=== PATIENT | female | born 1975 | race Caucasian/White ===

== ENCOUNTER 2022-05-09 09:32 | Emergency (ER) | payer BC ==
--- OUTSIDE RECORDS SUMMARY | 2022-05-09 09:38 | XMS REPORT | Continuity of Care Document ---
:1975 Author Organization [facility] t Address [address] [facility] [facility] [place] [address] Care Team Providers Name Role Phone Pcp, Patient Does Not Have A Primary Care Physician +[id number] Doctor Unassigned, Sarepta Attending Clinician Unavailable ROC LOUIS Attending Clinician Unavailable Roc Louis MD Attending Clinician DIOR MALONE Attending Clinician Unavailable Dior Goode Attending Clinician Meli Esparza PA-C Attending Clinician LUCIANO FERNANDEZ Attending Clinician Unavailable Luciano Fernandez DO Attending Clinician Nurse, [facility] Attending Clinician Unavailable BRAYDEN DAO Attending Clinician Unavailable Brayden Dao MD Attending Clinician JENAE MEDINA Attending Clinician Unavailable [facility] Attending Clinician Unavailable Jenae Castellanos Attending Clinician LUCIANO FERNANDEZ Admitting Clinician Unavailable BRAYDEN DAO Admitting Clinician Unavailable Payers Payer Name Policy Type Policy Number Effective Date Expiration Date S ource Problems Condition Condition Condition Status Onset Resolution Last Treating Co mments Source Name Details Category Date Date Treatment Clinician Date No known No known Disease Unive rs active active ity of problems problems [facility] Allergies, Adverse Reactions, Alerts Allergy Allergy Status Severity Reaction(s) Onset Inactive Treating Comm ents Source Name Type Date Date Clinician Diazepam Propensi Active Other - See 2020-03 Patient Univers ty to comments 2-13 stated ity of adverse 00:00: that [place] reaction 00 "valium Medical s knocks me Branch out for 2-3 days" DIAZEPAM DRUG Active Other-Cmnt 2020-03 Univ ers INGREDI 2-13 ity of 00:00: [place] 00 Medical Branch Penicill Propensi Active Anaphylaxis 2020-0 U nivers ins ty to 09-02 ity of adverse 00:00: [place] reaction 00 Medical s Branch Penicill Propensi Active Anaphylaxis 2020-0 U nivers ins ty to 09-02 ity of adverse 00:00: [place] reaction 00 Medical s Branch Cephalex Propensi Active Anaphylaxis 2020-0 U nivers in ty to 09-02 ity of adverse 00:00: [place] reaction 00 Medical s Branch Penicill Propensi Active Anaphylaxis 2020-0 U nivers ins ty to 09-02 ity of adverse 00:00: [place] reaction 00 Medical s Branch CEPHALEX DRUG Active Anaphylaxis Uni vers IN INGREDI 09-02 ity of 00:00: [place] [facility] PENICILL Drug Active Anaphylaxis 2020-0 Uni vers INS Class 09-02 ity of 00:00: [place] 00 Medical Branch NO KNOWN Drug Active Univers ALLERGIE Class ity of S [facility] Social History Social Habit Start Date Stop Date Quantity Comments Source History of Smokes tobacco [place] of tobacco use daily [facility] Exposure to 2021-11-15 2021-11-25 Not sure [facility] SARS-CoV-2 00:00:00 20:45:00 [facility] (event) [place] Tobacco use and 2021-11-01 2021-11-01 Smokeless tobacco Un iversity of exposure 00:00:00 00:00:00 non-user [facility] Sex Ass[birth year] At [birth year] Universit y of 00:00:00 00:00:00 [facility] Smoking Status Start Date Stop Date Source [facility] Smokes tobacco daily 2021-11-01 00:00:00 Univers ity [facility] Former smoker 2020-09-02 00:00:00 2020-09-02 00:00:00 Universi ty [facility] Medications Ordered Filled Start Stop Current Ordering Indication Dosage Frequency Signature Comments Components Source Medication Medication Date Date Medication? Clinician (SIG) Name Name diclofenac Yes [id number] 75mg Take 1 Univers 75 mg EC 9-26 [id number] tablet by ity of tablet 00:00: mouth in [address] and 1 tablet in the evening. Take with meals. diclofenac 2-0 Yes [id number] 75mg Take 1 Univers 75 mg EC 9-26 [id number] tablet by ity of tablet 00:00: mouth in [place] [address] the [facility] and 1 tablet in the evening. Take with meals. diclofenac 2-0 Yes [id number] 75mg Take 1 Univers 75 mg EC 9-26 [id number] tablet by ity of tablet 00:00: mouth in [address] and 1 tablet in the evening. Take with meals. diclofenac 2021-0 Yes [id number] 75mg Take 1 Univers 75 mg EC 9-26 [id number] tablet by ity of tablet 00:00: mouth in [address] and 1 tablet in the evening. Take with meals. diclofenac 2021-0 Yes [id number] 75mg Take 1 Univers 75 mg EC 9-26 [id number] tablet by ity of tablet 00:00: mouth in [address] and 1 tablet in the evening. Take with meals. ketorolac 2021-0 2021- No [id number] 30mg Uni vers (TORADOL) 11-01 ity of injection 23:15: 22:13 [place] 30 mg 00 :00 [facility] ketorolac 2021-0 2021- No [id number] 30mg 30 mg, U nivers (TORADOL) 11-01 Intramuscu ity of injection 23:15: 22:13 [place], ONCE, [place] 30 mg 00 :00 1 dose, On Medical [facility] 11/01/21 Branch at 1815, Routine cyclobenzap 2021-0 Yes [id number] 10mg Take 1 Univers rine 10 mg 9-01 tablet by ity of tablet 00:00: mouth 3 [place] [address] (three) Medical times [place] daily as needed for Muscle Spasms. cyclobenzap 2021-0 Yes [id number] 10mg Take 1 Univers rine 10 mg 9-01 tablet by ity of tablet 00:00: mouth 3 [place] 00 (three) [facility] times [place] daily as needed for Muscle Spasms. cyclobenzap 202-0 Yes [id number] 10mg Take 1 Univers rine 10 mg 9-01 tablet by ity of tablet 00:00: mouth 3 [place] (three) Medical times Branch daily as needed for Muscle Spasms. cyclobenzap 2022-0 Yes [id number] 10mg Take 1 Univers rine 10 mg 9-01 tablet by ity of tablet 00:00: mouth 3 (three) Medical times Branch daily as needed for Muscle Spasms. cyclobenzap 2022-0 Yes [id number] 10mg Take 1 Univers rine 10 mg 9-01 tablet by ity of tablet 00:00: mouth 3 [place] (three) Medical times Branch daily as needed for Muscle Spasms. cyclobenzap 2022-0 Yes [id number] 10mg Take 1 Univers rine 10 mg 9-01 tablet by ity of tablet 00:00: mouth 3 [place] (three) Medical times Branch daily as needed for Muscle Spasms. cyclobenzap 2022-0 Yes [id number] 10mg Take 1 Univers rine 10 mg 9-01 tablet by ity of tablet 00:00: mouth 3 [place] (three) Medical times Branch daily as needed for Muscle Spasms. cyclobenzap 2022-0 Yes [id number] 10mg Take 1 Univers rine 10 mg 9-01 tablet by ity of tablet 00:00: mouth 3 [place] (three) Medical times Branch daily as needed for Muscle Spasms. cyclobenzap 2022-0 Yes [id number] 10mg Take 1 Univers rine 10 mg 9-01 tablet by ity of tablet 00:00: mouth 3 [place] (three) Medical times Branch daily as needed for Muscle Spasms. cyclobenzap 2-0 Yes [id number] 10mg Take 1 Univers rine 10 mg 9-01 tablet by ity of tablet 00:00: mouth 3 [place] (three) Medical times Branch daily as needed for Muscle Spasms. methylpredn 2021-0 Yes 125mg 125 mg, Un divya isolone sod 06-26 Intravenou it y of succ 23:00: s, Q6H, [place] (SOLU-MEDRO 00 First dose Me dical L) on Fri Branch injection 06/26/21 at 125 mg 1800, Until Discontinu ed, Routine ipratropium 2-0 2022- No 3mL 3 mL, Univ ers -albuteroL 06-26 04- Inhalation it y of (DUONEB) 18:15: 17:55 , ONCE, 1 [place] as 0.5 mg-3 00 :00 dose, On Medical mg(2.5 mg Tue Branch base)/3 mL 06/26/21 at nebulizer 1315, solution 3 Routine mL ipratropium 2022-0 Yes 3mL 3 mL, Unive rs -albuteroL 06-26 Inhalation ity of (DUONEB) 17:00: , QID, [place] 0.5 mg-3 00 First dose Medic al mg(2.5 mg on Tue Branch base)/3 mL 06/26/21 at nebulizer 1200, solution 3 Until mL Discontinu ed, Routine methylPREDN 2022-0 Yes [id number] Take by Univers ISolone -26 mouth ity of (MEDROL, 00:00: SEE-INSTRU Krish[place] as BELÉN,) 4 mg 00 CTIONS. Medica l tablets follow Branch package directions methylPREDN 2022-0 Yes [id number] Take by Univers ISolone - mouth ity of (MEDROL, 00:00: SEE-INSTRU [place] BELÉN,) 4 mg 00 CTIONS. Medica l tablets follow Branch package directions methylPREDN 2022-0 Yes [id number] Take by Univers ISolone - mouth ity of (MEDROL, 00:00: SEE-INSTRU [place] BELÉN,) 4 mg 00 CTIONS. Medica l tablets follow Branch package directions methylPREDN 2022-0 Yes [id number] Take by Univers ISolone -26 mouth ity of (MEDROL, 00:00: SEE-INSTRU [place] BELÉN,) 4 mg 00 CTIONS. Medica l tablets follow Branch package directions methylPREDN 2022-0 Yes [id number] Take by Univers ISolone -26 mouth ity of (MEDROL, 00:00: SEE-INSTRU [place] BEL[place],) 4 mg 00 CTIONS. Medica l tablets follow Branch package directions methylPREDN 2022-0 Yes [id number] Take by Univers ISolone 4-26 mouth ity of (MEDROL, 00:00: SEE-INSTRU [place],) 4 mg 00 CTIONS. Medica l tablets follow Branch package directions methylPREDN 2022-0 Yes [id number] Take by Univers ISolone 4-26 mouth ity of (MEDROL, 00:00: SEE-INSTRU [place],) 4 mg 00 CTIONS. Medica l tablets follow Branch package directions methylPREDN 2021-0 Yes [id number] Take by [facility] ISolone - mouth ity of (MEDROL, 00:00: SEE-INSTRU [place],) 4 mg 00 CTIONS. Medica l tablets follow Branch package directions methylPREDN 2021-0 Yes [id number] Take by [facility] ISolone - mouth ity of (MEDROL, 00:00: SEE-INSTRU [place] BELÉ[place],) 4 mg 00 CTIONS. Medica l tablets follow Branch package directions methylPREDN 2021-0 Yes [id number] Take by [facility] ISolone 4-26 mouth ity of (MEDROL, 00:00: SEE-INSTRU [place] BELÉN,) 4 mg 00 CTIONS. Medica l tablets follow Branch package directions methylPREDN 2021-0 Yes [id number] Take by [facility] ISolone -26 mouth ity of (MEDROL, 00:00: SEE-INSTRU [place] BELÉN,) 4 mg 00 CTIONS. Medica l tablets follow Branch package directions albuterol 2021- No [id number] 2.5mg Inhale 3 Univers 2.5 mg /3 06-26 05-11 mL every 4 ity of mL (0.083 00:00: 04:59 (four) [place] %) 00 :00 hours for Medical nebulizer 14 days. Branch solution May also nebulize one extra every 6 hours. LISINOPRIL 2020-03 Yes Take by [facility] ers ORAL 1-05 mouth. ity of 11:27: [address] sertraline 2020-03 Yes Take by Uni vers HCl (ZOLOFT 1-05 mouth. ity of ORAL) 11:27: [address] quetiapine 2020-03 Yes Take by [facility] ers fumarate 1-05 mouth. ity of (SEROQUEL 11:27: [address] MAGNESIUM 2020-03 Yes Take [facility] ORAL 1-05 mouth. ity of 11:27: [address] atorvastati 2020-03 Yes Take by Uni vers n calcium 1-05 mouth. ity of (ATORVASTAT 11:27: [place] IN ORAL) [address] [place] [address] LISINOPRIL 2020-03 Yes Take by [facility] ers ORAL 1-05 mouth. ity of 11:27: [address] sertraline 2020-03 Yes Take by Univ ers HCl (ZOLOFT 1-05 mouth. ity of ORAL) 11:27: [address] quetiapine 2020-03 Yes Take by Univ ers fumarate 1-05 mouth. ity of (SEROQUEL 11:27: [place] ORAL) [address] [place] [address] MAGNESIUM 2020-03 Yes Take by Unive rs ORAL 1-05 mouth. ity of 11:27: [address] atorvastati 2020-03 Yes Take by Uni vers n calcium 1-05 mouth. ity of (ATORVASTAT 11:27: [place] IN ORAL) [address] [place] [address] LISINOPRIL 2020-03 Yes Take by Univ ers ORAL 1-05 mouth. ity of 11:27: [address] sertraline 2020-03 Yes Take by Univ ers HCl (ZOLOFT 1-05 mouth. ity of ORAL) 11:27: [address] quetiapine 2020-03 Yes Take by Univ ers fumarate 1-05 mouth. ity of (SEROQUEL 11:27: [place] ORAL) [address] [place] [address] MAGNESIUM 2020-03 Yes Take by Unive rs ORAL 1-05 mouth. ity of 11:27: [address] atorvastati 2020-03 Yes Take by Uni vers n calcium 1-05 mouth. ity of (ATORVASTAT 11:27: [place] IN ORAL) [address] [place] [address] LISINOPRIL 2020-03 Yes Take by Univ ers ORAL 1-05 mouth. ity of 11:27: [address] sertraline 2020-03 Yes Take by Univ ers HCl (ZOLOFT 1-05 mouth. ity of ORAL) 11:27: [address] quetiapine 2020-03 Yes Take by Univ ers fumarate 1-05 mouth. ity of (SEROQUEL 11:27: [place] ORAL) [address] [place] [address] MAGNESIUM 2020-03 Yes Take by Unive rs ORAL 1-05 mouth. ity of 11:27: [address] atorvastati 2020-03 Yes Take by Uni vers n calcium 1-05 mouth. ity of (ATORVASTAT 11:27: [place] IN ORAL) [address] [place] [address] LISINOPRIL 2020-03 Yes Take by Univ ers ORAL 1-05 mouth. ity of 11:27: [address] sertraline 2020-03 Yes Take by Univ ers HCl (ZOLOFT 1-05 mouth. ity of ORAL) 11:27: [address] quetiapine 2020-03 Yes Take by Univ ers fumarate 1-05 mouth. ity of (SEROQUEL 11:27: [place] ORAL) [address] [place] [address] MAGNESIUM 2020-03 Yes Take by Unive rs ORAL 1-05 mouth. ity of 11:27: [address] atorvastati 2020-03 Yes Take by Uni vers n calcium 1-05 mouth. ity of (ATORVASTAT 11:27: [place] IN ORAL) [address] [place] [address] LISINOPRIL 2020-03 Yes Take by Univ ers ORAL 1-05 mouth. ity of 11:27: [address] sertraline 2020-03 Yes Take by Univ ers HCl (ZOLOFT 1-05 mouth. ity of ORAL) 11:27: [address] quetiapine 2020-03 Yes Take by Univ ers fumarate 1-05 mouth. ity of (SEROQUEL 11:27: [place] ORAL) [address] [place] [address] MAGNESIUM 2020-03 Yes Take by Unive rs ORAL 1-05 mouth. ity of 11:27: [address] atorvastati 2020-03 Yes Take by Uni vers n calcium 1-05 mouth. ity of (ATORVASTAT 11:27: [place] IN ORAL) [address] [place] [address] LISINOPRIL 2020-03 Yes Take by Univ ers ORAL 1-05 mouth. ity of 11:27: [address] sertraline 2020-03 Yes Take by Univ ers HCl (ZOLOFT 1-05 mouth. ity of ORAL) 11:27: [address] quetiapine 2020-03 Yes Take by Univ ers fumarate 1-05 mouth. ity of (SEROQUEL 11:27: [place] ORAL) [address] [place] [address] MAGNESIUM 2020-03 Yes Take by Unive rs ORAL 1-05 mouth. ity of 11:27: [address] atorvastati 2020-03 Yes Take by Uni vers n calcium 1-05 mouth. ity of (ATORVASTAT 11:27: [place] IN ORAL) [address] [place] [address] LISINOPRIL 2020-03 Yes Take by Univ ers ORAL 1-05 mouth. ity of 11:27: [address] sertraline 2020-03 Yes Take by Univ ers HCl (ZOLOFT 1-05 mouth. ity of ORAL) 11:27: [address] quetiapine 2020-03 Yes Take by Univ ers fumarate 1-05 mouth. ity of (SEROQUEL 11:27: [place] ORAL) [address] [place] [address] MAGNESIUM 2020-03 Yes Take by Unive rs ORAL 1-05 mouth. ity of 11:27: [address] atorvastati 2020-03 Yes Take by Uni vers n calcium 1-05 mouth. ity of (ATORVASTAT 11:27: [place] IN ORAL) [address] [place] [address] LISINOPRIL 2020-03 Yes Take by Univ ers ORAL 1-05 mouth. ity of 11:27: [address] sertraline 2020-03 Yes Take by Univ ers HCl (ZOLOFT 1-05 mouth. ity of ORAL) 11:27: [address] quetiapine 2020-03 Yes Take by Univ ers fumarate 1-05 mouth. ity of (SEROQUEL 11:27: [place] ORAL) [address] [place] [address] MAGNESIUM 2020-03 Yes Take by Unive rs ORAL 1-05 mouth. ity of 11:27: [address] atorvastati 2020-03 Yes Take by Uni vers n calcium 1-05 mouth. ity of (ATORVASTAT 11:27: [place] IN ORAL) [address] [place] [address] LISINOPRIL 2020-03 Yes Take by Univ ers ORAL 1-05 mouth. ity of 11:27: [address] sertraline 2020-03 Yes Take by Univ ers HCl (ZOLOFT 1-05 mouth. ity of ORAL) 11:27: [address] quetiapine 2020-03 Yes Take by Univ ers fumarate 1-05 mouth. ity of (SEROQUEL 11:27: [place] ORAL) [address] [place] [address] MAGNESIUM 2020-03 Yes Take by Unive rs ORAL 1-05 mouth. ity of 11:27: [address] atorvastati 2020-03 Yes Take by Uni vers n calcium 1-05 mouth. ity of (ATORVASTAT 11:27: [place] IN ORAL) [address] [place] [address] LISINOPRIL 2020-03 Yes Take by Univ ers ORAL 1-05 mouth. ity of 11:27: [address] sertraline 2020-03 Yes Take by Univ ers HCl (ZOLOFT 1-05 mouth. ity of ORAL) 11:27: [address] quetiapine 2020-03 Yes Take by Univ ers fumarate 1-05 mouth. ity of (SEROQUEL 11:27: [place] ORAL) [address] [place] [address] MAGNESIUM 2020-03 Yes Take by Unive rs ORAL 1-05 mouth. ity of 11:27: [address] atorvastati 2020-03 Yes Take by Uni vers n calcium 1-05 mouth. ity of (ATORVASTAT 11:27: [place] IN ORAL) [address] [place] [address] LISINOPRIL 2020-03 Yes Take by Univ ers ORAL 1-05 mouth. ity of 11:27: [address] sertraline 2020-03 Yes Take by Univ ers HCl (ZOLOFT 1-05 mouth. ity of ORAL) 11:27: [address] quetiapine 2020-03 Yes Take by Univ ers fumarate 1-05 mouth. ity of (SEROQUEL 11:27: [place] ORAL) [address] [place] [address] MAGNESIUM 2020-03 Yes Take by Unive rs ORAL 1-05 mouth. ity of 11:27: [address] atorvastati 2020-03 Yes Take by Uni vers n calcium 1-05 mouth. ity of (ATORVASTAT 11:27: [place] IN ORAL) [address] [place] [address] LISINOPRIL 2020-03 Yes Take by Univ ers ORAL 1-05 mouth. ity of 11:27: [address] sertraline 2020-03 Yes Take by Univ ers HCl (ZOLOFT 1-05 mouth. ity of ORAL) 11:27: [address] quetiapine 2020-03 Yes Take by Univ ers fumarate 1-05 mouth. ity of (SEROQUEL 11:27: [place] ORAL) [address] [place] [address] MAGNESIUM 2020-03 Yes Take by Unive rs ORAL 1-05 mouth. ity of 11:27: [address] atorvastati 2020-03 Yes Take by Uni vers n calcium 1-05 mouth. ity of (ATORVASTAT 11:27: [place] IN ORAL) [address] [place] [address] LISINOPRIL 2020-03 Yes Take by Univ ers ORAL 1-05 mouth. ity of 11:27: [address] sertraline 2020-03 Yes Take by Univ ers HCl (ZOLOFT 1-05 mouth. ity of ORAL) 11:27: [address] quetiapine 2020-03 Yes Take by Univ ers fumarate 1-05 mouth. ity of (SEROQUEL 11:27: [place] ORAL) [address] [place] [address] MAGNESIUM 2020-03 Yes Take by Unive rs ORAL 1-05 mouth. ity of 11:27: [address] atorvastati 2020-03 Yes Take by Uni vers n calcium 1-05 mouth. ity of (ATORVASTAT 11:27: [place] IN ORAL) [address] [place] [address] LISINOPRIL 2020-03 Yes Take by Univ ers ORAL 1-05 mouth. ity of 11:27: [address] sertraline 2020-03 Yes Take by Univ ers HCl (ZOLOFT 1-05 mouth. ity of ORAL) 11:27: [address] quetiapine 2020-03 Yes Take by Univ ers fumarate 1-05 mouth. ity of (SEROQUEL 11:27: [place] ORAL) [address] [place] [address] MAGNESIUM 2020-03 Yes Take by Unive rs ORAL 1-05 mouth. ity of 11:27: [address] atorvastati 2020-03 Yes Take by Uni vers n calcium 1-05 mouth. ity of (ATORVASTAT 11:27: [place] IN ORAL) [address] [place] [address] LISINOPRIL 2020-03 Yes Take by Univ ers ORAL 1-05 mouth. ity of 11:27: [address] sertraline 2020-03 Yes Take by Univ ers HCl (ZOLOFT 1-05 mouth. ity of ORAL) 11:27: [address] quetiapine 2020-03 Yes Take by Univ ers fumarate 1-05 mouth. ity of (SEROQUEL 11:27: [place] ORAL) [address] [place] [address] MAGNESIUM 2020-03 Yes Take by Unive rs ORAL 1-05 mouth. ity of 11:27: [address] atorvastati 2020-03 Yes Take by Uni vers n calcium 1-05 mouth. ity of (ATORVASTAT 11:27: [place] IN ORAL) [address] [place] [address] LISINOPRIL Yes Take by Univ ers ORAL 7-03 mouth. ity of 19:24: [place] 49 Medical Branch sertraline Yes Take by Univ ers HCl (ZOLOFT 7-03 mouth. ity of ORAL) 19:24: [place] 49 Medical Branch quetiapine Yes Take by Univ ers fumarate 7-03 mouth. ity of (SEROQUEL 19:24: [place] ORAL) 49 Medical Branch MAGNESIUM Yes Take by Unive rs ORAL 7-03 mouth. ity of 19:24: [place] 49 Medical Branch atorvastati Yes Take by Uni vers n calcium 7-03 mouth. ity of (ATORVASTAT 19:24: [place] IN ORAL) 49 Medical Branch traMADoL 50 Yes [id number] 50mg Take 1 Univ ers mg tablet 7-03 tablet by ity o f 00:00: mouth [place] 00 every 4 Medical (four) Branch hours as needed (pain requiring narcotic). Indication s: acute pain traMADoL 50 0 Yes [id number] 50mg Take 1 Univ ers mg tablet 7-03 tablet by ity o f 00:00: mouth [place] 00 every 4 Medical (four) Branch hours as needed (pain requiring narcotic). Indication s: acute pain traMADoL 50 0 Yes [id number] 50mg Take 1 Univ ers mg tablet 7-03 tablet by ity o f 00:00: mouth [place] 00 every 4 Medical (four) Branch hours as needed (pain requiring narcotic). Indication s: acute pain traMADoL 50 0 Yes [id number] 50mg Take 1 Univ ers mg tablet 7-03 tablet by ity o f 00:00: mouth [place] 00 every 4 Medical (four) Branch hours as needed (pain requiring narcotic). Indication s: acute pain traMADoL 50 0 Yes [id number] 50mg Take 1 Univ ers mg tablet 7-03 tablet by ity o f 00:00: mouth [place] 00 every 4 Medical (four) Branch hours as needed (pain requiring narcotic). Indication s: acute pain traMADoL 50 0 Yes [id number] 50mg Take 1 Univ ers mg tablet 7-03 tablet by ity o f 00:00: mouth [place] 00 every 4 Medical (four) Branch hours as needed (pain requiring narcotic). Indication s: acute pain traMADoL 50 2020-0 Yes [id number] 50mg Take 1 Univ ers mg tablet 7-03 tablet by ity o f 00:00: mouth [place] 00 every 4 Medical (four) Branch hours as needed (pain requiring narcotic). Indication s: acute pain traMADoL 50 2020-0 Yes [id number] 50mg Take 1 Univ ers mg tablet 7-03 tablet by ity o f 00:00: mouth [place] 00 every 4 Medical (four) Branch hours as needed (pain requiring narcotic). Indication s: acute pain traMADoL 50 2020-0 Yes [id number] 50mg Take 1 Univ ers mg tablet 7-03 tablet by ity o f 00:00: mouth [place] 00 every 4 Medical (four) Branch hours as needed (pain requiring narcotic). Indication s: acute pain traMADoL 50 2020-0 Yes [id number] 50mg Take 1 Univ ers mg tablet 7-03 tablet by ity o f 00:00: mouth [place] 00 every 4 Medical (four) Branch hours as needed (pain requiring narcotic). Indication s: acute pain traMADoL 50 2020-0 Yes [id number] 50mg Take 1 Univ ers mg tablet 7-03 tablet by ity o f 00:00: mouth [place] 00 every 4 Medical (four) Branch hours as needed (pain requiring narcotic). Indication s: acute pain traMADoL 50 2020-0 Yes [id number] 50mg Take 1 Univ ers mg tablet 7-03 tablet by ity o f 00:00: mouth [place] 00 every 4 Medical (four) Branch hours as needed (pain requiring narcotic). Indication s: acute pain traMADoL 50 2020-0 Yes [id number] 50mg Take 1 Univ ers mg tablet 7-03 tablet by ity o f 00:00: mouth [place] 00 every 4 Medical (four) Branch hours as needed (pain requiring narcotic). Indication s: acute pain traMADoL 50 2020-0 Yes [id number] 50mg Take 1 Univ ers mg tablet 7-03 tablet by ity o f 00:00: mouth [place] 00 every 4 Medical (four) Branch hours as needed (pain requiring narcotic). Indication s: acute pain traMADoL 50 2020-0 Yes [id number] 50mg Take 1 Univ ers mg tablet 7-03 tablet by ity o f 00:00: mouth [place] 00 every 4 Medical (four) Branch hours as needed (pain requiring narcotic). Indication s: acute pain traMADoL 50 2020-0 Yes [id number] 50mg Take 1 Univ ers mg tablet 7-03 tablet by ity o f 00:00: mouth [place] 00 every 4 Medical (four) Branch hours as needed (pain requiring narcotic). Indication s: acute pain traMADoL 50 2020-0 Yes [id number] 50mg Take 1 Univ ers mg tablet 7-03 tablet by ity o f 00:00: mouth [place] 00 every 4 Medical (four) Branch hours as needed (pain requiring narcotic). Indication s: acute pain Vital Signs Vital Name Observation Time Observation Value Comments Source Systolic blood 2021-11-26 19:12:00 150 mm[Hg] [facility] Diastolic blood 2021-11-26 19:12:00 90 mm[facility]Hg] [facility] Heart rate 2021-11-26 19:12:00 92 /min [facility] Body height 2021-11-26 19:12:[facility] 2021-11-26 19:12:00 100.699 kg Universi [facility] BMI 2021-11-26 19:12:00 43.36 kg/m2 Universi [facility] Systolic blood 2021-11-01 21:38:00 116 mm[Hg] [facility] Diastolic blood 2021-11-01 21:38:00 72 mm[Hg] [facility] Heart rate 2021-11-01 21:38:00 100 /[facility] temperature 2021-11-01 21:38:00 36.56 [facility] 2021-11-01 21:38:00 18 /min [facility] Body height 2021-11-01 21:38:00 152.4 cm [facility] Body weight 2021-11-01 21:38:00 100.699 kg [facility] [facility] BMI 2021-11-01 21:38:00 43.36 kg/m2 [facility] in 2021-11-01 21:38:00 95 /min [facility] of Arterial blood by [facility] Pulse oximetry Branch Respiratory rate 2021-06-26 18:06:00 18 /min [facility] [place] [facility] Oxygen saturation in 2021-06-26 18:06:00 100 /min [facility] Arterial blood by [facility] Pulse oximetry Branch Systolic blood 2021-06-26 18:00:00 149 mm[Hg] Univer [facility] [place] [facility] Diastolic blood 2021-06-26 18:00:00 81 mm[Hg] Unive [facility] [place] [facility] Heart rate 2021-06-26 18:00:00 80 /min [facility] [place] [facility] Body temperature 2021-06-26 16:10:00 36.67 Fatou [facility] [place] [facility] Body weight 2021-06-26 16:10:00 91.173 kg [facility] [place] [facility] BMI 2021-06-26 16:10:00 39.26 kg/m2 [facility] [place] [facility] Systolic blood 2021-06-26 15:17:00 166 mm[Hg] [facility] [place] [facility] Diastolic blood 2021-06-26 15:17:00 97 mm[Hg] [facility] [place] [facility] Heart rate 2021-06-26 15:17:00 87 /min [facility] [place] [facility] Body temperature 2021-06-26 15:17:00 36.56 Fatou [facility] [place] [facility] Respiratory rate 2021-06-26 15:17:00 28 /min [facility] [place] [facility] Oxygen saturation in 2021-06-26 15:17:00 99 /min [facility] Arterial blood by [facility] Pulse oximetry Branch Body height 2021-03-07 19:06:00 152.4 cm [facility] [place] [facility] Body weight 2021-03-07 19:06:00 91.173 kg [facility] [place] [facility] BMI 2021-03-07 19:06:00 39.26 kg/m2 [facility] [place] [facility] Systolic blood 2021-03-07 19:06:00 119 mm[Hg] [facility] [place] [facility] Diastolic blood 2021-03-07 19:06:00 76 mm[Hg] [facility] [place] [facility] Heart rate 2021-03-07 19:06:00 84 /min [facility] [place] [facility] Systolic blood 2021-02-12 20:52:00 120 mm[Hg] [facility] [place] [facility] Diastolic blood 2021-02-12 20:52:00 75 mm[Hg] [facility] [place] [facility] Heart rate 2021-02-12 20:52:00 70 /min [facility] [place] [facility] Body height 2021-02-12 20:52:00 152.4 cm [facility] [place] [facility] Body weight 2021-02-12 20:52:00 91.173 kg [facility] [place] [facility] BMI 2021-02-12 20:52:00 39.26 kg/m2 [facility] [place] [facility] Oxygen saturation in 2021-02-12 20:52:00 97 /min [facility] by [place] [facility] Pulse oximetry Branch Systolic blood 2020-09-02 19:21:00 115 mm[Hg] [facility] [place] [facility] Diastolic blood 2020-09-02 19:21:00 69 mm[Hg] [facility] [place] [facility] Heart rate 2020-09-02 19:21:00 95 /min [facility] [place] [facility] Body temperature 2020-09-02 19:21:00 36.72 Fatou [facility] [place] [facility] Respiratory rate 2020-09-02 19:21:00 18 /min [facility] [place] [facility] Body height 2020-09-02 19:21:00 152.4 cm [facility] [place] [facility] Body weight 2020-09-02 19:21:00 153.316 kg [facility] [place] [facility] BMI 2020-09-02 19:21:00 66.01 kg/m2 [facility] [place] [facility] Oxygen saturation in 2020-09-02 19:21:00 97 /min [facility] blood by [place] [facility] Pulse oximetry Branch Procedures Procedure Date / Time Performing Clinician Source Performed EXTERNAL PROVIDER 2022-04-16 06:01:00 Doctor Unassigned, No [facility] [place] RECORDS Name Medical Branch EXTERNAL PROVIDER 2021-12-18 05:01:00 Doctor Unassigned, No [facility] [place] RECORDS Name Medical Branch CONSENT/REFUSAL FOR 2021-11-26 18:55:25 Doctor Unassigned, No [facility] [place] DIAGNOSIS AND TREATMENT Name Medical Branch AUTHORIZATION FOR 2021-11-16 05:01:00 Doctor Unassigned, No [facility] Name Medical Branch XR CHEST 1 VW 2021-06-26 17:15:00 Singer Luciano [facility] RAPID INFLUENZA A/B 2021-06-26 16:59:00 Luciano [facility] Medical Branch COVID-19 (ID NOW RAPID 2021-06-26 16:59:00 Luciano Fernandez [facility] TESTING) Medical Branch LIPASE 2021-06-26 16:29:00 Singer [facility] TROPONIN I 2021-06-26 16:29:00 Singer [facility] COMP. METABOLIC PANEL 2021-06-26 16:29:00 Luciano Fernandez [facility] ([id number]) Medical Branch CBC WITH DIFF 2021-06-26 16:29:00 Singer [facility] PROTHROMBIN TIME / INR 2021-06-26 16:29:00 Luciano Fernandez [facility] ACTIVATED PARTIAL 2021-06-26 16:29:00 Singer Luciano [facility] THRMPLAS AMRIT Medical Branch CONSENT/REFUSAL FOR 2021-06-26 16:02:56 Doctor Unassigned, No [facility] [place] [facility]REAT[facility] Name Medical Branch NOTICE OF PRIVACY 2021-06-26 16:01:28 Doctor Unassigned, No [facility] PRACTICES Name Medical Branch TRANSTHORACIC ECHO (TTE) 2021-03-07 19:33:58 Brayden Dao [facility] COMPLETE Medical Branch CONSENT/REFUSAL FOR 2020-09-02 19:14:51 Doctor Unassigned, No [facility] [place] DIAGNOSIS AND TREATMENT Name Medical Branch Encounters Start End Encounter Admission Attending Care Care Encounter Source Date/Time Date/Time Type Type Clinicians Facility Department ID 2022-04-16 2022-04-16 Orders Doctor GARRISON 1.2.840.114 [id number] Univers 00:00:00 00:00:00 Only UnassRITA reed [id number] ity of [facility] 4.2.7.2.686 Krishna as [phone] [address] 2021-12-18 2021-12-18 Orders Doctor MELI 1.2.840.114 [id number] Univers 00:00:00 00:00:00 Only Unassigned, RITA [id number] ity of [facility] 4.2.7.2.686 Krishna as [phone] [address] 2021-11-26 2021-11-26 Outpatient [facility] [id number] [facility] 14:15:00 14:57:11 ROC ity of [facility] 2021-11-26 2021-11-26 Office [facility] [id number] Univers 14:15:00 14:57:11 Visit Roc [employer] [id number] it y of [place] 4.2.7.2.686 Krishna as FRANCHESKA?BLEA [phone] [facility] [address] MEDICAL OFFICE [facility] 2021-11-26 2021-11-26 Telephone [facility] 1.2.840.114 [id number] Univers 00:00:00 00:00:00 Roc Fermin [employer] [id number] it y of [place] [id number] Krishna as FRANCHESKA?BLEA [phone] [address] OFFICE [facility] 2021-11-26 2021-11-26 Orders Doctor MELI 1.2.840.114 [id number] Univers 00:00:00 00:00:00 Only Unassigned, RITA [id number] ity of [facility] 4.2.7.2.686 Krishna as [phone] [address] 2021-11-26 2021-11-26 Letter [facility] [id number] Univers 00:00:00 00:00:00 (Out) Roc Fermin [employer] [id number] it y of [place] 4.2.7.2.686 Krishna as FRANCHESKA?BLEA [phone] [address] MEDICAL OFFICE [facility] 2021-11-23 2021-11-23 Telephone [facility] 1.2.840.114 [id number] Univers 00:00:00 00:00:00 Roc Fermin [facility] [id number] it y of [facility] 4.2.7.2.686 Krishna as FRANCHESKA?BLEA [phone] De nathaniel [place] [address] MEDICAL OFFICE BUILDING 2021-11-16 2021-11-16 Orders Doctor MELI 1.2.840.114 [id number] Univers 00:00:00 00:00:00 Only Unassigned, RITA 350.1.13.10 ity of [place] [facility] 4.2.7.2.686 Krishna as [phone] [facility] [address] 2021-11-01 2021-11-01 Outpatient R KIRA [facility] [id number] Univers 16:20:00 17:15:15 DIOR [facility] 2021-11-01 2021-11-01 Urgent Kira [facility] 1.2.840.114 [id number] Univers 16:20:00 17:15:15 Care Isaias Meli [facility] 350.1.13.10 ity of [place] 4.2.7.2.686 Krishna as FRANCHESKA?BLEA [phone] De nathaniel [place] [address] [facility] OFFICE [facility] 2021-06-26 2021-06-26 Emergency X [facility] ERT [id number] Univers 11:11:00 13:46:00 LUCIANO marielnorris [facility] 2021-06-26 2021-06-26 Emergency [facility] [id number] Univers 11:11:00 13:46:00 Luciano ESCOBAR 350.1.13.10 i ty of [place] [phone] [facility] [address] 2021-06-26 2021-06-26 Nurse Nurse, Adrian Pat[facility] 1.2.840.114 [id number] Univers 10:50:00 11:10:00 Visit Kira [facility] [id number] ity of [facility] 4.2.7.2.686 Krishna as FRANCHESKA?BLEA [phone] De dical KNEY [address] MEDICAL OFFICE BUILDING 2021-06-26 2021-06-26 Outpatient R GREEN, [facility] [id number] Univers 10:50:00 10:50:00 DIOR ity of [facility] 2021-06-26 2021-06-26 Orders Doctor MELI 1.2.840.114 [id number] Univers 00:00:00 00:00:00 Only Unassigned, RITA 350.1.13.10 [facility] 4.2.7.2.686 Krishna as [phone] [address] 2021-06-25 2021-06-25 Outpatient R [facility] [id number] Univers 19:20:00 19:20:00 ity of [facility] 2021-03-07 2021-03-07 Outpatient R [facility] [id number] Univers 12:56:41 23:59:00 QIAMUJUN ity o f [facility] 2021-03-07 2021-03-07 [facility] 1.2.840.114 [id number] Univers 12:56:41 23:59:00 Encounter Brayden ESCOBAR 350.1.13.10 ity [facility] [place] [phone] De dical NAL 843 [facility] 2021-02-27 2021-02-27 Outpatient R [facility] [id number] Univers 15:00:00 15:00:00 QIANGJUN ity o f [facility] 2021-02-27 2021-02-27 Outpatient R [facility] [id number] Univers 15:00:00 15:00:00 QIANGJUN ity o f [facility] 2021-02-19 2021-02-19 Telephone [facility] [id number] Univers 00:00:00 00:00:00 Brayden ESCOBAR 350.1.13.10 ity of [place] [phone] De dical NAL 059 [facility] 2021-02-12 2021-02-12 Office [facility] 1.2.840.114 [id number] Univers 14:42:56 15:15:38 Visit Brayden LUZ 350.1.13.10 ity [facility] 4[place] [phone] [facility] 0[facility] 2021-02-12 2021-02-12 Outpatient R [facility] [id number] Univers 14:40:00 15:15:38 BRAYDEN ity o f [facility] 2021-02-12 2021-02-12 Letter [facility] 1.2.840.114 [id number] Univers 00:00:00 00:00:00 (Out) Brayden LUZ 350.1.13.10 ity [facility] 4[place]2.7.2.[place] [phone] [address] 2021-02-12 2021-02-12 Orders Doctor MELI 1.2.840.114 [id number] Univers 00:00:00 00:00:00 Only Unassigned, RITA 350.1.13.10 ity of [facility] 4.2.7.2.686 Krishna as [phone] [facility] [address] 2020-09-02 2020-09-02 Outpatient [facility] [id number] Univers 14:40:00 14:40:00 [facility] ity [facility] 2020-09-02 2020-09-02 Urgent Provider, [facility] 1.2.840.114 [id number] Univers 14:15:28 14:35:28 Care [facility] 350.1.13.10 ity of [place] 4.2.7.2.686 Krishna as Professio [phone] [facility] [address] 2020-09-02 2020-09-02 Orders Doctor MELI 1.2.840.114 [id number] Univers 00:00:00 00:00:00 Only Unassigned, RITA 350.1.13.10 ity of [facility] 4.2.7.2.686 Krishna as [phone] [place] [address] Branch Results Test Description Test Time Test Comments Results Result Comments Source CBC WITH DIFF 2021-06-26 17:25:10 Test Item Value Reference Range Interpretation Comme nts WBC (test code = 6690-2) See_Comment H [A utomated message] The system which ge nerated this result transmit bob reference range: 4.30 - 1 1.10 10*3/?L. The reference r lisa was not used to interpr et this result as normal/abnor mal. RBC (test code = 789-8) See_Comment [Au tomated message] The system which ge nerated this result transmit bob reference range: 3.93 - 5 .25 10*6/?L. The reference r lisa was not used to interpr et this result as normal/abnor mal. HGB (test code = 718-7) 13.9 g/dL 11.6-15.0 HCT (test code = 4544-3) 42.0 % 35.7-45.2 MCV (test code = 787-2) 87.3 fL 80.6-95.5 MCH (test code = 785-6) 28.9 pg 25.9-32.8 MCHC (test code = 786-4) 33.1 g/dL 31.6-35.1 RDW-SD (test code = 33161-3) 44.8 fL 39.0-49.9 RDW-CV (test code = 788-0) 13.8 % 12.0-15.5 PLT (test code = 777-3) See_Comment [Au tomated message] The system which ge nerated this result transmit bob reference range: 166 - 35 8 10*3/?L. The reference range was not used to interpret th is result as normal/abnormal . MPV (test code = 90313-5) 9.2 fL 9.5-12.9 L NRBC/100 WBC (test code = See_Comment [ Automated message] The [id number]) system which ge nerated this result transmit bob reference range: 0.0 - 10 .0 /100 WBCs. The reference r lisa was not used to interpr et this result as normal/abnor mal. NRBC x10^3 (test code = <0.01 See_Comment [Au tomated message] The 2116496853) system which ge nerated this result transmit bob reference range: 10*3/?L. The reference range was not u sed to interpret this result as normal/abnormal . GRAN MAT (NEUT) % (test code 83.8 % = 770-8) IMM GRAN % (test code = 3.10 % 6772576641) LYMPH % (test code = 736-9) 8.7 % MONO % (test code = 5905-5) 4.3 % EOS % (test code = 713-8) 0.0 % BASO % (test code = 706-2) 0.1 % GRAN MAT x10^3(ANC) (test 11.27 10*3/uL 1.88-7.09 H code = 3044221053) IMM GRAN x10^3 (test code = 0.42 10*3/uL 0.00-0.06 H 7532552524) LYMPH x10^3 (test code = 1.17 10*3/uL 1.32-3.29 L 731-0) MONO x10^3 (test code = 0.58 10*3/uL 0.33-0.92 742-7) EOS x10^3 (test code = <0.03 0.03-0.39 L 711-2) BASO x10^3 (test code = <0.03 0.01-0.07 704-7) Lab Interpretation (test Abnormal code = 03079-8) [facility] [id number] 17:15:24 Test Item Value Reference Interpretation Comments Range TROPONIN I (test 0.002 ng/mL See_Comment [Automated code = 9643369223) message] The system which generated this result transmitted reference range : <=0.034. The reference range was not used to interpret this result as normal/abnormal . ABRAHAM (test code = Reference (Normal) ABRAHAM) Range (defined by the 99th percentile reference limit): <= 0.034 ng/mL Note: Cardiac troponin begins to rise 3-4 hours after the onset of ischemia. Repeat in 4-6 hours if the sample was drawn within 3-4 hours of the onset of the symptom and found normal. Diagnosis of myocardial injury is made with acute changes in cTn concentrations with at least one serial sample above the 99th percentile upper reference limit (URL), taken together with the patient's clinical presentation. Biotin has been reported to cause a negative bias, interpret results relative to patient's use of biotin. Lab Interpretation Normal (test code = 91393-5) [facility]. METABOLIC PANEL (05128)2021-06-26 17:12:03 Test Item Value Reference Range Interpretation Comments NA (test code = 134 mmol/L 135-145 L 9141971840) K (test code = 4.1 mmol/L 3.5-5.0 8975025291) CL (test code = 103 mmol/L 98-108 2612891958) CO2 TOTAL (test code = 20 mmol/L 23-31 L 3991953029) AGAP (test code = 2-16 5242674888) BUN (test code = 14 mg/dL 7-23 0317690638) GLUCOSE (test code = 151 mg/dL 70-110 H 0280987198) CREATININE (test code = 0.65 mg/dL 0.50-1.04 5051636315) TOTAL BILI (test code = 0.4 mg/dL 0.1-1.3 9592778761) CALCIUM (test code = 8.7 mg/dL 8.6-10.6 9575868176) T PROTEIN (test code = 6.4 g/dL 6.3-8.2 5168966713) ALBUMIN (test code = 3.9 g/dL 3.5-5.0 8398979119) ALK PHOS (test code = 82 U/L 34-122 6072880802) ALTv (test code = 24 U/L 5-35 1742-6) AST(SGOT) (test code = 17 U/L 13-40 3875858716) eGFR (test code = mL/min/1.73m2 7708405758) ABRAHAM (test code = ABRAHAM) Association of Glomerular Filtration Rate (GFR) and Staging of Kidney Disease* + --+ --+ ------+| GFR (mL/min/1.73 m2) ?| With Kidney Damage ?| ?Without Kidney Damage+ --------+ --------+ +| ?>90 ?| ?Stage one ?| ? Normal ?+ ---+ ---+ -------+| ?60-89 ?| ?Stage two ?| ? Decreased GFR ? + --+ --+ ------+| ?30-59 ?| ?Stage three ?| ? Stage three ? + --+ --+ ------+| ?15-29 ?| ?Stage four ? | ? Stage four ?+ ---+ ---+ -------+| ?<15 (or dialysis) ? ?| ?Stage five ? | ? Stage five ?+ ---+ ---+ -------+ *Each stage assumes the associated GFR level has been in effect for at least three months. ?Stages 1 to 5, with or without kidney disease, indicate chronic kidney disease. Notes: Determination of stages one and two (with eGFR >59mL/min/1.73 m2) requires estimation of kidney damage for at least three months as defined by structural or functional abnormalities of the kidney, manifested by either:Pathological abnormalities or Markers of kidney damage (including abnormalities in the composition of the blood or urine or abnormalities in imaging tests). Lab Interpretation Abnormal (test code = 73237-7) [facility] System[facility], [id number] 17:05:20 Test Item Value Reference Range Interpretation Comments LIPASE (test code = 6998007351) 75 U/L 0-220 Lab Interpretation (test code = Normal 71567-0) [facility] SystemaPTT2022-04-26 17:00:21 Test Item Value Reference Range Interpretation Comments APTT Patient (test See_Comment [Automat ed code = 3173-2) message] The system which generated this result transmitted reference range : 23 - 38 Seconds . The reference range was not used to interpr et this result as normal/abnormal . ABRAHAM (test code = ABRAHAM) The [facility] patient population mean normal value for aPTT is 30 seconds. Lab Interpretation Normal (test code = 11053-5) [facility] SystemPROTHROMBIN TIME / [id number] 16:58:23 Test Item Value Reference Range Interpretation Comments PROTIME PATIENT (test See_Comment [Auto mated message] code = 5964-2) The system wh ich generated this result transmitted ref erence range: 12.0 - 1 4.7 Seconds. The re ference range was not u sed to interpret this result as normal/abnor mal. INR (test code = 6301-6) Nor mal INR <1.1; Warfarin Therap eutic range 2.0 to 3. 0 or 2.5 to 3.5, dep ending upon the indica tions. Lab Interpretation (test Normal code = 67897-2) [facility]
--- NOTE | 2022-05-09 10:29 | RAD REPORT ---
EXAM DESCRIPTION[facility]05/09/2022 10:16 am CLINICAL HISTORY: Cough;Fever COMPARISON: No comparisons TECHNIQUE: PA and lateral views of the chest. FINDINGS: The lungs are clear. No pneumothorax or effusion. The cardiomediastinal contours are unrem arkable. IMPRESSION: No acute cardiopulmonary process.
[2022-05-09] MEDS ORDERED: dexAMETHasone 10 MG/ML VIAL ONE (10:56)
[2022-05-09] MEDS ORDERED: HYDROCODONE/CHLORPHEN 5 ML/OSYR ONE (10:56)
[2022-05-09] MEDS ORDERED: ALBUTEROL 2.5 MG/3 ML NEB SOL ONE (10:57)
[2022-05-09 11:33] LABS: SARS-COV-2 RT PCR POSITIVE (NEGATIVE)
[2022-05-09 12:50] VITALS: BP 127/74; TEMP 97.9; O2SAT 100
--- NOTE | 2022-05-24 15:07 | EDPHYS ---
Physician Documentation [facility] Name: Airam Glasgow Age: 46 yrs Sex: Female : 1975 Arrival Date: 05/09/2022 Time: 09:35 Bed 12 Private MD: ED Physician Karthik Puga HPI: 05/09 09:56 This 46 yrs old Female presents to ER via Ambulatory with complaints of Ear Pain, Sore pm1 Throat, bodyaches. 09:56 The patient or guardian reports cough, with productive sputum. Onset: The pm1 symptoms/episode began/occurred yesterday. Severity of symptoms: in the emergency department the symptoms are actually worse. Modifying factors: The symptoms are alleviated by Tylenol. Associated signs and symptoms: Pertinent positives: fever, chills. The patient has experienced a previous episode, covid last year. The patient has not recently seen a physician. 46-year-old female presents to the ER with complaints of left ear pain, sore throat, body aches, fever and chills. Patient was working yesterday and started having body aches and chills. Patient had a fever and took Tylenol. Patient reports feeling better with the Tylenol. Patient is a smoker, and takes breathing treatments. Patient reports productive cough. Historical: - Allergies: 09:46 Keflex; hb 09:46 Valium; hb 09:46 Penicillins; hb - Immunization history:: Adult Immunizations up to date. - Social history:: Smoking status: Patient reports the use of cigarette tobacco products, smokes one-half pack cigarettes per day. ROS: 09:56 Cardiovascular: Negative for chest pain, palpitations, and edema. pm1 09:56 Abdomen/GI: Negative for abdominal pain, nausea, vomiting, diarrhea, and constipation, Back: Negative for injury and pain, MS/Extremity: Negative for injury and deformity, Skin: Negative for injury, rash, and discoloration, Neuro: Negative for headache, weakness, numbness, tingling, and seizure. 09:56 Constitutional: Positive for body aches, chills, fever. 09:56 ENT: Positive for sore throat, Left ear pain. 09:56 Respiratory: Positive for cough, Negative for shortness of breath. 09:56 All other systems are negative. Exam: 09:56 Constitutional: This is a well developed, well nourished patient who is awake, alert, pm1 and in no acute distress. Head/Face: Normocephalic, atraumatic. 09:56 Back: No spinal tenderness. No costovertebral tenderness. Full range of motion. Skin: Warm, dry with normal turgor. Normal color with no rashes, no lesions, and no evidence of cellulitis. MS/ Extremity: Pulses equal, no cyanosis. Neurovascular intact. Full, normal range of motion. 09:56 ENT: Posterior pharynx: Airway: normal, Tonsils: are normal in appearance, erythema, that is mild, peritonsillar mass, is not appreciated, pooling of secretions, is not appreciated. 09:56 Cardiovascular: Exam negative for acute changes, Rate: normal, Rhythm: regular, Pulses: no pulse deficits are appreciated. 09:56 Respiratory: the patient does not display signs of respiratory distress, Breath sounds: wheezing: expiratory that is mild, is heard in the left posterior upper lobe and right posterior upper lobe. 09:56 Neuro: Exam negative for acute changes, Orientation: is normal, Mentation: is normal, Motor: is normal, moves all fours, Sensation: is normal, no obvious gross deficits. Vital Signs: 09:45 BP 127 / 74; Pulse 98; Resp 20; Temp 97.9; Pulse Ox 100% on R/A; Weight 107.5 kg; hb Height 5 ft. 1 in. ; Pain 3/10; 09:45 Body Mass Index 44.78 (107.50 kg, 154.94 cm) hb 09:45 Pain Scale: Adult hb MDM: 09:49 Patient medically screened. pm1 12:11 Data reviewed: vital signs. pm1 12:11 Counseling: I had a detailed discussion with the patient and/or guardian regarding: the pm1 historical points, exam findings, and any diagnostic results supporting the discharge/admit diagnosis, lab results, radiology results, the need for outpatient follow up, to return to the emergency department if symptoms worsen or persist or if there are any questions or concerns that arise at home. 03 09:56 Order name: Strep; Complete Time: 10:44 pm1 05/09 09:56 Order name: COVID-19/FLU A+B; Complete Time: 11:44 pm1 05/09 10:26 Order name: Throat Culture EDNY 05/09 09:56 Order name: Chest Pa And Lat (2 Views) XRAY; Complete Time: 10:44 pm1 Administered Medications: 10:56 Drug: Tussionex Pennkinetic ER PO Suspension 5 ml Route: PO; ss 10:57 Drug: Albuterol Inhalation 2.5 mg Route: Inhalation; ss 10:57 Drug: Dexamethasone IM 10 mg Route: IM; Site: right deltoid; ss Disposition: 15:22 Co-signature as Attending Physician, Karthik Puga MD I reviewed the patient's care rn provided by the Advanced Practice Provider and agree with the diagnosis and treatment plan. Disposition Summary: 05/09/22 12:12 Discharge Ordered Location: Home pm1 Problem: new pm1 Symptoms: have improved pm1 Condition: Stable pm1 Diagnosis - Coronavirus infection, unspecified pm1 Followup: pm1 - With: Emergency Department - When: As needed - Reason: Worsening of condition Followup: pm1 - With: Private Physician - When: 2 - 3 days - Reason: Recheck today's complaints, Continuance of care, Re-evaluation by your physician Discharge Instructions: - Discharge Summary Sheet pm1 - COVID-19 pm1 - 10 Things You Can Do to Manage Your COVID-19 Symptoms at Home - [facility] (09/15/2020) pm1 - COVID-19: Quarantine and Isolation - [facility] (05/30/2021) pm1 Forms: - Work release form pm1 - Medication Reconciliation Form pm1 - Thank You Letter pm1 - Antibiotic Education pm1 - Prescription Opioid Use pm1 Signatures: Dispatcher [employer] [facility] Karthik Puga MD MD rn Smirch, Shelby, RN RN Enrique Ricks, ANGEL COMPUTER ARTIST pm1 Betty Thompson, RN RN Dieudonne Willingham RN RN [id number]
--- NOTE | 2022-05-24 15:07 | ER ---
Nurse's Notes [facility] Name: Airam Glasgow Age: 46 yrs Sex: Female : 1975 Arrival Date: 05/09/2022 Time: 09:35 Bed 12 Private MD: Diagnosis: Coronavirus infection, unspecified Presentation: 05/09 09:45 Chief complaint: Subjective fever last night, sore throat, body aches, and nausea hb today. Coronavirus screen: Client presents with at least one sign or symptom that may indicate coronavirus-19. Standard/surgical mask placed on the client. Provider contacted for isolation considerations. Ebola Screen: No symptoms or risks identified at this time. Initial Sepsis Screen: Does the patient meet any 2 criteria? No. Patient's initial sepsis screen is negative. Does the patient have a suspected source of infection? No. Patient's initial sepsis screen is negative. Risk Assessment: Do you want to hurt yourself or someone else? Patient reports no desire to harm self or others. Onset of symptoms was May 08, 2022. 09:45 Method Of Arrival: Ambulatory hb 09:45 Acuity: ADALGISA 4 hb Historical: - Allergies: 09:46 Keflex; hb 09:46 Valium; hb 09:46 Penicillins; hb - Immunization history:: Adult Immunizations up to date. - Social history:: Smoking status: Patient reports the use of cigarette tobacco products, smokes one-half pack cigarettes per day. Screenin:24 [facility] ED Fall Risk Assessment (Adult) History of falling in the last 3 months, ss including since admission No falls in past 3 months (0 pts). Abuse screen: Denies threats or abuse. Denies injuries from another. Nutritional screening: No deficits noted. Tuberculosis screening: Never had TB. Assessment: 11:24 General: Appears in no apparent distress. comfortable, Behavior is calm, cooperative. ss Pain: Pain currently is 3 out of 10 on a pain scale. Neuro: Level of Consciousness is awake, alert, obeys commands, Oriented to person, place, time, situation. Cardiovascular: Capillary refill < 3 seconds is brisk in bilateral fingers Patient's skin is warm and dry. Respiratory: Airway is patent Respiratory effort is even, unlabored, Respiratory pattern is regular, symmetrical. EENT: Nares are clear. Derm: Skin is intact, is healthy with good turgor, Skin is dry, Skin is pink, warm \T\ dry. normal. Musculoskeletal: Circulation, motion, and sensation intact. Range of motion: intact in all extremities, Swelling absent. Vital Signs: 09:45 BP 127 / 74; Pulse 98; Resp 20; Temp 97.9; Pulse Ox 100% on R/A; Weight 107.5 kg; hb Height 5 ft. 1 in. ; Pain 3/10; 09:45 Body Mass Index 44.78 (107.50 kg, 154.94 cm) hb 09:45 Pain Scale: Adult hb ED Course: 09:35 Patient arrived in ED. am2 09:36 Enrique Ricks NP is PHCP. pm1 09:36 Karthik Puga MD is Attending Physician. pm1 09:46 Triage completed. hb 09:46 Arm band placed on. hb 10:02 COVID-19/FLU A+B Sent. hb 10:02 Strep Sent. hb 10:18 Chest Pa And Lat (2 Views) XRAY In Process Unspecified. EDMS 10:56 Colette Deshpande RN is Primary Nurse. ss 11:24 Patient has correct armband on for positive identification. Bed in low position. Call ss light in reach. 12:26 No provider procedures requiring assistance completed. Patient did not have IV access ss during this emergency room visit. Administered Medications: 10:56 Drug: Tussionex Pennkinetic ER PO Suspension 5 ml Route: PO; ss 10:57 Drug: Albuterol Inhalation 2.5 mg Route: Inhalation; ss 10:57 Drug: Dexamethasone IM 10 mg Route: IM; Site: right deltoid; Medication: 11:24 VIS not applicable for this client. ss Outcome: 12:12 Discharge ordered by . pm1 12:26 Discharged to home ambulatory. ss 12:26 Condition: good 12:26 Discharge instructions given to patient, family, Instructed on discharge instructions, follow up and referral plans. Demonstrated understanding of instructions, follow-up care, medications, Prescriptions given X 12:26 Patient left the ED. ss Signatures: Dispatcher [employer] EDMS Colette Deshpande RN RN Enrique Ricks NP MANAGER PROFESSIONAL DEVELOPMENT pm1 Betty Thompson RN RN Kristen Monet am2
== END 2022-05-09 12:26 | disposition home or self-care (01) ==
LOC: SUPCPDRO 09:32 → ER 09:32
DX: U07.1 COVID-19 (principal); F17.210 Nicotine dependence, cigarettes, uncomplicated; Z88.0 Allergy status to penicillin; Z88.5 Allergy status to narcotic agent
CPT/HCPCS: 87070; 87081; 0240U; 71046; 96372; 99284; J7613; J1100

== ENCOUNTER 2022-06-28 12:50 | Emergency (ER) | payer BC ==
--- OUTSIDE RECORDS SUMMARY | 2022-06-28 12:55 | XMS REPORT | Continuity of Care Document ---
:1975 Author Organization [facility] t Address [address] [facility] [place] [address] Care Team Providers Name Role Phone Pcp, Patient Does Not Have A Primary Care Physician [id number] Doctor Unassigned, [place] Attending Clinician Unavailable [facility] Attending Clinician [...] rs active active ity of problems problems [facility] Allergies, Adverse Reactions, Alerts Allergy Allergy Status [...] Active Univers ALLERGIE Class ity of S [facility] Social History Social Habit Start Date Stop Date Quantity Comments Source History of Smokes tobacco [place] of tobacco use daily [facility] Exposure to 2021-11-15 2021-11-25 Not sure [facility] SARS-CoV-2 00:00:00 20:45:00 [facility] (event) [place] Tobacco use and 2021-11-01 2021-11-01 Smokeless tobacco Un iversity of exposure 00:00:00 00:00:00 non-user [facility] Sex Assigned At [birth year] Universit y of 00:00:00 00:00:00 [facility] Smoking Status Start Date Stop Date Source Unknown [facility] Smokes tobacco daily 2021-11-01 00:00:00 Univers ity [facility] Former smoker 2020-09-02 00:00:00 2020-09-02 00:00:00 Universi ty [facility] Medications Ordered Filled Start Stop Current Ordering Indication Dosage Frequency Signature Comments Components Source Medication Medication Date Date Medication? Clinician (SIG) Name Name diclofenac Yes [id number] 75mg Take 1 Univers 75 mg EC 9-26 9108 tablet by ity of tablet 00:00: mouth in [address] and 1 tablet in the evening. Take with meals. diclofenac 2-0 Yes [id number] 75mg Take 1 Univers 75 mg EC 9-26 [id number] tablet by ity of tablet 00:00: mouth in [place] [address] the [facility] and 1 tablet in the evening. Take with meals. diclofenac 2-0 Yes [id number] 75mg Take 1 Univers 75 mg EC 9-26 [id number] tablet by ity of tablet 00:00: mouth in [address] and 1 tablet in the evening. Take with meals. diclofenac 2021-0 Yes [id number] 75mg Take 1 Univers 75 mg EC 9-26 [id number] tablet by ity of tablet 00:00: mouth in [address] and 1 tablet in the evening. Take with meals. diclofenac 2021-0 Yes [id number] 75mg Take 1 Univers 75 mg EC 9-26 [id number] tablet by ity of tablet 00:00: mouth in [address] and 1 tablet in the evening. Take with meals. ketorolac 2021-0 2021- No [id number] 30mg Uni vers (TORADOL) 11-01 ity of injection 23:15: 22:13 [place] 30 mg 00 :00 [facility] ketorolac 2021-0 2021- No [id number] 30mg 30 mg, U nivers (TORADOL) 11-01 Intramuscu ity of injection 23:15: 22:13 lar, ONCE, [place] 30 mg 00 :00 1 dose, On Medical [facility] 11/01/21 Branch at 1815, Routine cyclobenzap 2021-0 Yes [id number] 10mg Take 1 Univers rine 10 mg 9-01 tablet by ity of tablet 00:00: mouth 3 [place] [address] (three) Medical times [place] daily as needed for Muscle Spasms. cyclobenzap 2021-0 Yes [id number] 10mg Take 1 Univers rine 10 mg 9-01 tablet by ity of tablet 00:00: mouth 3 [place] 00 (three) [facility] times [place] daily as needed for Muscle Spasms. cyclobenzap 202-0 Yes [id number] 10mg Take 1 Univers rine 10 mg 9-01 tablet by ity of tablet 00:00: mouth 3 [place] (three) Medical times Branch daily as needed for Muscle Spasms. cyclobenzap 2022-0 Yes [id number] 10mg Take 1 Univers rine 10 mg 9-01 tablet by ity of tablet 00:00: mouth 3 (three) Medical times Branch daily as needed for Muscle Spasms. cyclobenzap 2022-0 Yes [id number] 10mg Take 1 Univers rine 10 mg 9-01 tablet by ity of tablet 00:00: mouth 3 [place] (three) Medical times Branch daily as needed for Muscle Spasms. cyclobenzap 2022-0 Yes [id number] 10mg Take 1 Univers rine 10 mg 9-01 tablet by ity of tablet 00:00: mouth 3 [place] (three) Medical times Branch daily as needed for Muscle Spasms. cyclobenzap 2022-0 Yes [id number] 10mg Take 1 Univers rine 10 mg 9-01 tablet by ity of tablet 00:00: mouth 3 [place] (three) Medical times Branch daily as needed for Muscle Spasms. cyclobenzap 2022-0 Yes [id number] 10mg Take 1 Univers rine 10 mg 9-01 tablet by ity of tablet 00:00: mouth 3 [place] (three) Medical times Branch daily as needed for Muscle Spasms. cyclobenzap 2022-0 Yes [id number] 10mg Take 1 Univers rine 10 mg 9-01 tablet by ity of tablet 00:00: mouth 3 [place] (three) Medical times Branch daily as needed for Muscle Spasms. cyclobenzap 2-0 Yes [id number] 10mg Take 1 Univers rine 10 mg 9-01 tablet by ity of tablet 00:00: mouth 3 [place] (three) Medical times Branch daily as needed for Muscle Spasms. methylpredn 2021-0 Yes 125mg 125 mg, Un divya isolone sod 06-26 Intravenou it y of succ 23:00: s, Q6H, [place] (SOLU-MEDRO 00 First dose Me dical L) on Fri Branch injection 06/26/21 at 125 mg 1800, Until Discontinu ed, Routine ipratropium 2-0 2022- No 3mL 3 mL, Univ ers -albuteroL 06-26 04- Inhalation it y of (DUONEB) 18:15: 17:55 , ONCE, 1 [place] as 0.5 mg-3 00 :00 dose, On [...] mL Discontinu ed, Routine methylPREDN 2022-0 Yes [id number] Take by Univers ISolone -26 mouth ity of (MEDROL, 00:00: SEE-INSTRU Krishna as BELÉN,) 4 mg 00 CTIONS. Medica l tablets follow Branch package directions methylPREDN 2022-0 Yes [id number] Take by Univers ISolone - mouth ity of (MEDROL, 00:00: SEE-INSTRU Krishna as BELÉN,) 4 mg 00 CTIONS. Medica l tablets follow Branch package directions methylPREDN 2022-0 Yes [id number] Take by Univers ISolone - mouth ity of (MEDROL, 00:00: SEE-INSTRU Krishna as BELÉN,) 4 mg 00 CTIONS. Medica l tablets follow Branch package directions methylPREDN 2022-0 Yes [id number] Take by Univers ISolone -26 mouth ity of (MEDROL, 00:00: SEE-INSTRU Krishna as BELÉN,) 4 mg 00 CTIONS. Medica l tablets follow Branch package directions methylPREDN 2022-0 Yes [id number] Take by Univers ISolone -26 mouth ity of (MEDROL, 00:00: SEE-INSTRU Krishna as BELÉN,) 4 mg 00 CTIONS. Medica l tablets follow Branch package directions methylPREDN 2022-0 Yes [id number] Take by Univers ISolone 4-26 mouth ity of (MEDROL, 00:00: SEE-INSTRU Krishna as BELÉN,) 4 mg 00 CTIONS. Medica l tablets follow Branch package directions methylPREDN 2022-0 Yes [id number] Take by Univers ISolone 4-26 mouth ity of (MEDROL, 00:00: SEE-INSTRU Krishna as BELÉN,) 4 mg 00 CTIONS. Medica l tablets follow Branch package directions methylPREDN 2021-0 Yes [id number] Take by [facility] ISolone - mouth ity of (MEDROL, 00:00: SEE-INSTRU Krishna as BELÉN,) 4 mg 00 CTIONS. Medica l tablets follow Branch package directions methylPREDN 2021-0 Yes [id number] Take by [facility] ISolone - mouth ity of (MEDROL, 00:00: SEE-INSTRU Krishna as BELÉN,) 4 mg 00 CTIONS. Medica l tablets follow Branch package directions methylPREDN 2021-0 Yes [id number] Take by [facility] ISolone 4-26 mouth ity of (MEDROL, 00:00: SEE-INSTRU Krishna as BELÉN,) 4 mg 00 CTIONS. Medica l tablets follow Branch package directions methylPREDN 2021-0 Yes [id number] Take by [facility] ISolone -26 mouth ity of (MEDROL, 00:00: SEE-INSTRU Krishna as BELÉN,) 4 mg 00 CTIONS. Medica l tablets follow Branch package directions albuterol 2021- No [id number] 2.5mg Inhale 3 Univers 2.5 mg /3 06-26 05-11 mL every 4 ity of mL (0.083 00:00: 04:59 (four) [place] %) 00 :00 hours for Medical nebulizer 14 days. Branch solution May also nebulize one extra every 6 hours. LISINOPRIL 2020-03 Yes Take by [facility] ers ORAL 1-05 mouth. ity of 11:27: [address] sertraline 2020-03 Yes Take by Uni vers HCl (ZOLOFT 1-05 mouth. ity of ORAL) 11:27: [address] quetiapine 2020-03 Yes Take by [facility] ers fumarate 1-05 mouth. ity of (SEROQUEL 11:27: [address] MAGNESIUM 2020-03 Yes [facility] ORAL 1-05 mouth. ity of 11:27: [address] atorvastati 2020-03 Yes Take by Uni vers n calcium 1-05 mouth. ity of (ATORVASTAT 11:27: [place] IN ORAL) [address] [place] [address] LISINOPRIL 2020-03 Yes Take by [facility] ers ORAL 1-05 mouth. ity of 11:27: [address] sertraline 2020-03 Yes Take by Univ ers HCl (ZOLOFT 1-05 mouth. ity of ORAL) 11:27: [address] quetiapine 2020-03 Yes Take by Univ ers fumarate 1-05 mouth. ity of (SEROQUEL 11:27: [place] ORAL) [address] [place] [address] MAGNESIUM 2020-03 Yes Take by Unive rs ORAL 1-05 mouth. ity of 11:27: [address] atorvastati 2020-03 Yes Take by Uni vers n calcium 1-05 mouth. ity of (ATORVASTAT 11:27: [place] IN ORAL) [address] [place] [address] LISINOPRIL 2020-03 Yes Take by Univ ers ORAL 1-05 mouth. ity of 11:27: [address] sertraline 2020-03 Yes Take by Univ ers HCl (ZOLOFT 1-05 mouth. ity of ORAL) 11:27: [address] quetiapine 2020-03 Yes Take by Univ ers fumarate 1-05 mouth. ity of (SEROQUEL 11:27: [place] ORAL) [address] [place] [address] MAGNESIUM 2020-03 Yes Take by Unive rs ORAL 1-05 mouth. ity of 11:27: [address] atorvastati 2020-03 Yes Take by Uni vers n calcium 1-05 mouth. ity of (ATORVASTAT 11:27: [place] IN ORAL) [address] [place] [address] LISINOPRIL 2020-03 Yes Take by Univ ers ORAL 1-05 mouth. ity of 11:27: [address] sertraline 2020-03 Yes Take by Univ ers HCl (ZOLOFT 1-05 mouth. ity of ORAL) 11:27: [address] quetiapine 2020-03 Yes Take by Univ ers fumarate 1-05 mouth. ity of (SEROQUEL 11:27: [place] ORAL) [address] [place] [address] MAGNESIUM 2020-03 Yes Take by Unive rs ORAL 1-05 mouth. ity of 11:27: [address] atorvastati 2020-03 Yes Take by Uni vers n calcium 1-05 mouth. ity of (ATORVASTAT 11:27: [place] IN ORAL) [address] [place] [address] LISINOPRIL 2020-03 Yes Take by Univ ers ORAL 1-05 mouth. ity of 11:27: [address] sertraline 2020-03 Yes Take by Univ ers HCl (ZOLOFT 1-05 mouth. ity of ORAL) 11:27: [address] quetiapine 2020-03 Yes Take by Univ ers fumarate 1-05 mouth. ity of (SEROQUEL 11:27: [place] ORAL) [address] [place] [address] MAGNESIUM 2020-03 Yes Take by Unive rs ORAL 1-05 mouth. ity of 11:27: [address] atorvastati 2020-03 Yes Take by Uni vers n calcium 1-05 mouth. ity of (ATORVASTAT 11:27: [place] IN ORAL) [address] [place] [address] LISINOPRIL 2020-03 Yes Take by Univ ers ORAL 1-05 mouth. ity of 11:27: [address] sertraline 2020-03 Yes Take by Univ ers HCl (ZOLOFT 1-05 mouth. ity of ORAL) 11:27: [address] quetiapine 2020-03 Yes Take by Univ ers fumarate 1-05 mouth. ity of (SEROQUEL 11:27: [place] ORAL) [address] [place] [address] MAGNESIUM 2020-03 Yes Take by Unive rs ORAL 1-05 mouth. ity of 11:27: [address] atorvastati 2020-03 Yes Take by Uni vers n calcium 1-05 mouth. ity of (ATORVASTAT 11:27: [place] IN ORAL) [address] [place] [address] LISINOPRIL 2020-03 Yes Take by Univ ers ORAL 1-05 mouth. ity of 11:27: [address] sertraline 2020-03 Yes Take by Univ ers HCl (ZOLOFT 1-05 mouth. ity of ORAL) 11:27: [address] quetiapine 2020-03 Yes Take by Univ ers fumarate 1-05 mouth. ity of (SEROQUEL 11:27: [place] ORAL) [address] [place] [address] MAGNESIUM 2020-03 Yes Take by Unive rs ORAL 1-05 mouth. ity of 11:27: [address] atorvastati 2020-03 Yes Take by Uni vers n calcium 1-05 mouth. ity of (ATORVASTAT 11:27: [place] IN ORAL) [address] [place] [address] LISINOPRIL 2020-03 Yes Take by Univ ers ORAL 1-05 mouth. ity of 11:27: [address] sertraline 2020-03 Yes Take by Univ ers HCl (ZOLOFT 1-05 mouth. ity of ORAL) 11:27: [address] quetiapine 2020-03 Yes Take by Univ ers fumarate 1-05 mouth. ity of (SEROQUEL 11:27: [place] ORAL) [address] [place] [address] MAGNESIUM 2020-03 Yes Take by Unive rs ORAL 1-05 mouth. ity of 11:27: [address] atorvastati 2020-03 Yes Take by Uni vers n calcium 1-05 mouth. ity of (ATORVASTAT 11:27: [place] IN ORAL) [address] [place] [address] LISINOPRIL 2020-03 Yes Take by Univ ers ORAL 1-05 mouth. ity of 11:27: [address] sertraline 2020-03 Yes Take by Univ ers HCl (ZOLOFT 1-05 mouth. ity of ORAL) 11:27: [address] quetiapine 2020-03 Yes Take by Univ ers fumarate 1-05 mouth. ity of (SEROQUEL 11:27: [place] ORAL) [address] [place] [address] MAGNESIUM 2020-03 Yes Take by Unive rs ORAL 1-05 mouth. ity of 11:27: [address] atorvastati 2020-03 Yes Take by Uni vers n calcium 1-05 mouth. ity of (ATORVASTAT 11:27: [place] IN ORAL) [address] [place] [address] LISINOPRIL 2020-03 Yes Take by Univ ers ORAL 1-05 mouth. ity of 11:27: [address] sertraline 2020-03 Yes Take by Univ ers HCl (ZOLOFT 1-05 mouth. ity of ORAL) 11:27: [address] quetiapine 2020-03 Yes Take by Univ ers fumarate 1-05 mouth. ity of (SEROQUEL 11:27: [place] ORAL) [address] [place] [address] MAGNESIUM 2020-03 Yes Take by Unive rs ORAL 1-05 mouth. ity of 11:27: [address] atorvastati 2020-03 Yes Take by Uni vers n calcium 1-05 mouth. ity of (ATORVASTAT 11:27: [place] IN ORAL) [address] [place] [address] LISINOPRIL 2020-03 Yes Take by Univ ers ORAL 1-05 mouth. ity of 11:27: [address] sertraline 2020-03 Yes Take by Univ ers HCl (ZOLOFT 1-05 mouth. ity of ORAL) 11:27: [address] quetiapine 2020-03 Yes Take by Univ ers fumarate 1-05 mouth. ity of (SEROQUEL 11:27: [place] ORAL) [address] [place] [address] MAGNESIUM 2020-03 Yes Take by Unive rs ORAL 1-05 mouth. ity of 11:27: [address] atorvastati 2020-03 Yes Take by Uni vers n calcium 1-05 mouth. ity of (ATORVASTAT 11:27: [place] IN ORAL) [address] [place] [address] LISINOPRIL 2020-03 Yes Take by Univ ers ORAL 1-05 mouth. ity of 11:27: [address] sertraline 2020-03 Yes Take by Univ ers HCl (ZOLOFT 1-05 mouth. ity of ORAL) 11:27: [address] quetiapine 2020-03 Yes Take by Univ ers fumarate 1-05 mouth. ity of (SEROQUEL 11:27: [place] ORAL) [address] [place] [address] MAGNESIUM 2020-03 Yes Take by Unive rs ORAL 1-05 mouth. ity of 11:27: [address] atorvastati 2020-03 Yes Take by Uni vers n calcium 1-05 mouth. ity of (ATORVASTAT 11:27: [place] IN ORAL) [address] [place] [address] LISINOPRIL 2020-03 Yes Take by Univ ers ORAL 1-05 mouth. ity of 11:27: [address] sertraline 2020-03 Yes Take by Univ ers HCl (ZOLOFT 1-05 mouth. ity of ORAL) 11:27: [address] quetiapine 2020-03 Yes Take by Univ ers fumarate 1-05 mouth. ity of (SEROQUEL 11:27: [place] ORAL) [address] [place] [address] MAGNESIUM 2020-03 Yes Take by Unive rs ORAL 1-05 mouth. ity of 11:27: [address] atorvastati 2020-03 Yes Take by Uni vers n calcium 1-05 mouth. ity of (ATORVASTAT 11:27: [place] IN ORAL) [address] [place] [address] LISINOPRIL 2020-03 Yes Take by Univ ers ORAL 1-05 mouth. ity of 11:27: [address] sertraline 2020-03 Yes Take by Univ ers HCl (ZOLOFT 1-05 mouth. ity of ORAL) 11:27: [address] quetiapine 2020-03 Yes Take by Univ ers fumarate 1-05 mouth. ity of (SEROQUEL 11:27: [place] ORAL) [address] [place] [address] MAGNESIUM 2020-03 Yes Take by Unive rs ORAL 1-05 mouth. ity of 11:27: [address] atorvastati 2020-03 Yes Take by Uni vers n calcium 1-05 mouth. ity of (ATORVASTAT 11:27: [place] IN ORAL) [address] [place] [address] LISINOPRIL 2020-03 Yes Take by Univ ers ORAL 1-05 mouth. ity of 11:27: [address] sertraline 2020-03 Yes Take by Univ ers HCl (ZOLOFT 1-05 mouth. ity of ORAL) 11:27: [address] quetiapine 2020-03 Yes Take by Univ ers fumarate 1-05 mouth. ity of (SEROQUEL 11:27: [place] ORAL) [address] [place] [address] MAGNESIUM 2020-03 Yes Take by Unive rs ORAL 1-05 mouth. ity of 11:27: [address] atorvastati 2020-03 Yes Take by Uni vers n calcium 1-05 mouth. ity of (ATORVASTAT 11:27: [place] IN ORAL) [address] [place] [address] LISINOPRIL 2020-03 Yes Take by Univ ers ORAL 1-05 mouth. ity of 11:27: [address] sertraline 2020-03 Yes Take by Univ ers HCl (ZOLOFT 1-05 mouth. ity of ORAL) 11:27: [address] quetiapine 2020-03 Yes Take by Univ ers fumarate 1-05 mouth. ity of (SEROQUEL 11:27: [place] ORAL) [address] [place] [address] MAGNESIUM 2020-03 Yes Take by Unive rs ORAL 1-05 mouth. ity of 11:27: [address] atorvastati 2020-03 Yes Take by Uni vers n calcium 1-05 mouth. ity of (ATORVASTAT 11:27: [place] IN ORAL) [address] [place] [address] LISINOPRIL Yes Take by Univ ers ORAL [...] 2021-11-26 19:12:00 150 mm[Hg] Univer sity of [facility] Diastolic blood 2021-11-26 19:12:00 90 mm[Hg] [facility] Heart rate 2021-11-26 19:12:00 92 /min [facility] Body height 2021-11-26 19:12:00 [facility] 2021-11-26 19:12:00 100.699 kg Universi [facility] BMI 2021-11-26 19:12:00 43.36 kg/m2 [facility] Systolic blood 2021-11-01 21:38:00 116 mm[Hg] Univer sity of [facility] Diastolic blood 2021-11-01 21:38:00 72 mm[Hg] [facility] Heart rate 2021-11-01 21:38:00 100 /min [facility] Body temperature 2021-11-01 21:38:00 36.56 Fatou [facility] Res[facility] 2021-11-01 21:38:00 18 /min [facility] Body height 2021-11-01 21:38:00 152.4 cm Universi [facility] Body weight 2021-11-01 21:38:00 100.699 kg [facility]i [facility] BMI 2021-11-01 21:38:00 43.36 kg/m2 [facility] O[facility] saturation in 2021-11-01 21:38:00 95 /min University of Arterial blood by [facility] Pulse oximetry Branch Respiratory rate 2021-06-26 18:06:00 18 /min Univ ersity of [place] [facility] Oxygen saturation in 2021-06-26 18:06:00 100 /min University of Arterial blood by [facility] Pulse oximetry Branch Systolic blood 2021-06-26 18:00:00 149 mm[Hg] Univer sity of pressure [place] [facility] Diastolic blood 2021-06-26 18:00:00 81 mm[Hg] Unive rsity of pressure [place] [facility] Heart rate 2021-06-26 18:00:00 80 /min Universi ty [facility] [place] [facility] Body temperature 2021-06-26 16:10:00 36.67 Fatou Univ ersity [facility] [place] [facility] Body weight 2021-06-26 16:10:00 91.173 kg Universi ty [facility] [place] [facility] BMI 2021-06-26 16:10:00 39.26 kg/m2 [facility] [place] [facility] Systolic blood 2021-06-26 15:17:00 166 mm[Hg] Univer sity of [facility] [place] [facility] Diastolic blood 2021-06-26 15:17:00 97 mm[Hg] Unive rsity of pressure [place] [facility] Heart rate 2021-06-26 15:17:00 87 /min Universi ty [facility] [place] [facility] Body temperature 2021-06-26 15:17:00 36.56 Fatou Univ ersity [facility] [place] [facility] Respiratory rate 2021-06-26 15:17:00 28 /min Univ ers[facility] [place] [facility] Oxygen saturation in 2021-06-26 15:17:00 99 /min University of Arterial blood by [facility] Pulse oximetry Branch Body height 2021-03-07 19:06:00 152.4 cm Universi ty [facility] [place] [facility] Body weight 2021-03-07 19:06:00 91.173 kg Universi ty [facility] [place] [facility] BMI 2021-03-07 19:06:00 39.26 kg/m2 [facility] [place] [facility] Systolic blood 2021-03-07 19:06:00 119 mm[Hg] Univer sity of pressure [place] [facility] Diastolic blood 2021-03-07 19:06:00 76 mm[Hg] Unive rsity of pressure [place] [facility] Heart rate 2021-03-07 19:06:00 84 /min Universi ty [facility] [place] [facility] Systolic blood 2021-02-12 20:52:00 120 mm[Hg] Univer sity of [facility] [place] [facility] Diastolic blood 2021-02-12 20:52:00 75 mm[Hg] Unive rsity of [facility] [place] [facility] Heart rate 2021-02-12 20:52:00 70 /min [facility] [place] [facility] Body height 2021-02-12 20:52:00 152.4 cm [facility] [place] [facility] Body weight 2021-02-12 20:52:00 91.173 kg Universi ty [facility] [place] [facility] BMI 2021-02-12 20:52:00 39.26 kg/m2 [facility] [place] [facility] Oxygen saturation in 2021-02-12 20:52:00 97 /min University of Arterial blood by [place] [employer] [place] Pulse oximetry Branch Systolic blood 2020-09-02 19:21:00 115 mm[Hg] Univer sity of pressure [place] [facility] Diastolic blood 2020-09-02 19:21:00 69 mm[Hg] Unive rsity of pressure [place] [facility] Heart rate 2020-09-02 19:21:00 95 /min [facility]i ty [facility] [place] [facility] Body temperature 2020-09-02 19:21:00 36.72 Fatou Univ ersity of [place] [facility] Respiratory rate 2020-09-02 19:21:00 18 /min Univ ersity [facility] [place] [facility] Body height 2020-09-02 19:21:00 152.4 cm [facility] [place] [facility] Body weight 2020-09-02 19:21:00 153.316 kg [facility]i [facility] [place] [facility] BMI 2020-09-02 19:21:00 66.01 kg/m2 [facility] [place] [facility] Oxygen saturation in 2020-09-02 19:21:00 97 /min University of Arterial blood by [place] [employer] [facility] Pulse oximetry Branch Procedures Procedure Date / Time Performing Clinician Source Performed EXTERNAL PROVIDER 2022-04-16 06:01:00 Doctor Unassigned, No Univ ersity of [place] RECORDS Name Medical Branch EXTERNAL PROVIDER 2021-12-18 05:01:00 Doctor Unassigned, No Univ ers[facility] [place] RECORDS Name Medical Branch CONSENT/REFUSAL FOR 2021-11-26 18:55:25 Doctor Unassigned, No Un [facility] [place] DIAGNOSIS AND TREATMENT Name Medical Branch AUTHORIZATION FOR 2021-11-16 05:01:00 Doctor Unassigned, No [facility] PHI Name Medical Branch XR CHEST 1 VW 2021-06-26 17:15:00 Singer Luciano [facility] RAPID INFLUENZA A/B 2021-06-26 16:59:00 Luciano Fernandez [facility] Medical Branch COVID-19 (ID NOW RAPID 2021-06-26 16:59:00 Luciano Fernandez [facility] TESTING) Medical Branch LIPASE 2021-06-26 16:29:00 Singer [facility] TROPONIN I 2021-06-26 16:29:00 Singer [facility] COMP. METABOLIC PANEL 2021-06-26 16:29:00 Luciano Fernandez [facility] ([id number]) Medical Branch CBC WITH DIFF 2021-06-26 16:29:00 Singer [facility] PROTHROMBIN TIME / INR 2021-06-26 16:29:00 Luciano Fernandez [facility] ACTIVATED PARTIAL 2021-06-26 16:29:00 Singer Luciano [facility] THRMPLAS AMRIT Medical Branch CONSENT/REFUSAL FOR 2021-06-26 16:02:56 Doctor Unassigned, No [facility] [place] DIAGNOSIS AND TREATMENT Name Medical Branch NOTICE OF PRIVACY 2021-06-26 16:01:28 Doctor Unassigned, No [facility] PRACTICES Name Medical Branch TRANSTHORACIC ECHO (TTE) 2021-03-07 19:33:58 Brayden Dao [facility] COMPLETE Medical Branch CONSENT/REFUSAL FOR 2020-09-02 19:14:51 Doctor Unassigned, No [facility] [place] DIAGNOSIS AND TREATMENT Name Medical Branch Encounters Start End Encounter Admission Attending Care Care Encounter Source Date/Time Date/Time Type Type Clinicians Facility Department ID 2022-04-16 2022-04-16 Orders Doctor GARRISON [id number] Univers 00:00:00 00:00:00 Only UnassRITA reed [id number] ity of [facility] [id number] Krishna as [id number] [address] 2021-12-18 2021-12-18 Orders Doctor MELI [id number] Univers 00:00:00 00:00:00 Only Unassigned, RITA [id number] ity of [place] [facility] [id number] Krishna as [id number] [address] 2021-11-26 2021-11-26 Outpatient [facility] [id number] [facility] 14:15:00 14:57:11 ROC ity of [facility] 2021-11-26 2021-11-26 [facility] [id number] Univers 14:15:00 14:57:11 Visit [employer] [id number] it y of [place] [id number] Krishna as FRANCHESKA?BLEA [phone] [facility] [address] MEDICAL OFFICE [facility] 2021-11-26 2021-11-26 Telephone [facility] 1.2.840.114 [id number] Univers 00:00:00 00:00:00 Roc Fermin [employer] 350.1.13.10 it y of [place] 4.2.7.2.686 Krishna as FRANCHESKA?BLEA [phone] [address] OFFICE [facility] 2021-11-26 2021-11-26 Orders Doctor MELI 1.2.840.114 [id number] Univers 00:00:00 00:00:00 Only Unassigned, RITA [id number] ity of [place] [facility] 4.2.7.2.686 Krishna as [phone] [address] 2021-11-26 2021-11-26 Letter [facility] [id number] Univers 00:00:00 00:00:00 (Out) Roc Fermin [employer] 350.1.13.10 it y of [place] 4.2.7.2.686 Krishna as FRANCHESKA?BLEA [phone] [address] MEDICAL OFFICE [facility] 2021-11-23 2021-11-23 Telephone [facility] 1.2.840.114 [id number] Univers 00:00:00 00:00:00 Roc Fermin [facility] [id number] it y [facility] [id number] Krishna as FRANCHESKA?BLEA [phone] Ne nathaniel DEL VALLE [address] [place] MEDICAL OFFICE [facility] 2021-11-16 2021-11-16 Orders Doctor MELI 1.2.840.114 [id number] Univers 00:00:00 00:00:00 Only Unassigned, RITA 350.1.13.10 ity of [place] [facility] 4.2.7.2.686 Krishna as [phone] [facility] [address] [place] 2021-11-01 2021-11-01 Outpatient R KIRA [facility] [id number] Univers 16:20:00 17:15:15 DIOR [facility] 2021-11-01 2021-11-01 Urgent Kira [facility] 1.2.840.114 [id number] Univers 16:20:00 17:15:15 Care Isaias Meli [facility] [id number] ity of [place] 4.2.7.2.686 Krishna as FRANCHESKA?BLEA [phone] Ne nathaniel [place] 370 [facility] OFFICE [facility] 2021-06-26 2021-06-26 Emergency X [facility] ERT [id number] Univers 11:11:00 13:46:00 LUCIANO marielnorris [facility] 2021-06-26 2021-06-26 Emergency [facility] [id number] Univers 11:11:00 13:46:00 Luciano ESCOBAR 350.1.13.10 i ty of [place].2.[place] [phone] [facility] [address] [place] 2021-06-26 2021-06-26 Nurse Nurse, Adrian Patiño [facility] 1.2.840.114 [id number] Univers 10:50:00 11:10:00 Visit Kira [facility] [id number] ity of [facility] 4.2.7.2.686 Krishna as FRANCHESKA?BLEA [phone] Ne dical KNEY [address] [place] MEDICAL OFFICE BUILDING 2021-06-26 2021-06-26 Outpatient R GREEN, [facility] [id number] Univers 10:50:00 10:50:00 DIOR ity of [facility] 2021-06-26 2021-06-26 Orders Doctor MELI 1.2.840.114 [id number] Univers 00:00:00 00:00:00 Only Unassigned, RITA 350.1.13.10 [facility] 4.2.7.2.686 Krishna as [phone] [address] 2021-06-25 2021-06-25 Outpatient R [facility] [id number] Univers 19:20:00 19:20:00 ity of [facility] 2021-03-07 2021-03-07 Outpatient R [facility] [id number] Univers 12:56:41 23:59:00 QIAMUJUN ity o f [facility] 2021-03-07 2021-03-07 [facility] 1.2.840.114 [id number] Univers 12:56:41 23:59:00 Encounter Brayden ESCOBAR 350.1.13.10 ity [facility] [place]2.[place].2.[place] [phone] Ne dical NAL 843 [facility] 2021-02-27 2021-02-27 Outpatient R [facility] [id number] Univers 15:00:00 15:00:00 QIANGJUN ity o f [facility] 2021-02-27 2021-02-27 Outpatient R [facility] [id number] Univers 15:00:00 15:00:00 QIANGJUN ity o f [facility] 2021-02-19 2021-02-19 Telephone [facility] [id number] Univers 00:00:00 00:00:00 Brayden ESCOBAR 350.1.13.10 ity of [place] [phone] Ne dical NAL 059 [facility] 2021-02-12 2021-02-12 Office [facility] 1.2.840.114 [id number] Univers 14:42:56 15:15:38 Visit Brayden LUZ 350.1.13.10 ity of [facility] [place] [phone] [facility] 059 [facility] 2021-02-12 2021-02-12 Outpatient R [facility] [id number] Univers 14:40:00 15:15:38 BRAYDEN ity o f [facility] 2021-02-12 2021-02-12 Letter [facility] 1.2.840.114 [id number] Univers 00:00:00 00:00:00 (Out) Brayden LUZ 350.1.13.10 ity of [facility] [place] [phone] [address] 2021-02-12 2021-02-12 Orders Doctor MELI 1.2.840.114 [id number] Univers 00:00:00 00:00:00 Only Unassigned, RITA 350.1.13.10 ity of [place] [facility] 4.2.7.2.686 Krishna as [phone] [facility] [address] [place] 2020-09-02 2020-09-02 Outpatient R [facility] [id number] Univers 14:40:00 14:40:00 [facility] ity [facility] 2020-09-02 2020-09-02 Urgent Provider, [facility] Care [facility] 1.2.840.114 [id number] Univers 14:15:28 14:35:28 Care [facility] [id number] ity of [place] 4.2.7.2.686 Krishna as Professio [phone] [facility] [address] [place] [address] 2020-09-02 2020-09-02 Orders Doctor MELI 1.2.840.114 [id number] Univers 00:00:00 00:00:00 Only Unassigned, RITA 350.1.13.10 ity of [place] [facility] 4.2.7.2.686 Krishna as [phone] [place] [address] Branch Results Test Description Test Time Test [...] 33.1 g/dL 31.6-35.1 RDW-SD (test code = 18716-5) 44.8 fL 39.0-49.9 RDW-CV (test code = 788-0) 13.8 % 12.0-15.5 PLT (test code = 777-3) See_Comment [Au tomated message] The system which ge nerated this result transmit bob reference range: 166 - 35 8 10*3/?L. The reference range was not used to interpret th is result as normal/abnormal . MPV (test code = 10653-6) 9.2 fL 9.5-12.9 L NRBC/100 WBC (test code = See_Comment [ Automated message] The 6536124763) system which ge nerated this result transmit bob reference range: 0.0 - 10 .0 /100 WBCs. The reference r lisa was not used to interpr et this result as normal/abnor mal. NRBC x10^3 (test code = <0.01 See_Comment [Au tomated message] The 3347812098) system which ge nerated this result transmit bob reference range: 10*3/?L. The reference range was not u sed to interpret this result as normal/abnormal . GRAN MAT (NEUT) % (test code 83.8 % = 770-8) IMM GRAN % (test code = 3.10 % 8938614948) LYMPH % (test code = 736-9) 8.7 % MONO % (test code = 5905-5) 4.3 % EOS % (test code = 713-8) 0.0 % BASO % (test code = 706-2) 0.1 % GRAN MAT x10^3(ANC) (test 11.27 10*3/uL 1.88-7.09 H code = 9975147207) IMM GRAN x10^3 (test code = 0.42 10*3/uL 0.00-0.06 H 6288561839) LYMPH x10^3 (test code = 1.17 10*3/uL 1.32-3.29 L 731-0) MONO x10^3 (test code = 0.58 10*3/uL 0.33-0.92 742-7) EOS x10^3 (test code = <0.03 0.03-0.39 L 711-2) BASO x10^3 (test code = <0.03 0.01-0.07 704-7) Lab Interpretation (test Abnormal code = 12567-0) [facility] [id number] 17:15:24 Test Item Value Reference Interpretation Comments Range TROPONIN I (test 0.002 ng/mL See_Comment [Automated code = 2417092447) message] The system which generated this result [...] biotin. Lab Interpretation Normal (test code = 59865-8) [facility]. METABOLIC PANEL (40600)2021-06-26 17:12:03 Test Item Value Reference Range Interpretation Comments NA (test code = 134 mmol/L 135-145 L 2256656393) K (test code = 4.1 mmol/L 3.5-5.0 4139337679) CL (test code = 103 mmol/L 98-108 1382504476) CO2 TOTAL (test code = 20 mmol/L 23-31 L 2048686823) AGAP (test code = 2-16 4789925620) BUN (test code = 14 mg/dL 7-23 8102344673) GLUCOSE (test code = 151 mg/dL 70-110 H 0458947599) CREATININE (test code = 0.65 mg/dL 0.50-1.04 6730057668) TOTAL BILI (test code = 0.4 mg/dL 0.1-1.5 4349947649) CALCIUM (test code = 8.7 mg/dL 8.6-10.6 0160858502) T PROTEIN (test code = 6.4 g/dL 6.3-8.2 5605630297) ALBUMIN (test code = 3.9 g/dL 3.5-5.0 0663086310) ALK PHOS (test code = 82 U/L 34-122 6999270729) ALTv (test code = 24 U/L 5-35 1742-6) AST(SGOT) (test code = 17 U/L 13-40 0672011332) eGFR (test code = mL/min/1.73m2 7014021407) ABRAHAM (test code = ABRAHAM) Association of [...] tests). Lab Interpretation Abnormal (test code = 64164-8) [id number] 17:05:20 Test Item Value Reference Range Interpretation Comments LIPASE (test code = 5883549275) 75 U/L 0-220 Lab Interpretation (test code = Normal 86253-4) [facility] 17:00:21 Test Item Value Reference Range Interpretation Comments APTT Patient (test See_Comment [Automat ed code = 3173-2) message] The system which generated this result transmitted reference range : 23 - 38 Seconds . The reference range was not used to interpr et this result as normal/abnormal . ABRAHAM (test code = ABRAHAM) The [facility] patient population mean normal value for aPTT is 30 seconds. Lab Interpretation Normal (test code = 55160-7) [facility] / [id number] 16:58:23 Test Item Value Reference Range Interpretation [...] tions. Lab Interpretation (test Normal code = 50046-8) [facility]
[2022-06-28] MEDS ORDERED: predniSONE 20 MG TAB ONE (13:13)
--- NOTE | 2022-06-28 14:12 | RAD REPORT ---
EXAM DESCRIPTION: Jack Morales (2 Views)06/28/2022 1:51 pm CLINICAL HISTORY: Cough;Congestion COMPARISON: 2020 FINDINGS: The lungs appear clear of acute infiltrate. The heart is normal size IMPRESSION: No acute abnormalities displayed
--- NOTE | 2022-06-28 14:19 | ER ---
Nurse's Notes [facility] Name: Airam Glasgow Age: 46 yrs Sex: Female : 1975 Arrival Date: 06/28/2022 Time: 12:50 Bed Treatment Private MD: Diagnosis: Otitis media, unspecified, bilateral;Acute upper respiratory infection, unspecified Presentation: 06/28 12:57 Chief complaint: Patient states: AYDEE ear pain, throat pain, cough, congestion, pain ld1 under left breast while coughing X 2days. Coronavirus screen: At this time, the client does not indicate any symptoms associated with coronavirus-19. Ebola Screen: No symptoms or risks identified at this time. Initial Sepsis Screen: Does the patient meet any 2 criteria? No. Patient's initial sepsis screen is negative. Does the patient have a suspected source of infection? No. Patient's initial sepsis screen is negative. Risk Assessment: Do you want to hurt yourself or someone else? Patient reports no desire to harm self or others. Onset of symptoms was June 28, 2022 at 12:58. 12:57 Method Of Arrival: Ambulatory ld1 12:57 Acuity: ADALGISA 4 ld1 Triage Assessment: 12:54 General: Appears in no apparent distress. comfortable, Behavior is calm, cooperative, ld1 appropriate for age. Pain: Complains of pain in right ear, left ear, uvula, left aspect of posterior pharynx and right aspect of posterior pharynx Pain does not radiate. Pain currently is 8 out of 10 on a pain scale. Quality of pain is described as burning, throbbing. EENT: Reports pain in uvula, left aspect of posterior pharynx and right aspect of posterior pharynx. Neuro: Level of Consciousness is awake, alert, obeys commands, Oriented to person, place, time, situation. Cardiovascular: Capillary refill < 3 seconds Patient's skin is warm and dry. Respiratory: Airway is patent Respiratory effort is even, unlabored. GI: Abdomen is round non-distended. : No signs and/or symptoms were reported regarding the genitourinary system. 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 - Social history:: Smoking status: Patient reports the use of cigarette tobacco products, smokes one-half pack cigarettes per day, Patient/guardian denies using alcohol. Screenin:06 [facility] ED Fall Risk Assessment (Adult) History of falling in the last 3 months, mb9 including since admission No falls in past 3 months (0 pts) Confusion or Disorientation No (0 pts) Intoxicated or Sedated No (0 pts) Impaired Gait No (0 pts) Mobility Assist Device Used No (0 pt) Altered Elimination No (0 pt) Score/Fall Risk Level 0 - 2 = Low Risk Oriented to surroundings, Maintained a safe environment, Educated pt \T\ family on fall prevention, incl call for assistance when getting out of bed. Abuse screen: Denies threats or abuse. Nutritional screening: No deficits noted. Tuberculosis screening: No symptoms or risk factors identified. Assessment: 13:06 Reassessment: see triage assessment. mb9 13:46 Reassessment: pt taken to XRAY via wheelchair. mb9 14:31 Reassessment: No changes from previously documented assessment. Patient and/or family mb9 updated on plan of care and expected duration. Pain level reassessed. Patient is alert, oriented x 3, equal unlabored respirations, skin warm/dry/pink. Vital Signs: 12:57 BP 156 / 85; Pulse 100; Resp 18; Temp 98.1(TE); Pulse Ox 95% on R/A; Weight 112.04 kg; ld1 Height 5 ft. 1 in. ; Pain 2/10; 14:31 BP 132 / 76; Pulse 78; Resp 18; Pulse Ox 100% ; mb9 12:57 Body Mass Index 46.67 (112.04 kg, 154.94 cm) ld1 12:57 Pain Scale: Adult ld1 ED Course: 12:52 Patient arrived in ED. rg4 12:54 Arm band placed on right wrist. EKG completed in triage. Results shown to MD. EKG ld1 completed in triage. Results shown to MD. 12:55 Kori Baker FNP-C is [facility]. kb 12:55 Eddie Hernandez DO is Attending Physician. kb 12:58 Triage completed. ld1 13:06 Johana Bragg, RN is Primary Nurse. mb9 13:06 Placed in gown. Bed in low position. Call light in reach. Side rails up X 1. Client mb9 placed on continuous cardiac and pulse oximetry monitoring. NIBP monitoring applied. 13:06 No provider procedures requiring assistance completed. mb9 13:15 SARS-COV-2 RT PCR Sent. mb9 13:15 Flu Sent. mb9 13:53 Chest Pa And Lat (2 Views) XRAY In Process Unspecified. EDMS 14:31 Patient did not have IV access during this emergency room visit. mb9 Administered Medications: 13:15 Drug: predniSONE PO 40 mg Route: PO; mb9 13:46 Follow up: Response: No adverse reaction mb9 Medication: 13:06 VIS not applicable for this client. mb9 Outcome: 14:19 Discharge ordered by MD. kb 14:31 Discharged to home ambulatory. mb9 14:31 Condition: stable 14:31 Discharge instructions given to patient, Instructed on discharge instructions, follow up and referral plans. Demonstrated understanding of instructions, follow-up care, medications, Prescriptions given X 2. 14:32 Patient left the ED. mb9 Signatures: Dispatcher [employer] EDIA Kori Baker FNP-C FNP-Ckb Garcia, Rubi rg4 Noemí Hernandez RN RN ld1 Johana Bragg, RN RN mb9
--- NOTE | 2022-06-28 14:19 | EDPHYS ---
Physician Documentation [facility] Name: Airam Glasgow Age: 46 yrs Sex: Female : 1975 Arrival Date: 06/28/2022 Time: 12:50 Bed Treatment Private MD: ED Physician Eddie Hernandez HPI: 06/28 14:23 This 46 yrs old Female presents to ER via Ambulatory with complaints of Sore Throat, kb Breathing Difficulty, Ear Pain. 14:23 The patient or guardian reports cough, that is intermittent, described as mild. The kb patient has not experienced similar symptoms in the past. The patient has not recently seen a physician. 14:23 Onset: The symptoms/episode began/occurred 2 day(s) ago. Severity of symptoms: At their kb worst the symptoms were moderate, in the emergency department the symptoms are unchanged. Modifying factors: The symptoms are alleviated by nothing, the symptoms are aggravated by nothing. Associated signs and symptoms: Pertinent positives: earache, rhinorrhea, sore throat. 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 - Social history:: Smoking status: Patient reports the use of cigarette tobacco products, smokes one-half pack cigarettes per day, Patient/guardian denies using alcohol. ROS: 14:22 Constitutional: Negative for fever, chills, and weight loss. kb 14:22 ENT: Positive for ear pain, rhinorrhea, sinus congestion, sore throat. 14:22 Respiratory: Positive for cough. 14:22 All other systems are negative. Exam: 14:22 Constitutional: This is a well developed, well nourished patient who is awake, alert, kb and in no acute distress. Head/Face: Normocephalic, atraumatic. Cardiovascular: Regular rate and rhythm with a normal S1 and S2. No gallops, murmurs, or rubs. No pulse deficits. Respiratory: Respirations even and unlabored. No increased work of breathing. Talking in full sentences Abdomen/GI: Soft, non-tender. No distention Skin: Warm, dry with normal turgor. Normal color. MS/ Extremity: Pulses equal, no cyanosis. Neurovascular intact. Full, normal range of motion. Neuro: Awake and alert, GCS 15, oriented to person, place, time, and situation. Moves all extremities. Normal gait. 14:22 ENT: External ear(s): are unremarkable, Ear canal(s): are normal, TM's: bulging, bilaterally, fluid levels, bilaterally, Nose: is normal, Mouth: is normal, Posterior pharynx: is normal. Vital Signs: 12:57 BP 156 / 85; Pulse 100; Resp 18; Temp 98.1(TE); Pulse Ox 95% on R/A; Weight 112.04 kg; ld1 Height 5 ft. 1 in. ; Pain 2/10; 14:31 BP 132 / 76; Pulse 78; Resp 18; Pulse Ox 100% ; mb9 12:57 Body Mass Index 46.67 (112.04 kg, 154.94 cm) ld1 12:57 Pain Scale: Adult ld1 MDM: 12:55 Patient medically screened. kb 14:21 Differential diagnosis: URI, otitis media, flu, covid, pneumonia. Data reviewed: vital kb signs, nurses notes. Historians other than the Patient: Spouse/Significant Other: . Counseling: I had a detailed discussion with the patient and/or guardian regarding: the historical points, exam findings, and any diagnostic results supporting the discharge/admit diagnosis, lab results, radiology results, the need for outpatient follow up, a family practitioner, to return to the emergency department if symptoms worsen or persist or if there are any questions or concerns that arise at home. 06/28 13:01 Order name: Flu; Complete Time: 13:42 kb 06/28 13:01 Order name: SARS-COV-2 RT PCR; Complete Time: 13:57 kb 06/28 13:01 Order name: Chest Pa And Lat (2 Views) XRAY; Complete Time: 14:18 kb Administered Medications: 13:15 Drug: predniSONE PO 40 mg Route: PO; mb9 13:46 Follow up: Response: No adverse reaction mb9 Disposition: 19:33 Co-signature as Attending Physician, Eddie Hernandez DO I was immediately available on-site ms3 in the Emergency Department for consultation in the care of the patient. Disposition Summary: 06/28/22 14:19 Discharge Ordered Location: Home kb Condition: Stable kb Diagnosis - Otitis media, unspecified, bilateral kb - Acute upper respiratory infection, unspecified kb Followup: kb - With: Emergency Department - When: As needed - Reason: Worsening of condition Followup: kb - With: Private Physician - When: 2 - 3 days - Reason: Recheck today's complaints, Continuance of care, Re-evaluation by your physician Discharge Instructions: - Discharge Summary Sheet kb - Otitis Media, Adult, Bbyk-gc-[id number] kb - Upper Respiratory Infection, Adult, Xeyg-wp-Owml kb - Viral Respiratory Infection, Lwgr-Oe-Grkj kb Forms: - Medication Reconciliation Form kb - Thank You Letter kb - Antibiotic Education kb - Prescription Opioid Use kb - Work release form eb Prescriptions: - Prednisone 20 mg Oral Tablet - take 1 tablet by ORAL route once daily for 5 days; 5 tablet; Refills: 0, kb Product Selection Permitted - Zithromax 500 mg Oral Tablet - take 1 tablet by ORAL route once daily for 5 days; 5 tablet; Refills: 0, kb Product Selection Permitted Signatures: Dispatcher [employer] Kori Barber, [employer] FURNITURE DELIVERY DRIVER-Eddie Mendosa DO DO ms3 Noemí Hernandez RN RN ld1 Johana Bragg RN RN mb9
[2022-06-28 14:40] VITALS: TEMP 98.1
[2022-06-28 14:42] VITALS: BP 132/76; O2SAT 100
== END 2022-06-28 14:32 | disposition home or self-care (01) ==
LOC: ER 12:50
DX: H66.93 Otitis media, unspecified, bilateral (principal); J06.9 Acute upper respiratory infection, unspecified; Z20.822 Contact with and (suspected) exposure to COVID-19; I10 Essential (primary) hypertension; Z88.0 Allergy status to penicillin; Z88.1 Allergy status to other antibiotic agents; Z88.5 Allergy status to narcotic agent
CPT/HCPCS: 87804 ×2; 71046; U0003; J7512; 99284

== ENCOUNTER 2022-07-17 14:23 | Emergency (ER) | payer BC ==
--- OUTSIDE RECORDS SUMMARY | 2022-07-17 14:42 | XMS REPORT | Continuity of Care Document ---
:1975 Author Organization [facility] t Address [address] [place] [address] [place] [id number] Care Team Providers Name Role Phone Pcp, Patient Does Not Have A Primary Care Physician [id number] Doctor Unassigned, [place] Attending Clinician Unavailable ROC LOUIS Attending Clinician Unavailable Roc Louis MD Attending Clinician DIOR MALONE Attending Clinician Unavailable Dior Goode Attending Clinician Meli Esparza PA-C Attending Clinician LUCIANO FERNANDEZ Attending Clinician Unavailable Luciano Fernandez DO Attending Clinician [facility] Attending Clinician Unavailable BRAYDEN DAO [...] rs active active ity of problems problems [facility] Allergies, Adverse Reactions, Alerts Allergy Allergy Status Severity Reaction(s) Onset Inactive Treating Comm ents Source Name Type Date Date Clinician Diazepam Propensi Active Other - See 2021-1 Patient Univers ty to comments 2-13 stated [...] Medical s Branch CEPHALEX DRUG Active Anaphylaxis 2020- Uni vers IN INGREDI 09-02 ity of 00:00: [place] [facility] PENICILL Drug Active Anaphylaxis 2020-0 Uni vers INS Class 09-02 ity of 00:00: [place] 00 Medical Branch NO KNOWN Drug Active Univers ALLERGIE Class ity of S [facility] Social History Social Habit Start Date Stop Date Quantity Comments Source History of Smokes tobacco University of tobacco use daily [facility] Exposure to 2021-11-15 2021-11-25 Not sure [facility] SARS-CoV-2 00:00:00 20:45:00 [facility] (event) [place] Tobacco use and 2021-11-01 2021-11-01 Smokeless tobacco Un iversity of exposure 00:00:00 00:00:00 non-user [facility] Sex Assigned At [birth year] Universit y of 00:00:00 00:00:00 [facility] Smoking Status Start Date Stop Date Source Unknown if ever smoked [facility] y [facility] Smokes tobacco daily 2021-11-01 00:00:00 [facility] ity [facility] Former smoker 2020-09-02 00:00:00 2020-09-02 00:00:00 Universi ty [facility] Medications Ordered Filled Start Stop Current Ordering Indication Dosage Frequency Signature Comments Components Source Medication Medication Date Date Medication? Clinician (SIG) Name Name diclofenac Yes [id number] 75mg Take 1 Univers 75 mg EC 9-26 9108 tablet by ity of tablet 00:00: mouth in [place] [address] the [facility] and 1 tablet in the evening. Take with meals. diclofenac 2021-0 Yes [id number] 75mg Take 1 Univers 75 mg EC 9-26 [id number] tablet by ity of tablet 00:00: mouth in [address] and 1 tablet in the evening. Take with meals. diclofenac 2021-0 Yes [id number] 75mg Take 1 Univers 75 mg EC 9-26 [id number] tablet by ity of tablet 00:00: mouth in [place] [address] the [facility] and 1 tablet in the evening. Take with meals. diclofenac 2021-0 Yes [id number] 75mg Take 1 Univers 75 mg EC 9-26 [id number] tablet by ity of tablet 00:00: mouth in [address] and 1 tablet in the evening. Take with meals. diclofenac 2021-0 Yes [id number] 75mg Take 1 Univers 75 mg EC 9-26 [id number] tablet by ity of tablet 00:00: mouth in [address] and 1 tablet in the evening. Take with meals. ketorolac 2021-0 2021- No [id number] 30mg Uni vers (TORADOL) 11-01 ity of injection 23:15: 22:13 [place] 30 mg 00 :[address] [facility] ketorolac 2021-0 2- No [id number] 30mg 30 mg, U nivers (TORADOL) 11-01 Intramuscu ity of injection 23:15: 22:13 [place], ONCE, [place] 30 mg 00 :00 1 dose, On Medical Hiwot 11/01/21 Branch at 1815, Routine cyclobenzap 0 Yes [id number] 10mg Take 1 Univers rine 10 mg 9-01 tablet by ity of tablet 00:00: mouth 3 [place] [address] (three) Medical times [place] daily as needed for Muscle Spasms. cyclobenzap 2021-0 Yes [id number] 10mg Take 1 Univers rine 10 mg 9-01 tablet by ity of tablet 00:00: mouth 3 [place] 00 (three) Medical times [place] daily as needed for Muscle Spasms. cyclobenzap 2021-0 Yes [id number] 10mg Take 1 Univers rine 10 mg 9-01 tablet by ity of tablet 00:00: mouth 3 [place] (three) Medical times Branch daily as needed for Muscle Spasms. cyclobenzap 2022-0 Yes [id number] 10mg Take 1 Univers rine 10 mg 9-01 tablet by ity of tablet 00:00: mouth 3 (three) Medical times Branch daily as needed for Muscle Spasms. cyclobenzap 2022-0 Yes [id number] 10mg Take 1 Univers rine 10 mg 9-01 tablet by ity of tablet 00:00: mouth 3 [place] (three) Medical times Branch daily as needed for Muscle Spasms. cyclobenzap 2022-0 Yes [id number] 10mg Take 1 Univers rine 10 mg 9-01 tablet by ity of tablet 00:00: mouth 3 [place] (three) Medical times Branch daily as needed for Muscle Spasms. cyclobenzap 2022-0 Yes [id number] 10mg Take 1 Univers rine 10 mg 9-01 tablet by ity of tablet 00:00: mouth 3 [place] (three) Medical times Branch daily as needed for Muscle Spasms. cyclobenzap 2022-0 Yes [id number] 10mg Take 1 Univers rine 10 mg 9-01 tablet by ity of tablet 00:00: mouth 3 [place] (three) Medical times Branch daily as needed for Muscle Spasms. cyclobenzap 2-0 Yes [id number] 10mg Take 1 Univers rine 10 mg 9-01 tablet by ity of tablet 00:00: mouth 3 [place] (three) Medical times Branch daily as needed for Muscle Spasms. cyclobenzap 2021-0 Yes [id number] 10mg Take 1 Univers rine 10 mg 9-01 tablet by ity of tablet 00:00: mouth 3 [place] (three) Medical times Branch daily as needed for Muscle Spasms. methylpredn 2021-0 Yes 125mg 125 mg, Un divya isolone sod 06-26 Intravenou it y of succ 23:00: s, Q6H, [place] (SOLU-MEDRO 00 First dose Me dical L) on Fri Branch injection 06/26/21 at 125 mg 1800, Until Discontinu ed, Routine ipratropium 2021-0 2022- No 3mL 3 mL, Univ ers -albuteroL 06-26- Inhalation it y of (DUONEB) 18:15: 17:55 , ONCE, 1 Krishna as 0.5 mg-3 00 :00 dose, On Medical mg(2.5 mg Tue Branch base)/3 mL 06/26/21 at nebulizer 1315, solution 3 Routine mL ipratropium 2-0 Yes 3mL 3 mL, Unive rs -albuteroL 06-26 Inhalation ity of (DUONEB) 17:00: , QID, [place] 0.5 mg-3 00 First dose Medic al mg(2.5 mg on Tue Branch base)/3 mL 06/26/21 at nebulizer 1200, solution 3 Until mL Discontinu ed, Routine methylPREDN 2022-0 Yes [id number] Take by Univers ISolone -26 mouth ity of (MEDROL, 00:00: SEE-INSTRU Krishna as BELÉN,) 4 mg 00 CTIONS. Medica l tablets follow Branch package directions methylPREDN 2022-0 Yes [id number] Take by Univers ISolone - mouth ity of (MEDROL, 00:00: SEE-INSTRU Krishna as BELÉN,) 4 mg 00 CTIONS. Medica l tablets follow Branch package directions methylPREDN 2022-0 Yes [id number] Take by Univers ISolone - mouth ity of (MEDROL, 00:00: SEE-INSTRU Krishna as BELÉN,) 4 mg 00 CTIONS. Medica l tablets follow Branch package directions methylPREDN 2022-0 Yes [id number] Take by Univers ISolone -26 mouth ity of (MEDROL, 00:00: SEE-INSTRU Krishna as BELÉN,) 4 mg 00 CTIONS. Medica l tablets follow Branch package directions methylPREDN 2022-0 Yes [id number] Take by Univers ISolone 4-26 mouth ity of (MEDROL, 00:00: SEE-INSTRU Krishna as BELÉN,) 4 mg 00 CTIONS. Medica l tablets follow Branch package directions methylPREDN 2022-0 Yes [id number] Take by Univers ISolone 4-26 mouth ity of (MEDROL, 00:00: SEE-INSTRU Krishna as BELÉN,) 4 mg 00 CTIONS. Medica l tablets follow Branch package directions methylPREDN 2022-0 Yes [id number] Take by Univers ISolone 4-26 mouth ity of (MEDROL, 00:00: SEE-INSTRU Krishna as BELÉN,) 4 mg 00 CTIONS. Medica l tablets follow Branch package directions methylPREDN 2021-0 Yes [id number] Take by [facility] ISolone 4-26 mouth ity of (MEDROL, 00:00: SEE-INSTRU Krishna as BELÉN,) 4 mg 00 CTIONS. Medica l tablets follow Branch package directions methylPREDN 2021-0 Yes [id number] Take by [facility] ISolone - mouth ity of (MEDROL, 00:00: SEE-INSTRU Krishna as BELÉN,) 4 mg 00 CTIONS. Medica l tablets follow Branch package directions methylPREDN 2021-0 Yes [id number] Take by [facility] ISolone 4-26 mouth ity of (MEDROL, 00:00: SEE-INSTRU Krishna as BELÉN,) 4 mg 00 CTIONS. Medica l tablets follow Branch package directions methylPREDN 2021-0 Yes [id number] Take by [facility] ISolone 4-26 mouth ity of (MEDROL, 00:00: SEE-INSTRU Krishna as BELÉN,) 4 mg 00 CTIONS. Medica l tablets follow Branch package directions albuterol 2021- No [id number] 2.5mg Inhale 3 Univers 2.5 mg /3 06-26 05-11 mL every 4 ity of mL (0.083 00:00: 04:59 (four) [place] %) 00 :00 hours for Medical nebulizer 14 days. Branch solution May also nebulize one extra every 6 hours. LISINOPRIL 2020-03 Yes Take by [facility] ers ORAL 1-05 mouth. ity of 11:27: [address] sertraline 2020-03 Yes Take by [facility] ers HCl (ZOLOFT 1-05 mouth. ity of ORAL) 11:27: [address] quetiapine 2020-03 Yes Take by [facility] ers fumarate 1-05 mouth. ity of (SEROQUEL 11:27: [facility]) [address] [place] [address] MAGNESIUM 2020-03 Yes Take by [facility] rs ORAL 1-05 mouth. ity of 11:27: [address] atorvastati 2020-03 Yes Take by [facility] vers n calcium 1-05 mouth. ity of (ATORVASTAT 11:27: [place] IN ORAL) [address] [place] [address] LISINOPRIL 2020-03 Yes Take by Univ ers ORAL 1-05 mouth. ity of 11:27: [address] sertraline 2020-03 Yes Take by Univ ers HCl (ZOLOFT 1-05 mouth. ity of ORAL) 11:27: [address] quetiapine 2020-03 Yes Take by Univ ers fumarate 1-05 mouth. ity of (SEROQUEL 11:27: [place] ORAL) [address] [place] [address] MAGNESIUM 2020-03 Yes Take by Unive rs ORAL 1-05 mouth. ity of 11:27: [address] atorvastati 2020-03 Yes Take by Uni vers n calcium 1-05 mouth. ity of (ATORVASTAT 11:27: [place] IN ORAL) [address] [place] [address] LISINOPRIL 2020-03 Yes Take by Univ ers ORAL 1-05 mouth. ity of 11:27: [address] sertraline 2020-03 Yes Take by Univ ers HCl (ZOLOFT 1-05 mouth. ity of ORAL) 11:27: [address] quetiapine 2020-03 Yes Take by Univ ers fumarate 1-05 mouth. ity of (SEROQUEL 11:27: [place] ORAL) [address] [place] [address] MAGNESIUM 2020-03 Yes Take by Unive rs ORAL 1-05 mouth. ity of 11:27: [address] atorvastati 2020-03 Yes Take by Uni vers n calcium 1-05 mouth. ity of (ATORVASTAT 11:27: [place] IN ORAL) [address] [place] [address] LISINOPRIL 2020-03 Yes Take by Univ ers ORAL 1-05 mouth. ity of 11:27: [address] sertraline 2020-03 Yes Take by Univ ers HCl (ZOLOFT 1-05 mouth. ity of ORAL) 11:27: [address] quetiapine 2020-03 Yes Take by Univ ers fumarate 1-05 mouth. ity of (SEROQUEL 11:27: [place] ORAL) [address] [place] [address] MAGNESIUM 2020-03 Yes Take by Unive rs ORAL 1-05 mouth. ity of 11:27: [address] atorvastati 2020-03 Yes Take by Uni vers n calcium 1-05 mouth. ity of (ATORVASTAT 11:27: [place] IN ORAL) [address] [place] [address] LISINOPRIL 2020-03 Yes Take by Univ ers ORAL 1-05 mouth. ity of 11:27: [address] sertraline 2020-03 Yes Take by Univ ers HCl (ZOLOFT 1-05 mouth. ity of ORAL) 11:27: [address] quetiapine 2020-03 Yes Take by Univ ers fumarate 1-05 mouth. ity of (SEROQUEL 11:27: [place] ORAL) [address] [place] [address] MAGNESIUM 2020-03 Yes Take by Unive rs ORAL 1-05 mouth. ity of 11:27: [address] atorvastati 2020-03 Yes Take by Uni vers n calcium 1-05 mouth. ity of (ATORVASTAT 11:27: [place] IN ORAL) [address] [place] [address] LISINOPRIL 2020-03 Yes Take by Univ ers ORAL 1-05 mouth. ity of 11:27: [address] sertraline 2020-03 Yes Take by Univ ers HCl (ZOLOFT 1-05 mouth. ity of ORAL) 11:27: [address] quetiapine 2020-03 Yes Take by Univ ers fumarate 1-05 mouth. ity of (SEROQUEL 11:27: [place] ORAL) [address] [place] [address] MAGNESIUM 2020-03 Yes Take by Unive rs ORAL 1-05 mouth. ity of 11:27: [address] atorvastati 2020-03 Yes Take by Uni vers n calcium 1-05 mouth. ity of (ATORVASTAT 11:27: [place] IN ORAL) [address] [place] [address] LISINOPRIL 2020-03 Yes Take by Univ ers ORAL 1-05 mouth. ity of 11:27: [address] sertraline 2020-03 Yes Take by Univ ers HCl (ZOLOFT 1-05 mouth. ity of ORAL) 11:27: [address] quetiapine 2020-03 Yes Take by Univ ers fumarate 1-05 mouth. ity of (SEROQUEL 11:27: [place] ORAL) [address] [place] [address] MAGNESIUM 2020-03 Yes Take by Unive rs ORAL 1-05 mouth. ity of 11:27: [address] atorvastati 2020-03 Yes Take by Uni vers n calcium 1-05 mouth. ity of (ATORVASTAT 11:27: [place] IN ORAL) 32 Medical Branch LISINOPRIL 2020-03 Yes Take by Univ ers ORAL 1-05 mouth. ity of 11:27: [address] sertraline 2020-03 Yes Take by Univ ers HCl (ZOLOFT 1-05 mouth. ity of ORAL) 11:27: [address] quetiapine 2020-03 Yes Take by Univ ers fumarate 1-05 mouth. ity of (SEROQUEL 11:27: [place] ORAL) [address] [place] [address] MAGNESIUM 2020-03 Yes Take by Unive rs ORAL 1-05 mouth. ity of 11:27: [address] atorvastati 2020-03 Yes Take by Uni vers n calcium 1-05 mouth. ity of (ATORVASTAT 11:27: [place] IN ORAL) [address] [place] [address] LISINOPRIL 2020-03 Yes Take by Univ ers ORAL 1-05 mouth. ity of 11:27: [address] sertraline 2020-03 Yes Take by Univ ers HCl (ZOLOFT 1-05 mouth. ity of ORAL) 11:27: [address] quetiapine 2020-03 Yes Take by Univ ers fumarate 1-05 mouth. ity of (SEROQUEL 11:27: [place] ORAL) [address] [place] [address] MAGNESIUM 2020-03 Yes Take by Unive rs ORAL 1-05 mouth. ity of 11:27: [address] atorvastati 2020-03 Yes Take by Uni vers n calcium 1-05 mouth. ity of (ATORVASTAT 11:27: [place] IN ORAL) [address] [place] [address] LISINOPRIL 2020-03 Yes Take by Univ ers ORAL 1-05 mouth. ity of 11:27: [address] sertraline 2020-03 Yes Take by Univ ers HCl (ZOLOFT 1-05 mouth. ity of ORAL) 11:27: [address] quetiapine 2020-03 Yes Take by Univ ers fumarate 1-05 mouth. ity of (SEROQUEL 11:27: [place] ORAL) [address] [place] [address] MAGNESIUM 2020-03 Yes Take by Unive rs ORAL 1-05 mouth. ity of 11:27: [address] atorvastati 2020-03 Yes Take by Uni vers n calcium 1-05 mouth. ity of (ATORVASTAT 11:27: [place] IN ORAL) [address] [place] [address] LISINOPRIL 2020-03 Yes Take by Univ ers ORAL 1-05 mouth. ity of 11:27: [address] sertraline 2020-03 Yes Take by Univ ers HCl (ZOLOFT 1-05 mouth. ity of ORAL) 11:27: [address] quetiapine 2020-03 Yes Take by Univ ers fumarate 1-05 mouth. ity of (SEROQUEL 11:27: [place] ORAL) [address] [place] [address] MAGNESIUM 2020-03 Yes Take by Unive rs ORAL 1-05 mouth. ity of 11:27: [address] atorvastati 2020-03 Yes Take by Uni vers n calcium 1-05 mouth. ity of (ATORVASTAT 11:27: [place] IN ORAL) [address] [place] [address] LISINOPRIL 2020-03 Yes Take by Univ ers ORAL 1-05 mouth. ity of 11:27: [address] sertraline 2020-03 Yes Take by Univ ers HCl (ZOLOFT 1-05 mouth. ity of ORAL) 11:27: [address] quetiapine 2020-03 Yes Take by Univ ers fumarate 1-05 mouth. ity of (SEROQUEL 11:27: [place] ORAL) [address] [place] [address] MAGNESIUM 2020-03 Yes Take by Unive rs ORAL 1-05 mouth. ity of 11:27: [address] atorvastati 2020-03 Yes Take by Uni vers n calcium 1-05 mouth. ity of (ATORVASTAT 11:27: [place] IN ORAL) [address] [place] [address] LISINOPRIL 2020-03 Yes Take by Univ ers ORAL 1-05 mouth. ity of 11:27: [address] sertraline 2020-03 Yes Take by Univ ers HCl (ZOLOFT 1-05 mouth. ity of ORAL) 11:27: [address] quetiapine 2020-03 Yes Take by Univ ers fumarate 1-05 mouth. ity of (SEROQUEL 11:27: [place] ORAL) [address] [place] [address] MAGNESIUM 2020-03 Yes Take by Unive rs ORAL 1-05 mouth. ity of 11:27: [address] atorvastati 2020-03 Yes Take by Uni vers n calcium 1-05 mouth. ity of (ATORVASTAT 11:27: [place] IN ORAL) [address] [place] [address] LISINOPRIL 2020-03 Yes Take by Univ ers ORAL 1-05 mouth. ity of 11:27: [address] sertraline 2020-03 Yes Take by Univ ers HCl (ZOLOFT 1-05 mouth. ity of ORAL) 11:27: [address] quetiapine 2020-03 Yes Take by Univ ers fumarate 1-05 mouth. ity of (SEROQUEL 11:27: [place] ORAL) [address] [place] [address] MAGNESIUM 2020-03 Yes Take by Unive rs ORAL 1-05 mouth. ity of 11:27: [address] atorvastati 2020-03 Yes Take by Uni vers n calcium 1-05 mouth. ity of (ATORVASTAT 11:27: [place] IN ORAL) [address] [place] [address] LISINOPRIL 2020-03 Yes Take by Univ ers ORAL 1-05 mouth. ity of 11:27: [address] sertraline 2020-03 Yes Take by Univ ers HCl (ZOLOFT 1-05 mouth. ity of ORAL) 11:27: [address] quetiapine 2020-03 Yes Take by Univ ers fumarate 1-05 mouth. ity of (SEROQUEL 11:27: [place] ORAL) [address] [place] [address] MAGNESIUM 2020-03 Yes Take by Unive rs ORAL 1-05 mouth. ity of 11:27: [address] atorvastati 2020-03 Yes Take by Uni vers n calcium 1-05 mouth. ity of (ATORVASTAT 11:27: [place] IN ORAL) [address] [place] [address] LISINOPRIL 2020-03 Yes Take by Univ ers ORAL 1-05 mouth. ity of 11:27: [address] sertraline 2020-03 Yes Take by Univ ers HCl (ZOLOFT 1-05 mouth. ity of ORAL) 11:27: [address] quetiapine 2020-03 Yes Take by Univ ers fumarate 1-05 mouth. ity of (SEROQUEL 11:27: [place] ORAL) [address] [place] [address] MAGNESIUM 2020-03 Yes Take by Unive rs ORAL 1-05 mouth. ity of 11:27: [address] atorvastati 2020-03 Yes Take by Uni vers n calcium 1-05 mouth. ity of (ATORVASTAT 11:27: [place] IN ORAL) 32 Medical Branch LISINOPRIL Yes Take by Univ ers ORAL 7-03 mouth. ity of 19:24: [place] 49 Medical Branch sertraline Yes Take by Univ ers HCl (ZOLOFT -03 mouth. ity of ORAL) 19:24: [place] 49 [...] narcotic). Indication s: acute pain traMADoL 50 1-0 Yes [id number] 50mg Take 1 Univ ers [...] narcotic). Indication s: acute pain traMADoL 50 1-0 Yes [id number] 50mg Take 1 Univ ers mg tablet 7-03 tablet by ity o f 00:00: mouth [place] 00 every 4 Medical (four) Branch hours as needed (pain requiring narcotic). Indication s: acute pain traMADoL 50 1-0 Yes [id number] 50mg Take 1 Univ ers [...] 2021-11-26 19:12:00 150 mm[Hg] Univer [facility] Diastolic blood 2021-11-26 19:12:00 90 mm[Hg] [facility] Heart rate 2021-11-26 19:12:00 92 /min [facility] Body height 2021-11-26 19:12:00 152.4 cm [facility] Body weight 2021-11-26 19:12:00 100.699 kg [facility] BMI 2021-11-26 19:12:00 43[facility]36 [facility] 2021-11-01 21:38:00 116 mm[Hg] Univer [facility] Diastolic blood 2021-11-01 21:38:00 72 mm[Hg] Unive rs[facility] Heart rate 2021-11-01 21:38:00 100 /min [facility] Body temperature 2021-11-01 21:38:00 36.56 Fatou [facility] 2021-11-01 21:38:00 18 /min [facility] Body height 2021-11-01 21:38:00 152.4 cm [facility] Body weight 2021-11-01 21:38:00 100.699 kg [facility] BMI 2021-11-01 21:38:00 43.36 kg/m2 [facility] Oxygen saturation in 2021-11-01 21:38:00 95 /min University of Arterial blood by [facility] Pulse oximetry Branch Respiratory rate 2021-06-26 18:06:00 18 /min Univ ers[facility] [place] [facility] Oxygen saturation in 2021-06-26 18:06:00 100 /min University of Arterial blood by [facility] Pulse oximetry Branch Systolic blood 2021-06-26 18:00:00 149 mm[Hg] Univer sity of pressure [place] [facility] Diastolic blood 2021-06-26 18:00:00 81 mm[Hg] Unive rsity of pressure [place] [facility] Heart rate 2021-06-26 18:00:00 80 /min Universi ty [facility] [place] [facility] Body temperature 2021-06-26 16:10:00 36.67 Fatou Univ ers[facility] [place] [facility] Body weight 2021-06-26 16:10:00 91.173 kg Universi ty [facility] [place] [facility] BMI 2021-06-26 16:10:00 39.26 kg/m2 [facility] [place] [facility] Systolic blood 2021-06-26 15:17:00 166 mm[Hg] Univer sity of pressure [place] [facility] Diastolic blood 2021-06-26 15:17:00 97 mm[Hg] Unive rsity of pressure [place] [facility] Heart rate 2021-06-26 15:17:00 87 /min [facility]i ty [facility] [place] [facility] Body temperature 2021-06-26 15:17:00 36.56 Fatou Univ [facility] [place] [facility] Respiratory rate 2021-06-26 15:17:00 28 /min Univ [facility] [place] [facility] Oxygen saturation in 2021-06-26 15:17:00 99 /min University of Arterial blood by [facility] Pulse oximetry Branch Body height 2021-03-07 19:06:00 152.4 cm [facility] [place] [facility] Body weight 2021-03-07 19:06:00 91.173 kg [facility] [place] [facility] BMI 2021-03-07 19:06:00 39.26 kg/m2 [facility] [place] [facility] Systolic blood 2021-03-07 19:06:00 119 mm[Hg] Univer sity of pressure [place] [facility] Diastolic blood 2021-03-07 19:06:00 76 mm[Hg] Unive rsity of pressure [place] [facility] Heart rate 2021-03-07 19:06:00 84 /min [facility] [place] [facility] Systolic blood 2021-02-12 20:52:00 120 mm[Hg] Univer sity of pressure [place] [facility] Diastolic blood 2021-02-12 20:52:00 75 mm[Hg] Unive rsity of pressure [place] [facility] Heart rate 2021-02-12 20:52:00 70 /min [facility] [place] [facility] Body height 2021-02-12 20:52:00 152.4 cm [facility] [place] [facility] Body weight 2021-02-12 20:52:00 91.173 kg [facility] [place] [facility] BMI 2021-02-12 20:52:00 39.26 kg/m2 [facility] [place] [facility] Oxygen saturation in 2021-02-12 20:52:00 97 /min University of Arterial blood by [facility] Pulse oximetry Branch Systolic blood 2020-09-02 19:21:00 115 mm[Hg] Univer sity of pressure [place] [facility] Diastolic blood 2020-09-02 19:21:00 69 mm[Hg] Unive rsity of pressure [place] [facility] Heart rate 2020-09-02 19:21:00 95 /min [facility] [place] [facility] Body temperature 2020-09-02 19:21:00 36.72 Fatou Univ [facility] [place] [facility] Respiratory rate 2020-09-02 19:21:00 18 /min Univ [facility] [place] [facility] Body height 2020-09-02 19:21:00 152.4 cm [facility] [place] [facility] Body weight 2020-09-02 19:21:00 153.316 kg [facility] [place] [facility] BMI 2020-09-02 19:21:00 66.01 kg/m2 [facility] [place] [facility] Oxygen saturation in 2020-09-02 19:21:00 97 /min University of Arterial blood by [place] [employer] [facility] Pulse oximetry Branch Procedures Procedure Date / Time Performing Clinician Source Performed EXTERNAL PROVIDER 2022-04-16 06:01:00 Doctor Unassigned, No [facility] [place] RECORDS Name Medical Branch EXTERNAL PROVIDER 2021-12-18 05:01:00 Doctor Unassigned, No [facility] [place] RECORDS Name Medical Branch CONSENT/REFUSAL FOR 2021-11-26 18:55:25 Doctor Unassigned, No [facility] [place] DIAGNOSIS AND TREATMENT Name Medical Branch AUTHORIZATION FOR 2021-11-16 05:01:00 Doctor Unassigned, No [facility] RELEASE OF PHI Name Medical Branch XR CHEST 1 VW 2021-06-26 17:15:00 Singer [facility] RAPID INFLUENZA A/B 2021-06-26 16:59:00 Luciano Fernandez [facility] COVID-19 (ID NOW RAPID 2021-06-26 16:59:00 Luciano Fernandez [facility] TESTING) Medical Branch LIPASE 2021-06-26 16:29:00 Singer [facility] TROPONIN I 2021-06-26 16:29:00 Singer [facility] COMP. METABOLIC PANEL 2021-06-26 16:29:00 Luciano Fernandez [facility] ([id number]) Medical Branch CBC WITH DIFF 2021-06-26 16:29:00 [facility] PROTHROMBIN TIME / INR 2021-06-26 16:29:00 Singer Luciano [facility] ACTIVATED PARTIAL 2021-06-26 16:29:00 Singer [facility] THRMPLAS AMRIT Medical Branch CONSENT/REFUSAL FOR 2021-06-26 16:02:56 Doctor Un[facility]igned, [facility] Name Medical Branch NOTICE OF PRIVACY 2021-06-26 16:01:28 Doctor Unassigned, No [facility] PRACTICES Name Medical Branch TRANSTHORACIC ECHO (TTE) 2021-03-07 19:33:58 Brayden Dao [facility] COMPLETE Medical Branch CONSENT/REFUSAL FOR 2020-09-02 19:14:51 Doctor Unassigned, No [facility] Name Medical Branch Encounters Start End Encounter Admission Attending Care Care Encounter Source Date/Time Date/Time Type Type Clinicians Facility Department ID 2022-04-16 2022-04-16 Orders Doctor GARRISON 1.2.840.114 [id number] Univers 00:00:00 00:00:00 Only UnassRITA reed [id number] ity of [place] [facility] 4.2.7.2.686 Krishna as [id number] [address] 2021-12-18 2021-12-18 Orders Doctor MELI 1.2.840.114 [id number] Univers 00:00:00 00:00:00 Only Unassigned, RITA [id number] ity of [place] [facility] [id number] Krishna as [phone] [address] 2021-11-26 2021-11-26 [facility] [id number] Univers 14:15:00 14:57:11 ROC ity of [facility] 2021-11-26 2021-11-26 Office [facility] [id number] Univers 14:15:00 14:57:11 Visit Roc Brandark [id number] it y of [place] 4.2.7.2.686 Krishna as FRANCHESKA?BLEA [phone] [address] OFFICE [facility] 2021-11-26 2021-11-26 Telephone [facility] 1.2.840.114 [id number] Univers 00:00:00 00:00:00 Roc Brandark 350.1.13.10 it y of [place] 4.2.7.2.686 Krishna as FRANCHESKA?BLEA [phone] [address] OFFICE [facility] 2021-11-26 2021-11-26 Orders Doctor MELI 1.2.840.114 [id number] Univers 00:00:00 00:00:00 Only Unassigned, RITA [id number] ity of [place] [facility] 4.2.7.2.686 Krishna as [phone] [address] 2021-11-26 2021-11-26 Letter [facility] [id number] Univers 00:00:00 00:00:00 (Out) Roc Fermin HEALTH 350.1.13.10 it y of [place] 4.2.7.2.686 Krishna as FRANCHESKA?BLEA [phone] [address] OFFICE [facility] 2021-11-23 2021-11-23 Telephone Heriberto [facility] 1.2.840.114 [id number] Univers 00:00:00 00:00:00 Roc Fermin HEALTH 350.1.13.10 it y [facility] 4.2.7.2.686 Krishna as FRANCHESKA?BLEA [phone] Ar nathaniel [place] [address] [facility] OFFICE [facility] 2021-11-16 2021-11-16 Orders Doctor MELI 1.2.840.114 [id number] Univers 00:00:00 00:00:00 Only Unassigned, RITA 350.1.13.10 ity of [place] [facility] 4.2.7.2.686 Krishna as [phone] [facility] [address] [place] 2021-11-01 2021-11-01 Outpatient R KIRA [facility] [id number] Univers 16:20:00 17:15:15 DIOR itnorris [facility] 2021-11-01 2021-11-01 Urgent Kira Arnot [facility] 1.2.840.114 [id number] Univers 16:20:00 17:15:15 Care Isaias Meli [facility] 350.1.13.10 ity of [place] 4.2.7.2.686 Krishna as FRANCHESKA?BLEA [phone] Ar nathaniel [place] 370 [facility][note 3] 2021-06-26 2021-06-26 Emergency X SINGER [facility] ERT [id number] Univers 11:11:00 13:46:00 LUCIANO ng [facility] 2021-06-26 2021-06-26 Emergency [facility] [id number] Univers 11:11:00 13:46:00 Luciano BROWNMOHAN 350.1.13.10 i ty of [place] [phone] [facility] [address] [place] 2021-06-26 2021-06-26 Nurse Nurse, Adrian Patiño [facility] 1.2.840.114 [id number] Univers 10:50:00 11:10:00 Visit Kira Dior [facility] [id number] ity of [facility] 4.2.7.2.686 Krishna as FRANCHESKA?BLEA [phone] Ar dical KNEY [address] [place] [facility] 2021-06-26 2021-06-26 Outpatient R KIRA [facility] [id number] Univers 10:50:00 10:50:00 DIOR ity of [facility] 2021-06-26 2021-06-26 Orders Doctor MELI 1.2.840.114 [id number] Univers 00:00:00 00:00:00 Only Unassigned, RITA 350.1.13.10 ity of [facility] 4.2.7.2.686 Krishna as [phone] [address] 2021-06-25 2021-06-25 Outpatient R [facility] [id number] Univers 19:20:00 19:20:00 ity of [facility] 2021-03-07 2021-03-07 Outpatient R [facility] [id number] Univers 12:56:41 23:59:00 BRAYDEN ng o [facility] 2021-03-07 2021-03-07 [facility] 1.2.840.114 [id number] Univers 12:56:41 23:59:00 Encounter Brayden ESCOBAR 350.1.13.10 ity [facility] [place] [phone] Ar dicco NAL [address] [facility] 2021-02-27 2021-02-27 Outpatient R [facility] [id number] Univers 15:00:00 15:00:00 BRAYDEN floydy o [facility] 2021-02-27 2021-02-27 Outpatient R [facility] [id number] Univers 15:00:00 15:00:00 BRAYDEN floydy o [facility] 2021-02-19 2021-02-19 Telephone [facility] [id number] Univers 00:00:00 00:00:00 Brayden ESCOBAR 350.1.13.10 ity of [place] [phone] Ar dical NAL 059 [facility] 2021-02-12 2021-02-12 Office [facility] 1.2.840.114 [id number] Univers 14:42:56 15:15:38 Visit Bhargavchetan ESCOBAR 350.1.13.10 ity of [facility] 4.[place] [phone] [facility] 0[address] [facility] 2021-02-12 2021-02-12 Outpatient R [facility] [id number] Univers 14:40:00 15:15:38 BHARGAVMUJOVITA ity o f [facility] 2021-02-12 2021-02-12 Letter [facility] 1.2.840.114 [id number] Univers 00:00:00 00:00:00 (Out) Bhargavchetan ESCOBAR 350.1.13.10 ity of [facility] [place] [phone] [address] 2021-02-12 2021-02-12 Orders Doctor MELI 1.2.840.114 [id number] Univers 00:00:00 00:00:00 Only Unassigned, RITA 350.1.13.10 ity of [place] [facility] 4.2.7.2.686 Krishna as [phone] [address] 2020-09-02 2020-09-02 Outpatient R CAROL [facility] [id number] Univers 14:40:00 14:40:00 [facility] ity [facility] 2020-09-02 2020-09-02 Urgent Provider, [facility] 1.2.840.114 [id number] Univers 14:15:28 14:35:28 Care [facility] 350.1.13.10 ity of [place] 4.2.7.2.686 Krishna as Professio [phone] [facility] [address] [place] [address] 2020-09-02 2020-09-02 Orders Doctor MELI 1.2.840.114 [id number] Univers 00:00:00 00:00:00 Only Unassigned, RITA 350.1.13.10 ity of [place] [facility] 4.2.7.2.686 Krishna as [phone] [facility] roxana 009 Branch Results Test Description Test Time Test [...] 33.1 g/dL 31.6-35.1 RDW-SD (test code = 68510-4) 44.8 fL 39.0-49.9 RDW-CV (test code = 788-0) 13.8 % 12.0-15.5 PLT (test code = 777-3) See_Comment [Au tomated message] The system which ge nerated this result transmit bob reference range: 166 - 35 8 10*3/?L. The reference range was not used to interpret th is result as normal/abnormal . MPV (test code = 59359-2) 9.2 fL 9.5-12.9 L NRBC/100 WBC (test code = See_Comment [ Automated message] The 1850403736) system which ge nerated this result transmit bob reference range: 0.0 - 10 .0 /100 WBCs. The reference r lisa was not used to interpr et this result as normal/abnor mal. NRBC x10^3 (test code = <0.01 See_Comment [Au tomated message] The 6834807979) system which ge nerated this result transmit bob reference range: 10*3/?L. The reference range was not u sed to interpret this result as normal/abnormal . GRAN MAT (NEUT) % (test code 83.8 % = 770-8) IMM GRAN % (test code = 3.10 % 2814722942) LYMPH % (test code = 736-9) 8.7 % MONO % (test code = 5905-5) 4.3 % EOS % (test code = 713-8) 0.0 % BASO % (test code = 706-2) 0.1 % GRAN MAT x10^3(ANC) (test 11.27 10*3/uL 1.88-7.09 H code = 9325184045) IMM GRAN x10^3 (test code = 0.42 10*3/uL 0.00-0.06 H 8973844930) LYMPH x10^3 (test code = 1.17 10*3/uL 1.32-3.29 L 731-0) MONO x10^3 (test code = 0.58 10*3/uL 0.33-0.92 742-7) EOS x10^3 (test code = <0.03 0.03-0.39 L 711-2) BASO x10^3 (test code = <0.03 0.01-0.07 704-7) Lab Interpretation (test Abnormal code = 28396-9) [facility] [id number] 17:15:24 Test Item Value Reference Interpretation Comments Range TROPONIN I (test 0.002 ng/mL See_Comment [Automated code = 5278518740) message] The system which generated this result [...] biotin. Lab Interpretation Normal (test code = 00552-0) [facility]. METABOLIC PANEL ([id number])2021-06-26 17:12:03 Test Item Value Reference Range Interpretation Comments NA (test code = 134 mmol/L 135-145 L 2209115402) K (test code = 4.1 mmol/L 3.5-5.0 2719178911) CL (test code = 103 mmol/L 98-108 3310586210) CO2 TOTAL (test code = 20 mmol/L 23-31 L 5473002971) AGAP (test code = 2-16 7142489155) BUN (test code = 14 mg/dL 7-23 4615302904) GLUCOSE (test code = 151 mg/dL 70-110 H 1993752276) CREATININE (test code = 0.65 mg/dL 0.50-1.04 5612224971) TOTAL BILI (test code = 0.4 mg/dL 0.1-1.8 9054180964) CALCIUM (test code = 8.7 mg/dL 8.6-10.6 5201710631) T PROTEIN (test code = 6.4 g/dL 6.3-8.2 0537866691) ALBUMIN (test code = 3.9 g/dL 3.5-5.0 4133240352) ALK PHOS (test code = 82 U/L 34-122 8472376264) ALTv (test code = 24 U/L 5-35 1742-6) AST(SGOT) (test code = 17 U/L 13-40 6270852312) eGFR (test code = mL/min/1.73m2 2934781563) ABRAHAM (test code = ABRAHAM) Association of [...] tests). Lab Interpretation Abnormal (test code = 01873-8) [facility] Center[facility], [id number] 17:05:20 Test Item Value Reference Range Interpretation Comments LIPASE (test code = 9586720235) 75 U/L 0-220 Lab Interpretation (test code = Normal 58273-1) [facility] Cent[facility]TT2022-04-26 17:00:21 Test Item Value Reference Range Interpretation Comments APTT Patient (test See_Comment [Automat ed code = 3173-2) message] The system which generated this result transmitted reference range : 23 - 38 Seconds . The reference range was not used to interpr et this result as normal/abnormal . ABRAHAM (test code = ABRAHAM) The [facility] patient population mean normal value for aPTT is 30 seconds. Lab Interpretation Normal (test code = 50705-3) [facility] CenterPROT[facility] / [id number] 16:58:23 Test Item Value Reference Range Interpretation [...] tions. Lab Interpretation (test Normal code = 04555-4) [facility]
[2022-07-17] MEDS ORDERED: dexAMETHasone 10 MG/ML VIAL ONE (16:14)
--- NOTE | 2022-07-17 16:56 | ER ---
[facility] Name: Airam Glasgow Age: 46 yrs Sex: Female : 1975 Arrival Date: 07/17/2022 Time: 14:23 Bed 11 Private MD: Kalpesh Golden E Diagnosis: Acute pharyngitis, unspecified;Acute serous otitis media, bilateral Presentation: 07/17 15:04 Chief complaint: Patient states: Diagnosed with kenia ear infection about a week and a nj1 half today, 4-5 days ago started having sore throat, headaches and cough which have gotten worse. Coronavirus screen: Vaccine status: Patient reports receiving the 2nd dose of the covid vaccine. Ebola Screen: Patient denies travel to an Ebola-affected area in the 21 days before illness onset. Initial Sepsis Screen: Does the patient meet any 2 criteria? HR > 90 bpm. No. Patient's initial sepsis screen is negative. Does the patient have a suspected source of infection? No. Patient's initial sepsis screen is negative. Risk Assessment: Do you want to hurt yourself or someone else? Patient reports no desire to harm self or others. Onset of symptoms was July 12, 2022. 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 - Social history:: Smoking status: Patient reports the use of cigarette tobacco products, smokes one-half pack cigarettes per day. Screenin:15 [facility] ED Fall Risk Assessment (Adult) History of falling in the last 3 months, mb9 including since admission No falls in past 3 months (0 pts) Confusion or Disorientation No (0 pts) Intoxicated or Sedated No (0 pts) Impaired Gait No (0 pts) Mobility Assist Device Used No (0 pt) Altered Elimination No (0 pt) Score/Fall Risk Level 0 - 2 = Low Risk Oriented to surroundings, Maintained a safe environment, Educated pt \T\ family on fall prevention, incl call for assistance when getting out of bed. Abuse screen: Denies threats or abuse. Nutritional screening: No deficits noted. Tuberculosis screening: No symptoms or risk factors identified. Assessment: 15:02 Reassessment: not in lobby. iw 16:15 Reassessment: pt brought back to ER room. mb9 16:16 General: Appears in no apparent distress. Behavior is calm, cooperative, appropriate mb9 for age. Pain: Complains of pain in throat Pain does not radiate. Pain began suddenly. Neuro: Level of Consciousness is awake, alert, obeys commands, Oriented to person, place, time, situation, Appropriate for age. Cardiovascular: Patient's skin is warm and dry. Rhythm is regular. Respiratory: Reports cough that is productive, Airway is patent Respiratory effort is even, unlabored, Respiratory pattern is regular, symmetrical, Breath sounds are clear bilaterally. : No signs and/or symptoms were reported regarding the genitourinary system. EENT: Throat is reddened Reports pain when swallowing. Derm: Skin is pink, warm \T\ dry. Musculoskeletal: Range of motion: intact in all extremities. Vital Signs: 15:04 BP 150 / 90; Pulse 109; Resp 18; Temp 98.6(TE); Pulse Ox 95% ; Weight 111.13 kg; Height nj1 5 ft. 1 in. ; Pain 10/10; 16:16 BP 148 / 76; Pulse 99; Resp 20; Pulse Ox 100% on R/A; mb9 17:28 Pulse 84; Resp 18; Pulse Ox 100% on R/A; mb9 15:04 Body Mass Index 46.29 (111.13 kg, 154.94 cm) nj1 15:04 Pain Scale: Adult [facility] ED Course: 14:26 Patient arrived in ED. mr 14:26 Klapesh Golden MD is Private Physician. mr 14:28 [facility] Calderon [facility] jmm 14:28 Elkin Gudino MD is Attending Physician. [facility] 15:08 Triage completed. nj1 15:11 Arm band placed on right wrist. nj1 16:04 Johana Bragg RN is Primary Nurse. mb9 16:16 Placed in gown. Bed in low position. Call light in reach. Side rails up X 1. Client mb9 placed on continuous cardiac and pulse oximetry monitoring. NIBP monitoring applied. 16:16 No provider procedures requiring assistance completed. mb9 16:18 Strep Sent. mb9 16:18 Influenza Screen (a \T\ B) Sent. mb9 16:18 SARS-COV-2 RT PCR Sent. mb9 16:54 Terri Ortiz MD is Referral Physician. [facility] 16:59 Patient did not have IV access during this emergency room visit. mb9 Administered Medications: 16:10 Drug: Dexamethasone IM 10 mg Route: IM; Site: right gluteus; mb9 16:53 Follow up: Response: No adverse reaction mb9 16:56 Drug: Ibuprofen PO 800 mg Route: PO; mb9 16:59 Follow up: Response: No adverse reaction mb9 Medication: 16:16 VIS not applicable for this client. mb9 Outcome: 16:55 Discharge ordered by MD. [facility] 17:28 Discharged to home ambulatory. mb9 17:28 Condition: stable 17:28 Discharge instructions given to patient, Instructed on discharge instructions, follow up and referral plans. Demonstrated understanding of instructions, follow-up care, medications, Prescriptions given X 3. 17:28 Patient left the ED. mb9 Signatures: Derick Calderon PA PA jmm Rivera, Mary mr Williams, Irene, RN Johana Bowie RN RN mb9 Karina Stoner RN RN nj1
--- NOTE | 2022-07-17 16:56 | EDPHYS ---
Physician Documentation [facility] Name: Airam Glasgow Age: 46 yrs Sex: Female : 1975 Arrival Date: 07/17/2022 Time: 14:23 Bed 11 Private MD: Kalpesh Golden E ED Physician Elkin Gudino HPI: 07/17 15:10 This 46 yrs old Female presents to ER via Ambulatory with complaints of Sore Throat, jmm Cough. 15:10 The patient presents with sore throat. Onset: The symptoms/episode began/occurred jmm gradually. Modifying factors: The symptoms are alleviated by nothing, the symptoms are aggravated by nothing. Associated signs and symptoms: Pertinent positives: cough. 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 - Social history:: Smoking status: Patient reports the use of cigarette tobacco products, smokes one-half pack cigarettes per day. ROS: 15:10 Constitutional: Positive for body aches. jmm 15:10 ENT: Positive for ear pain. 15:10 Respiratory: Positive for cough. 15:10 All other systems are negative. Exam: 15:10 Constitutional: This is a well developed, well nourished patient who is awake, alert, jmm and in no acute distress. Head/Face: atraumatic. Eyes: EOMI, no conjunctival erythema appreciated 15:10 Neck: Trachea midline, Supple Chest/axilla: Normal chest wall appearance and motion. Cardiovascular: Regular rate and rhythm. No edema appreciated Respiratory: Normal respirations, no respiratory distress appreciated Abdomen/GI: Non distended Back: Normal ROM Skin: General appearance color normal 15:10 ENT: TM's: erythema, that is moderate, bilaterally, Posterior pharynx: erythema, that is moderate. 15:10 Musculoskeletal/extremity: ROM: intact in all extremities. 15:10 Skin: Appearance: Color: normal in color. 15:10 Neuro: Orientation: is normal, Mentation: is normal, Memory: is normal. 15:10 Psych: Behavior/mood is pleasant, cooperative. Vital Signs: 15:04 BP 150 / 90; Pulse 109; Resp 18; Temp 98.6(TE); Pulse Ox 95% ; Weight 111.13 kg; Height nj1 5 ft. 1 in. ; Pain 10/10; 16:16 BP 148 / 76; Pulse 99; Resp 20; Pulse Ox 100% on R/A; mb9 17:28 Pulse 84; Resp 18; Pulse Ox 100% on R/A; mb9 15:04 Body Mass Index 46.29 (111.13 kg, 154.94 cm) [facility] 15:04 Pain Scale: Adult nj1 MDM: 15:10 Patient medically screened. [facility] 16:53 Differential diagnosis: influenza, mononucleosis, pharyngitis, upper respiratory jmm infection, viral syndrome. Data reviewed: vital signs, nurses notes, lab test result(s). I considered the following discharge prescriptions or medication management in the emergency department Medications were administered in the Emergency Department. See MAR. Counseling: I had a detailed discussion with the patient and/or guardian regarding: the historical points, exam findings, and any diagnostic results supporting the discharge/admit diagnosis, the need for outpatient follow up, to return to the emergency department if symptoms worsen or persist or if there are any questions or concerns that arise at home. 07/17 15:11 Order name: SARS-COV-2 RT PCR; Complete Time: 17:00 [facility] 07/17 15:11 Order name: Influenza Screen (a \T\ B); Complete Time: 16:49 [facility] 07/17 15:11 Order name: Strep; Complete Time: 16:49 [facility] 07/17 16:38 Order name: Throat Culture EDMS Administered Medications: 16:10 Drug: Dexamethasone IM 10 mg Route: IM; Site: right gluteus; mb9 16:53 Follow up: Response: No adverse reaction mb9 16:56 Drug: Ibuprofen PO 800 mg Route: PO; mb9 16:59 Follow up: Response: No adverse reaction mb9 Disposition Summary: 07/17/22 16:55 Discharge Ordered Location: Home jm Condition: Stable jmm Diagnosis - Acute pharyngitis, unspecified jmm - Acute serous otitis media, bilateral jmm Followup: jmm - With: Terri Ortiz MD - When: 2 - 3 days - Reason: Recheck today's complaints, Continuance of care, Re-evaluation by your physician Discharge Instructions: - Discharge Summary Sheet jmm - Otitis Media, Pediatric jmm - Pharyngitis [facility] Forms: - Medication Reconciliation Form [facility] - Thank You Letter [facility] - Antibiotic Education [facility] - Prescription Opioid Use [facility] Prescriptions: - Bromfed DM 2-30-10 mg/5 mL Oral syrup - administer 10 milliliter by ORAL route every 4 to 6 hours As needed as needed jm for allergy symptoms; 200 milliliter; Refills: 0, Product Selection Permitted - Clindamycin HCl 300 mg Oral Capsule - take 1 capsule by ORAL route every 6 hours for 10 days; 40 capsule; Refills: 0, [facility] Product Selection Permitted - Doxycycline Hyclate 100 mg Oral Tablet - take 1 tablet by ORAL route every 12 hours; 20 tablet; Refills: 0, Product [facility] Selection Permitted Signatures: Dispatcher [employer] EDDerick Juarez PA PA jmm Breneman, Mary Beth, RN RN mb9 Karina Stoner RN RN nj1
[2022-07-17] MEDS ORDERED: IBUPROFEN 400 MG TAB ONE (17:01)
[2022-07-17 17:57] VITALS: TEMP 98.6
[2022-07-17 18:04] VITALS: BP 148/76; O2SAT 100
== END 2022-07-17 17:28 | disposition home or self-care (01) ==
LOC: ER 14:23
DX: J02.9 Acute pharyngitis, unspecified (principal); H65.03 Acute serous otitis media, bilateral; I10 Essential (primary) hypertension; F17.210 Nicotine dependence, cigarettes, uncomplicated; Z20.822 Contact with and (suspected) exposure to COVID-19; Z88.0 Allergy status to penicillin; Z88.1 Allergy status to other antibiotic agents; Z88.5 Allergy status to narcotic agent
CPT/HCPCS: 87070; 87081; 87804 ×2; U0003; J1100

== ENCOUNTER 2022-12-11 14:21 | Emergency (ER) | payer BC ==
--- OUTSIDE RECORDS SUMMARY | 2022-12-11 14:25 | XMS REPORT | Continuity of Care Document ---
:1975 Author Organization [facility] t Address [address] [place] [address] [place] [id number] Care Team Providers Name Role Phone Pcp, Patient Does Not Have A Primary Care Physician +[id number] Doctor Unassigned, [place] Attending Clinician Unavailable ROC LOUIS Attending Clinician Unavailable Roc Louis MD Attending Clinician DIOR MALONE Attending Clinician Unavailable Dior Goode Attending Clinician Meli Esparza PA-C Attending Clinician LUCIANO FERNANDEZ Attending Clinician Unavailable Luciano Fernandez DO Attending Clinician [facility] Attending Clinician Unavailable Brayden Dao MD Attending Clinician BRAYDEN DAO Attending Clinician Unavailable JENAE MEDINA Attending Clinician Unavailable Provider, [facility] Attending Clinician Unavailable Jenae Castellanos [...] rs active active ity of problems problems [facility] Allergies, Adverse Reactions, Alerts Allergy Allergy Status Severity Reaction(s) Onset Inactive Treating Comm ents Source Name Type Date Date Clinician Diazepam Propensi Active Other - See 2021-1 Patient Univers ty to comments 2-13 stated ity of adverse 00:00: that [place] reaction 00 "valium Medical s knocks me Branch out for 2-3 days" DIAZEPAM DRUG Active Other-Cmnt 2020-03 Univ ers INGREDI 2- ity of 00:00: [place] 00 [facility] Branch Penicill Propensi Active Anaphylaxis 1-0 U nivers ins ty to 09-02 ity [...] Medical s Branch CEPHALEX DRUG Active Anaphylaxis 2020-0 Uni vers IN INGREDI 09-02 ity of 00:00: [place] [facility] PENICILL Drug Active Anaphylaxis 2020-0 Uni vers INS Class 09-02 ity of 00:00: [place] 00 [facility] NO KNOWN Drug Active Univers ALLERGIE Class ity of S [facility] Social History Social Habit Start Date Stop Date Quantity Comments Source History of tobacco Smokes tobacco Un iversity of use daily [facility] Sexual orientation Univer sity [facility] Exposure to 2021-11-15 2021-11-25 Not sure University of SARS-CoV-2 (event) 00:00:00 20:45:00 [facility] History of Social 2021-11-01 2021-11-01 Univers ity of function 00:00:00 00:00:00 [facility] Tobacco use and 2021-02-12 2021-02-12 Smokeless Universit y of exposure 00:00:00 00:00:00 [facility] Sex Assigned At [birth year] Universit y of 00:00:00 00:00:00 [facility] Smoking Status Start Date Stop Date Source Unknown if ever smoked Universit y of [facility] Smokes tobacco daily 2021-02-12 00:00:00 [facility] ity [facility] Former smoker 2020-09-02 00:00:00 2020-09-02 [facility] Medications Ordered Filled Start Stop Current Ordering Indication Dosage Frequency Signature Comments Components Source Medication Medication Date Date Medication? Clinician (SIG) Name Name diclofenac Yes [id number] 75mg Take 1 Univers 75 mg EC 9-26 9108 tablet by ity of tablet 00:00: mouth in [address] morning [place] and 1 tablet in the evening. Take with meals. diclofenac Yes [id number] 75mg Take 1 Univers 75 mg EC 9-26 [id number] tablet by ity of tablet 00:00: mouth in [address] morning [place] and 1 tablet in the evening. Take with meals. diclofenac Yes [id number] 75mg Take 1 Univers 75 mg EC 9-26 [id number] tablet by ity of tablet 00:00: mouth in [address] morning Ellery and 1 tablet in the evening. Take with meals. diclofenac Yes [id number] 75mg Take 1 Univers 75 mg EC 9-26 [id number] tablet by ity of tablet 00:00: mouth in [address] morning Ellery and 1 tablet in the evening. Take with meals. diclofenac Yes [id number] 75mg Take 1 Univers 75 mg EC 9-26 [id number] tablet by ity of tablet 00:00: mouth in [address] morning [place]ery and 1 tablet in the evening. Take with meals. ketorolac 2021- No [id number] 30mg Uni vers (TORADOL) 11-01 ity of injection 23:15: 22:13 [place] 30 mg 00 :00 [facility] ketorolac 2021- No [id number] 30mg 30 mg, U nivers (TORADOL) 11-01 Intramuscu ity of injection 23:15: 22:13 [place], ONCE, [place] 30 mg 00 :00 1 dose, On Medical [facility] 11/01/21 Branch at 1815, Routine cyclobenzap Yes [id number] 10mg Take 1 Univers rine 10 mg 9-01 tablet by ity of tablet 00:00: mouth 3 [place] 00 (three) Medical times [place] daily as needed for Muscle Spasms. cyclobenzap Yes [id number] 10mg Take 1 Univers rine 10 mg 9-01 tablet by ity of tablet 00:00: mouth 3 (three) Medical times Branch daily as needed for Muscle Spasms. cyclobenzap 2022-0 Yes [id number] 10mg Take 1 Univers rine 10 mg 9-01 tablet by ity of tablet 00:00: mouth 3 (three) Medical times Branch daily as needed for Muscle Spasms. cyclobenzap 2022-0 Yes [id number] 10mg Take 1 Univers rine 10 mg 9-01 tablet by ity of tablet 00:00: mouth 3 (three) Medical times Branch daily as needed for Muscle Spasms. cyclobenzap 2022-0 Yes [id number] 10mg Take 1 Univers rine 10 mg 9-01 tablet by ity of tablet 00:00: mouth 3 (three) Medical times Branch daily as needed for Muscle Spasms. cyclobenzap 2022-0 Yes [id number] 10mg Take 1 Univers rine 10 mg 9-01 tablet by ity of tablet 00:00: mouth 3 (three) Medical times Branch daily as needed for Muscle Spasms. cyclobenzap 2022-0 Yes [id number] 10mg Take 1 Univers rine 10 mg 9-01 tablet by ity of tablet 00:00: mouth 3 (three) Medical times Branch daily as needed for Muscle Spasms. cyclobenzap 2022-0 Yes [id number] 10mg Take 1 Univers rine 10 mg 9-01 tablet by ity of tablet 00:00: mouth 3 (three) Medical times Branch daily as needed for Muscle Spasms. cyclobenzap 2022-0 Yes [id number] 10mg Take 1 Univers rine 10 mg 9-01 tablet by ity of tablet 00:00: mouth 3 (three) Medical times Branch daily as needed for Muscle Spasms. cyclobenzap 2022-0 Yes [id number] 10mg Take 1 Univers rine 10 mg 9-01 tablet by ity of tablet 00:00: mouth 3 (three) Medical times Branch daily as needed for Muscle Spasms. methylpredn 2-0 Yes 125mg 125 mg, Un divya isolone sod 4-26 Intravenou it y of succ 23:00: s, Q6H, [place] (SOLU-MEDRO 00 First dose Me dical L) on Tue Branch injection 06/26/21 at 125 mg 1800, Until Discontinu ed, Routine ipratropium 2022-0 2022- No 3mL 3 mL, Univ ers -albuteroL 06-26- Inhalation it y of (DUONEB) 18:15: 17:55 , ONCE, 1 Krish[place] as 0.5 mg-3 00 :00 dose, On Medical mg(2.5 mg Tue Branch base)/3 mL 06/26/21 at nebulizer 1315, solution 3 Routine mL ipratropium 2021-0 Yes 3mL 3 mL, Unive rs -albuteroL 06-26 Inhalation ity of (DUONEB) 17:00: , QID, [place] 0.5 mg-3 00 First dose Medic al mg(2.5 mg on Tue Branch base)/3 mL 06/26/21 at nebulizer 1200, solution 3 Until mL Discontinu ed, Routine methylPREDN 2022-0 Yes [id number] Take by Univers ISolone 06-26 mouth ity of (MEDROL, 00:00: SEE-INSTRU [place] as BELÉN,) 4 mg 00 CTIONS. Medica l tablets follow Branch package directions methylPREDN 2022-0 Yes [id number] Take by Univers ISolone 06-26 mouth ity of (MEDROL, 00:00: SEE-INSTRU [place] BELÉN,) 4 mg 00 CTIONS. Medica l tablets follow Branch package directions methylPREDN 2022-0 Yes [id number] Take by Univers ISolone 06-26 mouth ity of (MEDROL, 00:00: SEE-INSTRU [place] as BELÉN,) 4 mg 00 CTIONS. Medica l tablets follow Branch package directions methylPREDN 2022-0 Yes [id number] Take by Univers ISolone -26 mouth ity of (MEDROL, 00:00: SEE-INSTRU [place] BELÉN,) 4 mg 00 CTIONS. Medica l tablets follow Branch package directions methylPREDN 2022-0 Yes [id number] Take by Univers ISolone -26 mouth ity of (MEDROL, 00:00: SEE-INSTRU [place] as BELÉN,) 4 mg 00 CTIONS. Medica l tablets follow Branch package directions methylPREDN 2022-0 Yes [id number] Take by Univers ISolone -26 mouth ity of (MEDROL, 00:00: SEE-INSTRU [place] BELÉN,) 4 mg 00 CTIONS. Medica l tablets follow Branch package directions methylPREDN 2021-0 Yes [id number] Take by [facility] ISolone 06-26 mouth ity of (MEDROL, 00:00: SEE-INSTRU [place] as BELÉN,) 4 mg 00 CTIONS. Medica l tablets follow Branch package directions methylPREDN 2021-0 Yes [id number] Take by [facility] ISolone 06-26 mouth ity of (MEDROL, 00:00: SEE-INSTRU [place] BELÉN,) 4 mg 00 CTIONS. Medica l tablets follow Branch package directions methylPREDN 2021-0 Yes [id number] Take by [facility] ISolone 06-26 mouth ity of (MEDROL, 00:00: SEE-INSTRU [place] BELÉN,) 4 mg 00 CTIONS. Medica l tablets follow Branch package directions methylPREDN 2021-0 Yes [id number] Take by [facility] ISolone 06-26 mouth ity of (MEDROL, 00:00: SEE-INSTRU [place] as BELÉN,) 4 mg 00 CTIONS. Medica l tablets follow Branch package directions methylPREDN 2021-0 Yes [id number] Take by [facility] ISolone 06-26 mouth ity of (MEDROL, 00:00: SEE-INSTRU [place] as BELÉN,) 4 mg 00 CTIONS. Medica l tablets follow Branch package directions albuterol 2021- No [id number] 2.5mg Inhale 3 Univers 2.5 mg /3 06-26 05-11 mL every 4 ity of mL (0.083 00:00: 04:59 (four) [place] %) 00 :00 hours for Medical nebulizer 14 days. Branch solution May also nebulize one extra every 6 hours. LISINOPRIL 2020-03 Yes Take by [facility] ers ORAL 1-05 mouth. ity of 11:27: [address] sertraline 2020-03 Yes Take by [facility] ers HCl (ZOLOFT 1-05 mouth. ity of ORAL) 11:27: [address] quetiapine 2020-03 Yes Take by [facility] ers fumarate 1-05 mouth. ity of (SEROQUEL 11:27: [address] MAGNESIUM 2020-03 Yes Take by [facility] rs ORAL 1-05 mouth. ity of 11:27: [address] atorvastati 2020-03 Yes Take by Uni vers n calcium 1-05 mouth. ity of (ATORVASTAT 11:27: [place] IN ORAL) [address] [place] [address] LISINOPRIL 2020-03 Yes Take by Univ ers ORAL 1-05 mouth. ity of 11:27: [address] sertraline 2020-03 Yes Take by Univ ers HCl (ZOLOFT 1-05 mouth. ity of ORAL) 11:27: [address] quetiapine 2020-03 Yes Take by Univ ers fumarate 1-05 mouth. ity of (SEROQUEL 11:27: [place] ORAL) [address] [place] [address] MAGNESIUM 2020-03 Yes Take by Unive rs ORAL 1-05 mouth. ity of 11:27: [address] atorvastati 2020-03 Yes Take by Uni vers n calcium 1-05 mouth. ity of (ATORVASTAT 11:27: [place] IN ORAL) [address] [place] [address] LISINOPRIL 2020-03 Yes Take by Univ ers ORAL 1-05 mouth. ity of 11:27: [address] sertraline 2020-03 Yes Take by Univ ers HCl (ZOLOFT 1-05 mouth. ity of ORAL) 11:27: [address] quetiapine 2020-03 Yes Take by Univ ers fumarate 1-05 mouth. ity of (SEROQUEL 11:27: [place] ORAL) [address] [place] [address] MAGNESIUM 2020-03 Yes Take by Unive rs ORAL 1-05 mouth. ity of 11:27: [address] atorvastati 2020-03 Yes Take by Uni vers n calcium 1-05 mouth. ity of (ATORVASTAT 11:27: [place] IN ORAL) [address] [place] [address] LISINOPRIL 2020-03 Yes Take by Univ ers ORAL 1-05 mouth. ity of 11:27: [address] sertraline 2020-03 Yes Take by Univ ers HCl (ZOLOFT 1-05 mouth. ity of ORAL) 11:27: [address] quetiapine 2020-03 Yes Take by Univ ers fumarate 1-05 mouth. ity of (SEROQUEL 11:27: [place] ORAL) [address] [place] [address] MAGNESIUM 2020-03 Yes Take by Unive rs ORAL 1-05 mouth. ity of 11:27: [address] atorvastati 2020-03 Yes Take by Uni vers n calcium 1-05 mouth. ity of (ATORVASTAT 11:27: [place] IN ORAL) [address] [place] [address] LISINOPRIL 2020-03 Yes Take by Univ ers ORAL 1-05 mouth. ity of 11:27: [address] sertraline 2020-03 Yes Take by Univ ers HCl (ZOLOFT 1-05 mouth. ity of ORAL) 11:27: [address] quetiapine 2020-03 Yes Take by Univ ers fumarate 1-05 mouth. ity of (SEROQUEL 11:27: [place] ORAL) [address] [place] [address] MAGNESIUM 2020-03 Yes Take by Unive rs ORAL 1-05 mouth. ity of 11:27: [address] atorvastati 2020-03 Yes Take by Uni vers n calcium 1-05 mouth. ity of (ATORVASTAT 11:27: [place] IN ORAL) [address] [place] [address] LISINOPRIL 2020-03 Yes Take by Univ ers ORAL 1-05 mouth. ity of 11:27: [address] sertraline 2020-03 Yes Take by Univ ers HCl (ZOLOFT 1-05 mouth. ity of ORAL) 11:27: [address] quetiapine 2020-03 Yes Take by Univ ers fumarate 1-05 mouth. ity of (SEROQUEL 11:27: [place] ORAL) [address] [place] [address] MAGNESIUM 2020-03 Yes Take by Unive rs ORAL 1-05 mouth. ity of 11:27: [address] atorvastati 2020-03 Yes Take by Uni vers n calcium 1-05 mouth. ity of (ATORVASTAT 11:27: [place] IN ORAL) [address] [place] [address] LISINOPRIL 2020-03 Yes Take by Univ ers ORAL 1-05 mouth. ity of 11:27: [address] sertraline 2020-03 Yes Take by Univ ers HCl (ZOLOFT 1-05 mouth. ity of ORAL) 11:27: [address] quetiapine 2020-03 Yes Take by Univ ers fumarate 1-05 mouth. ity of (SEROQUEL 11:27: [place] ORAL) [address] [place] [address] MAGNESIUM 2020-03 Yes Take by Unive rs ORAL 1-05 mouth. ity of 11:27: [address] atorvastati 2020-03 Yes Take by Uni vers n calcium 1-05 mouth. ity of (ATORVASTAT 11:27: [place] IN ORAL) [address] [place] [address] LISINOPRIL 2020-03 Yes Take by Univ ers ORAL 1-05 mouth. ity of 11:27: [address] sertraline 2020-03 Yes Take by Univ ers HCl (ZOLOFT 1-05 mouth. ity of ORAL) 11:27: [address] quetiapine 2020-03 Yes Take by Univ ers fumarate 1-05 mouth. ity of (SEROQUEL 11:27: [place] ORAL) [address] [place] [address] MAGNESIUM 2020-03 Yes Take by Unive rs ORAL 1-05 mouth. ity of 11:27: [address] atorvastati 2020-03 Yes Take by Uni vers n calcium 1-05 mouth. ity of (ATORVASTAT 11:27: [place] IN ORAL) [address] [place] [address] LISINOPRIL 2020-03 Yes Take by Univ ers ORAL 1-05 mouth. ity of 11:27: [address] sertraline 2020-03 Yes Take by Univ ers HCl (ZOLOFT 1-05 mouth. ity of ORAL) 11:27: [address] quetiapine 2020-03 Yes Take by Univ ers fumarate 1-05 mouth. ity of (SEROQUEL 11:27: [place] ORAL) [address] [place] [address] MAGNESIUM 2020-03 Yes Take by Unive rs ORAL 1-05 mouth. ity of 11:27: [address] atorvastati 2020-03 Yes Take by Uni vers n calcium 1-05 mouth. ity of (ATORVASTAT 11:27: [place] IN ORAL) [address] [place] [address] LISINOPRIL 2020-03 Yes Take by Univ ers ORAL 1-05 mouth. ity of 11:27: [address] sertraline 2020-03 Yes Take by Univ ers HCl (ZOLOFT 1-05 mouth. ity of ORAL) 11:27: [address] quetiapine 2020-03 Yes Take by Univ ers fumarate 1-05 mouth. ity of (SEROQUEL 11:27: [place] ORAL) [address] [place] [address] MAGNESIUM 2020-03 Yes Take by Unive rs ORAL 1-05 mouth. ity of 11:27: [address] atorvastati 2020-03 Yes Take by Uni vers n calcium 1-05 mouth. ity of (ATORVASTAT 11:27: [place] IN ORAL) [address] [place] [address] LISINOPRIL 2020-03 Yes Take by Univ ers ORAL 1-05 mouth. ity of 11:27: [address] sertraline 2020-03 Yes Take by Univ ers HCl (ZOLOFT 1-05 mouth. ity of ORAL) 11:27: [address] quetiapine 2020-03 Yes Take by Univ ers fumarate 1-05 mouth. ity of (SEROQUEL 11:27: [place] ORAL) [address] [place] [address] MAGNESIUM 2020-03 Yes Take by Unive rs ORAL 1-05 mouth. ity of 11:27: [address] atorvastati 2020-03 Yes Take by Uni vers n calcium 1-05 mouth. ity of (ATORVASTAT 11:27: [place] IN ORAL) [address] [place] [address] LISINOPRIL 2020-03 Yes Take by Univ ers ORAL 1-05 mouth. ity of 11:27: [address] sertraline 2020-03 Yes Take by Univ ers HCl (ZOLOFT 1-05 mouth. ity of ORAL) 11:27: [address] quetiapine 2020-03 Yes Take by Univ ers fumarate 1-05 mouth. ity of (SEROQUEL 11:27: [place] ORAL) [address] [place] [address] MAGNESIUM 2020-03 Yes Take by Unive rs ORAL 1-05 mouth. ity of 11:27: [address] atorvastati 2020-03 Yes Take by Uni vers n calcium 1-05 mouth. ity of (ATORVASTAT 11:27: [place] IN ORAL) [address] [place] [address] LISINOPRIL 2020-03 Yes Take by Univ ers ORAL 1-05 mouth. ity of 11:27: [address] sertraline 2020-03 Yes Take by Univ ers HCl (ZOLOFT 1-05 mouth. ity of ORAL) 11:27: [address] quetiapine 2020-03 Yes Take by Univ ers fumarate 1-05 mouth. ity of (SEROQUEL 11:27: [place] ORAL) [address] [place] [address] MAGNESIUM 2020-03 Yes Take by Unive rs ORAL 1-05 mouth. ity of 11:27: [address] atorvastati 2020-03 Yes Take by Uni vers n calcium 1-05 mouth. ity of (ATORVASTAT 11:27: [place] IN ORAL) [address] [place] [address] LISINOPRIL 2020-03 Yes Take by Univ ers ORAL 1-05 mouth. ity of 11:27: [address] sertraline 2020-03 Yes Take by Univ ers HCl (ZOLOFT 1-05 mouth. ity of ORAL) 11:27: [address] quetiapine 2020-03 Yes Take by Univ ers fumarate 1-05 mouth. ity of (SEROQUEL 11:27: [place] ORAL) [address] [place] [address] MAGNESIUM 2020-03 Yes Take by Unive rs ORAL 1-05 mouth. ity of 11:27: [address] atorvastati 2020-03 Yes Take by Uni vers n calcium 1-05 mouth. ity of (ATORVASTAT 11:27: [place] IN ORAL) [address] [place] [address] LISINOPRIL 2020-03 Yes Take by Univ ers ORAL 1-05 mouth. ity of 11:27: [address] sertraline 2020-03 Yes Take by Univ ers HCl (ZOLOFT 1-05 mouth. ity of ORAL) 11:27: [address] quetiapine 2020-03 Yes Take by Univ ers fumarate 1-05 mouth. ity of (SEROQUEL 11:27: [place] ORAL) [address] [place] [address] MAGNESIUM 2020-03 Yes Take by Unive rs ORAL 1-05 mouth. ity of 11:27: [address] atorvastati 2020-03 Yes Take by Uni vers n calcium 1-05 mouth. ity of (ATORVASTAT 11:27: [place] IN ORAL) [address] [place] [address] LISINOPRIL 2020-03 Yes Take by Univ ers ORAL 1-05 mouth. ity of 11:27: [address] sertraline 2020-03 Yes Take by Univ ers HCl (ZOLOFT 1-05 mouth. ity of ORAL) 11:27: [address] quetiapine 2020-03 Yes Take by Univ ers fumarate 1-05 mouth. ity of (SEROQUEL 11:27: [place] ORAL) [address] [place] [address] MAGNESIUM 2020-03 Yes Take by Unive rs ORAL 1-05 mouth. ity of 11:27: [place] [address] Medical Branch atorvastati 2020-03 Yes Take by Uni vers n calcium 1-05 mouth. ity of (ATORVASTAT 11:27: [place] IN ORAL) Medical Branch LISINOPRIL 2020-03 Yes Take by Univ ers ORAL 1-05 mouth. ity of 11:27: [place] [address] Medical Branch sertraline 2020-03 Yes Take by Univ ers HCl (ZOLOFT 1-05 mouth. ity of ORAL) 11:27: [place] [address] Medical Branch quetiapine 2020-03 Yes Take by Univ ers fumarate 1-05 mouth. ity of (SEROQUEL 11:27: [place] ORAL) Medical Branch MAGNESIUM 2020-03 Yes Take by Unive rs ORAL 1-05 mouth. ity of 11:27: [place] [address] Medical Branch atorvastati 2020-03 Yes Take by Uni vers n calcium 1-05 mouth. ity of (ATORVASTAT 11:27: [place] IN ORAL) Medical Branch LISINOPRIL Yes Take by Univ ers ORAL 7-03 mouth. ity of 19:24: [place] [address] Medical Branch sertraline Yes Take by Univ ers HCl (ZOLOFT 7-03 mouth. ity of ORAL) 19:24: [place] [address] Medical Branch quetiapine Yes Take by Univ ers fumarate 7-03 mouth. ity of (SEROQUEL 19:24: [place] ORAL) Medical Branch MAGNESIUM Yes Take by Unive rs ORAL 7-03 mouth. ity of 19:24: [place] [address] Medical Branch atorvastati Yes Take by Uni vers n calcium 7-03 mouth. ity of (ATORVASTAT 19:24: [place] IN ORAL) 49 Medical Branch traMADoL 50 0 Yes [id number] 50mg Take [...] 2021-11-26 19:12:00 150 mm[Hg] Univer sity of [facility] Diastolic blood 2021-11-26 19:12:00 90 mm[Hg] Unive rsity of [facility] Heart rate 2021-11-26 19:12:00 92 /min [facility] Body height 2021-11-26 19:12:00 152.4 cm Universi ty of [place] [facility] Body weight 2021-11-26 19:12:00 100.699 kg Universi ty [facility] [place] [facility] BMI 2021-11-26 19:12:00 43.36 kg/m2 [facility]i ty [facility] [place] [facility] Systolic blood 2021-11-01 21:38:00 116 mm[Hg] Univer sity of [facility] [place] [facility] Diastolic blood 2021-11-01 21:38:00 72 mm[Hg] Unive rsity of [facility] [place] [facility] Heart rate 2021-11-01 21:38:00 100 /min Universi ty [facility] [place] [facility] Body temperature 2021-11-01 21:38:00 36.56 Fatou Univ ersity of [place] [facility] Respiratory rate 2021-11-01 21:38:00 18 /min Univ ersity of [place] [facility] Body height 2021-11-01 21:38:00 152.4 cm Universi ty [facility] [place] [facility] Body weight 2021-11-01 21:38:00 100.699 kg Universi ty [facility] [place] [facility] BMI 2021-11-01 21:38:00 43.36 kg/m2 Universi ty [facility] [place] [facility] Oxygen saturation in 2021-11-01 21:38:00 95 /min University of Arterial blood by [facility] Pulse oximetry Branch Respiratory rate 2021-06-26 18:06:00 18 /min Univ ersity of [place] [facility] Oxygen saturation in 2021-06-26 18:06:00 100 /min University of Arterial blood by [facility] Pulse oximetry Branch Systolic blood 2021-06-26 18:00:00 149 mm[Hg] Univer sity of [facility] [place] [facility] Diastolic blood 2021-06-26 18:00:00 81 mm[Hg] Unive rsity of [facility] [place] [facility] Heart rate 2021-06-26 18:00:00 80 /min Universi ty [facility] [place] [facility] Body temperature 2021-06-26 16:10:00 36.67 Fatou Univ ersity of [place] [facility] Body weight 2021-06-26 16:10:00 91.173 kg Universi ty [facility] [place] [facility] BMI 2021-06-26 16:10:00 39.26 kg/m2 [facility] [place] [facility] Systolic blood 2021-06-26 15:17:00 166 mm[Hg] Univer sity of [facility] [place] [facility] Diastolic blood 2021-06-26 15:17:00 97 mm[Hg] Unive rsity of [facility] [place] [facility] Heart rate 2021-06-26 15:17:00 87 /min Universi ty [facility] [place] [facility] Body temperature 2021-06-26 15:17:00 36.56 Fatou Univ ersity of [place] [facility] Respiratory rate 2021-06-26 15:17:00 28 /min Univ ersity of [place] [facility] Oxygen saturation in 2021-06-26 15:17:00 99 /min University of Arterial blood by [place] [facility] Pulse oximetry Branch Body height 2021-03-07 19:06:00 152.4 cm [facility]i ty [facility] [place] [facility] Body weight 2021-03-07 19:06:00 91.173 kg [facility]i [facility] [place] [facility] BMI 2021-03-07 19:06:00 39.26 kg/m2 [facility] [place] [facility] Systolic blood 2021-03-07 19:06:00 119 mm[Hg] Univer sity of [facility] [place] [facility] Diastolic blood 2021-03-07 19:06:00 76 mm[Hg] Unive rsity of [facility] [place] [facility] Heart rate 2021-03-07 19:06:00 84 /min [facility]i [facility] [place] [facility] Systolic blood 2021-02-12 20:52:00 120 mm[Hg] Univer sity of [facility] [place] [facility] Diastolic blood 2021-02-12 20:52:00 75 mm[Hg] Unive rsity of [facility] [place] [facility] Heart rate 2021-02-12 20:52:00 70 /min [facility]i [facility] [place] [facility] Body height 2021-02-12 20:52:00 152.4 cm [facility] [place] [facility] Body weight 2021-02-12 20:52:00 91.173 kg [facility] [place] [facility] BMI 2021-02-12 20:52:00 39.26 kg/m2 [facility] [place] [facility] Oxygen saturation in 2021-02-12 20:52:00 97 /min University of Arterial blood by [place] [facility] Pulse oximetry Branch Systolic blood 2020-09-02 19:21:00 115 mm[Hg] Univer sity of [facility] [place] [facility] Diastolic blood 2020-09-02 19:21:00 69 mm[Hg] [facility] rsity of pressure [facility] Heart rate 2020-09-02 19:21:00 95 /min [facility] Body temperature 2020-09-02 19:21:00 36.72 Fatou [facility] 2020-09-02 19:21:00 18 /min [facility] Body height 2020-09-02 19:21:00 152.4 cm [facility] Body weight 2020-09-02 19:21:00 153.316 kg [facility] BMI 2020-09-02 19:21:00 66.01 kg/m2 [facility] Oxygen saturation in 2020-09-02 19:21:00 97 /min [facility] Arterial blood by [facility] Pulse oximetry Branch Procedures Procedure Date / Time Performing Clinician Source Performed EXTERNAL PROVIDER 2022-04-16 06:01:00 Doctor Unassigned, No [facility] RECORDS Name [facility] EXTERNAL PROVIDER 2021-12-18 05:01:00 Doctor Unassigned, No [facility] RECORDS Name [facility] CONSENT/REFUSAL FOR 2021-11-26 18:55:25 [facility] AUTHORIZATION FOR 2021-11-16 05:01:00 Doctor Unassigned, No [facility] RELEASE OF PHI Name [facility] XR CHEST 1 VW 2021-06-26 17:15:00 Luciano Fernandez [facility] RAPID INFLUENZA A/B 2021-06-26 16:59:00 Luciano Fernandez [facility] COVID-19 (ID NOW RAPID 2021-06-26 16:59:00 Luciano Fernandez [facility] TESTING) Medical Branch LIPASE 2021-06-26 16:29:00 Luciano Fernandez [facility] TROPONIN I 2021-06-26 16:29:00 Luciano Fernandez [facility] COMP. METABOLIC PANEL 2021-06-26 16:29:00 Luciano Fernandez [facility] ([id number]) [facility] CBC WITH DIFF 2021-06-26 16:29:00 Luciano Fernandez o f [facility] PROTHROMBIN TIME / INR 2021-06-26 16:29:00 Luciano Fernandez rsity of [facility] ACTIVATED PARTIAL 2021-06-26 16:29:00 Luciano Fernandez [facility] THRMPLAS [facility] CONSENT/REFUSAL FOR 2021-06-26 16:02:56 Doctor Unassigned, No [facility] Name [facility] Branch NOTICE OF PRIVACY 2021-06-26 16:01:28 Doctor Unassigned, No Univ ersity [facility] PRACTICES Name [facility] TRANSTHORACIC ECHO (TTE) 2021-03-07 19:33:58 EvinBhargavvick [facility] CONSENT/REFUSAL FOR 2020-09-02 19:14:51 Doctor Unassigned, No [facility] Encounters Start End Encounter Admission Attending Care Care Encounter Source Date/Time Date/Time Type Type Clinicians Facility Department ID 2022-04-16 2022-04-16 Orders Doctor GARRISON 1.2.840.114 [id number] Univers 00:00:00 00:00:00 Only Unassigned, RITA [id number] [facility] [place] [facility] 4.2.7.2.686 Krishna as [phone] [address] 2021-12-18 2021-12-18 Orders Doctor GARRISON 1.2.840.114 [id number] Univers 00:00:00 00:00:00 Only Unassigned, RITA [id number] [place] [facility] 4.2.7.2.686 Krishna as [phone] [address] 2021-11-26 2021-11-26 Outpatient R HERIBERTO [facility] [id number] Univers 14:15:00 14:57:11 ROC ng of [facility] 2021-11-26 2021-11-26 Office Heriberto FLJOAO [id number] [facility] 14:15:00 14:57:11 [facility] [id number] [facility] y of [place] 4.2.7.2.686 Krishna as FRANCHESKA?BLEA [phone] Ga nathaniel [place] [address] MEDICAL OFFICE [facility] 2021-11-26 2021-11-26 Telephone Heriberto [facility] 1.2.840.114 [id number] Univers 00:00:00 00:00:00 Roc Fermin HEALTH 350.1.13.10 it y of [place] 4.2.7.2.686 Krishna as FRANCHESKA?BLEA [phone] Ga nathaniel [place] 198 [facility] OFFICE [facility] 2021-11-26 2021-11-26 Orders Doctor MELI 1.2.840.114 [id number] Univers 00:00:00 00:00:00 Only Unassigned, RITA 350.1.13.10 [facility] [place] [facility] 4.2.7.2.686 Krishna as [phone] [facility] [address] 2021-11-26 2021-11-26 Letter [facility] [id number] Univers 00:00:00 00:00:00 (Out) Roc Fermin HEALTH 350.1.13.10 it y of [place] 4.2.7.2.686 Krishna as FRANCHESKA?BLEA [phone] Ga nathaniel [place] 198 [facility] OFFICE [facility] 2021-11-23 2021-11-23 Telephone Heriberto [facility] 1.2.840.114 [id number] Univers 00:00:00 00:00:00 Roc Fermin HEALTH 350.1.13.10 it y of [place] 4.2.7.2.686 Krishna as FRANCHESKA?BLEA [phone] Ga nathaniel [place] 198 [facility] OFFICE [facility] 2021-11-16 2021-11-16 Orders Doctor MELI 1.2.840.114 [id number] Univers 00:00:00 00:00:00 Only Unassigned, RITA 350.1.13.10 [facility] [place] [facility] 4.2.7.2.686 Krishna as [phone] [facility] [address] 2021-11-01 2021-11-01 Outpatient R KIRA FLJOAO [facility] [id number] Univers 16:20:00 17:15:15 DIOR ity of [facility] 2021-11-01 2021-11-01 Dior Sun [facility] 1.2.840.114 [id number] Univers 16:20:00 17:15:15 Care Esparza, [facility] 350.1.13.10 ity of [place] 4.2.7.2.686 Krishna as FRANCHESKA?BLEA [phone] [address] MEDICAL OFFICE [facility] 2021-06-26 2021-06-26 Emergency X [facility] ERT [id number] Univers 11:11:00 13:46:00 LUCIANO itnorris [facility] 2021-06-26 2021-06-26 Emergency [facility] [id number] Univers 11:11:00 13:46:00 Luciano ESCOBAR 350.1.13.10 i ty of [place] 4.2.7.2.686 [place] [facility] [phone] [facility] [address] 2021-06-26 2021-06-26 Nurse Nurse, Adrian Patiño [facility] 1.2.840.114 [id number] Univers 10:50:00 11:10:00 Visit [facility] 350.1.13.10 ity of [place] 4.2.7.2.686 Krishna as FRANCHESKA?BLEA [phone] [address] OFFICE [facility] 2021-06-26 2021-06-26 [facility] [id number] Univers 10:50:00 10:50:00 [facility] 2021-06-26 2021-06-26 Orders Doctor MELI 1.2.840.114 [id number] Univers 00:00:00 00:00:00 Only Unassigned, RITA 350.1.13.10 [place] [facility] 4.2.7.2.686 Krishna as [phone] [facility] [address] Branch 2021-06-25 2021-06-25 Outpatient R [facility] [id number] Univers 19:20:00 19:20:00 ity [facility] 2021-03-08 2021-03-08 Patient Evin [facility] 1.2.840.114 [id number] Univers 00:00:00 00:00:00 Secure Msg Qiangjun [place] 350.1.13.10 ity of [place] [phone] Ga dical NAL [address] [facility] 2021-03-07 2021-03-07 Outpatient R [facility] [id number] Univers 12:56:41 23:59:00 QIAVICK ity o f [facility] 2021-03-07 2021-03-07 [facility] 1.2.840.114 [id number] Univers 12:56:41 23:59:00 Encounter Brayden BROWNTON 350.1.13.10 ity of [facility] 4.2.7.2.[place] [phone] [facility] 843 [facility] 2021-02-27 2021-02-27 Outpatient R [facility] [id number] Univers 15:00:00 15:00:00 BRAYDEN ity o f [facility] 2021-02-27 2021-02-27 Outpatient R [facility] [id number] Univers 15:00:00 15:00:00 BRAYDEN ity o f [facility] 2021-02-19 2021-02-19 [facility] [id number] Univers 00:00:00 00:00:00 Brayden BROWNTON 350.1.13.10 [place] [phone] Ga dical NAL [address] [place] [address] 2021-02-12 2021-02-12 Office [facility] 1.2.840.114 [id number] Univers 14:42:56 15:15:38 Visit Brayden BROWNTON 350.1.13.10 it[place] of [place].2.[place] [phone] Ga dical NAL [address] [place] [address] 2021-02-12 2021-02-12 Outpatient R [facility] [id number] Univers 14:40:00 15:15:38 BRAYDEN ity o f [facility] 2021-02-12 2021-02-12 [facility] 1.2.840.114 [id number] Univers 00:00:00 00:00:00 (Out) Brayden ESCOBAR 350.1.13.10 ity of [place]2.[place] [phone] Ga dicct NAL [address] BUILDING 2021-02-12 2021-02-12 Orders Doctor MELI 1.2.840.114 [id number] Univers 00:00:00 00:00:00 Only Unassigned, RITA 350.1.13.10 [facility] [place] [facility] 4.2.7.2.686 Krishna as [phone] [address] 2020-09-02 2020-09-02 [facility] [id number] Univers 14:40:00 14:40:00 [facility] 2020-09-02 2020-09-02 Urgent Provider, [facility] 1.2.840.114 [id number] Univers 14:15:28 14:35:28 Care [facility] 350.1.13.10 ity of [place] 4.2.7.2.686 Krishna as Professio [phone] [facility] [address] 2020-09-02 2020-09-02 Orders Doctor MELI 1.2.840.114 [id number] Univers 00:00:00 00:00:00 Only Unassigned, RITA 350.1.13.10 [facility] [place] [facility] 4.2.7.2.686 Krishna as [phone] [address] Results Test Description Test Time Test Comments [...] 33.1 g/dL 31.6-35.1 RDW-SD (test code = 84488-2) 44.8 fL 39.0-49.9 RDW-CV (test code = 788-0) 13.8 % 12.0-15.5 PLT (test code = 777-3) See_Comment [Au tomated message] The system which [email or web address] nerated this result transmit bob reference range: 166 - 35 8 10*3/?L. The reference range was not used to interpret th is result as normal/abnormal . MPV (test code = 27083-9) 9.2 fL 9.5-12.9 L NRBC/100 WBC (test code = See_Comment [ Automated message] The 8464163504) system which [email or web address] nerated this result transmit bob reference range: 0.0 - 10 .0 /100 WBCs. The reference r lisa was not used to interpr et this result as normal/abnor mal. NRBC x10^3 (test code = <0.01 See_Comment [Au tomated message] The 1627276620) system which [email or web address] nerated this result transmit bob reference range: 10*3/?L. The reference range was not u sed to interpret this result as normal/abnormal . GRAN MAT (NEUT) % (test code 83.8 % = 770-8) IMM GRAN % (test code = 3.10 % 3880335183) LYMPH % (test code = 736-9) 8.7 % MONO % (test code = 5905-5) 4.3 % EOS % (test code = 713-8) 0.0 % BASO % (test code = 706-2) 0.1 % GRAN MAT x10^3(ANC) (test 11.27 10*3/uL 1.88-7.09 H code = 6510813324) IMM GRAN x10^3 (test code = 0.42 10*3/uL 0.00-0.06 H 3075242524) LYMPH x10^3 (test code = 1.17 10*3/uL 1.32-3.29 L 731-0) MONO x10^3 (test code = 0.58 10*3/uL 0.33-0.92 742-7) EOS x10^3 (test code = <0.03 0.03-0.39 L 711-2) BASO x10^3 (test code = <0.03 0.01-0.07 704-7) Lab Interpretation (test Abnormal code = 44576-7) [facility] [id number] 17:15:24 Test Item Value Reference Interpretation Comments Range TROPONIN I (test 0.002 ng/mL See_Comment [Automated code = 0482742455) message] The system which generated this result [...] biotin. Lab Interpretation Normal (test code = 64668-3) [facility]. METABOLIC PANEL (25452)2021-06-26 17:12:03 Test Item Value Reference Range Interpretation Comments NA (test code = 134 mmol/L 135-145 L 8989610089) K (test code = 4.1 mmol/L 3.5-5.0 6618270818) CL (test code = 103 mmol/L 98-108 8696969940) CO2 TOTAL (test code = 20 mmol/L 23-31 L 3939377265) AGAP (test code = 2-16 4515224741) BUN (test code = 14 mg/dL 7-23 9351156949) GLUCOSE (test code = 151 mg/dL 70-110 H 6591345773) CREATININE (test code = 0.65 mg/dL 0.50-1.04 5841720327) TOTAL BILI (test code = 0.4 mg/dL 0.1-1.6 9305971646) CALCIUM (test code = 8.7 mg/dL 8.6-10.6 9130817679) T PROTEIN (test code = 6.4 g/dL 6.3-8.2 0286246965) ALBUMIN (test code = 3.9 g/dL 3.5-5.0 7807186091) ALK PHOS (test code = 82 U/L 34-122 4319727345) ALTv (test code = 24 U/L 5-35 1742-6) AST(SGOT) (test code = 17 U/L 13-40 3052003156) eGFR (test code = mL/min/1.73m2 8008564350) ABRAHAM (test code = ABRAHAM) Association of [...] tests). Lab Interpretation Abnormal (test code = 18027-0) [facility], [id number] 17:05:20 Test Item Value Reference Range Interpretation Comments LIPASE (test code = 9244020440) 75 U/L 0-220 Lab Interpretation (test code = Normal 30179-3) [facility] AreaaPTT2022-04-26 17:00:21 Test Item Value Reference Range Interpretation Comments APTT Patient (test See_Comment [Automat ed code = 3173-2) message] The system which generated this result transmitted reference range : 23 - 38 Seconds . The reference range was not used to interpr et this result as normal/abnormal . ABRAHAM (test code = ABRAHAM) The [facility] patient population mean normal value for aPTT is 30 seconds. Lab Interpretation Normal (test code = 39569-0) [facility] Area[facility]HROM[facility] TIME / [id number] 16:58:23 Test Item Value Reference Range Interpretation [...] tions. Lab Interpretation (test Normal code = 38535-9) [facility]
[2022-12-11 15:01] LABS: Absolute Lymphocytes (CBC) 2.8 K/uL (0.7-4.9); Hematocrit 39.8 % (36.0-45.0); Lymphocytes % 20.4 % (15.3-44.8); MCV 85.2 fL (80-100); MPV 7.3 fL (7.6-11.3); Platelets 379 thou/uL (152-406); RBC Red Blood Cell Count 4.67 M/uL (3.86-4.86)
--- NOTE | 2022-12-11 15:04 | RAD REPORT ---
EXAM DESCRIPTION: RAD - Chest Single View - 12/11/2022 2:56 pm CLINICAL HISTORY: CHEST PAIN Chest pain. COMPARISON: <Comparisons> FINDINGS: Portable technique limits examination quality. Mildly prominent interstitial lung markings, somewhat chronic. No focal infiltrate detected. The hear t is normal in size. No displaced fractures. IMPRESSION: No acute intrathoracic process suspected.
[2022-12-11 15:22] LABS: ALT/SGPT 29 U/L (13-56); AST/SGOT 19 U/L (15-37); Albumin 3.7 g/dL (3.4-5.0); Alkaline Phosphatase 96 U/L (45-117); BUN Blood Urea Nitrogen 14 mg/dL (7-18); Bicarbonate 26 mEq/L (21-32); Bilirubin Total 0.4 mg/dL (0.2-1.0); Glomerular Filtration Rate 65 ml/min (=/>90); Glucose Level 147 mg/dL (74-106); Magnesium 1.8 mg/dL (1.6-2.4); NT PRO-BNP 48 pg/mL (<125); Potassium 3.9 mEq/L (3.5-5.1); Protein, Total 7.3 g/dL (6.4-8.2); Sodium Level 138 mEq/L (136-145); Troponin High Sensitivity 18.4 pg/mL (<58.9)
[2022-12-11 15:23] LABS: Bilirubin Direct < 0.1 mg/dL (0-0.2); Bilirubin Indirect, Calculated ND mg/dL (0.2-0.8)
--- NOTE | 2022-12-11 16:54 | ER ---
Nurse's Notes [facility] Name: Airam Glasgow Age: 47 yrs Sex: Female : 1975 Arrival Date: 12/11/2022 Time: 14:21 Bed 3 Private MD: Kalpesh Golden E Diagnosis: Upper abdominal pain, unspecified-Right upper quadrant and epigastric Presentation: 12/11 14:32 Chief complaint: Patient states: Squeezing lower CP that radiated into R chest happened ll1 3 times today. Sweats and severe pain earlier, just tender now. Coronavirus screen: Client denies travel out of the [place] in the last 14 days. At this time, the client does not indicate any symptoms associated with coronavirus-19. Ebola Screen: Patient denies travel to an Ebola-affected area in the 21 days before illness onset. Initial Sepsis Screen: Does the patient meet any 2 criteria? HR > 90 bpm. No. Patient's initial sepsis screen is negative. Does the patient have a suspected source of infection? Yes: Acute abdominal pain. Risk Assessment: Do you want to hurt yourself or someone else? Patient reports no desire to harm self or others. Onset of symptoms was December 11, 2022. 14:32 Method Of Arrival: Ambulatory ll1 14:32 Acuity: ADALGISA 3 ll1 Historical: - Allergies: 14:31 Keflex; ll1 14:31 PENICILLINS; ll1 14:31 Valium; ll1 - PMHx: 14:31 Bipolar disorder; depressive disorder; High Cholesterol; Hypertensive disorder; ll1 - PSHx: 14:31 section; Cholecystectomy; Ligation of fallopian tube; Tonsillectomy; ll1 - Immunization history:: Adult Immunizations up to date. - Social history:: Smoking status: Patient reports the use of cigarette tobacco products, smokes one pack cigarettes per day. Screenin:37 [facility] ED Fall Risk Assessment (Adult) History of falling in the last 3 months, ld1 including since admission No falls in past 3 months (0 pts). Abuse screen: Denies threats or abuse. Denies injuries from another. Nutritional screening: No deficits noted. Tuberculosis screening: No symptoms or risk factors identified. Assessment: 14:37 General: Appears in no apparent distress. comfortable, Behavior is calm, cooperative, ld1 appropriate for age. Pain: Complains of pain in chest Pain radiates to right arm Pain currently is 0 out of 10 on a pain scale. at worst was 8 out of 10 on a pain scale. Quality of pain is described as sharp, shooting, throbbing, Pain began 1 day ago. Is intermittent. Neuro: Level of Consciousness is awake, alert, obeys commands, Oriented to person, place, time, situation. Cardiovascular: Capillary refill < 3 seconds Patient's skin is warm and dry. Rhythm is sinus tachycardia. Respiratory: Airway is patent Respiratory effort is even, unlabored. GI: Abdomen is round non-distended. : No signs and/or symptoms were reported regarding the genitourinary system. EENT: No signs and/or symptoms were reported regarding the EENT system. Derm: No signs and/or symptoms reported regarding the dermatologic system. Musculoskeletal: No signs and/or symptoms reported regarding the musculoskeletal system. Vital Signs: 14:32 BP 159 / 76; Pulse 104; Resp 20; Temp 97.5; Pulse Ox 98% ; Weight 107.5 kg; Height 5 ll1 ft. 0 in. ; Pain 0/10; 14:37 BP 165 / 76; Pulse 105; Resp 18; Pulse Ox 97% on R/A; Pain 0/10; ld1 15:28 BP 154 / 98; Pulse 103; Resp 17; Pulse Ox 93% ; me1 16:30 BP 122 / 74; Pulse 98; Resp 17; Pulse Ox 96% on R/A; Pain 0/10; tm6 14:32 Body Mass Index 46.29 (107.50 kg, 152.4 cm) ll1 14:32 Pain Scale: Adult ll1 14:37 Pain Scale: Adult ld1 16:30 Pain Scale: Adult tm6 ED Course: 14:23 Patient arrived in ED. mr 14:23 Kalpesh Golden MD is Private Physician. mr 14:25 Robles Antonio MD is Attending Physician. kdr 14:26 Noemí Hernandez, [place] is Primary Nurse. ld1 14:31 Arm band placed on Patient placed in an exam room, on a stretcher. ll1 14:34 Triage completed. ll1 14:37 Patient has correct armband on for positive identification. Placed in gown. Bed in low ld1 position. Call light in reach. Side rails up X2. color television console monitor on. Pulse ox on. NIBP on. Door closed. Noise minimized. Warm blanket given. 14:37 No provider procedures requiring assistance completed. Patient maintains SpO2 ld1 saturation greater than 95% on room air. 14:54 Inserted saline lock: 20 gauge in right antecubital area, using aseptic technique. ld1 Blood collected. 14:58 XRAY Chest (1 view) In Process Unspecified. EDMS 16:10 D-Dimer Sent. tm6 16:53 Kalpesh Golden MD is Referral Physician. kdr 17:19 IV discontinued, intact, bleeding controlled, No redness/swelling at site. ld1 Administered Medications: No medications were administered Medication: 17:19 VIS not applicable for this client. ld1 Outcome: 16:54 Discharge ordered by . kdr 17:19 Discharged to home ambulatory, ld1 17:19 Condition: stable 17:19 Discharge instructions given to patient, Instructed on discharge instructions, follow up and referral plans. medication usage, Demonstrated understanding of instructions, follow-up care, medications, Prescriptions given X 3, 17:19 Patient left the ED. ld1 Signatures: Dispatcher [employer] EDMS Robles Antonio MD MD kdr Johana Regan, Reg Reg mr Sharon Ronquillo, RN RN ll1 Noemí Hernandez RN RN ld1 Tamar Guzman, RN RN me1 Evelin Zelaya, [place] RN tm6
--- NOTE | 2022-12-11 16:54 | EDPHYS ---
Physician Documentation [facility] Name: Airam Glasgow Age: 47 yrs Sex: Female : 1975 Arrival Date: 12/11/2022 Time: 14:21 Bed 3 Private MD: Kalpesh Golden E ED Physician Robles Antonio HPI: 12/11 18:01 This 47 yrs old Female presents to ER via Ambulatory with complaints of Epigastric pain.kdr 18:02 Patient presents with cute onset of epigastric pain that radiated to her right upper kdr quadrant. Pain started this morning around 8 or 830. There were 3 episodes of about a half an hour. Patient has not had this before. Patient states that the pain was severe and that she is sweating. She had some nausea but no vomiting. Patient has had a prior cholecystectomy. Patient states she has not had this pain before. Patient is nontoxic-appearing . Onset: The symptoms/episode began/occurred suddenly, this morning. Severity of symptoms: At their worst the symptoms were severe in the emergency department the symptoms have resolved. The patient has not experienced similar symptoms in the past. The patient has not recently seen a physician. Historical: - Allergies: 14:31 Keflex; ll1 14:31 PENICILLINS; ll1 14:31 Valium; ll1 - PMHx: 14:31 Bipolar disorder; depressive disorder; High Cholesterol; Hypertensive disorder; ll1 - PSHx: 14:31 section; Cholecystectomy; Ligation of fallopian tube; Tonsillectomy; ll1 - Immunization history:: Adult Immunizations up to date. - Social history:: Smoking status: Patient reports the use of cigarette tobacco products, smokes one pack cigarettes per day. ROS: 18:02 Constitutional: Negative for fever, chills, and weight loss, Eyes: Negative for injury, kdr pain, redness, and discharge, ENT: Negative for injury, pain, and discharge, Neck: Negative for injury, pain, and swelling, Cardiovascular: Negative for chest pain, palpitations, and edema, Respiratory: Negative for shortness of breath, cough, wheezing, and pleuritic chest pain, Back: Negative for injury and pain, : Negative for injury, bleeding, discharge, and swelling, MS/Extremity: Negative for injury and deformity, Skin: Negative for injury, rash, and discoloration, Neuro: Negative for headache, weakness, numbness, tingling, and seizure activity. Psych: Negative for depression, anxiety, suicide ideation, homicidal ideation, and hallucinations, Allergy/Immunology: Negative for hives, rash, and allergies, Endocrine: Negative for neck swelling, polydipsia, polyuria, polyphagia, and marked weight changes, Hematologic/Lymphatic: Negative for swollen nodes, abnormal bleeding, and unusual bruising, 18:02 Abdomen/GI: Positive for abdominal pain, nausea, Negative for vomiting, diarrhea, constipation, abdominal cramps, abdominal distension, anorexia, dysphagia, hematemesis, black/tarry stool, rectal pain, rectal bleeding, Exam: 18:02 Constitutional: This is a well developed, well nourished patient who is awake, alert, kdr and in no acute distress. Head/Face: Normocephalic, atraumatic. Eyes: Pupils equal round and reactive to light, extra-ocular motions intact. Lids and lashes normal. Conjunctiva and sclera are non-icteric and not injected. Cornea within normal limits. Periorbital areas with no swelling, redness, or edema. Neck: Trachea midline, no thyromegaly or masses palpated, and no cervical lymphadenopathy. Supple, full range of motion without nuchal rigidity, or vertebral point tenderness. No Meningismus. Chest/axilla: Normal chest wall appearance and motion. Nontender with no deformity. No lesions are appreciated. Cardiovascular: Regular rate and rhythm with a normal S1 and S2. No gallops, murmurs, or rubs. Normal PMI, no JVD. No pulse deficits. Respiratory: Lungs have equal breath sounds bilaterally, clear to auscultation and percussion. No rales, rhonchi or wheezes noted. No increased work of breathing, no retractions or nasal flaring. Abdomen/GI: Soft, non-tender, with normal bowel sounds. No distension or tympany. No guarding or rebound. No evidence of tenderness throughout. Back: No spinal tenderness. No costovertebral tenderness. Full range of motion. Skin: Warm, dry with normal turgor. Normal color with no rashes, no lesions, and no evidence of cellulitis. MS/ Extremity: Pulses equal, no cyanosis. Neurovascular intact. Full, normal range of motion. Neuro: Awake and alert, GCS 15, oriented to person, place, time, and situation. Cranial nerves II-XII grossly intact. Motor strength 5/5 in all extremities. Sensory grossly intact. Cerebellar exam normal. Normal gait. Psych: Awake, alert, with orientation to person, place and time. Behavior, mood, and affect are within normal limits. Vital Signs: 14:32 BP 159 / 76; Pulse 104; Resp 20; Temp 97.5; Pulse Ox 98% ; Weight 107.5 kg; Height 5 ll1 ft. 0 in. ; Pain 0/10; 14:37 BP 165 / 76; Pulse 105; Resp 18; Pulse Ox 97% on R/A; Pain 0/10; ld1 15:28 BP 154 / 98; Pulse 103; Resp 17; Pulse Ox 93% ; me1 16:30 BP 122 / 74; Pulse 98; Resp 17; Pulse Ox 96% on R/A; Pain 0/10; tm6 14:32 Body Mass Index 46.29 (107.50 kg, 152.4 cm) ll1 14:32 Pain Scale: Adult ll1 14:37 Pain Scale: Adult ld1 16:30 Pain Scale: Adult tm6 MDM: 16:54 Patient medically screened. kdr 18:02 Data reviewed: vital signs, nurses notes, lab test result(s), radiologic studies. kdr 18:02 ED course: Patient was stable in the ED and had no further pain. EKG was a normal sinus kdr rhythm without suggestion of ischemia or acute IN. Her laboratory values were normal. Patient is otherwise been in good condition and was happy with the care provided the plan for discharge and follow-up. 18:11 ED course: Patient remained stable in the ED. She states that she had the 3 episodes kdr this morning over the course of about a half an hour in rapid succession. Since then they have not recurred. He was initially occurred around 8 AM. Given the onset, a troponin should have shown some abnormality if this were cardiac in nature. Additionally she did not have any shortness of breath diaphoresis or nausea and vomiting. She denies any pain rating to her left chest shoulder or arm. While the patient had a strong family history of cardiac disease, the patient presents with very atypical symptoms and her laboratory and EKG do not support an acute cardiac event in process. 12/11 14:26 Order name: Basic Metabolic Panel; Complete Time: 15:40 kdr 12/11 14:26 Order name: CBC with Diff; Complete Time: 15:40 kdr 12/11 14:26 Order name: LFT's; Complete Time: 15:40 kdr 12/11 14:26 Order name: Magnesium; Complete Time: 15:40 kdr 12/11 14:26 Order name: NT PRO-BNP; Complete Time: 15:40 kdr 12/11 14:26 Order name: Troponin HS; Complete Time: 15:40 [facility] 12/11 15:56 Order name: D-Dimer; Complete Time: 16:30 kdr 12/11 14:26 Order name: XRAY Chest (1 view); Complete Time: 15:40 kdr 12/11 14:26 Order name: EKG; Complete Time: 14:27 kdr 12/11 14:26 Order name: Cardiac monitoring; Complete Time: 14:37 kdr 12/11 14:26 Order name: EKG - Nurse/Tech; Complete Time: 14:37 kdr 12/11 14:26 Order name: IV Saline Lock; Complete Time: 14:54 [facility] 12/11 14:26 Order name: Labs collected and sent; Complete Time: 14:54 [facility] 12/11 14:26 Order name: O2 Per Protocol; Complete Time: 14:27 kdr 12/11 14:26 Order name: O2 Sat Monitoring; Complete Time: 14:27 kdr Administered Medications: No medications were administered Disposition Summary: 12/11/22 16:54 Discharge Ordered Notes: Location: Home kdr Problem: new kdr Symptoms: are resolved kdr Condition: Stable kdr Diagnosis - Upper abdominal pain, unspecified - Right upper quadrant and epigastric kdr Followup: kdr - With: Kalpesh Golden MD - When: 2 - 3 days - Reason: If symptoms return, Further diagnostic work-up, Recheck today's complaints, Continuance of care, Re-evaluation by your physician Discharge Instructions: - Discharge Summary Sheet kdr - Abdominal Pain, Adult, [id number] kdr - Pain Medicine Instructions, [id number] kdr Forms: - Medication Reconciliation Form kdr - Thank You Letter kdr - Prescription Opioid Use kdr - Patient Portal Instructions kdr - Leadership Thank You Letter kdr Prescriptions: - dicyclomine 20 mg Oral tablet - take 1 tablet ORAL route 4 times per day As needed Take as needed for spasm kdr like abdominal pain; 12 tablet; Refills: 0, Product Selection Permitted - Tramadol 50 mg Oral Tablet - take 1 tablet ORAL route every 8 hours as needed; 12 tablet; Refills: 0, kdr Product Selection Permitted - Pepcid 20 mg Oral Tablet - take 1 tablet ORAL route once daily; 20 tablet; Refills: 0, Product Selection kdr Permitted Signatures: DispRobles Gonzalez MD MD kdr Lewis, Lynsay, RN RN ll1
[2022-12-11 17:38] VITALS: TEMP 97.5
[2022-12-11 17:51] VITALS: BP 122/74; O2SAT 96
--- NOTE | 2022-12-12 12:29 | EKG ---
Test Date: 2022-12-11 Test Time: 14:31:05 Senior Controller: JASON MEASUREMENT RESULTS: Intervals: Rate: 108 VT: 166 QRSD: 78 QT: 312 QTc: 418 [place]: P: 71 VT: 166 QRS: 106 T: 20 INTERPRETIVE STATEMENTS: Sinus tachycardia Right atrial enlargement Rightward axis Septal infarct, age undetermined Abnormal ECG No previous ECG available for comparison Electronically Signed On 12-12-22 12:27:53 CDT by Mani Drew
== END 2022-12-11 17:19 | disposition home or self-care (01) ==
LOC: ER 14:21
DX: R10.11 Right upper quadrant pain (principal); R10.13 Epigastric pain; F17.210 Nicotine dependence, cigarettes, uncomplicated; Z88.0 Allergy status to penicillin; Z88.1 Allergy status to other antibiotic agents; Z88.5 Allergy status to narcotic agent
CPT/HCPCS: 36415; 71045; 80048; 80076; 83735; 83880; 84484; 85025; 85379; 93005

== ENCOUNTER 2023-06-03 22:15 | Emergency (ER) | payer BC ==
--- OUTSIDE RECORDS SUMMARY | 2023-06-03 22:18 | XMS REPORT | Continuity of Care Document ---
Author Name Unknown Address [address] [facility] [address] [place] [address] [facility] thconnect Address [address] [facility]. [address] [place] [address] Care Team Providers Care Process Lead Name Role Phone Pcp, Patient Does Not Have A Primary Care Physic jelena Doctor Unassigned, [place] Attending Clinician U ROC Kulkarni Attending Clinician UnavailRoc Chin MD Attending Clinician [phone] DIOR MALONE Attending Clinician Unavailable Dior Goode Attending Clinician [phone] Franklin Esparza PA-C Attending Clinician [phone] LUCIANO FERNANDEZ Attending Clinician Unavailable Luciano Fernandez DO Attending Clinician [phone] Nurse, [facility] Attending Clinician Un available Brayden Dao MD Attending Clinician [phone] BRAYDEN DAO Attending Clinician Unavailable JENAE MEDINA Attending Clinician Unavailhermelinda colon ProviderAdrian [facility] Attending Clinician Un available Jenae Castellanos Attending Clinician [phone] LUCIANO FERNANDEZ Admitting Clinician Unavailable BRAYDEN DAO Admitting Clinician Unavailable Payers Payer Name Policy Type Policy Number Effective Date Expirati on Date Source Problems Condition Name Condition Details Condition Category Status Onset Date Resolution Date Last Treatment Date Treating Clinician Comments Source No known active problems No known active problems Disease General acute hospital Allergies, Adverse Reactions, Alerts Allergy Name Allergy Type Status Severity Reaction(s) Onset Date Inactive Date Treating Clinician Comments Source Diazepam Propensi ty to adverse reaction s Active Other - See comments 2020-03 00:00: 00 Patient stated that "valium knocks me out for 2-3 days" General acute hospital DIAZEPAM DRUG INGREDI Active Other-Cmnt 2020-03 00:00: 00 General acute hospital Penicill ins Propensi ty to adverse reaction s Active Anaphylaxis 7- 00:00: 00 [facility] Penicill ins Propensi ty to adverse reaction s Active Anaphylaxis 7- 00:00: 00 General acute hospital Cephalex in Propensi ty to adverse reaction s Active Anaphylaxis 7- 00:00: 00 General acute hospital Penicill ins Propensi ty to adverse reaction s Active Anaphylaxis 7- 00:00: 00 General acute hospital CEPHALEX IN DRUG INGREDI Active Anaphylaxis 7- 00:00: 00 General acute hospital PENICILL INS Drug Class Active Anaphylaxis 7- 00:00: 00 General acute hospital NO KNOWN ALLERGIE S Drug Class Active [facility] Social History Social Habit Start Date Stop Date Quantity Comments Source History of tobacco use Smokes tobacco daily [facility] Exposure to SARS-CoV-2 (event) 2021-11-15 00:00:00 2021-11-25 20:45:00 Not sure [facility] History of Social function 2021-11-01 00:00:00 2021-11-01 00:00:00 [facility] Tobacco use and exposure 2021-02-12 00:00:00 2021-02-12 00:00:00 Smokeless tobacco non-user [facility] Sex Assigned At 1975 00:00:00 1975 00:00:00 [facility] Smoking Status Start Date Stop Date Source Unknown if ever smoked [facility] Smokes tobacco daily 2021-02-12 00:00:00 [facility] Former smoker 2020-09-02 00:00:00 2020-09-02 00:00:00 [facility] Medications Ordered Medication Name Filled Medication Name Start Date Stop Date Current Medication? Ordering Clinician Indication Dosage Frequency Signature (SIG) Comments Components Source diclofenac 75 mg EC tablet 11-26 00:00: 00 Yes [id number] 75mg Take 1 tablet by mouth in the morning and 1 tablet in the evening. Take with meals. General acute hospital ketorolac (TORADOL) injection 30 mg 11-01 23:15: 00 11-01 22:13 :00 No [id number] 30mg General acute hospital cyclobenzap rine 10 mg tablet 11-01 00:00: 00 Yes [id number] 10mg Take 1 tablet by mouth 3 (three) times daily as needed for Muscle Spasms. General acute hospital methylpredn isolone sod succ (SOLU-MEDRO L) injection 125 mg 06-26 23:00: 00 Yes 125mg 125 mg, Intravenou s, Q6H, First dose on Fri06/26/21 at 1800, Until Discontinu ed, Routine General acute hospital ipratropium -albuteroL (DUONEB) 0.5 mg-3 mg(2.5 mg base)/3 mL nebulizer solution 3 mL 06-26 18:15: 00 06-26 17:55 :00 No 3mL 3 mL, Inhalation , ONCE, 1 dose, On Fri06/26/21 at 1315, Routine General acute hospital ipratropium -albuteroL (DUONEB) 0.5 mg-3 mg(2.5 mg base)/3 mL nebulizer solution 3 mL 06-26 17:00: 00 Yes 3mL 3 mL, Inhalation , QID, First dose on Fri06/26/21 at 1200, Until Discontinu ed, Routine General acute hospital methylPREDN ISolone (MEDROL, BELÉN,) 4 mg tablets 06-26 00:00: 00 Yes [id number] Take by mouth SEE-INSTRU CTIONS. follow package directions General acute hospital albuterol 2.5 mg /3 mL (0.083 %) nebulizer solution 06-26 00:00: 00 07-11 04:59 :00 No [id number] 2.5mg Inhale 3 mL every 4 (four) hours for 14 days. May also nebulize one extra every 6 hours. General acute hospital LISINOPRIL ORAL 2020-03 11:27: 32 Yes Take by mouth. General acute hospital LISINOPRIL ORAL 09-02 19:24: 49 Yes Take by mouth. General acute hospital sertraline HCl (ZOLOFT ORAL) 09-02 19:24: 49 Yes Take by mouth. General acute hospital quetiapine fumarate (SEROQUEL ORAL) 09-02 19:24: 49 Yes Take by mouth. General acute hospital MAGNESIUM ORAL 09-02 19:24: 49 Yes Take by mouth. General acute hospital atorvastati n calcium (ATORVASTAT IN ORAL) 09-02 19:24: 49 Yes Take by mouth. General acute hospital traMADoL 50 mg tablet 09-02 00:00: 00 Yes [id number] 50mg Take 1 tablet by mouth every 4 (four) hours as needed (pain requiring narcotic). Indication s: acute pain General acute hospital Vital Signs Vital Name Observation Time Observation Value Comments S ource Systolic blood pressure 2021-11-26 19:12:00 150 mm[Hg] [facility] Diastolic blood pressure 2021-11-26 19:12:00 90 mm[Hg] [facility] Heart rate 2021-11-26 19:12:00 92 /min [facility] Body height 2021-11-26 19:12:00 152.4 cm [facility] Body weight 2021-11-26 19:12:00 100.699 kg [facility] BMI 2021-11-26 19:12:00 43.36 kg/m2 [facility] Systolic blood pressure 2021-11-01 21:38:00 116 mm[Hg] [facility] Diastolic blood pressure 2021-11-01 21:38:00 72 mm[Hg] [facility] Heart rate 2021-11-01 21:38:00 100 /min [facility] Body temperature 2021-11-01 21:38:00 36.56 Fatou [facility] Respiratory rate 2021-11-01 21:38:00 18 /min [facility] Body height 2021-11-01 21:38:00 152.4 cm [facility] Body weight 2021-11-01 21:38:00 100.699 kg [facility] BMI 2021-11-01 21:38:00 43.36 kg/m2 [facility] Oxygen saturation in Arterial blood by Pulse oximetry 2021-11-01 21:38:00 95 /min [facility] Respiratory rate 2021-06-26 18:06:00 18 /min [facility] Oxygen saturation in Arterial blood by Pulse oximetry 2021-06-26 18:06:00 100 /min [facility] Systolic blood pressure 2021-06-26 18:00:00 149 mm[Hg] [facility] Diastolic blood pressure 2021-06-26 18:00:00 81 mm[Hg] [facility] Heart rate 2021-06-26 18:00:00 80 /min [facility] Body temperature 2021-06-26 16:10:00 36.67 Fatou [facility] Body weight 2021-06-26 16:10:00 91.173 kg [facility] BMI 2021-06-26 16:10:00 39.26 kg/m2 [facility] Systolic blood pressure 2021-06-26 15:17:00 166 mm[Hg] [facility] Diastolic blood pressure 2021-06-26 15:17:00 97 mm[Hg] [facility] Heart rate 2021-06-26 15:17:00 87 /[facility] Body temperature 2021-06-26 15:17:00 36.56 Fatou [facility] Respiratory rate 2021-06-26 15:17:00 28 /min [facility] Oxygen saturation in Arterial blood by Pulse oximetry 2021-06-26 15:17:00 99 /min [facility] Body height 2021-03-07 19:06:00 152.4 cm [facility] Body weight 2021-03-07 19:06:00 91.173 kg [facility] BMI 2021-03-07 19:06:00 39.26 kg/m2 [facility] Systolic blood pressure 2021-03-07 19:06:00 119 mm[Hg] [facility] Diastolic blood pressure 2021-03-07 19:06:00 76 mm[Hg] [facility] Heart rate 2021-03-07 19:06:00 84 /min [facility] Systolic blood pressure 2021-02-12 20:52:00 120 mm[Hg] [facility] Diastolic blood pressure 2021-02-12 20:52:00 75 mm[Hg] [facility] Heart rate 2021-02-12 20:52:00 70 /min [facility] Body height 2021-02-12 20:52:00 152.4 cm [facility] Body weight 2021-02-12 20:52:00 91.173 kg [facility] BMI 2021-02-12 20:52:00 39.26 kg/m2 [facility] Oxygen saturation in Arterial blood by Pulse oximetry 2021-02-12 20:52:00 97 /min [facility] Systolic blood pressure 2020-09-02 19:21:00 115 mm[Hg] [facility] Diastolic blood pressure 2020-09-02 19:21:00 69 mm[Hg] [facility] Heart rate 2020-09-02 19:21:00 95 /min [facility] Body temperature 2020-09-02 19:21:00 36.72 Fatou [facility] Respiratory rate 2020-09-02 19:21:00 18 /min [facility] Body height 2020-09-02 19:21:00 152.4 cm [facility] Body weight 2020-09-02 19:21:00 153.316 kg [facility] BMI 2020-09-02 19:21:00 66.01 kg/m2 [facility] Oxygen saturation in Arterial blood by Pulse oximetry 2020-09-02 19:21:00 97 /min [facility] Procedures Procedure Date / Time Performed Performing Clinician Source EXTERNAL PROVIDER RECORDS 2022-04-16 06:01:00 Doctor Unassigned, [place] [facility] EXTERNAL PROVIDER RECORDS 2021-12-18 05:01:00 Doctor Unassigned, [place] [facility] CONSENT/REFUSAL FOR DIAGNOSIS AND TREATMENT 2021-11-26 18:55:25 Doctor Unassigned, [place] [facility] AUTHORIZATION FOR RELEASE OF PHI 2021-11-16 05:01:00 Doctor Unassigned, [place] [facility] XR CHEST 1 VW 2021-06-26 17:15:00 Luciano Fernandez [facility] RAPID INFLUENZA A/B 2021-06-26 16:59:00 Charlie Fernandez [facility] COVID-19 (ID NOW RAPID TESTING) 2021-06-26 16:59:00 Luciano Fernandez [facility] LIPASE 2021-06-26 16:29:00 [facility] TROPONIN I 2021-06-26 16:29:00 [facility] COMP. METABOLIC PANEL ([id number]) 2021-06-26 16:29:00 Luciano Fernandez [facility] CBC WITH DIFF 2021-06-26 16:29:00 Luciano Fernandez [facility] PROTHROMBIN TIME / INR 2021-06-26 16:29:00 Rigo Fernandez [facility] ACTIVATED PARTIAL THRMPLAS AMRIT 2021-06-26 16:29:00 [facility]US[facility] FOR [facility]AGNOSIS AND TREATMENT 2021-06-26 16:02:56 Doctor Unassigned, [place] [facility] NOTICE OF PRIVACY PRACTICES 2021-06-26 16:01:28 Doctor Unassigned, [place] [facility] TRANSTHORACIC ECHO (TTE) COMPLETE 2021-03-07 19:33:58 Evin Brayden [facility] CONSENT/REFUSAL FOR DIAGNOSIS AND TREATMENT 2020-09-02 19:14:51 Doctor Unassigned, [place] [facility] Encounters Start Date/Time End Date/Time Encounter Type Admission Type Attending [facility] Facility Care Department Encounter ID Source 2022-04-16 00:00:00 2022-04-16 00:00:00 Orders Only Doctor Unassigned, [place] [facility] 1.2840.114 350.1.13.10 4.2.7.2.686 [id number] General acute hospital 2021-12-18 00:00:00 2021-12-18 00:00:00 Orders Only Doctor Unassigned, [place] [facility] 1.2840.114 350.1.13.10 4.2.7.2.686 [id number] General acute hospital 2021-11-26 14:15:00 2021-11-26 14:57:11 Outpatient R [facility] [id number] General acute hospital 2021-11-26 14:15:00 2021-11-26 14:57:11 Office Visit Roc Louis [facility] MED[facility] OFF[facility] BUILD[facility] 1.840.114 350.1.13.10 4.2.7.2.686 [id number] General acute hospital 2021-11-26 00:00:00 2021-11-26 00:00:00 Telephone Roc Louis [facility] MED[facility] OFF[facility] BU[facility]ING 1.840.114 350.1.13.10 4.2.7.2.686 [id number] General acute hospital 2021-11-26 00:00:00 2021-11-26 00:00:00 Orders Only Doctor Unassigned, [place] [facility] 1.2840.114 350.1.13.10 4.2.7.2.686 [id number] General acute hospital 2021-11-26 00:00:00 2021-11-26 00:00:00 Letter (Out) Roc Louis [facility] MEDICAL OFFICE BUILDING 1.84.114 350.1.13.10 4.2.7.2.686 [id number] General acute hospital 2021-11-23 00:00:00 2021-11-23 00:00:00 Telephone Roc Louis [facility] MED[facility] OFFICE BUILD[facility] 1.84.114 350.1.13.10 4.2.7.2.686 [id number] General acute hospital 2021-11-16 00:00:00 2021-11-16 00:00:00 Orders Only Doctor Unassigned, [place] [facility] 1..114 350.1.13.10 4.2.7.2.686 [id number] General acute hospital 2021-11-01 16:20:00 2021-11-01 17:15:15 [address] [facility] [id number] General acute hospital 2021-11-01 16:20:00 2021-11-01 17:15:15 Urgent Care Dior Malone [facility] MEDICAL OFFICE BUILDING 1.84.114 350.1.13.10 4.2.7.2.686 [id number] General acute hospital 2021-06-26 11:11:00 2021-06-26 13:46:00 Emergency X LUCIANO FERNANDEZ [facility] ERT [id number] General acute hospital 2021-06-26 11:11:00 2021-06-26 13:46:00 Emergency Luciano Fernandez [facility] 1..114 350.1.13.10 4.2.7.2.686 [id number] General acute hospital 2021-06-26 10:50:00 2021-06-26 11:10:00 Nurse Visit Nurse, [facility] Dior Malone [facility] [place] [facility] 1.2840.114 350.1.13.10 4.2.7.2.686 [id number] General acute hospital 2021-06-26 10:50:00 2021-06-26 10:50:00 Outpatient R DI[facility] [id number] General acute hospital 2021-06-26 00:00:00 2021-06-26 00:00:00 Orders Only Doctor Unassigned, [place] [facility] 1.84.114 350.1.13.10 4.2.7.2.686 [id number] General acute hospital 2021-06-25 19:20:00 2021-06-25 19:20:[address] [facility] [id number] General acute hospital 2021-03-08 00:00:00 2021-03-08 00:00:00 Patient Secure Msg Evin [facility] BUILDING 1.840.114 350.1.13.10 4.2.7.2.686 [id number] General acute hospital 2021-03-07 12:56:41 2021-03-07 23:59:00 [id number] 2021-03-07 12:56:41 2021-03-07 23:59:00 [facility] 1.284.114 350.1.13.10 4.2.7.2.686 [id number] General acute hospital 2021-02-27 15:00:00 2021-02-27 15:00:00 [facility] [id number] [facility] 2021-02-27 15:00:00 2021-02-27 15:00:00 [facility] [id number] [facility] acute hospital 2021-02-19 00:00:00 2021-02-19 00:00:00 Telephone Evin [facility] BUILDING 1..840.114 350.1.13.10 4.2.7.2.686 [id number] General acute hospital 2021-02-12 14:42:56 2021-02-12 15:15:38 Office Visit Evin [facility] 1..840.114 350.1.13.10 4.2.7.2.686 [id number] General acute hospital 2021-02-12 14:40:00 2021-02-12 15:15:38 [facility] [id number] [facility] acute hospital 2021-02-12 00:00:00 2021-02-12 00:00:00 Letter (Out) Evin [facility] 1..840.114 350.1.13.10 4.2.7.2.686 [id number] General acute hospital 2021-02-12 00:00:00 2021-02-12 00:00:00 Orders Only Doctor Unassigned, [place] [facility] 1.84.114 350.1.13.10 4.2.7.2.686 [id number] General acute hospital 2020-09-02 14:40:00 2020-09-02 14:40:00 Outpatient R JENAE [facility] [id number] General acute hospital 2020-09-02 14:15:28 2020-09-02 14:35:28 Urgent Care Provider, [facility] 1.840.114 350.1.13.10 4.2.7.2.686 [id number] General acute hospital 2020-09-02 00:00:00 2020-09-02 00:00:00 Orders Only Doctor Unassigned, [place] [facility] 1.840.114 350.1.13.10 4.2.7.2.686 [id number] General acute hospital Results Test Description Test Time Test Comments Results Result Co mments Source [facility] [id number] 17:15:24* Test Item Value Reference Range Interpretation Comments TROPONIN I (test code = 1008754704) 0.002 ng/mL See_Comment [Automated message] The system which generated this result transmitted reference range: <=0.034. The reference range was not used to interpret this result as normal/abnormal. ABRAHAM (test code = ABRAHAM) Reference (Normal) Range (defined by the 99th percentile reference [...] to patient's use of biotin. Lab Interpretation (test code = 39034-9) Normal [facility] (07092)2021-06-26 17:12:03* Test Item Value Reference Range Interpretation Comme nts NA (test code = 3061727408) 134 mmol/L 135-145 L K (test code = 4784309159) 4.1 mmol/L 3.5-5.0 CL (test code = 6063179775) 103 mmol/L 98-108 CO2 TOTAL (test code = 9588560254) 20 mmol/L 23-31 L AGAP (test code = 0581316145) 2-16 BUN (test code = 7329203052) 14 mg/dL 7-23 GLUCOSE (test code = 0735326992) 151 mg/dL 70-110 H CREATININE (test code = 4406075296) 0.65 mg/dL 0.50-1.04 TOTAL BILI (test code = 6030236038) 0.4 mg/dL 0.1-1.1 CALCIUM (test code = 4724237235) 8.7 mg/dL 8.6-10.6 T PROTEIN (test code = 6729789049) 6.4 g/dL 6.3-8.2 ALBUMIN (test code = 1845757422) 3.9 g/dL 3.5-5.0 ALK PHOS (test code = 4343330541) 82 U/L 34-122 ALTv (test code = 1742-6) 24 U/L 5-35 AST(SGOT) (test code = 3877009139) 17 U/L 13-40 eGFR (test code = 5984180926) mL/min/1.73m2 ABRAHAM (test code = ABRAHAM) Association of [...] or abnormalities in imaging tests). Lab Interpretation (test code = 10020-5) Abnormal [facility] [id number] 17:05:20* Test Item Value Reference Range Interpretation Comme [facility] LIPASE (test code = 5521081964) 75 U/L 0-220 Lab Interpretation (test cod e = 71649-0) Normal [facility]TT2022-04-26 17:00:21* Test Item Value Reference Range Interpretation Comme [facility] APTT Patient (test code = 3173-2) See_Comment [Automated message] The system which generated this result transmitted reference range: 23 - 38 Seconds. The reference range was not used to interpret this result as normal/abnormal. ABRAHAM (test code = ABRAHAM) The [facility] patient population mean normal value for aPTT is 30 seconds. Lab Interpretation (test code = 87375-8) Normal [facility] / [id number] 16:58:23* Test Item Value Reference Range Interpretation Comme [facility] PROTIME PATIENT (test code = 5964-2) See_Comment [Automated messa ge] The system which generated this result transmitted reference range: 12.0 - 14.7 Seconds. The reference range was not used to interpret this result as normal/abnormal. INR (test code = 6301-6) Normal INR <1.1; Warfarin Therapeutic range 2.0 to 3.0 or 2.5 to 3.5, depending upon the indications. Lab Interpretation (test code = 58734-0) Normal [facility]
--- NOTE | 2023-06-04 00:18 | EDPHYS ---
Physician Documentation [facility] Name: Airam Glasgow Age: 47 yrs Sex: Female : 1975 Arrival Date: 06/03/2023 Time: 22:15 Bed IW2 Private MD: ED Physician Valentino Anderson HPI: 06/02 23:25 This 47 yrs old Female presents to ER via Unassigned with complaints of Ankle Injury. sb4 23:25 The patient presents with an injury, pain, that is acute. The complaints affect the sb4 left ankle. Onset: The symptoms/episode began/occurred just prior to arrival. Context: resulted from the patient tripping, The mechanism of injury is unknown. The patient can partially bear weight on the affected extremity. the patient is able to ambulate. Associated signs and symptoms: Pertinent positives: swelling, Pertinent negatives: calf tenderness, numbness, weakness. The patient has not experienced similar symptoms in the past. The patient has not recently seen a physician. slipped on water tonight and twisted her ankle. doesn't think it's broken but wants xrays to be sure. pain is 3/10. Historical: - Allergies: 23:49 Keflex; pf1 23:49 PENICILLINS; pf1 23:49 Valium; pf1 - PMHx: 23:49 Bipolar disorder; depressive disorder; Hypertensive disorder; High Cholesterol; pf1 - PSHx: 23:49 section; Ligation of fallopian tube; Cholecystectomy; Tonsillectomy; pf1 - Immunization history:: Adult Immunizations up to date, Client reports receiving the 2nd dose of the Covid vaccine, Last tetanus immunization: < 5 years ago Flu vaccine is not up to date. - Infectious Disease History:: Denies. - Social history:: Smoking status: Patient reports the use of cigarette tobacco products, smokes one-half pack cigarettes per day, Patient/guardian denies using alcohol, street drugs. ROS: 23:25 Constitutional: Negative for fever, chills, and weight loss, sb4 23:25 MS/extremity: Positive for injury or acute deformity, pain, swelling, of the left lateral ankle, left Achilles, left medial ankle and anterior aspect of left ankle, 23:25 All other systems are negative, Exam: 23:25 Constitutional: This is a well developed, well nourished patient who is awake, alert, sb4 and in no acute distress. Head/Face: Normocephalic, atraumatic. Eyes: Extra-ocular motions intact. Periorbital areas with no swelling, redness, or edema. ENT: Mucous membranes moist. Skin: Warm, dry with normal turgor. Normal color with no rashes, no lesions, and no evidence of cellulitis. Neuro: Awake and alert, GCS 15, oriented to person, place, time, and situation. Motor strength 5/5 in all extremities. Sensory grossly intact. 23:25 Musculoskeletal/extremity: Joints: the left ankle displays painful range of motion, swelling, tenderness, Vital Signs: 23:45 BP 137 / 80; Pulse 82; Resp 16; Temp 97.2; Pulse Ox 97% on R/A; Weight 120.66 kg; pf1 Height 5 ft. 1 in. ; Pain 4/10; 06/03 00:45 BP 136 / 78; Pulse 80; Resp 16; Temp 97.4; Pulse Ox 98% ; pf1 06/02 23:45 Body Mass Index 50.26 (120.66 kg, 154.94 cm) pf1 06/02 23:45 Pain Scale: Adult pf1 MDM: 06/02 22:39 Patient medically screened. sp4 23:25 Differential diagnosis: fracture, sprain. sb4 06/03 00:16 Data reviewed: vital signs, nurses notes, radiologic studies, I have discussed the sb4 patient's presentation/case with the attending Emergency Department Physician; and as a result, I will discharge patient. Independent interpretation of the following test(s) in the Emergency Department X-Ray: My interpretation is my interpretation of the ankle xray images are no acute fracture or dislocation. Counseling: I had a detailed discussion with the patient and/or guardian regarding the historical points, exam findings, and any diagnostic results supporting the discharge/admit diagnosis, radiology results, to return to the emergency department if symptoms worsen or persist or if there are any questions or concerns that arise at home. 06/02 23:25 Order name: Ankle Left 3 View XRAY sb4 06/03 00:16 Order name: Ankle Splint: Aircast; Complete Time: 00:58 sb4 Administered Medications: No medications were administered Disposition: 07:32 Co-signature as Attending Physician, Valentino Anderson MD I agree with the assessment sp4 and plan of care. I reviewed the patient's care provided by the Advanced Practice Provider and agree with the diagnosis and treatment plan. Disposition Summary: 06/04/23 00:17 Discharge Ordered Notes: Location: Home sb4 Problem: new sb4 Symptoms: are unchanged sb4 Condition: Stable sb4 Diagnosis - Sprain of ankle sb4 Followup: sb4 - With: Meir White MD - When: As needed - Reason: Further diagnostic work-up, Recheck today's complaints, Re-evaluation by your physician Discharge Instructions: - Discharge Summary Sheet sb4 - Ankle Sprain, [id number] sb4 Forms: - Thank You Letter sb4 - Patient Portal Instructions sb4 - Leadership Thank You Letter sb4 - Work release form ty Signatures: Dispatcher [employer] Emma Link PA-C PA-C sb4 Justine Benites, RN RN pf1 Valentino Anderson MD MD sp4
--- NOTE | 2023-06-04 00:18 | ER ---
Nurse's Notes [facility] Name: Airam Glasgow Age: 47 yrs Sex: Female : 1975 Arrival Date: 06/03/2023 Time: 22:15 Bed IW2 Private MD: Diagnosis: Sprain of ankle Presentation: 06/02 23:45 Chief complaint: Patient states: Left ankle pain of 4,onset 2010 tonight when she pf1 slipped on some water and twisted her left ankle. Coronavirus screen: Vaccine status: Patient reports receiving the 2nd dose of the covid vaccine. Client denies travel out of the [place] in the last 14 days. At this time, the client does not indicate any symptoms associated with coronavirus-19. Ebola Screen: Patient negative for fever greater than or equal to 101.5 degrees Fahrenheit, and additional compatible Ebola Virus Disease symptoms. Initial Sepsis Screen: Does the patient meet any 2 criteria? No. Patient's initial sepsis screen is negative. Does the patient have a suspected source of infection? No. Patient's initial sepsis screen is negative. Risk Assessment: Do you want to hurt yourself or someone else? Patient reports no desire to harm self or others. Onset of symptoms was June 03, 2023 at 20:10. 23:45 Method Of Arrival: Wheelchair pf1 23:45 Acuity: ADALGISA 4 pf1 Triage Assessment: 23:54 Musculoskeletal: Reports pain in left ankle. pf1 23:54 General: Appears in no apparent distress. uncomfortable, Behavior is cooperative. Pain: pf1 Complains of pain in left ankle. Historical: - Allergies: 23:49 Keflex; pf1 23:49 PENICILLINS; pf1 23:49 Valium; pf1 - PMHx: 23:49 Bipolar disorder; depressive disorder; Hypertensive disorder; High Cholesterol; pf1 - PSHx: 23:49 section; Ligation of fallopian tube; Cholecystectomy; Tonsillectomy; pf1 - Immunization history:: Adult Immunizations up to date, Client reports receiving the 2nd dose of the Covid vaccine, Last tetanus immunization: < 5 years ago Flu vaccine is not up to date. - Infectious Disease History:: Denies. - Social history:: Smoking status: Patient reports the use of cigarette tobacco products, smokes one-half pack cigarettes per day, Patient/guardian denies using alcohol, street drugs. Screenin:30 [facility] ED Fall Risk Assessment (Adult) History of falling in the last 3 months, pf1 including since admission Yes- single mechanical fall (1 pt) Confusion or Disorientation No (0 pts) Intoxicated or Sedated No (0 pts) Impaired Gait No (0 pts) Mobility Assist Device Used No (0 pt) Altered Elimination No (0 pt) Score/Fall Risk Level 0 - 2 = Low Risk Oriented to surroundings, Maintained a safe environment, Educated pt \T\ family on fall prevention, incl call for assistance when getting out of bed. Abuse screen: Denies threats or abuse. Nutritional screening: No deficits noted. Tuberculosis screening: No symptoms or risk factors identified. Assessment: 23:30 General: Appears in no apparent distress. uncomfortable, Behavior is calm, cooperative, pf1 appropriate for age. Pain: Complains of pain in left ankle Pain does not radiate. Pain currently is 10 out of 10 on a pain scale. Aggravated by increased activity, weight bearing. Neuro: No deficits noted. Cardiovascular: No deficits noted. Respiratory: Airway is patent Respiratory effort is even, unlabored, Respiratory pattern is regular, symmetrical. GI: No deficits noted. No signs and/or symptoms were reported involving the gastrointestinal system. Derm: No deficits noted. No signs and/or symptoms reported regarding the dermatologic system. Skin is intact, is healthy with good turgor. Musculoskeletal: Reports pain in left ankle. 06/03 00:45 Reassessment: Patient and/or family updated on plan of care and expected duration. Pain pf1 level reassessed. Patient is alert, oriented x 3, equal unlabored respirations, skin warm/dry/pink. Patient states symptoms have improved. Vital Signs: 06/02 23:45 BP 137 / 80; Pulse 82; Resp 16; Temp 97.2; Pulse Ox 97% on R/A; Weight 120.66 kg; pf1 Height 5 ft. 1 in. ; Pain 4/10; 06/03 00:45 BP 136 / 78; Pulse 80; Resp 16; Temp 97.4; Pulse Ox 98% ; pf1 06/02 23:45 Body Mass Index 50.26 (120.66 kg, 154.94 cm) pf1 06/02 23:45 Pain Scale: Adult pf1 ED Course: 06/02 22:19 Patient arrived in ED. jj6 22:19 [facility] sb4 22:19 Valentino Anderson MD is Attending Physician. sb4 23:49 Triage completed. pf1 23:54 Arm band placed on right wrist. pf1 04 00:09 Ankle Left 3 View XRAY In Process Unspecified. EDMS 00:17 Meir White MD is Referral Physician. sb4 00:50 seen from [facility]. pf1 00:50 Provided Education on: RICE. pf1 00:50 air stir up. pf1 00:50 No provider procedures requiring assistance completed. Patient did not have IV access pf1 during this emergency room visit. Administered Medications: No medications were administered Medication: 00:50 VIS not applicable for this client. pf1 Outcome: 00:17 Discharge ordered by . sb4 01:00 Discharged to home ambulatory, pf1 01:00 Condition: stable pf1 01:00 Discharge instructions given to patient, Instructed on discharge instructions, follow up and referral plans. Demonstrated understanding of instructions, follow-up care, 01:02 Patient left the ED. pf1 Signatures: Dispatcher [employer] EDNC Tiffanie Bravo jj6 Emma Dumont PA-C PA-C sb4 Justine Benites, RN RN pf1 Corrections: (The following items were deleted from the chart) 06:36 00:45 BP 136 / 78; Pulse 80bpm; Resp 16bpm; Pulse Ox 98%; pf1 pf1
[2023-06-04 01:43] VITALS: BP 137/80; TEMP 97.2; O2SAT 97
--- NOTE | 2023-06-04 13:22 | RAD REPORT ---
EXAM DESCRIPTION: Ankle Left 3 View CLINICAL HISTORY: 39-year-old female with pain. TECHNIQUE: Three views LEFT ankle were obtained in AP, lateral and oblique projections. COMPARISON: None. FINDINGS: There is no fracture or dislocation. The joint spaces are preserved. No soft tissue abnorm alities are seen. Plantar heel spur. Calcaneal enthesophyte IMPRESSION: No acute radiographic abnormality. Electronically signed by: Mary Chery MD 06/04/2023 12:31 AM CDT Due to temporary technical issues with the PACS/Fluency reporting system, reports are being signed by the in house radiologist without review as a courtesy to ensure prompt reporting. The interpreting r adiologist is fully responsible for the content of the report.
== END 2023-06-04 01:02 | disposition home or self-care (01) ==
LOC: ER 22:15
DX: S93.402A Sprain of unspecified ligament of left ankle, initial encounter (principal); F17.210 Nicotine dependence, cigarettes, uncomplicated; Z88.0 Allergy status to penicillin; Z88.1 Allergy status to other antibiotic agents; Z88.5 Allergy status to narcotic agent
CPT/HCPCS: 99283

== ENCOUNTER 2023-07-03 10:53 | Emergency (ER) | payer BC ==
[2023-07-03] MEDS ORDERED: TRAMADOL HCL 50 MG TAB ONE (11:34)
[2023-07-03 11:49] LABS: Urine Bacteria 20-50 /HPF (<20); Urine Bilirubin NEGATIVE (Negative); Urine Blood Negative (Negative); Urine Clarity Extremely Turbid (Clear); Urine Color Light-Yellow (Yellow); Urine Culture Reflex Order REFLEXED; Urine Glucose NEGATIVE (Negative); Urine Ketones NEGATIVE (Negative); Urine Microscopic Reflex YN ORDER UMIC; Urine Nitrite NEGATIVE (Negative); Urine Protein NEGATIVE (Negative); Urine Urobilinogen Normal (Normal); Urine pH 5.5 (5.0-7.0)
[2023-07-03 12:08] LABS: Absolute Basophils 0.1 K/uL (0-0.5); Absolute Eosinophils 0.3 K/uL (0-0.5); Absolute Lymphocytes (CBC) 2.5 K/uL (0.7-4.9); Absolute Monocytes 0.6 K/uL (0.1-1.3); Absolute Neutrophil 7.8 K/uL (1.8-8.0); Basophils % 1.1 % (0-1.3); Eosinophils % 2.9 % (0-4.4); Hematocrit 38.5 % (36.0-45.0); Hemoglobin 12.5 g/dL (12.0-15.0); Lymphocytes % 22.3 % (15.3-44.8); MCH 27.8 pg (27.0-35.0); MCHC 32.4 g/dL (32.0-36.0); MCV 85.6 fL (80-100); MPV 7.6 fL (7.6-11.3); Neutrophils % 68.7 % (41.7-73.7); Platelets 308 thou/uL (152-406); Red Cell Distribution Width 14.2 % (12.1-15.2)
--- NOTE | 2023-07-03 12:28 | RAD REPORT ---
EXAM DESCRIPTION: RAD - Chest Single View - 07/03/2023 12:20 pm CLINICAL HISTORY: pleuritic posterior thoracic pain Chest pain. COMPARISON: Chest Single View dated 12/11/2022; Chest Pa And Lat (2 Views) dated 06/28/2022; Chest Pa And Lat (2 Views) dated 05/09/2022 FINDINGS: Portable technique limits examination quality. The lungs are grossly clear. The heart is normal in size. No displaced fractures. IMPRESSION: No acute intrathoracic process suspected.
[2023-07-03 12:29] LABS: Albumin/Globulin Ratio 0.8 (1.1-1.8); Anion Gap 8.7 mEq/L (5.0-15.0); Bilirubin Total 0.2 mg/dL (0.2-1.0); Globulin 3.6 g/dL (2.3-3.5); Potassium 3.7 mEq/L (3.5-5.1); Protein, Total 6.6 g/dL (6.4-8.2); Troponin High Sensitivity 9.2 pg/mL (<58.9)
--- NOTE | 2023-07-03 13:58 | RAD REPORT ---
EXAM DESCRIPTION: CT - Stone Protocol - 07/03/2023 1:44 pm CLINICAL HISTORY: Flank pain. FLANK PAIN COMPARISON: No comparisons TECHNIQUE: Axial images were obtained without oral or IV contrast. Lack of contrast limits solid org an and vascular assessment. The [id number] spans the entirety of the system partially obscuring uppermost abdomen and lung bases. Coronal reformatted images were obtained and reviewed. All CT scans are performed using dose optimization technique as appropriate and may include automated exposure control or mA/KV adjustment according to patient size. FINDINGS: The lower lung esparza are clear. Liver size is prominent. No biliary dilatation seen. Unremarkable spleen. Cholecystectomy. The pancre as and adrenal glands are normal. No pathologic lymphadenopathy in the abdomen or pelvis. No urinary tract stones or obstructive uropathy. No bowel obstruction, free air, free fluid or abscess. Normal appendix noted.IUD is present in the ut erus. No significant bony abnormality. IMPRESSION: No urinary tract stones or obstructive uropathy. Mild hepatomegaly.
--- NOTE | 2023-07-03 14:17 | EDPHYS ---
Physician Documentation [facility] Name: Airam Glasgow Age: 47 yrs Sex: Female : 1975 Arrival Date: 07/03/2023 Time: 10:53 Bed 5 Private MD: ED Physician Karthik Puga HPI: 07/02 11:34 This 47 yrs old Female presents to ER via Unassigned with complaints of Flank Pain. rn 11:34 The patient complains of pain in the right subscapular area. The pain does not radiate. rn 11:34 Onset: The symptoms/episode began/occurred last night. Modifying factors: The symptoms rn are alleviated by remaining still, the symptoms are aggravated by movement, palpation/percussion. Associated signs and symptoms: Pertinent negatives: diarrhea, dysuria, fever, urinary frequency, headache, hematuria, nausea, pain radiating to the lower extremities, vomiting. Severity of pain: At its worst the pain was moderate in the emergency department the pain has improved. The patient has not experienced similar symptoms in the past. The patient has not recently seen a physician. Patient reports right subscapular back pain, began last night, no injury, no fever or chills. No new cough or hemoptysis. No urinary symptoms. No abdominal pain. Reports pain with movement and palpation as well as with deep breath.. 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 - Infectious Disease History:: Denies. - Family history:: not pertinent. - Social history:: Smoking status: Patient reports the use of cigarette tobacco products, smokes one pack cigarettes per day. - Hospitalizations: : No recent hospitalization is reported. ROS: 11:34 Constitutional: Negative for fever, chills, and weight loss, Neck: Negative for injury, rn pain, and swelling, Cardiovascular: Negative for chest pain, palpitations, and edema, Respiratory: Negative for shortness of breath, cough, wheezing, and pleuritic chest pain, Abdomen/GI: Negative for abdominal pain, nausea, vomiting, diarrhea, and constipation, Back: Positive for right subscapular back pain : Negative for injury, bleeding, discharge, and swelling, MS/Extremity: Negative for injury and deformity, Skin: Negative for injury, rash, and discoloration, Neuro: Negative for headache, weakness, numbness, tingling, and seizure, Exam: 11:34 Constitutional: This is a well developed, well nourished patient who is awake, alert, rn and in no acute distress. Cardiovascular: Regular rate and rhythm. No pulse deficits. Respiratory: No increased work of breathing, no retractions or nasal flaring. Abdomen/GI: Soft, nontender Back: No spinal tenderness. No costovertebral tenderness. Painful range of motion in pain with deep inspiration MS/ Extremity: Pulses equal, no cyanosis. Neuro: Awake and alert, GCS 15 15:47 ECG was reviewed by the Attending Physician. rn Vital Signs: 11:43 BP 154 / 80; Pulse 91; Resp 19 S; Temp 98(O); Pulse Ox 97% on R/A; Weight 122.02 kg kc6 (R); Height 5 ft. 1 in. ; 12:52 BP 138 / 64; Pulse 86; Resp 16 S; Pulse Ox 96% on R/A; kc6 14:10 BP 119 / 57; Pulse 86; Resp 18; Pulse Ox 97% on R/A; mb9 14:20 BP 119 / 57; Pulse 79; Resp 17; Temp 98.1(O); Pulse Ox 98% on R/A; Pain 8/10; tl4 11:43 Body Mass Index 50.83 (122.02 kg, 154.94 cm) kc6 14:20 Pain Scale: Adult tl4 MDM: 10:56 Patient medically screened. rn 13:50 Differential diagnosis: nephrolithiasis, pyelonephritis, UTI, Muscle spasm. Data rn reviewed: vital signs, nurses notes, lab test result(s), radiologic studies. 14:15 Counseling: I had a detailed discussion with the patient and/or guardian regarding the rn historical points, exam findings, and any diagnostic results supporting the discharge/admit diagnosis, lab results, radiology results, the need for outpatient follow up, to return to the emergency department if symptoms worsen or persist or if there are any questions or concerns that arise at home. Response to treatment: the patient's symptoms have mildly improved after treatment, and as a result, I will discharge patient. ED course: Patient without acute finding and imaging today. Urine consistent with urinary tract infection and given right-sided flank pain will discharge home with antibiotics and return precautions. I have personally reviewed all of the results, including but not limited to blood tests and imaging deemed necessary to safely discharge this patient at this time. All results given to and printed out for patient. I personally went over all the results with the patient and answered all questions. Patient will follow-up with PCP and or specialist as discussed. Return precautions given and understood.. 07/02 11:11 Order name: CBC with Diff; Complete Time: 13: 07/02 11:11 Order name: CMP; Complete Time: : 07/02 11:11 Order name: Lipase; Complete Time: : 07/02 11:11 Order name: Troponin High Sensitivity; Complete Time: 13: 07/02 11:11 Order name: D-Dimer; Complete Time: 13: 07/02 11:11 Order name: Urinalysis w/ reflexes; Complete Time: 13: rn 07/02 11:56 Order name: Urine Culture [facility] 07/02 11:11 Order name: XRAY Chest (1 view); Complete Time: 13: 07/02 13:30 Order name: CT Stone Protocol; Complete Time: 14:15 rn 07/02 11:11 Order name: IV Saline Lock; Complete Time: 11: rn 07/02 11:11 Order name: Labs collected and sent; Complete Time: 11: rn 07/02 11:11 Order name: EKG - Nurse/Tech; Complete Time: : 07/02 11:46 Order name: Labs - recollect needed: need to recollect all tubes; Complete Time: 11:56 aa5 EC:47 Rate is 83 beats/min. Rhythm is regular. Right axis deviation noted. QRS is positive in rn lead aVF and negative in lead I. QRS interval is normal. QT interval is normal. No Q waves. T waves are Normal. No ST changes noted. Clinical impression: NSR w/ Non-specific ST/T Changes. Interpreted by me. Reviewed by me. Administered Medications: 11:42 Drug: traMADol PO 50 mg PO once Route: PO; kc6 14:26 Follow up: Response: No adverse reaction; Pain is decreased tl4 Disposition Summary: 07/03/23 14:16 Discharge Ordered Notes: Location: Home rn Problem: new rn Symptoms: have improved rn Condition: Stable rn Diagnosis - UTI/ Urinary tract infection, site not specified rn Followup: rn - With: Private Physician - When: As needed - Reason: Recheck today's complaints, Re-evaluation by your physician Discharge Instructions: - Discharge Summary Sheet rn - Urinary Tract Infection, Adult rn Forms: - Medication Reconciliation Form rn - Antibiotic airborne operations - Prescription Opioid Use rn - Patient Portal Instructions rn - Leadership Thank You Letter rn - Work release form tl4 Prescriptions: - Cipro 500 mg Oral Tablet - take 1 tablet ORAL route every 12 hours for 7 days; 14 tablet; Refills: 0, rn Product Selection Permitted - Tramadol 50 mg Oral Tablet - take 1 tablet ORAL route every 8 hours as needed; 12 tablet; Refills: 0, rn Product Selection Permitted Signatures: Dispatcher [employer] EDMS Karthik Puga MD MD rn Calderon, Audri RN RN aa5 Vanda Brock RN RN kc6 Maldonado Diamond RN RN tl4 Corrections: (The following items were deleted from the chart) 11:12 11:12 CBC+H.LAB.BRZ ordered. EDMS EDMS 11:12 11:12 COMPREHENSIVE METABOLIC PANEL+C.LAB.BRZ ordered. EDMS EDMS 11:12 11:12 LIPASE+C.LAB.BRZ ordered. EDMS EDMS 11:12 11:12 Troponin High Sensitivity+C.LAB.BRZ ordered. EDMS EDMS 11:12 11:12 D-DIMER+COAG.LAB.BRZ ordered. EDMS EDMS 11:12 11:12 Chest Single View+RAD.RAD.BRZ ordered. EDMS EDMS 11:12 11:12 Urinalysis+U.LAB.BRZ ordered. EDMS EDMS
--- NOTE | 2023-07-03 14:17 | ER ---
Nurse's Notes [facility] Name: Airam Glasgow Age: 47 yrs Sex: Female : 1975 Arrival Date: 07/03/2023 Time: 10:53 Bed 5 Private MD: Diagnosis: UTI/ Urinary tract infection, site not specified Presentation: 07/02 11:43 Chief complaint: Patient states: back pain that started last night, hurts to breath or kc6 move to much. Coronavirus screen: At this time, the client does not indicate any symptoms associated with coronavirus-19. Ebola Screen: No symptoms or risks identified at this time. Initial Sepsis Screen: Does the patient meet any 2 criteria? No. Patient's initial sepsis screen is negative. Does the patient have a suspected source of infection? No. Patient's initial sepsis screen is negative. Risk Assessment: Do you want to hurt yourself or someone else? Patient reports no desire to harm self or others. Onset of symptoms was July 03, 2023. 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 - Infectious Disease History:: Denies. - Family history:: not pertinent. - Social history:: Smoking status: Patient reports the use of cigarette tobacco products, smokes one pack cigarettes per day. - Hospitalizations: : No recent hospitalization is reported. Screenin:44 [facility] ED Fall Risk Assessment (Adult) History of falling in the last 3 months, kc6 including since admission No falls in past 3 months (0 pts) Confusion or Disorientation No (0 pts) Intoxicated or Sedated No (0 pts) Impaired Gait No (0 pts) Mobility Assist Device Used No (0 pt) Altered Elimination No (0 pt) Score/Fall Risk Level 0 - 2 = Low Risk. Abuse screen: Denies threats or abuse. Denies injuries from another. Nutritional screening: No deficits noted. Tuberculosis screening: No symptoms or risk factors identified. Assessment: 11:45 General: Appears in no apparent distress. comfortable, well groomed, well developed, kc6 Behavior is calm, cooperative, appropriate for age. Pain: Complains of pain in right subscapular area. Neuro: Level of Consciousness is awake, alert, obeys commands, Oriented to person, place, time, situation, Appropriate for age. Cardiovascular: Capillary refill < 3 seconds. Respiratory: Reports pain with respiration Airway is patent Trachea midline Respiratory effort is even, unlabored, Respiratory pattern is regular, symmetrical. GI: No signs and/or symptoms were reported involving the gastrointestinal system. : No signs and/or symptoms were reported regarding the genitourinary system. EENT: No signs and/or symptoms were reported regarding the EENT system. Derm: No signs and/or symptoms reported regarding the dermatologic system. Skin is intact, is healthy with good turgor, Skin is pink, warm \T\ dry. Musculoskeletal: No signs and/or symptoms reported regarding the musculoskeletal system. Circulation, motion, and sensation intact. Capillary refill < 3 seconds, Range of motion: intact in all extremities. 12:52 Reassessment: Patient appears in no apparent distress at this time. No changes from kc6 previously documented assessment. Patient and/or family updated on plan of care and expected duration. Pain level reassessed. Patient is alert, oriented x 3, equal unlabored respirations, skin warm/dry/pink. Vital Signs: 11:43 BP 154 / 80; Pulse 91; Resp 19 S; Temp 98(O); Pulse Ox 97% on R/A; Weight 122.02 kg kc6 (R); Height 5 ft. 1 in. ; 12:52 BP 138 / 64; Pulse 86; Resp 16 S; Pulse Ox 96% on R/A; kc6 14:10 BP 119 / 57; Pulse 86; Resp 18; Pulse Ox 97% on R/A; mb9 14:20 BP 119 / 57; Pulse 79; Resp 17; Temp 98.1(O); Pulse Ox 98% on R/A; Pain 8/10; tl4 11:43 Body Mass Index 50.83 (122.02 kg, 154.94 cm) kc6 14:20 Pain Scale: Adult tl4 ED Course: 10:55 Patient arrived in ED. im 10:56 Karthik Puga MD is Attending Physician. rn 11:05 Vanda Brock, RN is Primary Nurse. kc6 11:35 Initial lab(s) drawn, by me, sent to lab. Inserted saline lock: 22 gauge in left em1 antecubital area, using aseptic technique. Blood collected. 11:44 Triage completed. kc6 11:44 Arm band placed on. kc6 11:45 Patient has correct armband on for positive identification. Placed in gown. Bed in low kc6 position. Call light in reach. Side rails up X2. Adult w/ patient. Client placed on continuous cardiac and pulse oximetry monitoring. NIBP monitoring applied. Pillow given. 12:21 XRAY Chest (1 view) In Process Unspecified. EDMS 13:30 Report given to VIRGINIA Okeefe. kc6 13:46 CT Stone Protocol In Process Unspecified. EDMS 14:20 No provider procedures requiring assistance completed. IV discontinued, intact, tl4 bleeding controlled, No redness/swelling at site. Pressure dressing applied. 14:27 Provided Education on: ED process. tl4 Administered Medications: 11:42 Drug: traMADol PO 50 mg PO once Route: PO; kc6 14:26 Follow up: Response: No adverse reaction; Pain is decreased tl4 Medication: 14:20 VIS not applicable for this client. tl4 Outcome: 14:16 Discharge ordered by . rn 14:20 Discharged to home ambulatory, with family, tl4 14:20 Condition: stable 14:20 Discharge instructions given to patient, family, Instructed on discharge instructions, follow up and referral plans. medication usage, Demonstrated understanding of instructions, follow-up care, medications, Prescriptions given X 2, 14:28 Patient left the ED. tl4 Signatures: Dispatcher [employer] EDMS Karthik Puga MD MD rn Martinez, Eric em1 Vanda Brock, RN RN kc6 Mahsa, Johana Snyder RN RN mb9 Janine Carvalho Logda, VIRGINIA Okeefe RN tl4 Corrections: (The following items were deleted from the chart) 11:47 11:43 BP 154 / 80; Pulse 91bpm; Resp 19bpm; Spontaneous; Pulse Ox 97% RA; 122.02 kg kc6 Reported; Height 5 ft. 1 in.; BMI: 50.8; kc6
[2023-07-03 14:53] VITALS: BP 119/57; TEMP 98.1; O2SAT 98
--- NOTE | 2023-07-04 14:39 | EKG ---
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
== END 2023-07-03 14:28 | disposition home or self-care (01) ==
LOC: ER 10:53
DX: N39.0 Urinary tract infection, site not specified (principal); F17.210 Nicotine dependence, cigarettes, uncomplicated; I10 Essential (primary) hypertension; Z88.0 Allergy status to penicillin; Z88.1 Allergy status to other antibiotic agents; Z88.5 Allergy status to narcotic agent
CPT/HCPCS: 36415; 71045; 74176; 76377; 80053; 81001; 83690; 84484; 85025; 85379; 87086; 87088; 93005; 99284

== ENCOUNTER 2023-07-15 19:06 | Emergency (ER) | payer BC ==
[2023-07-15 21:01] LABS: Absolute Basophils 0.1 K/uL (0-0.5); Absolute Eosinophils 0.3 K/uL (0-0.5); Absolute Lymphocytes (CBC) 3.1 K/uL (0.7-4.9); Absolute Monocytes 0.9 K/uL (0.1-1.3); Absolute Neutrophil 7.4 K/uL (1.8-8.0); Basophils % 0.6 % (0-1.3); Eosinophils % 2.5 % (0-4.4); Hematocrit 38.2 % (36.0-45.0); Hemoglobin 12.8 g/dL (12.0-15.0); Lymphocytes % 26.1 % (15.3-44.8); MCH 28.5 pg (27.0-35.0); MCHC 33.4 g/dL (32.0-36.0); MCV 85.4 fL (80-100); MPV 7.2 fL (7.6-11.3); Monocytes % 7.3 % (3.3-12.3); Neutrophils % 63.5 % (41.7-73.7); Nucleated Red Blood Cells % 0.2 % (0-0); Platelets 377 thou/uL (152-406); RBC Red Blood Cell Count 4.48 M/uL (3.86-4.86); Red Cell Distribution Width 14.1 % (12.1-15.2)
[2023-07-15] MEDS ORDERED: ONDANSETRON 4 MG/2 ML VIAL ONE (21:12)
[2023-07-15] MEDS ORDERED: KETOROLAC 30 MG/ML INJ ONE (21:12)
[2023-07-15] MEDS ORDERED: NA CHLORIDE 0.9% 1,000 ML ONE (21:12)
[2023-07-15] MEDS ORDERED: FAMOTIDINE 20 MG/2 ML VIAL IV ONE (21:12)
[2023-07-15 21:21] LABS: Albumin 3.2 g/dL (3.4-5.0); Albumin/Globulin Ratio 0.8 (1.1-1.8); Anion Gap 7.9 mEq/L (5.0-15.0); Bilirubin Total 0.2 mg/dL (0.2-1.0); Globulin 3.8 g/dL (2.3-3.5); Potassium 3.9 mEq/L (3.5-5.1)
[2023-07-15 21:26] LABS: Specific Gravity 1.007 (1.005-1.030); Urine Bacteria <20 /HPF (<20); Urine Bilirubin NEGATIVE (Negative); Urine Blood Trace (Negative); Urine Clarity Extremely Turbid (Clear); Urine Color Colorless (Yellow); Urine Culture Reflex Order NOT NEEDED; Urine Glucose NEGATIVE (Negative); Urine Ketones NEGATIVE (Negative); Urine Microscopic Reflex YN ORDER UMIC; Urine Mucus Slight /HPF (None Seen); Urine Nitrite NEGATIVE (Negative); Urine Protein NEGATIVE (Negative); Urine Urobilinogen Normal (Normal); Urine WBC <5 /HPF (<5); Urine pH 5.5 (5.0-7.0)
--- NOTE | 2023-07-15 22:01 | ER ---
Nurse's Notes [facility] Name: Airam Glasgow Age: 47 yrs Sex: Female : 1975 Arrival Date: 07/15/2023 Time: 19:06 Bed 13 Private MD: Diagnosis: Upper abdominal pain, unspecified Presentation: 07/14 19:27 Chief complaint: Patient states: RUQ PAIN STARTED LAST NIGHT. Coronavirus screen: At [facility] this time, the client does not indicate any symptoms associated with coronavirus-19. Ebola Screen: No symptoms or risks identified at this time. Initial Sepsis Screen: Does the patient meet any 2 criteria? No. Patient's initial sepsis screen is negative. Does the patient have a suspected source of infection? No. Patient's initial sepsis screen is negative. Risk Assessment: Do you want to hurt yourself or someone else? Patient reports no desire to harm self or others. Note TRAMADOL 25MG MOTRIN 800MG 2 HRS AGO GABAPENTIN 2P. Onset of symptoms was July 14, 2023. 19:27 Method Of Arrival: Ambulatory [facility] 19:27 Acuity: ADALGISA 3 [facility] Triage Assessment: 19:32 General: Appears in no apparent distress. uncomfortable, Behavior is calm, cooperative, [facility] appropriate for age. Pain: Complains of pain in right upper quadrant. GI: Reports upper abdominal pain, Patient currently denies diarrhea, nausea, vomiting. 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 - Infectious Disease History:: Denies. - Social history:: Smoking status: Patient reports the use of cigarette tobacco products, smokes one pack cigarettes per day. Patient/guardian denies using alcohol, street drugs, IV drugs. Screenin:34 [facility] ED Fall Risk Assessment (Adult) History of falling in the last 3 months, jj7 including since admission No falls in past 3 months (0 pts) Confusion or Disorientation No (0 pts) Intoxicated or Sedated No (0 pts) Impaired Gait No (0 pts) Mobility Assist Device Used No (0 pt) Altered Elimination No (0 pt) Score/Fall Risk Level 0 - 2 = Low Risk Oriented to surroundings, Maintained a safe environment, Educated pt \\T\\ family on fall prevention, incl call for assistance when getting out of bed. Abuse screen: Denies threats or abuse. Nutritional screening: No deficits noted. Tuberculosis screening: No symptoms or risk factors identified. Assessment: 22:00 General: Discharged pending IV fluids infusing. vc1 22:25 General: Appears in no apparent distress. uncomfortable, obese, Behavior is calm, vc1 cooperative, appropriate for age. Pain: Complains of pain in epigastric area Pain does not radiate. Quality of pain is described as sharp, Aggravated by increased activity, repositioning, "movement". Neuro: Level of Consciousness is awake, alert, obeys commands, Oriented to person, place, time, situation, Appropriate for age. Cardiovascular: Heart tones S1 S2 Capillary refill < 3 seconds Patient's skin is warm and dry. Respiratory: Airway is patent Respiratory effort is even, unlabored, Respiratory pattern is regular, agonal. GI: Bowel sounds present X 4 quads. Abd is soft Abdomen is tender to palpation in epigastric area. : No deficits noted. No signs and/or symptoms were reported regarding the genitourinary system. EENT: No deficits noted. No signs and/or symptoms were reported regarding the EENT system. Derm: Skin is intact, is healthy with good turgor, Skin is dry, Skin is pink, warm \\T\\ dry. Skin temperature is warm. Vital Signs: 19:27 BP 145 / 81; Pulse 80; Resp 17; Temp 98.7; Pulse Ox 99% ; Weight 121.11 kg; Height 5 j7 ft. 1 in. ; Pain 3/10; 19:27 Body Mass Index 50.45 (121.11 kg, 154.94 cm) [facility] 19:27 Pain Scale: Adult [facility] ED Course: 19:08 Patient arrived in ED. mg5 19:26 [facility] Baker [facility]C [facility] kb 19:26 Elkin Gudino MD is Attending Physician. kb 19:32 Triage completed. jj7 19:32 Arm band placed on right wrist. jj7 19:54 Deena Meraz is Primary Nurse. cp4 20:50 Inserted saline lock: 20 gauge in right antecubital area, using aseptic technique. oe Blood collected. 20:51 Urinalysis w/ reflexes Sent. oe 20:51 Lipase Sent. oe 20:51 CMP Sent. oe 20:51 CBC with Diff Sent. oe 22:00 Patient has correct armband on for positive identification. Placed in gown. Bed in low vc1 position. Call light in reach. 22:00 Report received from VIRGINIA Shaffer. vc1 22:23 No provider procedures requiring assistance completed. IV discontinued, intact, vc1 bleeding controlled, No redness/swelling at site. Pressure dressing applied. 22:25 Provided Education on: don't take NSAIDs with Diclofenac. vc1 Administered Medications: 21:20 Drug: NS 0.9% IV 1000 ml IV at 1 bolus Per protocol; 1000 mL bolus Route: IV; Rate: 1 cp4 bolus; Site: right antecubital; 22:25 Follow up: IV Status: Completed infusion; IV Intake: 1000ml vc1 21:20 Drug: Famotidine IVP 20 mg IVP once; dilute with 10 mL 0.9% NaCl; give over 2 minutes cp4 Route: IVP; Site: right antecubital; 22:30 Follow up: Response: No adverse reaction; Marked relief of symptoms vc1 21:20 Drug: TORadol - Ketorolac IVP 15 mg IVP once Route: IVP; Site: right antecubital; cp4 22:30 Follow up: Response: No adverse reaction; Marked relief of symptoms vc1 21:20 Drug: Ondansetron IVP 4 mg IVP once; over 2 minutes Route: IVP; Site: right antecubital;cp4 22:30 Follow up: Response: No adverse reaction; Marked relief of symptoms vc1 Medication: 22:27 VIS not applicable for this client. vc1 Intake: 22:25 IV: 1000ml; Total: 1000ml. vc1 Outcome: 22:00 Discharge ordered by . kb 22:26 Discharged to home ambulatory, vc1 22:26 Condition: good 22:26 Discharge instructions given to patient, Instructed on discharge instructions, follow up and referral plans. medication usage, Demonstrated understanding of instructions, follow-up care, medications, Prescriptions given X 2, 22:27 Patient left the ED. vc1 Signatures: Kori Baker, HOUSEHOLD WORKER-C HOUSEHOLD WORKER-Yifan Ascencio Vanessa, RN RN vc1 Darius Estrada RN RN [id number] Yany Moser 5 Deena Meraz cp4
--- NOTE | 2023-07-15 22:01 | EDPHYS ---
Physician Documentation [facility] Name: Airam Glasogw Age: 47 yrs Sex: Female : 1975 Arrival Date: 07/15/2023 Time: 19:06 Bed 13 Private MD: CARSON Physician Elkin Gudino HPI: 07/14 19:28 This 47 yrs old Female presents to ER via Unassigned with complaints of Abdominal Pain kb - upper. 19:28 Pt is a 47 year old female who presents for RUQ pain that is worse with movement. kb Denies n/v/d, fever. . 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 - Infectious Disease History:: Denies. - Social history:: Smoking status: Patient reports the use of cigarette tobacco products, smokes one pack cigarettes per day. Patient/guardian denies using alcohol, street drugs, IV drugs. ROS: 19:30 Constitutional: As per HPI kb Exam: 19:30 Constitutional: This is a well developed, well nourished patient who is awake, alert, kb and in no acute distress. Head/Face: Normocephalic, atraumatic. ENT: Moist Mucous membranes Cardiovascular: Regular rate Respiratory: Respirations even and unlabored. No increased work of breathing. Talking in full sentences Skin: Warm, dry with normal turgor. Normal color. MS/ Extremity: Pulses equal, no cyanosis. Neurovascular intact. Full, normal range of motion. Neuro: Awake and alert, GCS 15, oriented to person, place, time, and situation. Moves all extremities. Normal gait. 19:30 Abdomen/GI: Inspection: obese Bowel sounds: normal, Palpation: soft, in all quadrants, mild abdominal tenderness, in the right upper quadrant, Vital Signs: 19:27 BP 145 / 81; Pulse 80; Resp 17; Temp 98.7; Pulse Ox 99% ; Weight 121.11 kg; Height 5 jj7 ft. 1 in. ; Pain 3/10; 19:27 Body Mass Index 50.45 (121.11 kg, 154.94 cm) [facility] 19:27 Pain Scale: Adult [facility] MDM: 19:26 Patient medically screened. kb 22:07 Differential diagnosis: non-specific abd pain, pancreatitis, urinary tract infection, kb shingles, muscle strain. Data reviewed: vital signs, nurses notes. Counseling: I had a detailed discussion with the patient and/or guardian regarding the historical points, exam findings, and any diagnostic results supporting the discharge/admit diagnosis, lab results, the need for outpatient follow up, a family practitioner, to return to the emergency department if symptoms worsen or persist or if there are any questions or concerns that arise at home. ED course: Pt had shingles in same area as pain 1.5 weeks ago, rash healing well. Pain is worse with movement. Pt has no n/v/d, fever and is nontoxic in appearance. Pt educated on return precautions. . 07/14 20:59 Order name: Comprehensive Metabolic Panel EDDE 07/14 20:59 Order name: Lipase EDDE 07/14 20:59 Order name: CBC with Automated Diff EDDE 07/14 20:59 Order name: Urinalysis w/ reflexes EDDE 07/14 21:03 Order name: CBC with Automated Diff; Complete Time: 21:04 [facility] 07/14 21:21 Order name: Comprehensive Metabolic Panel; Complete Time: 21:27 [facility] 07/14 21:21 Order name: Lipase; Complete Time: 21:27 EDDE 07/14 21:26 Order name: Urinalysis w/ reflexes; Complete Time: 21:27 [facility] 07/14 19:51 Order name: IV Saline Lock; Complete Time: 20:51 kb 07/14 19:51 Order name: Labs collected and sent; Complete Time: 20:51 kb Administered Medications: 21:20 Drug: NS 0.9% IV 1000 ml IV at 1 bolus Per protocol; 1000 mL bolus Route: IV; Rate: 1 cp4 bolus; Site: right antecubital; 22:25 Follow up: IV Status: Completed infusion; IV Intake: 1000ml vc1 21:20 Drug: Famotidine IVP 20 mg IVP once; dilute with 10 mL 0.9% NaCl; give over 2 minutes cp4 Route: IVP; Site: right antecubital; 22:30 Follow up: Response: No adverse reaction; Marked relief of symptoms vc1 21:20 Drug: TORadol - Ketorolac IVP 15 mg IVP once Route: IVP; Site: right antecubital; cp4 22:30 Follow up: Response: No adverse reaction; Marked relief of symptoms vc1 21:20 Drug: Ondansetron IVP 4 mg IVP once; over 2 minutes Route: IVP; Site: right antecubital;cp4 22:30 Follow up: Response: No adverse reaction; Marked relief of symptoms vc1 Disposition Summary: 07/15/23 22:00 Discharge Ordered Notes: Location: Home kb Condition: Stable kb Diagnosis - Upper abdominal pain, unspecified kb Followup: kb - With: Emergency Department - When: As needed - Reason: Worsening of condition Followup: kb - With: Private Physician - When: 2 - 3 days - Reason: Recheck today's complaints, Continuance of care, Re-evaluation by your physician Discharge Instructions: - Discharge Summary Sheet kb - Musculoskeletal Pain kb - Abdominal Pain, Adult, [id number] kb Forms: - Medication Reconciliation Form kb - Antibiotic Education kb - Prescription Opioid Use kb - Patient Portal Instructions kb - Leadership Thank You Letter kb Prescriptions: - Cyclobenzaprine 10 mg Oral tablet - take 1 tablet ORAL route every 8 hours As needed; 21 tablet; Refills: 0, kb Product Selection Permitted - Diclofenac Sodium 75 mg Oral tablet, delayed release (enteric coated) - take 1 tablet ORAL route 2 times per day As needed; 30 tablet; Refills: 0, kb Product Selection Permitted Signatures: Dispatcher [employer] Kori Barber FNP-C FNP-Darius Cano RN RN Deena Patterson cp4 Mattie Marshall RN vc1
[2023-07-15 23:19] VITALS: BP 145/81; TEMP 98.7; O2SAT 99
== END 2023-07-15 22:27 | disposition home or self-care (01) ==
LOC: ER 19:06
DX: R10.11 Right upper quadrant pain (principal); F17.210 Nicotine dependence, cigarettes, uncomplicated; Z88.0 Allergy status to penicillin; Z88.1 Allergy status to other antibiotic agents; Z88.5 Allergy status to narcotic agent
CPT/HCPCS: 96361; 85025; 81001; 36415; 83690; 80053; 96375; 96374; 99284; J2405; J7030

== ENCOUNTER 2023-10-31 15:43 | Emergency (ER) | payer BC ==
[2023-10-31] MEDS ORDERED: IPRATROPIUM BROM 0.5MG/2.5ML ONE ×2 (16:22→16:24)
[2023-10-31] MEDS ORDERED: ALBUTEROL 2.5 MG/3 ML NEB SOL ONE ×2 (16:22→16:23)
[2023-10-31] MEDS ORDERED: predniSONE 20 MG TAB ONE (16:22)
[2023-10-31 17:06] LABS: SARS-CoV-2 Antigen CONTROL BLUE LINE VIS/BG OK; SARS-CoV-2 Antigen Rapid Res Negative (Negative)
--- NOTE | 2023-10-31 17:39 | RAD REPORT ---
EXAM DESCRIPTION: RAD - Chest Pa And Lat (2 Views) - 10/31/2023 4:57 pm CLINICAL HISTORY: Cough;Congestion Chest pain. COMPARISON: <Comparisons> FINDINGS: Reticular markings are mildly prominent with peribronchial cuffing. This most likely repre sents a viral infection or bronchitis. The heart is mildly prominent in size. No displaced fractures. IMPRESSION: Findings suggestive of viral infection or bronchitis.
--- NOTE | 2023-10-31 17:52 | EDPHYS ---
Physician Documentation [facility] Name: Airam Glasgow Age: 47 yrs Sex: Female : 1975 Arrival Date: 10/31/2023 Time: 15:43 Bed 11 Private MD: ED Physician Eddie Hernandez HPI: 10/30 17:53 This 47 yrs old Female presents to ER via Ambulatory with complaints of Flu Symptoms, ms3 Breathing Difficulty. 17:53 47-year-old female with past medical history of bipolar, deaf, depression, ms3 hyperlipidemia, hypertension presents to the emergency department for shortness of breath, cough, sinus issues that began 4 days ago. Patient states she is currently taking Levaquin for urinary tract infection. Patient states her currently is sick as well. Historical: - Allergies: 15:55 Keflex; db 15:55 PENICILLINS; db 15:55 Valium; db - PMHx: 15:55 Bipolar disorder; Deaf (Tonsillectomy); depressive disorder; High Cholesterol; db Hypertensive disorder; 15:56 COPD; db - PSHx: 15:55 Cholecystectomy; section; Ligation of fallopian tube; Tonsillectomy; db - Immunization history:: Adult Immunizations unknown. - Infectious Disease History:: Denies. - Social history:: Smoking status: Patient reports the use of cigarette tobacco products, smokes one-half pack cigarettes per day. ROS: 17:53 Constitutional: Negative for fever, and chills. Cardiovascular: Negative for chest ms3 pain, and palpitations. 17:53 MS/Extremity: Negative for injury and deformity, Skin: Negative for injury, rash, and discoloration, 17:53 Respiratory: Positive for cough, shortness of breath, wheezing, Exam: 17:53 Constitutional: This is a well developed, well nourished patient who is awake, alert, ms3 and in no acute distress. Chest/axilla: Normal chest wall appearance and motion. Nontender with no deformity. Cardiovascular: Regular rate and rhythm with a normal S1 and S2. No gallops, murmurs, or rubs. Normal PMI, no JVD. No pulse deficits. 17:53 Respiratory: the patient does not display signs of respiratory distress, Respirations: normal, Breath sounds: wheezing: expiratory is heard diffusely, Vital Signs: 15:52 BP 143 / 74; Pulse 109; Resp 26; Temp 98.1; Pulse Ox 91% ; db 15:53 BP 143 / 74; Pulse 109; Resp 90; Temp 98.1; Pulse Ox 90% ; Weight 120.66 kg; Height 5 db ft. 1 in. ; 16:16 BP 132 / 97; Pulse 100; Resp 22; Temp 98.1; Pulse Ox 94% on R/A; Weight 120.66 kg; ar6 Height 5 ft. 1 in. ; Pain 0/10; 18:20 BP 142 / 87; Pulse 97; Resp 20; Pulse Ox 94% on R/A; ar6 16:16 Body Mass Index 50.26 (120.66 kg, 154.94 cm) ar6 16:16 Pain Scale: Adult ar6 MDM: 15:58 Patient medically screened. ms3 17:53 Differential diagnosis: Chronic Obstructive Pulmonary Disease Flu versus COVID versus ms3 pneumonia. Data reviewed: vital signs, nurses notes, lab test result(s), radiologic studies, and as a result, I will discharge patient. I considered the following discharge prescriptions or medication management in the emergency department Medications were administered in the Emergency Department. See MAR. Independent interpretation of the following test(s) in the Emergency Department X-Ray: My interpretation is Chest x-ray images reviewed by me do not reveal pneumonia. Counseling: I had a detailed discussion with the patient and/or guardian regarding the historical points, exam findings, and any diagnostic results supporting the discharge/admit diagnosis, lab results, radiology results, the need for outpatient follow up, to return to the emergency department if symptoms worsen or persist or if there are any questions or concerns that arise at home. Special discussion: I discussed with the patient/guardian in detail that at this point there is no indication for admission to the hospital. It is understood, however, that if the symptoms persist or worsen the patient needs to return immediately for re-evaluation. ED course: Patient improved on reevaluation, alert and orient x 4, no apparent distress, nontoxic-appearing, speaking full sentences. Patient to follow-up with primary care physician in 2 to 3 days. Patient or stands agrees with plan. All questions were answered. Return precautions discussed include worsening symptoms, or any other concerns. Patient given prescription for prednisone. 10/30 15:59 Order name: SARS RAPID; Complete Time: 17:19 ms3 10/30 15:59 Order name: Flu; Complete Time: 17:19 ms3 08 15:59 Order name: Chest Pa And Lat (2 Views) XRAY; Complete Time: 17:49 ms3 Administered Medications: 16:20 Drug: DuoNeb Nebulize (2.5 mg - 0.5 mg) 3 ml Nebulizer once Route: Nebulizer; ar6 16:59 Follow up: Response: No adverse reaction ar6 16:20 Drug: Ipratropium Inhalation Aerosol 0.5 mg Inhalation once Route: Inhalation; ar6 16:59 Follow up: Response: No adverse reaction ar6 16:20 Drug: predniSONE PO 60 mg PO once Route: PO; ar6 16:59 Follow up: Response: No adverse reaction ar6 Disposition Summary: 10/31/23 17:52 Discharge Ordered Notes: Location: Home ms3 Condition: Stable ms3 Diagnosis - Cough ms3 - Acute bronchitis, unspecified ms3 - COPD/ Chronic obstructive pulmonary disease with (acute) exacerbation ms3 Followup: ms3 - With: Private Physician - When: 2 - 3 days - Reason: Recheck today's complaints Discharge Instructions: - Discharge Summary Sheet ms3 - Chronic Obstructive Pulmonary Disease ms3 - Acute Bronchitis, Adult, [id number] ms3 Forms: - Medication Reconciliation Form ms3 - Antibiotic Education ms3 - Prescription Opioid Use ms3 - Patient Portal Instructions ms3 - Leadership Thank You Letter ms3 - Work release form kb3 Prescriptions: - Prednisone 20 mg Oral Tablet - take 2 tablets ORAL route once daily for 5 days; 10 tablet; Refills: 0, Product ms3 Selection Permitted Signatures: Dispatcher [employer] Eddie Girard DO DO ms3 Mariam Tobar, RN RN Veronica Melchor RN RN ar6
--- NOTE | 2023-10-31 17:52 | ER ---
Nurse's Notes [facility] Name: Airam Glasgow Age: 47 yrs Sex: Female : 1975 Arrival Date: 10/31/2023 Time: 15:43 Bed 11 Private MD: Diagnosis: Cough;Acute bronchitis, unspecified;COPD/ Chronic obstructive pulmonary disease with (acute) exacerbation Presentation: 10/30 15:52 Chief complaint: Chief complaint: Patient states: COUGH AND CONGESTION WITH DIFFICULTY db BREATHING STARTED ABOUT 3 OR 4 DAYS AGO GETTING WORSE NOW. FEVER AT HOME DID NOT MEASURE TOOK IBUPROFEN FOR FEVER THIS AM 0800. TAKING LEVOFLOXACIN FOR UTI. 15:53 Coronavirus screen: Client denies travel out of the [place] in the last 14 days. At this db time, the client does not indicate any symptoms associated with coronavirus-19. Ebola Screen: Patient negative for fever greater than or equal to 101.5 degrees Fahrenheit, and additional compatible Ebola Virus Disease symptoms Patient denies exposure to infectious person. Patient denies travel to an Ebola-affected area in the 21 days before illness onset. No symptoms or risks identified at this time. Initial Sepsis Screen: Does the patient meet any 2 criteria? No. Patient's initial sepsis screen is negative. Does the patient have a suspected source of infection? No. Patient's initial sepsis screen is negative. Risk Assessment: Do you want to hurt yourself or someone else? Patient reports no desire to harm self or others. Onset of symptoms was October 31, 2023. 15:53 Method Of Arrival: Ambulatory db 15:53 Acuity: ADALGISA 3 db Triage Assessment: 15:56 General: Appears in no apparent distress. uncomfortable, Behavior is calm, cooperative. db Pain: Denies pain. Neuro: Level of Consciousness is awake, alert, obeys commands, Oriented to person, place, time, situation. Respiratory: Reports cough that is productive, Breath sounds are coarse bilaterally. Onset: The symptoms/episode began/occurred gradually, the patient has moderate shortness of breath. Historical: - Allergies: 15:55 Keflex; db 15:55 PENICILLINS; db 15:55 Valium; db - PMHx: 15:55 Bipolar disorder; Deaf (Tonsillectomy); depressive disorder; High Cholesterol; db Hypertensive disorder; 15:56 COPD; db - PSHx: 15:55 Cholecystectomy; section; Ligation of fallopian tube; Tonsillectomy; db - Immunization history:: Adult Immunizations unknown. - Infectious Disease History:: Denies. - Social history:: Smoking status: Patient reports the use of cigarette tobacco products, smokes one-half pack cigarettes per day. Screenin:16 [facility] ED Fall Risk Assessment (Adult) History of falling in the last 3 months, ar6 including since admission No falls in past 3 months (0 pts) Confusion or Disorientation No (0 pts) Intoxicated or Sedated No (0 pts) Impaired Gait No (0 pts) Mobility Assist Device Used No (0 pt) Altered Elimination No (0 pt) Score/Fall Risk Level 0 - 2 = Low Risk Oriented to surroundings, Maintained a safe environment, Educated pt \T\ family on fall prevention, incl call for assistance when getting out of bed, Hourly rounding (assess needs \T\ fall precautionary measures) done. Abuse screen: Denies threats or abuse. Denies injuries from another. Nutritional screening: No deficits noted. Tuberculosis screening: No symptoms or risk factors identified. Assessment: 16:10 General: Appears in no apparent distress. uncomfortable, Behavior is calm, cooperative, ar6 appropriate for age, Smells of tobacco. Pain: Denies pain. Neuro: Level of Consciousness is awake, alert, obeys commands, Oriented to person, place, time, situation. Cardiovascular: Capillary refill < 3 seconds Rhythm is regular. Respiratory: Airway is patent Respiratory effort is even, labored, Respiratory pattern is regular, symmetrical. GI: Abdomen is round non-distended, Abd is soft and non tender X 4 quads. Reports nausea, vomiting, x1 week. : Reports recent UTI x1 week ago. EENT: Oral mucosa is moist. Derm: Skin is intact, is healthy with good turgor, Skin is dry, Skin is pink, warm \T\ dry. Musculoskeletal: No signs and/or symptoms reported regarding the musculoskeletal system. 18:35 Reassessment: Patient appears in no apparent distress at this time. Patient and/or db family updated on plan of care and expected duration. Pain level reassessed. Patient is alert, oriented x 3, equal unlabored respirations, skin warm/dry/pink. Patient states feeling better. Vital Signs: 15:52 BP 143 / 74; Pulse 109; Resp 26; Temp 98.1; Pulse Ox 91% ; db 15:53 BP 143 / 74; Pulse 109; Resp 90; Temp 98.1; Pulse Ox 90% ; Weight 120.66 kg; Height 5 db ft. 1 in. ; 16:16 BP 132 / 97; Pulse 100; Resp 22; Temp 98.1; Pulse Ox 94% on R/A; Weight 120.66 kg; ar6 Height 5 ft. 1 in. ; Pain 0/10; 18:20 BP 142 / 87; Pulse 97; Resp 20; Pulse Ox 94% on R/A; ar6 16:16 Body Mass Index 50.26 (120.66 kg, 154.94 cm) ar6 16:16 Pain Scale: Adult ar6 ED Course: 15:47 Patient arrived in ED. mg5 15:48 Eddie Hernandez DO is Attending Physician. ms3 15:52 Arm band placed on right wrist. db 15:55 Triage completed. db 16:14 Veronica Ohara, RN is Primary Nurse. ar6 16:16 No apparent distress. ar6 16:16 Patient has correct armband on for positive identification. Call light in reach. Side ar6 rails up X2. Provided Education on: fall risk prevention. Client placed on continuous cardiac and pulse oximetry monitoring. NIBP monitoring applied. Door closed. Noise minimized. Lights dimmed. Warm blanket given. Head of bed. 16:16 No provider procedures requiring assistance completed. ar6 16:35 SARS RAPID Sent. ar6 16:35 Flu Sent. ar6 16:59 Chest Pa And Lat (2 Views) XRAY In Process Unspecified. EDMS 18:35 Patient did not have IV access during this emergency room visit. db Administered Medications: 16:20 Drug: DuoNeb Nebulize (2.5 mg - 0.5 mg) 3 ml Nebulizer once Route: Nebulizer; ar6 16:59 Follow up: Response: No adverse reaction ar6 16:20 Drug: Ipratropium Inhalation Aerosol 0.5 mg Inhalation once Route: Inhalation; ar6 16:59 Follow up: Response: No adverse reaction ar6 16:20 Drug: predniSONE PO 60 mg PO once Route: PO; ar6 16:59 Follow up: Response: No adverse reaction ar6 Medication: 16:16 VIS not applicable for this client. ar6 Outcome: 17:52 Discharge ordered by . ms3 18:35 Discharged to home ambulatory, with family, db 18:35 Condition: stable 18:35 Discharge instructions given to patient, Instructed on discharge instructions, follow up and referral plans. Prescriptions given X 1, 18:36 Patient left the ED. db Signatures: Dispatcher [employer] EDMS Eddie Hernandez DO DO ms3 Mariam Tobar, RN RN db Yany Moser 5 Veronica Ohara RN RN ar6 Corrections: (The following items were deleted from the chart) 15:55 15:52 Chief complaint: db db 15:56 15:52 Chief complaint: Patient states: COUGH AND CONGESTION WITH DIFFICULTY BREATHING db STARTED ABOUT 3 OR 4 DAYS AGO GETTING WORSE NOW. FEVER AT HOME DID NOT MEASURE TOOK IBUPROFEN FOR FEVER THIS AM 0800 Chief complaint: Patient states: COUGH AND CONGESTION WITH DIFFICULTY BREATHING STARTED ABOUT 3 OR 4 DAYS AGO GETTING WORSE NOW. FEVER AT HOME DID NOT MEASURE TOOK IBUPROFEN FOR FEVER THIS AM 0800 db
[2023-10-31 18:42] VITALS: TEMP 98.1
[2023-10-31 18:44] VITALS: O2SAT 94
[2023-10-31 18:46] VITALS: BP 142/87
== END 2023-10-31 18:36 | disposition home or self-care (01) ==
LOC: ER 15:43
DX: J44.1 Chronic obstructive pulmonary disease with (acute) exacerbation (principal); J44.0 Chronic obstructive pulmonary disease with (acute) lower respiratory infection; J20.9 Acute bronchitis, unspecified; F17.210 Nicotine dependence, cigarettes, uncomplicated; Z11.52 Encounter for screening for COVID-19
CPT/HCPCS: 36415; 87804 ×2; 71046; 99284; 87811; J7512; J7613 ×2; J7644 ×2

== ENCOUNTER 2024-01-06 19:25 | Emergency (ER) | payer BC ==
[2024-01-06] MEDS ORDERED: ALBUTEROL 2.5 MG/3 ML NEB SOL ONE (20:10)
[2024-01-06] MEDS ORDERED: IPRATROPIUM BROM 0.5MG/2.5ML ONE (20:11)
[2024-01-06 20:34] LABS: Absolute Basophils 0.1 K/uL (0-0.5); Absolute Eosinophils 0.4 K/uL (0-0.5); Absolute Lymphocytes (CBC) 1.6 K/uL (0.7-4.9); Absolute Monocytes 0.7 K/uL (0.1-1.3); Absolute Neutrophil 11.9 K/uL (1.8-8.0); Basophils % 0.4 % (0-1.3); Eosinophils % 2.6 % (0-4.4); Hematocrit 39.5 % (36.0-45.0); Hemoglobin 13.1 g/dL (12.0-15.0); Lymphocytes % 10.9 % (15.3-44.8); MCH 28.4 pg (27.0-35.0); MCHC 33.1 g/dL (32.0-36.0); MCV 85.7 fL (80-100); MPV 7.1 fL (7.6-11.3); Monocytes % 4.8 % (3.3-12.3); Neutrophils % 81.3 % (41.7-73.7); Nucleated Red Blood Cells % 0.1 % (0-0); Platelets 432 thou/uL (152-406); Red Cell Distribution Width 13.8 % (12.1-15.2)
[2024-01-06 20:35] LABS: PT Prothrombin Time 11.5 SECONDS (9.4-12.5); Protime INR 1.03
[2024-01-06 20:55] LABS: ALT/SGPT 36 U/L (13-56); AST/SGOT 33 U/L (15-37); Albumin 3.4 g/dL (3.4-5.0); Albumin/Globulin Ratio 0.8 (1.1-1.8); Alkaline Phosphatase 84 U/L (45-117); Anion Gap 9.2 mEq/L (5.0-15.0); BUN Blood Urea Nitrogen 16 mg/dL (7-18); Bicarbonate 29 mEq/L (21-32); Bilirubin Total 0.2 mg/dL (0.2-1.0); Globulin 4.1 g/dL (2.3-3.5); Glomerular Filtration Rate 53 ml/min (=/>90); Glucose Level 111 mg/dL (74-106); NT PRO-BNP 12 pg/mL (<125); Potassium 3.2 mEq/L (3.5-5.1); Protein, Total 7.5 g/dL (6.4-8.2); Sodium Level 138 mEq/L (136-145)
[2024-01-06 21:01] LABS: Bilirubin Direct < 0.2 mg/dL (0-0.2)
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
[2024-01-07 00:43] VITALS: BP 103/62; TEMP 98.1; O2SAT 97
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
== END 2024-01-07 00:35 | disposition home or self-care (01) ==
LOC: ER 19:25
DX: S29.9XXA Unspecified injury of thorax, initial encounter (principal); V49.50XA Passenger injured in collision with unspecified motor vehicles in traffic accident, initial encounter; I10 Essential (primary) hypertension; J44.9 Chronic obstructive pulmonary disease, unspecified
CPT/HCPCS: 85025; 80048; 36415; 83735; 85610; 80076; 84484; 83880; 71260; 74177; Q9967; J7613; J7644

== ENCOUNTER 2024-03-31 15:41 | Emergency (ER) | payer BC ==
--- OUTSIDE RECORDS SUMMARY | 2024-03-31 15:45 | XMS REPORT | Continuity of Care Document ---
Author Name Unknown Address [address] [place] [address] [facility] thconnect Address 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 Role Phone Pcp, Patient Does Not Have A Primary Care Physic jelena Doctor Unassigned, [place] Attending Clinician U ROC Kulkarni Attending Clinician UnavailRoc Chin MD Attending Clinician [phone] DIOR MALONE Attending Clinician Unavailable Dior Goode Attending Clinician [phone] Franklin Esparza PA-C Attending Clinician [phone] LUCIANO FERNANDEZ Attending Clinician Unavailable Luciano Fernandez DO Attending Clinician [phone] [facility] Attending Clinician Un available Brayden Dao MD Attending Clinician [phone] BRAYDEN DAO Attending Clinician Unavailable JENAE MEDINA Attending Clinician [facility] Attending Clinician Un available Jenae Castellanos Attending Clinician [phone] LUCIANO FERNANDEZ Admitting Clinician Unavailable BRAYDEN DAO Admitting Clinician Unavailable Payers Payer Name Policy Type Policy Number Effective Date Expirati on Date Source Problems Condition Name Condition Details Condition Category Status Onset Date Resolution Date Last Treatment Date Treating Clinician Comments Source Excessive and frequent menstruati on Excessive and Frequent Menstruati on Problem Active 03-22 00:00: 00 [facility] Anxiety Anxiety Problem Active 2023-03 00:00: 00 [facility] Depressive disorder Depressive Disorder Problem Active 2023-03 00:00: 00 [facility] Essential hypertensi on Essential Hypertensi on Problem Active 2023-03 00:00: 00 [facility] Cyst of ovary Cyst of Ovary Problem Active 2023-03 00:00: 00 [facility] Menorrhagi a Menorrhagi a Problem Active 2023-03 00:00: 00 [facility] Pruritus of vulva Pruritus of Vulva Problem Active 2023-03 00:00: 00 [facility] Heartburn Heartburn Problem Active 2023-03 00:00: 00 [facility] Condyloma acuminata of vulva Condyloma Acuminata of Vulva Problem Active 2023-03 00:00: 00 [facility] Trichomona l vaginitis Trichomona l Vaginitis Problem Active 2023-03 00:00: 00 [facility] Diabetes mellitus Diabetes Mellitus Problem Active 2023-03 00:00: 00 [facility] Type 2 diabetes mellitus without complicati on Type 2 Diabetes Mellitus without Complicati on Problem Active 2023-03 00:00: 00 [facility] Hyperlipid emia Hyperlipid emia Problem Active 2023-03 00:00: 00 [facility] No known active problems No known active problems Disease [facility] Allergies, Adverse Reactions, Alerts Allergy Name Allergy Type Status Severity Reaction(s) Onset Date Inactive Date Treating Clinician Comments Source Diazepam Propensi ty to adverse reaction s Active Other - See comments 2020-03 00:00: 00 Patient stated that "valium knocks me out for 2-3 days" [facility] DIAZEPAM DRUG INGREDI Active Other-Cmnt 2020-03 00:00: 00 [facility] Penicill ins Propensi ty to adverse reaction s Active Anaphylaxis 7- 00:00: 00 [facility] Penicill ins Propensi ty to adverse reaction s Active Anaphylaxis 7-03 00:00: 00 [facility] Cephalex in Propensi ty to adverse reaction s Active Anaphylaxis 09-02 00:00: 00 [facility] Penicill ins Propensi ty to adverse reaction s Active Anaphylaxis 09-02 00:00: 00 [facility] CEPHALEX IN DRUG INGREDI Active Anaphylaxis 09-02 00:00: 00 [facility] PENICILL INS Drug Class Active Anaphylaxis 09-02 00:00: 00 [facility] NO KNOWN ALLERGIE S Drug Class Active [facility] PENICILL INS Allergy to substanc e Active [facility] KEFLEX Allergy to substanc e Active [facility] Social History Social Habit Start Date Stop Date Quantity Comments Source History of tobacco use Smokes tobacco daily [facility] to SARS-CoV-2 (event) 2021-11-15 00:00:00 2021-11-25 20:45:00 Not sure [facility] History of Social function 2021-11-01 00:00:00 2021-11-01 00:00:00 [facility] Tobacco use and exposure 2021-02-12 00:00:00 2021-02-12 00:00:00 Smokeless tobacco non-user [facility] Sex Assigned At 1975 00:00:00 1975 00:00:00 [facility] Smoking Status Start Date Stop Date Source Former Smoker [facility] Smokes tobacco daily 2021-02-12 00:00:00 [facility] Medications Ordered Medication Name Filled Medication Name Start Date Stop Date Current Medication? Ordering Clinician Indication Dosage Frequency Signature (SIG) Comments Components Source ketorolac 30 mg/mL (1 mL) injection solutionInj ect 1 mL every 6 hours by intramuscul ar route. ketorolac 30 mg/mL (1 mL) injection solutionInj ect 1 mL every 6 hours by intramuscul ar route. 03-26 09:34: 06 No 1mL Q6H ketorolac 30 mg/mL (1 mL) injection solutionIn ject 1 mL every 6 hours by intramuscu lar route. [facility] diclofenac 75 mg EC tablet 11-26 00:00: 00 Yes [id number] 75mg Take 1 tablet by mouth in the morning and 1 tablet in the evening. Take with meals. [facility] ketorolac (TORADOL) injection 30 mg 11-01 23:15: 00 11-01 22:13 :00 No [id number] 30mg [facility] cyclobenzap rine 10 mg tablet 11-01 00:00: 00 Yes [id number] 10mg Take 1 tablet by mouth 3 (three) times daily as needed for Muscle Spasms. [facility] methylpredn isolone sod succ (SOLU-MEDRO L) injection 125 mg 06-26 23:00: 00 Yes 125mg 125 mg, Intravenou s, Q6H, First dose on Fri06/26/21 at 1800, Until Discontinu ed, Routine [facility] ipratropium -albuteroL (DUONEB) 0.5 mg-3 mg(2.5 mg base)/3 mL nebulizer solution 3 mL 06-26 18:15: 00 06-26 17:55 :00 No 3mL 3 mL, Inhalation , ONCE, 1 dose, On Fri06/26/21 at 1315, Routine [facility] ipratropium -albuteroL (DUONEB) 0.5 mg-3 mg(2.5 mg base)/3 mL nebulizer solution 3 mL 06-26 17:00: 00 Yes 3mL 3 mL, Inhalation , QID, First dose on Fri06/26/21 at 1200, Until Discontinu ed, Routine [facility] methylPREDN ISolone (MEDROL, BELÉN,) 4 mg tablets 06-26 00:00: 00 Yes [id number] Take by mouth SEE-INSTRU CTIONS. follow package directions [facility] albuterol 2.5 mg /3 mL (0.083 %) nebulizer solution 06-26 00:00: 00 07-11 04:59 :00 No [id number] 2.5mg Inhale 3 mL every 4 (four) hours for 14 days. May also nebulize one extra every 6 hours. [facility] LISINOPRIL ORAL 2020-03 11:27: 32 Yes Take by mouth. [facility] LISINOPRIL ORAL 09-02 19:24: 49 Yes Take by mouth. [facility] sertraline HCl (ZOLOFT ORAL) 09-02 19:24: 49 Yes Take by mouth. [facility] quetiapine fumarate (SEROQUEL ORAL) 09-02 19:24: 49 Yes Take by mouth. [facility] MAGNESIUM ORAL 09-02 19:24: 49 Yes Take by mouth. [facility] atorvastati n calcium (ATORVASTAT IN ORAL) 09-02 19:24: 49 Yes Take by mouth. [facility] traMADoL 50 mg tablet 09-02 00:00: 00 Yes [id number] 50mg Take 1 tablet by mouth every 4 (four) hours as needed (pain requiring narcotic). Indication s: acute pain [facility] albuterol sulfate 2.5 mg/3 mL (0.083 %) solution for nebulizatio n Inhale 3 mL 3 times a day by nebulizatio n route. albuterol sulfate 2.5 mg/3 mL (0.083 %) solution for nebulizatio n Inhale 3 mL 3 times a day by nebulizatio n route. No 3mL TID albuterol sulfate 2.5 mg/3 mL (0.083 %) solution for nebulizati on Inhale 3 mL 3 times a day by nebulizati on route. [facility] albuterol sulfate HFA 90 mcg/actuati on aerosol inhaler Inhale 2 puffs every 4 hours by inhalation route. albuterol sulfate HFA 90 mcg/actuati on aerosol inhaler Inhale 2 puffs every 4 hours by inhalation route. No 2puff(s ) Q4H albuterol sulfate HFA 90 mcg/actuat ion aerosol inhaler Inhale 2 puffs every 4 hours by inhalation route. [facility] atorvastati n 10 mg tablet Take 1 tablet every day by oral route. atorvastati n 10 mg tablet Take 1 tablet every day by oral route. No 1 Q1D atorvastat in 10 mg tablet Take 1 tablet every day by oral route. [facility] bupropion HCl 150 mg tablet,12 hr sustained-r elease(smok ing deterrent) Take 1 tablet twice a day by oral route. bupropion HCl 150 mg tablet,12 hr sustained-r elease(smok ing deterrent) Take 1 tablet twice a day by oral route. No 1 BID bupropion HCl 150 mg tablet,12 hr sustained- release(sm oking deterrent) Take 1 tablet twice a day by oral route. [facility] doxepin 100 mg capsule Take 1 capsule every day by oral route. doxepin 100 mg capsule Take 1 capsule every day by oral route. No 1capsul e(s) Q1D doxepin 100 mg capsule Take 1 capsule every day by oral route. [facility] ergocalcife rol (vitamin D2) 1,250 mcg (50,000 unit) capsule Take by oral route. ergocalcife rol (vitamin D2) 1,250 mcg (50,000 unit) capsule Take by oral route. No ergocalcif yazmin (vitamin D2) 1,250 mcg (50,000 unit) capsule Take by oral route. [facility] fenofibrate 54 mg tablet Take 1 tablet every day by oral route. fenofibrate 54 mg tablet Take 1 tablet every day by oral route. No 1 Q1D fenofibrat e 54 mg tablet Take 1 tablet every day by oral route. [facility] gabapentin 100 mg capsule Take 1 capsule 3 times a day by oral route. gabapentin 100 mg capsule Take 1 capsule 3 times a day by oral route. No 1capsul e(s) TID gabapentin 100 mg capsule Take 1 capsule 3 times a day by oral route. [facility] lisinopril 20 mg-hydrochl orothiazide 25 mg tablet Take 1 tablet every day by oral route. lisinopril 20 mg-hydrochl orothiazide 25 mg tablet Take 1 tablet every day by oral route. No 1 Q1D lisinopril 20 mg-hydroch lorothiazi de 25 mg tablet Take 1 tablet every day by oral route. [facility] montelukast 10 mg tablet Take 1 tablet every day by oral route. montelukast 10 mg tablet Take 1 tablet every day by oral route. No 1 Q1D montelukas t 10 mg tablet Take 1 tablet every day by oral route. [facility] Ozempic 0.25 mg or 0.5 mg (2 mg/3 mL) subcutaneou s pen injector Inject by subcutaneou s route. Ozempic 0.25 mg or 0.5 mg (2 mg/3 mL) subcutaneou s pen injector Inject by subcutaneou s route. No Ozempic 0.25 mg or 0.5 mg (2 mg/3 mL) subcutaneo us pen injector Inject by subcutaneo us route. [facility] Rexulti 2 mg tablet Take 1 tablet every day by oral route. Rexulti 2 mg tablet Take 1 tablet every day by oral route. No 1 Q1D Rexulti 2 mg tablet Take 1 tablet every day by oral route. [facility] sertraline 100 mg tablet Take 1 tablet every day by oral route. sertraline 100 mg tablet Take 1 tablet every day by oral route. No 1 Q1D sertraline 100 mg tablet Take 1 tablet every day by oral route. [facility] varenicline tartrate 1 mg tablet Take 1 tablet twice a day by oral route. varenicline tartrate 1 mg tablet Take 1 tablet twice a day by oral route. No 1 BID vareniclin e tartrate 1 mg tablet Take 1 tablet twice a day by oral route. [facility] acetaminoph en 300 mg-codeine 30 mg tablet Take 1 tablet every 6 hours by oral route for 2 days, for take 1 tablet 1 hr prior to procedure and then every 6hrs thereafter as needed. acetaminoph en 300 mg-codeine 30 mg tablet Take 1 tablet every 6 hours by oral route for 2 days, for take 1 tablet 1 hr prior to procedure and then every 6hrs thereafter as needed. No 1 Q6H acetaminop hen 300 mg-codeine 30 mg tablet Take 1 tablet every 6 hours by oral route for 2 days, for take 1 tablet 1 hr prior to procedure and then every 6hrs thereafter as needed. [facility] Celebrex 200 mg capsule Take 1 capsule every day by oral route as directed for 1 day. Celebrex 200 mg capsule Take 1 capsule every day by oral route as directed for 1 day. No 1capsul e(s) Q1D Celebrex 200 mg capsule Take 1 capsule every day by oral route as directed for 1 day. [facility] imiquimod 5 % topical cream packet APPLY TO THE AFFECTED AREA(S) BY TOPICAL ROUTE 3 TIMES PER WEEK @ bedtime imiquimod 5 % topical cream packet APPLY TO THE AFFECTED AREA(S) BY TOPICAL ROUTE 3 TIMES PER WEEK @ bedtime No imiquimod 5 % topical cream packet APPLY TO THE AFFECTED AREA(S) BY TOPICAL ROUTE 3 TIMES PER WEEK @ bedtime [facility] Valium 10 mg tablet Take 1 tablet as needed by oral route as directed for 2 days. Valium 10 mg tablet Take 1 tablet as needed by oral route as directed for 2 days. No 1 Valium 10 mg tablet Take 1 tablet as needed by oral route as directed for 2 days. [facility] Vital Signs Vital Name Observation Time Observation Value Comments S ource Height 2024-03-26 00:00:00 61 [in_i] [facility] BP Diastolic 2024-03-26 00:00:00 75 mm[Hg] [facility] BP Systolic 2024-03-26 00:00:00 117 mm[Hg] [facility] BMI (Body Mass Index) 2024-03-26 00:00:00 51.4 kg/m2 [facility] Body Weight 2024-03-26 00:00:00 271.8 [lb_av] [facility] Body Weight 2024-02-11 00:00:00 271.8 [lb_av] [facility] BP Diastolic 2024-02-11 00:00:00 84 mm[Hg] [facility] BP Systolic 2024-02-11 00:00:00 161 mm[Hg] [facility] BMI (Body Mass Index) 2024-02-11 00:00:00 51.4 kg/m2 [facility] Height 2024-02-11 00:00:00 61 [in_i] [facility] Systolic blood pressure 2021-11-26 19:12:00 150 mm[Hg] [facility] Diastolic blood pressure 2021-11-26 19:12:00 90 mm[Hg] [facility] Heart rate 2021-11-26 19:12:00 92 /min [facility] Body height 2021-11-26 19:12:00 152.4 cm [facility] Body weight 2021-11-26 19:12:00 100.699 kg [facility] BMI 2021-11-26 19:12:00 43.36 kg/m2 [facility] Systolic blood pressure 2021-11-01 21:38:00 116 mm[Hg] [facility] Diastolic blood pressure 2021-11-01 21:38:00 72 mm[Hg] [facility] Heart rate 2021-11-01 21:38:00 100 /min [facility] Body temperature 2021-11-01 21:38:00 36.56 Fatou [facility] Respiratory rate 2021-11-01 21:38:00 18 /min [facility] Body height 2021-11-01 21:38:00 152.4 cm [facility] Body weight 2021-11-01 21:38:00 100.699 kg [facility] BMI 2021-11-01 21:38:00 43.36 kg/m2 [facility] Oxygen saturation in Arterial blood by Pulse oximetry 2021-11-01 21:38:00 95 /min [facility] Respiratory rate 2021-06-26 18:06:00 18 /min [facility] Oxygen saturation in Arterial blood by Pulse oximetry 2021-06-26 18:06:00 100 /min [facility] Systolic blood pressure 2021-06-26 18:00:00 149 mm[Hg] [facility] Diastolic blood pressure 2021-06-26 18:00:00 81 mm[Hg] [facility] Heart rate 2021-06-26 18:00:00 80 /min [facility] Body temperature 2021-06-26 16:10:00 36.67 Fatou [facility] Body weight 2021-06-26 16:10:00 91.173 kg [facility] BMI 2021-06-26 16:10:00 39.26 kg/m2 [facility] Systolic blood pressure 2021-06-26 15:17:00 166 mm[Hg] [facility] Diastolic blood pressure 2021-06-26 15:17:00 97 mm[Hg] [facility] Heart rate 2021-06-26 15:17:00 87 /min [facility] Body temperature 2021-06-26 15:17:00 36.56 Fatou [facility] Respiratory rate 2021-06-26 15:17:00 28 /min [facility] Oxygen saturation in Arterial blood by Pulse oximetry 2021-06-26 15:17:00 99 /min [facility] Body height 2021-03-07 19:06:00 152.4 cm [facility] Body weight 2021-03-07 19:06:00 91.173 kg [facility] BMI 2021-03-07 19:06:00 39.26 kg/m2 [facility] Systolic blood pressure 2021-03-07 19:06:00 119 mm[Hg] [facility] Diastolic blood pressure 2021-03-07 19:06:00 76 mm[Hg] [facility] Heart rate 2021-03-07 19:06:00 84 /min [facility] Systolic blood pressure 2021-02-12 20:52:00 120 mm[Hg] [facility] Diastolic blood pressure 2021-02-12 20:52:00 75 mm[Hg] [facility] Heart rate 2021-02-12 20:52:00 70 /min [facility] Body height 2021-02-12 20:52:00 152.4 cm [facility] Body weight 2021-02-12 20:52:00 91.173 kg [facility] BMI 2021-02-12 20:52:00 39.26 kg/m2 [facility] Oxygen saturation in Arterial blood by Pulse oximetry 2021-02-12 20:52:00 97 /min [facility] Systolic blood pressure 2020-09-02 19:21:00 115 mm[Hg] [facility] Diastolic blood pressure 2020-09-02 19:21:00 69 mm[Hg] [facility] Heart rate 2020-09-02 19:21:00 95 /min [facility] Body temperature 2020-09-02 19:21:00 36.72 Fatou [facility] Respiratory rate 2020-09-02 19:21:00 18 /min [facility] Body height 2020-09-02 19:21:00 152.4 cm [facility] Body weight 2020-09-02 19:21:00 153.316 kg [facility] BMI 2020-09-02 19:21:00 66.01 kg/m2 [facility] Oxygen saturation in Arterial blood by Pulse oximetry 2020-09-02 19:21:00 97 /min [place] [facility] Procedures Procedure Date / Time Performed Performing Clinician Source Hysteroscopy Biopsy 2024-03-26 00:00:00 [facility] TRANSVAGINAL 2024-02-20 00:00:00 [facility] EXTERNAL PROVIDER RECORDS 2022-04-16 06:01:00 Do ctor Unassigned, [place] [facility] EXTERNAL PROVIDER RECORDS 2021-12-18 05:01:00 Do ctor Unassigned, [place] [facility] CONSENT/REFUSAL FOR DIAGNOSIS AND TREATMENT 2021-11-26 18:55:25 Doctor Unassigned, [place] [facility] AUTHORIZATION FOR RELEASE OF PHI 2021-11-16 05:01:00 Doctor Unassigned, [place] [facility] XR CHEST 1 VW 2021-06-26 17:15:00 Luciano Fernandez [facility] RAPID INFLUENZA A/B 2021-06-26 16:59:00 Charlie Fernandez [facility] COVID-19 (ID NOW RAPID TESTING) 2021-06-26 16:59:00 Luciano Fernandez [facility] LIPASE 2021-06-26 16:29:00 Luciano Fernandez [facility] TROPONIN I 2021-06-26 16:29:00 Luciano Fernandez [facility] COMP. METABOLIC PANEL ([id number]) 2021-06-26 16:29:00 Luciano Fernandez [facility] CBC WITH DIFF 2021-06-26 16:29:00 Luciano Fernandez [facility] PROTHROMBIN TIME / INR 2021-06-26 16:29:00 Rigo ernestina [facility] ACTIVATED PARTIAL THRMPLAS AMRIT 2021-06-26 16:29:00 Luciano Fernandez [facility] CONSENT/REFUSAL FOR DIAGNOSIS AND TREATMENT 2021-06-26 16:02:56 Doctor Unassigned, [place] [facility] NOTICE OF PRIVACY PRACTICES 2021-06-26 16:01:28 Doctor Unassigned, [place] [facility] TRANSTHORACIC ECHO (TTE) COMPLETE 2021-03-07 19:33:58 Brayden Dao [facility] CONSENT/REFUSAL FOR DIAGNOSIS AND TREATMENT 2020-09-02 19:14:51 Doctor Unassigned, [place] [facility] Tubal Ligation 2008-03-03 00:00:00 [facility] Delivery 2008-03-03 00:00:00 [facility] Delivery 1995-03-03 00:00:00 [facility] Tonsillectomy [facility] Cholecystectomy [facility] Medic al Encounters Start Date/Time End Date/Time Encounter Type Admission Type Attending [facility] Facility Care Department Encounter ID Source 2024-03-26 00:00:00 2024-03-26 00:00:00 Lela Garduno MD: [address], [place] [address] , Ph. [facility] - GC_GCBZW_Freya veras Samuel* [id number] [facility] 2024-03-04 00:00:00 2024-03-04 00:00:00 SURESH Rodriguez: [address], [place] [address] , Ph. [facility] - GC_GCBZW_Freya veras Samuel* [id number] [facility] 2024-02-20 00:00:00 2024-02-20 00:00:00 Lela Garduno MD: [address], [place] [address] , Ph. [facility] GC_GCBZW_Freya Baker* [id number] [facility] 2024-02-19 00:00:00 2024-02-19 00:00:00 [facility] Ultrasound : [address], [place] [address] , Ph. [facility] - GC_GCBZW_Freya Baker* [id number] [facility] 2024-02-11 00:00:00 2024-02-11 00:00:00 Lela Garduno MD: [address], [place] [address] , Ph. [facility] - GC_GCBZW_Freya Baker* [id number] [facility] 2022-04-16 00:00:00 2022-04-16 00:00:00 Orders Only Doctor Unassigned, [place] [facility] 1..840.114 350.1.13.10 4.2.7.2.686 [id number] [facility] 2021-12-18 00:00:00 2021-12-18 00:00:00 Orders Only Doctor Unassigned, [place] [facility] [id number] 350.1.13.10 4.2.7.2.686 [id number] [facility] 2021-11-26 14:15:00 2021-11-26 14:57:11 Outpatient R [facility] [id number] [facility] 2021-11-26 14:15:00 2021-11-26 14:57:11 Office Visit Roc Louis [facility] 1..840.114 350.1.13.10 4.2.7.2.686 [id number] [facility] 2021-11-26 00:00:00 2021-11-26 00:00:00 Telephone Roc Louis [facility] 1.840.114 350.1.13.10 4.2.7.2.686 [id number] [facility] 2021-11-26 00:00:00 2021-11-26 00:00:00 Orders Only Doctor Unassigned, [place] [facility] 1.2840.114 350.1.13.10 4.2.7.2.686 [id number] [facility] 2021-11-26 00:00:00 2021-11-26 00:00:00 [facility] (Out[facility] 1.840.114 350.1.13.10 4.2.7.2.686 [id number] [facility] 2021-11-23 00:00:00 2021-11-23 00:00:00 Telephone Cor[facility] 1.840.114 350.1.13.10 4.2.7.2.686 [id number] [facility] 2021-11-16 00:00:00 2021-11-16 00:00:00 Orders Only Doctor Unassigned, [place] [facility] 1.2840.114 350.1.13.10 4.2.7.2.686 [id number] [facility] 2021-11-01 16:20:00 2021-11-01 17:15:15 Outpatient R DIOR MALONE [facility] [id number] [facility] 2021-11-01 16:20:00 2021-11-01 17:15:15 Urgent Care Dior Malone [facility] 1.2840.114 350.1.13.10 4.2.7.2.686 [id number] [facility] 2021-06-26 11:11:00 2021-06-26 13:46:00 Emergency X LUCIANO FERNANDEZ [facility] E[facility] [id number] [facility] 2021-06-26 11:11:00 2021-06-26 13:46:[address] [facility] 1.0.114 350.1.13.10 4.2.7.2.686 [id number] [facility] 2021-06-26 10:50:00 2021-06-26 11:10:00 Nurse Visit Nurse, [facility] Ryan Dior [facility] BU[facility] 1.84.114 350.1.13.10 4.2.7.2.686 [id number] [facility] 2021-06-26 10:50:00 2021-06-26 10:50:00 Outpatient R DIOR MALONE [facility] [id number] [facility] 2021-06-26 00:00:00 2021-06-26 00:00:00 Orders Only Doctor Unassigned, [place] [facility] 1.84.114 350.1.13.10 4.2.7.2.686 [id number] [facility] 2021-06-25 19:20:00 2021-06-25 19:20:00 Outpatient R [facility] [id number] [facility] 2021-03-08 00:00:00 2021-03-08 00:00:00 Patient Secure Brayden Crow [facility] BU[facility] 1.84.114 350.1.13.10 4.2.7.2.686 [id number] [facility] 2021-03-07 12:56:41 2021-03-07 23:59:00 Outpatient R BRAYDEN DAO [facility] [id number] [facility] 2021-03-07 12:56:41 2021-03-07 23:59:00 [facility] 1.2.840.114 350.1.13.10 4.2.7.2.686 [id number] [facility] 2021-02-27 15:00:00 2021-02-27 15:00:00 Outpatient R MIKE DAOLAKE [facility] [id number] [facility] 2021-02-27 15:00:00 2021-02-27 15:00:00 Outpatient R MIKE DAOLAKE [facility] [id number] [facility] 2021-02-19 00:00:00 2021-02-19 00:00:00 Telephone Evin [facility] BUILDING 1.2.840.114 350.1.13.10 4.2.7.2.686 [id number] [facility] 2021-02-12 14:42:56 2021-02-12 15:15:38 [facility] 1.2.840.114 350.1.13.10 4.2.7.2.686 [id number] [facility] 2021-02-12 14:40:00 2021-02-12 15:15:38 Outpatient R MKIE DAOLAKE [facility] [id number] [facility] 2021-02-12 00:00:00 2021-02-12 00:00:00 Letter (Out) [facility] 1.2.840.114 350.1.13.10 4.2.7.2.686 [id number] [facility] 2021-02-12 00:00:00 2021-02-12 00:00:00 Orders Only Doctor Unassigned, [place] [facility] 1..840.114 350.1.13.10 4.2.7.2.686 [id number] [facility] 2020-09-02 14:40:00 2020-09-02 14:40:00 Outpatient R [facility] [id number] [facility] 2020-09-02 14:15:28 2020-09-02 14:35:28 Urgent Care Provider, [facility] Office Building One 1..840.114 350.1.13.10 4.2.7.2.686 [id number] [facility] 2020-09-02 00:00:00 2020-09-02 00:00:00 Orders Only Doctor Unassigned, [place] [facility] 1..840.114 350.1.13.10 4.2.7.2.686 [id number] [facility] Results Test Description Test Time Test Comments Results Result Co mments Source [facility] Medical[facility]in [Units/volume] in Serum or [id number] 00:00:00* Test Item Value Reference Range Interpretation Comme nts FSH (test code = FSH) 11.7 mIU/mL [facility] Medical[facility]stradiol (E2) [Mass/volume] in Serum or [id number] 00:00:00 * Test Item Value Reference Range Interpretation Comme nts estradiol (test code = estradiol) 27.8 pg/mL 6.1-91.9 [facility] Medicaligp, apt HPV,rfx 16/18,[id number] 00:00:00* Test Item Value Reference Range Interpretation Comme nts diagnosis: (test code = diagnosis:) SPRCS specimen adequacy: (test cod e = specimen adequacy:) SPRCS performed by: (test code = p erformed by:) SPRCS note: (test code = note:) PAPSMR test methodology: (test code = test methodology:) IGLPAP HPV aptima (test code = HPV aptima) NEGATIVE negative [facility] Medicalinfectious disease [id number] 00:00:00* Test Item Value Reference Range Interpretation Comme nts atopobium vaginae (test code = atopobium vaginae) 15.711 ppm 19.961-24.689 A bvab 2,3 (bacterial vaginosi s associated bacteria 2, 3); mobiluncus spp (test code = bvab 2,3 (bacterial vaginosis associated bacteria 2, 3); mobiluncus spp) 18.301 ppm 19.961-24.689 A meghna albicans, parapsilos is, tropicalis (test code = meghna albicans, parapsilosis, tropicalis) 0.000 ppm 19.961-30.770 meghna glabrata (nakaseomyc es glabratus) (test code = meghna glabrata (nakaseomyces glabratus)) 0.000 ppm 23.000-32.138 meghna krusei (pichia kudriavzevii) (test code = meghna krusei (pichia kudriavzevii)) 0.000 ppm 23.000-32.271 chlamydia trachomatis (test code = chlamydia trachomatis) 0.000 ppm 23.000-31.467 gardnerella vaginalis (test code = gardnerella vaginalis) 17.054 ppm 19.961-24.689 A herpes simplex virus 1 (test code = herpes simplex virus 1) 0.000 ppm 23.000-32.355 herpes simplex virus 2 (test code = herpes simplex virus 2) 0.000 ppm 23.000-31.433 megasphaera (types 1, 2) (te st code = megasphaera (types 1, 2)) 0.000 ppm 19.961-24.689 neisseria gonorrhoeae (test code = neisseria gonorrhoeae) 0.000 ppm 23.000-32.117 trichomonas vaginalis (test code = trichomonas vaginalis) 0.000 ppm 23.000-32.119 ermb, C; mefa (test code = e rmb, C; mefa) 16.251 ppm 23.000-27.611 A tet B, tet M (test code = te t B, tet M) 15.274 ppm 23.000-27.778 A [facility] WITH [id number] 17:25:10* Test Item Value Reference Range Interpretation Comme nts WBC (test code = 6690-2) See_Comment H [Automated message] The system which generated this result transmitted reference range: 4.30 - 11.10 10*3/?L. The reference range was not used to interpret this result as normal/abnormal. RBC (test code = 789-8) See_Comment [Automated message] The system which generated this result transmitted reference range: 3.93 - 5.25 10*6/?L. The reference range was not used to interpret this result as normal/abnormal. HGB (test code = 718-7) 13.9 g/dL 11.6-15.0 HCT (test code = 4544-3) 42.0 % 35.7-45.2 MCV (test code = 787-2) 87.3 fL 80.6-95.5 MCH (test code = 785-6) 28.9 pg 25.9-32.8 MCHC (test code = 786-4) 33.1 g/dL 31.6-35.1 RDW-SD (test code = 92739-8) 44.8 fL 39.0-49.9 RDW-CV (test code = 788-0) 13.8 % 12.0-15.5 PLT (test code = 777-3) See_Comment [Automated message] The system which generated this result transmitted reference range: 166 - 358 10*3/?L. The reference range was not used to interpret this result as normal/abnormal. MPV (test code = 85890-5) 9.2 fL 9.5-12.9 L NRBC/100 WBC (test code = 5479229863) See_Comment [Automated message] The system which generated this result transmitted reference range: 0.0 - 10.0 /100 WBCs. The reference range was not used to interpret this result as normal/abnormal. NRBC x10^3 (test code = 0382975588) <0.01 See_Comment [Automated message] The system which generated this result transmitted reference range: 10*3/?L. The reference range was not used to interpret this result as normal/abnormal. GRAN MAT (NEUT) % (test code = 770-8) 83.8 % IMM GRAN % (test code = 7220367704) 3.10 % LYMPH % (test code = 736-9) 8.7 % MONO % (test code = 5905-5) 4.3 % EOS % (test code = 713-8) 0.0 % BASO % (test code = 706-2) 0.1 % GRAN MAT x10^3(ANC) (test code = 9720509424) 11.27 10*3/uL 1.88-7.09 H IMM GRAN x10^3 (test code = 2071073434) 0.42 10*3/uL 0.00-0.06 H LYMPH x10^3 (test code = 731-0) 1.17 10*3/uL 1.32-3.29 L MONO x10^3 (test code = 742-7) 0.58 10*3/uL 0.33-0.92 EOS x10^3 (test code = 711-2) <0.03 0.03-0.39 L BASO x10^3 (test code = 704-7) <0.03 0.01-0.07 Lab Interpretation (test code = 99314-8) Abnormal [facility] [id number] 17:15:24* Test Item Value Reference Range Interpretation Comments TROPONIN I (test code = 9845045334) 0.002 ng/mL See_Comment [Automated message] The system [...] of biotin. Lab Interpretation (test code = 96492-2) [facility]91095[facility]2021-[facility]-26 17:12:03* Test Item Value Reference Range Interpretation Comme nts NA (test code = 2120864106) 134 mmol/L 135-145 L K (test code = 2439967007) 4.1 mmol/L 3.5-5.0 CL (test code = 9679868996) 103 mmol/L 98-108 CO2 TOTAL (test code = 7806298538) 20 mmol/L 23-31 L AGAP (test code = 2511002230) 2-16 BUN (test code = 4284418978) 14 mg/dL 7-23 GLUCOSE (test code = 8201713834) 151 mg/dL 70-110 H CREATININE (test code = 9256482079) 0.65 mg/dL 0.50-1.04 TOTAL BILI (test code = 7437414735) 0.4 mg/dL 0.1-1.1 CALCIUM (test code = 4745672613) 8.7 mg/dL 8.6-10.6 T PROTEIN (test code = 2567229150) 6.4 g/dL 6.3-8.2 ALBUMIN (test code = 7825278677) 3.9 g/dL 3.5-5.0 ALK PHOS (test code = 2126226297) 82 U/L 34-122 ALTv (test code = 1742-6) 24 U/L 5-35 AST(SGOT) (test code = 3216714061) 17 U/L 13-40 eGFR (test code = 7493687775) mL/min/1.73m2 ABRAHAM (test code = ABRAHAM) Association [...] imaging tests). Lab Interpretation (test code = 72821-7) [facility]normal [facility], [id number] 17:05:20* Test Item Value Reference Range Interpretation Comme [facility] LIPASE (test code = 6773470550) 75 U/L 0-220 Lab Interpretation (test cod e = 93410-5) Normal [facility]22-[facility]-26 17:00:21* Test Item Value Reference Range Interpretation Comme [facility] APTT Patient (test code = 3173-2) See_Comment [Automated message] The system which generated this result transmitted reference range: 23 - 38 Seconds. The reference range was not used to interpret this result as normal/abnormal. ABRAHAM (test code = ABRAHAM) The [facility] patient population mean normal value for aPTT is 30 seconds. Lab Interpretation (test code = 05934-4) Normal [facility] / [id number] 16:58:23* Test Item Value Reference Range Interpretation Comme [facility] PROTIME PATIENT (test code = 5964-2) See_Comment [Automated [employer] ge] The system which generated this result transmitted reference range: 12.0 - 14.7 Seconds. The reference range was not used to interpret this result as normal/abnormal. INR (test code = 6301-6) Normal INR <1.1; Warfarin Therapeutic range 2.0 to 3.0 or 2.5 to 3.5, depending upon the indications. Lab Interpretation (test code = 95141-1) Normal [facility]
[2024-03-31] MEDS ORDERED: NA CHLORIDE 0.9% 1,000 ML ONE (16:20)
[2024-03-31 16:33] LABS: Specific Gravity 1.023 (1.005-1.030)
[2024-03-31 16:34] LABS: Absolute Basophils 0.1 K/uL (0-0.5); Absolute Eosinophils 0.8 K/uL (0-0.5); Absolute Neutrophil 10.3 K/uL (1.8-8.0); Basophils % 0.7 % (0-1.3); Eosinophils % 5.6 % (0-4.4); Hematocrit 40.4 % (36.0-45.0); Hemoglobin 13.5 g/dL (12.0-15.0); Lymphocytes % 14.4 % (15.3-44.8); MCH 27.2 pg (27.0-35.0); MCHC 33.5 g/dL (32.0-36.0); MCV 81.2 fL (80-100); MPV 7.2 fL (7.6-11.3); Neutrophils % 72.3 % (41.7-73.7); Nucleated Red Blood Cells % 0.1 % (0-0); Platelets 453 thou/uL (152-406); RBC Red Blood Cell Count 4.97 M/uL (3.86-4.86); Red Cell Distribution Width 14.5 % (12.1-15.2)
[2024-03-31 16:37] LABS: Sqamous Epithelial 20-50 /HPF (None Seen); Urine Bacteria <20 /HPF (<20); Urine Crystals Unidentified Few /HPF (None Seen); Urine Culture Reflex Order NOT NEEDED; Urine Micro Reflex YN NO BILL MICROSCOPIC; Urine RBC >50 /HPF (None Seen); Urine WBC >50 /HPF (<5); Urine Yeast (Budding) Trace /HPF (None Seen)
[2024-03-31 16:46] LABS: Anion Gap 9.6 mEq/L (5.0-15.0); Potassium 3.6 mEq/L (3.5-5.1)
--- NOTE | 2024-03-31 17:19 | RAD REPORT ---
EXAMINATION: US Pelvis Complete CLINICAL INDICATION: Female 48 years old.[facility] MAIN VAGINAL BLEEDING Bed Name: IW1 TECHNIQUE: Real-time ultrasonography of the pelvis was performed through the transabdominal approach. Color and spectral Doppler evaluation of the ovaries was performed. COMPARISON: No prior exam. FINDINGS: UTERUS AND CERVIX: The uterus measures 9.1 cm in length. The uterus is normal. No masses seen The end ometrium is at the upper limit of normal, 0.6 cm in thickness. RIGHT OVARY: Normal The right ovary measures 3.6 x 2.1 x 3.3 cm. Normal color and spectral Doppler evaluation of the right ovary.. LEFT OVARY: Normal The left ovary measures 3.8 x 3.2 x 2.7 cm. Normal color and spectral Doppler evaluation of the left ovary.. FREE FLUID: No free fluid. IMPRESSION: No suspicious pelvic abnormalities.
--- NOTE | 2024-03-31 17:46 | EDPHYS ---
Physician Documentation [facility] Name: Airam Glasgow Age: 48 yrs Sex: Female : 1975 Arrival Date: 03/31/2024 Time: 15:41 Bed 14 Private MD: ED Physician Karthik Puga HPI: 03/31 15:56 This 48 yrs old Female presents to ER via Ambulatory with complaints of dr5 Vaginal Bleeding, Nausea/Vomiting. 15:56 The patient presents to the emergency department with abdominal pain, of the right dr5 lower quadrant and left lower quadrant. Patient is a 48-year-old female with history of bipolar disorder, depression, COPD, hyperlipidemia coming into ER today for vaginal bleeding, abdominal cramping that started after hysteroscopy completed with Dr. Garduno 5 days ago. Patient reports cold sweats and subjective fevers at home and is concerned that she may have a infection.. 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 - Infectious Disease History:: Denies. - Social history:: Smoking status: Patient/guardian denies using tobacco, Stopped _ months ago 3. ROS: 15:56 Constitutional: as per hpi dr5 Exam: 15:56 Constitutional: This is a well developed, well nourished patient who is awake, alert, dr5 and in no acute distress. Head/Face: Normocephalic, atraumatic. ENT: Nares patent. No nasal discharge, no septal abnormalities noted. Tympanic membranes are normal and external auditory canals are clear. Oropharynx with no redness, swelling, or masses, exudates, or evidence of obstruction, uvula midline. Mucous membranes moist. Chest/axilla: Normal chest wall appearance and motion. Nontender with no deformity. No lesions are appreciated. Cardiovascular: Regular rate and rhythm with a normal S1 and S2. Normal PMI, no JVD. No pulse deficits. Respiratory: Lungs have equal breath sounds bilaterally, clear to auscultation. No rales, rhonchi or wheezes noted. No increased work of breathing, no retractions or nasal flaring. Back: No spinal tenderness. No costovertebral tenderness. Full range of motion. Skin: Warm, dry with normal turgor. Normal color with no rashes, no lesions, and no evidence of cellulitis. MS/ Extremity: Pulses equal, no cyanosis. Neurovascular intact. Full, normal range of motion. Neuro: Awake and alert, GCS 15, oriented to person, place, time, and situation. Cranial nerves II-XII grossly intact. Motor strength 5/5 in all extremities. Sensory grossly intact. Cerebellar exam normal. Normal gait. 15:56 Abdomen/GI: Inspection: obese Bowel sounds: normal, Palpation: abdomen is soft and non-tender, Vital Signs: 15:53 BP 151 / 87; Pulse 96; Resp 18; Temp 98.4; Pulse Ox 99% ; Weight 120.66 kg; Height 5 db ft. 1 in. ; 16:00 BP 138 / 69; Pulse 92; Resp 16; Pulse Ox 98% ; me1 17:00 BP 136 / 71; Pulse 85; Resp 16; Pulse Ox 98% ; me1 18:00 BP 127 / 74; Pulse 74; Resp 15; Temp 98.4; Pulse Ox 99% ; me1 15:53 Body Mass Index 50.26 (120.66 kg, 154.94 cm) db MDM: 15:49 Medical Screening Exam initiated dr5 17:58 Differential diagnosis: Nonspecific abd pain, dysmenorrhea, endometriosis, menorrhea, dr5 ovarian cyst, uterine fibroids, urinary tract infection. Data reviewed: vital signs, nurses notes. I considered the following discharge prescriptions or medication management in the emergency department Medications were administered in the Emergency Department. See MAR. Care significantly affected by the following chronic conditions: Bipolar disorder, deaf, depression, COPD, hyperlipidemia, hypertension. Care significantly affected by the following Social Determinants of Health: Poor access to healthcare and/or lack of insurance, Poor access to transportation, Problems related to employment. Counseling: I had a detailed discussion with the patient and/or guardian regarding the historical points, exam findings, and any diagnostic results supporting the discharge/admit diagnosis, the presence of at least one elevated blood pressure reading (>120/80) during this emergency department visit, lab results, radiology results, the need for outpatient follow up, for definitive care, a family practitioner, an OB/Gyne specialist, to return to the emergency department if symptoms worsen or persist or if there are any questions or concerns that arise at home. ED course: Patient found to have urinary tract infection. No CVA tenderness noted to suggest pyelonephritis. Patient is allergic to Keflex and amoxicillin. Will start patient on fluoroquinolone and wait for urine culture to result. Ultrasound did not show any abnormalities. Recommended patient follow-up with INSURANCE BILLER this week for follow-up. All questions answered. Patient does report she is feeling better.. 03/31 15:55 Order name: Abo/rh Typing; Complete Time: 17:08 [facility] 03/31 15:55 Order name: Basic Metabolic Panel; Complete Time: 16:51 [facility] 03/31 15:55 Order name: CBC with Diff; Complete Time: 16:39 [facility] 03/31 15:55 Order name: Test, Urine; Complete Time: 16:36 [facility] 03/31 16:31 Order name: Urine Microscopic Only; Complete Time: 16:38 [facility] 03/31 17:56 Order name: ABO/RH no charge; Complete Time: 17:57 [facility] 03/31 15:55 Order name: US Pelvis Complete; Complete Time: 17:37 [facility] 03/31 15:55 Order name: IV Saline Lock; Complete Time: 16:23 [facility] 03/31 15:55 Order name: Labs collected and sent; Complete Time: 16:23 [facility] 03/31 15:55 Order name: NPO; Complete Time: 16:23 [facility] Administered Medications: 16:28 Drug: NS 0.9% IV 1000 ml IV at 1000 ml once; to be given as a bolus over 60 minutes me1 Route: IV; Rate: 1000 ml; Site: right antecubital; 17:59 Follow up: Response: No adverse reaction; IV Status: Completed infusion; IV Intake: me1 1000ml Disposition: 04/01 07:05 Co-signature as Attending Physician, Karthik Puga MD I reviewed the patient's care rn provided by the Advanced Practice Provider and agree with the diagnosis and treatment plan. Disposition Summary: 03/31/24 17:46 Discharge Ordered Notes: Location: Home dr5 Condition: Stable dr5 Diagnosis - UTI/ Urinary tract infection, site not specified dr5 Followup: dr5 - With: Emergency Department - When: As needed - Reason: Worsening of condition Followup: dr5 - With: Private Physician - When: 1 - 2 days - Reason: Recheck today's complaints, Continuance of care, Re-evaluation by your physician Discharge Instructions: - Discharge Summary Sheet dr5 - Urinary Tract Infection, Adult, Gyjw-ih-Miwu dr5 Forms: - Work release form dr5 - Medication Reconciliation Form dr5 - Antibiotic Education dr5 - Patient Portal Instructions dr5 - Leadership Thank You Letter dr5 Prescriptions: - ciprofloxacin HCl 250 mg Oral tablet - take 1 tablet ORAL route every 12 hours for 7 days; 14 tablet; Refills: 0, dr5 Product Selection Permitted - Zofran 4 mg Oral Tablet - take 1 tablet ORAL route every 12 hours As needed; 20 tablet; Refills: 0, dr5 Product Selection Permitted - Fluconazole 150 mg Oral tablet - take 1 tablet ORAL route once daily for 1 dose; 1 tablet; Refills: 0, Product dr5 Selection Permitted Signatures: Dispatcher [employer] Karthik Sims MD MD rn Benton, Danielle RN Tamar Carrera RN RN me1 Tiburcio Restrepo, PATIENT REPRESENTATIVE-C PATIENT REPRESENTATIVE-Cdr5 Corrections: (The following items were deleted from the chart) 03/31 15:53 15:53 Allergies: Valium; db 15:55 15:53 Social history: Smoking status: [facility] 16:31 15:56 Urinalysis+U.LAB.BRZ ordered. EDCO EDCO
--- NOTE | 2024-03-31 17:46 | ER ---
Nurse's Notes [facility] Name: Airam Glasgow Age: 48 yrs Sex: Female : 1975 Arrival Date: 03/31/2024 Time: 15:41 Bed 14 Private MD: Diagnosis: UTI/ Urinary tract infection, site not specified Presentation: 03/31 15:52 Chief complaint: Patient states: HYSTOSCOPY LAST WEEK, VAG BLEED NOW WITH BLOOD CLOTS. me1 NAUSEA AND VOMITING. 15:53 Coronavirus screen: Client denies travel out of the [place] in the last 14 days. At this db time, the client does not indicate any symptoms associated with coronavirus-19. Ebola Screen: Patient negative for fever greater than or equal to 101.5 degrees Fahrenheit, and additional compatible Ebola Virus Disease symptoms Patient denies exposure to infectious person. Patient denies travel to an Ebola-affected area in the 21 days before illness onset. No symptoms or risks identified at this time. Initial Sepsis Screen: Does the patient meet any 2 criteria? No. Patient's initial sepsis screen is negative. Does the patient have a suspected source of infection? No. Patient's initial sepsis screen is negative. Risk Assessment: Do you want to hurt yourself or someone else? Patient reports no desire to harm self or others. Onset of symptoms was March 31, 2024. 15:53 Method Of Arrival: Ambulatory db 15:53 Acuity: ADALGISA 3 db Triage Assessment: 15:53 General: Appears in no apparent distress. comfortable, Behavior is calm, cooperative. db Pain: Complains of pain in pelvis. Neuro: Level of Consciousness is awake, alert, obeys commands, Oriented to person, place, time, situation. Respiratory: Airway is patent Respiratory effort is even, unlabored, Respiratory pattern is regular, symmetrical. GI: Reports lower abdominal pain, nausea, vomiting. 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 - Infectious Disease History:: Denies. - Social history:: Smoking status: Patient/guardian denies using tobacco, Stopped _ months ago 3. Screenin:33 [facility] ED Fall Risk Assessment (Adult) History of falling in the last 3 months, me1 including since admission No falls in past 3 months (0 pts) Confusion or Disorientation No (0 pts) Intoxicated or Sedated No (0 pts) Impaired Gait No (0 pts) Mobility Assist Device Used No (0 pt) Altered Elimination No (0 pt) Score/Fall Risk Level 0 - 2 = Low Risk Maintained a safe environment, Provided non-skid footwear, Hourly rounding (assess needs \T\ fall precautionary measures) done. Abuse screen: Denies threats or abuse. Nutritional screening: No deficits noted. Tuberculosis screening: No symptoms or risk factors identified. Assessment: 16:33 General: Appears comfortable, obese, well developed, Behavior is calm, cooperative, me1 appropriate for age, Reports HYSTOSCOPY LAST WEEK, VAG BLEED NOW WITH BLOOD CLOTS. NAUSEA AND VOMITING. Pain: Denies pain. Neuro: Level of Consciousness is awake, alert, obeys commands, Oriented to person, place, time, situation, Appropriate for age. Cardiovascular: Patient's skin is warm and dry. Respiratory: Airway is patent Respiratory effort is even, unlabored, Respiratory pattern is regular, symmetrical. GI: Abdomen is round Reports nausea, vomiting. : Reports vaginal bleeding that is with clots. EENT: No signs and/or symptoms were reported regarding the EENT system. EENT: No signs and/or symptoms were reported regarding the EENT system. Deaf, reads lips well.. Derm: Skin is intact, is healthy with good turgor, Skin is pink, warm \T\ dry. Musculoskeletal: No signs and/or symptoms reported regarding the musculoskeletal system. Vital Signs: 15:53 BP 151 / 87; Pulse 96; Resp 18; Temp 98.4; Pulse Ox 99% ; Weight 120.66 kg; Height 5 db ft. 1 in. ; 16:00 BP 138 / 69; Pulse 92; Resp 16; Pulse Ox 98% ; me1 17:00 BP 136 / 71; Pulse 85; Resp 16; Pulse Ox 98% ; me1 18:00 BP 127 / 74; Pulse 74; Resp 15; Temp 98.4; Pulse Ox 99% ; me1 15:53 Body Mass Index 50.26 (120.66 kg, 154.94 cm) db ED Course: 15:45 Patient arrived in ED. mr 15:45 Tiburcio Restrepo, LUIS ALBERTO [facility]. dr5 15:45 Karthik Puga MD is Attending Physician. dr5 15:53 Arm band placed on. EKG completed in triage. Results shown to MD. db 15:54 Triage completed. db 16:09 Tamar Guzman, [place] is Primary Nurse. me1 16:23 Initial lab(s) drawn, by me, sent to lab. Urine collected: clean catch specimen, me1 cloudy, blood tinged. Inserted saline lock: 22 gauge in right antecubital area, using aseptic technique. 16:23 Abo/rh Typing Sent. me1 16:23 Basic Metabolic Panel Sent. me1 16:23 CBC with Diff Sent. me1 16:23 Test, Urine Sent. me1 16:33 Patient has correct armband on for positive identification. Bed in low position. Call me1 light in reach. Side rails up X 1. Provided Education on: POC. Verbalized understanding.. Client placed on continuous cardiac and pulse oximetry monitoring. NIBP monitoring applied. Pulse ox on. NIBP on. Sitter at bedside. Warm blanket given. 16:33 No provider procedures requiring assistance completed. me1 17:14 US Pelvis Complete In Process Unspecified. EDMS 18:03 IV discontinued, intact, bleeding controlled, No redness/swelling at site. Pressure me1 dressing applied. Administered Medications: 16:28 Drug: NS 0.9% IV 1000 ml IV at 1000 ml once; to be given as a bolus over 60 minutes me1 Route: IV; Rate: 1000 ml; Site: right antecubital; 17:59 Follow up: Response: No adverse reaction; IV Status: Completed infusion; IV Intake: me1 1000ml Medication: 16:33 VIS not applicable for this client. me1 Intake: 17:59 IV: 1000ml; Total: 1000ml. me1 Outcome: 17:46 Discharge ordered by . dr5 18:03 Discharged to home ambulatory, with family, me1 18:03 Condition: stable 18:03 Discharge instructions given to patient, family, Instructed on discharge instructions, follow up and referral plans. medication usage, Demonstrated understanding of instructions, follow-up care, medications, Prescriptions given X 3, 18:04 Patient left the ED. tx1 Signatures: Dispatcher [employer] EDKS Johana Regan, Reg Reg mr Mariam Tobar, RN RN db Tamar Guzamn, [place] RN tx1 Tiburcio Restrepo, QUALITY IMPROVEMENT MANAGER-C QUALITY IMPROVEMENT MANAGER-Cdr5 Corrections: (The following items were deleted from the chart) 15:53 15:53 Allergies: Valium; [facility] 15:55 15:53 Social history: Smoking status: [facility] 16:31 16:23 Urinalysis+U.LAB.BRZ drawn and sent. [address] 16:33 15:52 Chief complaint: Patient states: HYSTOSCOPY LAST WEEK, VAG BLEED NOW WITH BLOOD me1 CLOTS. NAUSEA AND VOMITING db
[2024-04-01 04:24] VITALS: TEMP 98.4
[2024-04-01 04:27] VITALS: BP 127/74; O2SAT 99
== END 2024-03-31 18:04 | disposition home or self-care (01) ==
LOC: ER 15:41
DX: N39.0 Urinary tract infection, site not specified (principal)
CPT/HCPCS: 85025; 80048; 36415; 86900; 81025; 86901; 81015; 76856; J7030

== ENCOUNTER 2024-04-25 03:41 | Observation (INO) | payer BC ==
--- OUTSIDE RECORDS SUMMARY | 2024-04-25 03:44 | XMS REPORT | Continuity of Care Document ---
Author Name Unknown Address [address] [place] [address] [facility] thconnect Address [address] [place] [address] Care Team Providers Care Commissioned Sales Associate Name Role Phone Pcp, Patient Does Not Have A Primary Care Physic jelena Doctor Unassigned, [place] Attending Clinician U lilyailROC Martinez Attending Clinician UnavailRoc Chin MD Attending Clinician [phone] DIOR MALONE Attending Clinician Unavailable Dior Goode Attending Clinician [phone] Franklin Esparza PA-C Attending Clinician [phone] LUCIANO FERNANDEZ Attending Clinician Unavailable Luciano Fernandez DO Attending Clinician [phone] Nurse, [facility] Attending Clinician Un available Brayden Dao MD Attending Clinician [phone] BRAYDEN DAO Attending Clinician Unavailable JENAE MEDINA Attending Clinician UnavailAdrian [facility] Attending Clinician Un available Jenae Castellanos Attending Clinician [phone] LUCIANO FERNANDEZ Admitting Clinician Unavailable BRAYDEN DAO [...] Hyperlipid emia Problem Active 2023-03 00:00: 00 [facility] No known active problems No known active problems Disease [facility] Allergies, Adverse Reactions, Alerts Allergy Name Allergy Type Status Severity Reaction(s) Onset Date Inactive Date Treating Clinician Comments Source Diazepam Propensi ty to adverse reaction s Active Other - See comments 2020-03 00:00: 00 Patient stated that "valium knocks me out for 2-3 days" [facility] DIAZEPAM DRUG INGREDI Active Other-Cmnt 2020-03 00:00: 00 [facility] Penicill ins Propensi ty to adverse reaction s Active Anaphylaxis - 00:00: 00 [facility] Penicill ins Propensi ty to adverse reaction s Active Anaphylaxis 7- 00:00: 00 [facility] Cephalex in Propensi ty to adverse reaction s Active Anaphylaxis 09-02 00:00: 00 [facility] Penicill ins Propensi ty to adverse reaction s Active Anaphylaxis 09-02 00:00: 00 [facility] CEPHALEX IN DRUG INGREDI Active Anaphylaxis 09-02 00:00: 00 [facility] PENICILL INS Drug Class Active Anaphylaxis 09-02 00:00: 00 [facility] NO KNOWN ALLERGIE S Drug Class Active [facility] PENICILL INS Allergy to substanc e Active [facility] KEFLEX Allergy to substanc e Active [facility] Social History Social Habit Start Date Stop Date Quantity Comments Source History of tobacco use Smokes tobacco daily [facility] to SARS-CoV-2 (event) 2021-11-15 00:00:00 2021-11-25 20:45:00 Not sure [facility] History of Social function 2021-11-01 00:00:00 2021-11-01 00:00:00 [facility] Tobacco use and exposure 2021-02-12 00:00:00 2021-02-12 00:00:00 Smokeless tobacco non-user [facility] Sex Assigned At 1975 00:00:00 1975 00:00:00 [facility] Smoking Status Start Date Stop Date Source Former Smoker [facility] Unknown if ever smoked [facility] Smokes tobacco daily 2021-02-12 00:00:00 [facility] Medications Ordered Medication Name Filled Medication Name Start Date Stop Date Current Medication? Ordering Clinician Indication Dosage Frequency Signature (SIG) Comments Components Source ketorolac 30 mg/mL (1 mL) injection solution Inject 1 mL every 6 hours by intramuscul ar route. ketorolac 30 mg/mL (1 mL) injection solution Inject 1 mL every 6 hours by intramuscul ar route. 03-26 09:34: 06 No 1mL Q6H ketorolac 30 mg/mL (1 mL) injection solution Inject 1 mL every 6 hours by intramuscu lar route. [facility] diclofenac 75 mg EC tablet 11-26 00:00: 00 Yes [id number] 75mg Take 1 tablet by mouth in the morning and 1 tablet in the evening. Take with meals. [facility] ketorolac (TORADOL) injection 30 mg 11-01 23:15: 00 11-01 22:13 :00 No [id number] 30mg [facility] cyclobenzap rine 10 mg tablet 11-01 00:00: 00 Yes [id number] 10mg Take 1 tablet by mouth 3 (three) times daily as needed for Muscle Spasms. [facility] methylpredn isolone sod succ (SOLU-MEDRO L) injection 125 mg 06-26 23:00: 00 Yes 125mg 125 mg, Intravenou s, Q6H, First dose on Fri06/26/21 at 1800, Until Discontinu ed, Routine [facility] ipratropium -albuteroL (DUONEB) 0.5 mg-3 mg(2.5 mg base)/3 mL nebulizer solution 3 mL 06-26 18:15: 00 06-26 17:55 :00 No 3mL 3 mL, Inhalation , ONCE, 1 dose, On Fri06/26/21 at 1315, Routine [facility] ipratropium -albuteroL (DUONEB) 0.5 mg-3 mg(2.5 mg base)/3 mL nebulizer solution 3 mL 06-26 17:00: 00 Yes 3mL 3 mL, Inhalation , QID, First dose on Fri06/26/21 at 1200, Until Discontinu ed, Routine [facility] methylPREDN ISolone (MEDROL, BELÉN,) 4 mg tablets 06-26 00:00: 00 Yes [id number] Take by mouth SEE-INSTRU CTIONS. follow package directions [facility] albuterol 2.5 mg /3 mL (0.083 %) nebulizer solution 06-26 00:00: 00 07-11 04:59 :00 No [id number] 2.5mg Inhale 3 mL every 4 (four) hours for 14 days. May also nebulize one extra every 6 hours. [facility] LISINOPRIL ORAL 2020-03 11:27: 32 Yes Take by mouth. [facility] LISINOPRIL ORAL 09-02 19:24: 49 Yes Take by mouth. [facility] sertraline HCl (ZOLOFT ORAL) 09-02 19:24: 49 Yes Take by mouth. [facility] quetiapine fumarate (SEROQUEL ORAL) 09-02 19:24: 49 Yes Take by mouth. [facility] MAGNESIUM ORAL 09-02 19:24: 49 Yes Take by mouth. [facility] atorvastati n calcium (ATORVASTAT IN ORAL) 09-02 19:24: 49 Yes Take by mouth. [facility] traMADoL 50 mg tablet 09-02 00:00: 00 Yes [id number] 50mg Take 1 tablet by mouth every 4 (four) hours as needed (pain requiring narcotic). Indication s: acute pain [facility] Rexulti 2 mg tablet Take 1 tablet every day by oral route. Rexulti 2 mg tablet Take 1 tablet every day by oral route. No 1 Q1D Rexulti 2 mg tablet Take 1 tablet every day by oral route. [facility] sertraline 100 mg tablet Take 1 tablet every day by oral route. sertraline 100 mg tablet Take 1 tablet every day by oral route. No 1 Q1D sertraline 100 mg tablet Take 1 tablet every day by oral route. [facility] varenicline tartrate 1 mg tablet Take 1 tablet twice a day by oral route. varenicline tartrate 1 mg tablet Take 1 tablet twice a day by oral route. No 1 BID vareniclin e tartrate 1 mg tablet Take 1 tablet twice a day by oral route. [facility] acetaminoph en 300 mg-codeine 30 mg tablet [...] and then every 6hrs thereafter as needed. [facility] Celebrex 200 mg capsule Take 1 capsule every day by oral route as directed for 1 day. Celebrex 200 mg capsule Take 1 capsule every day by oral route as directed for 1 day. No 1capsul e(s) Q1D Celebrex 200 mg capsule Take 1 capsule every day by oral route as directed for 1 day. [facility] imiquimod 5 % topical cream packet APPLY TO THE AFFECTED AREA(S) BY TOPICAL ROUTE 3 TIMES PER WEEK @ bedtime imiquimod 5 % topical cream packet APPLY TO THE AFFECTED AREA(S) BY TOPICAL ROUTE 3 TIMES PER WEEK @ bedtime No imiquimod 5 % topical cream packet APPLY TO THE AFFECTED AREA(S) BY TOPICAL ROUTE 3 TIMES PER WEEK @ bedtime [facility] Valium 10 mg tablet Take 1 tablet as needed by oral route as directed for 2 days. Valium 10 mg tablet Take 1 tablet as needed by oral route as directed for 2 days. No 1 Valium 10 mg tablet Take 1 tablet as needed by oral route as directed for 2 days. [facility] albuterol sulfate 2.5 mg/3 mL (0.083 %) [...] 1 tablet every day [facility] bup[facility]ion [facility] 150 mg tablet,12 hr sustained-r elease(smok ing deterrent) Take 1 tablet twice a day by oral route. bupropion HCl 150 mg tablet,12 hr sustained-r elease(smok ing deterrent) Take 1 tablet twice a day by oral route. No 1 BID bupropion HCl 150 mg tablet,12 hr sustained- release(sm oking deterrent) Take 1 tablet twice a day by oral route. [facility] doxepin 100 mg capsule Take 1 capsule every day by oral route. doxepin 100 mg capsule Take 1 capsule every day by oral route. No 1capsul e(s) Q1D doxepin 100 mg capsule Take 1 capsule every day by oral route. [facility] ergocalcife rol (vitamin D2) 1,250 mcg (50,000 unit) capsule Take by oral route. ergocalcife rol (vitamin D2) 1,250 mcg (50,000 unit) capsule Take by oral route. No ergocalcif yazmin (vitamin D2) 1,250 mcg (50,000 unit) capsule Take by oral route. [facility] fenofibrate 54 mg tablet Take 1 tablet every day by oral route. fenofibrate 54 mg tablet Take 1 tablet every day by oral route. No 1 Q1D fenofibrat e 54 mg tablet Take 1 tablet every day by oral route. [facility] gabapentin 100 mg capsule Take 1 capsule 3 times a day by oral route. gabapentin 100 mg capsule Take 1 capsule 3 times a day by oral route. No 1capsul e(s) TID gabapentin 100 mg capsule Take 1 capsule 3 times a day by oral route. [facility] lisinopril 20 mg-hydrochl orothiazide 25 mg tablet Take 1 tablet every day by oral route. lisinopril 20 mg-hydrochl orothiazide 25 mg tablet Take 1 tablet every day by oral route. No 1 Q1D lisinopril 20 mg-hydroch lorothiazi de 25 mg tablet Take 1 tablet every day by oral route. [facility] montelukast 10 mg tablet Take 1 tablet every day by oral route. montelukast 10 mg tablet Take 1 tablet every day by oral route. No 1 Q1D montelukas t 10 mg tablet Take 1 tablet every day by oral route. [facility] Ozempic 0.25 mg or 0.5 mg (2 mg/3 mL) subcutaneou s pen injector Inject by subcutaneou s route. Ozempic 0.25 mg or 0.5 mg (2 mg/3 mL) subcutaneou s pen injector Inject by subcutaneou s route. No Ozempic 0.25 mg or 0.5 mg (2 mg/3 mL) subcutaneo us pen injector Inject by subcutaneo us route. [facility] Vital Signs Vital Name Observation Time Observation Value Comments S ource BP Diastolic 2024-04-07 00:00:00 60 mm[Hg] [facility] BP Systolic 2024-04-07 00:00:00 108 mm[Hg] [facility] Body Weight 2024-04-07 00:00:00 272 [lb_av] [facility] Height 2024-04-07 00:00:00 61 [in_i] [facility] BMI (Body Mass Index) 2024-04-07 00:00:00 51.4 kg/m2 [facility] Height 2024-03-26 00:00:00 61 [in_i] [facility] [...] Systolic blood pressure 2021-11-26 19:12:00 150 mm[Hg] [facility] Diastolic blood pressure 2021-11-26 19:12:00 90 mm[Hg] [facility] Heart rate 2021-11-26 19:12:00 92 /min [facility] Body height 2021-11-26 19:12:00 152.4 cm [facility] Body weight 2021-11-26 19:12:00 100.699 kg [facility] BMI 2021-11-26 19:12:00 43.36 kg/m2 [facility] Systolic blood pressure 2021-11-01 21:38:00 116 mm[Hg] [facility] Diastolic blood pressure 2021-11-01 21:38:00 72 mm[Hg] [facility] Heart rate 2021-11-01 21:38:00 100 /min [facility] Body temperature 2021-11-01 21:38:00 36.56 Fatou [facility] Respiratory rate 2021-11-01 21:38:00 18 /min [facility] Body height 2021-11-01 21:38:00 152.4 cm [facility] Body weight 2021-11-01 21:38:00 100.699 kg [facility] BMI 2021-11-01 21:38:00 43.36 kg/m2 [facility] Oxygen saturation in Arterial blood by Pulse oximetry 2021-11-01 21:38:00 95 /min [facility] Respiratory rate 2021-06-26 18:06:00 18 /min [facility] Oxygen saturation in Arterial blood by Pulse oximetry 2021-06-26 18:06:00 100 /min [facility] Systolic blood pressure 2021-06-26 18:00:00 149 mm[Hg] [facility] Diastolic blood pressure 2021-06-26 18:00:00 81 mm[Hg] [facility] Heart rate 2021-06-26 18:00:00 80 /min [facility] Body temperature 2021-06-26 16:10:00 36.67 Fatou [facility] Body weight 2021-06-26 16:10:00 91.173 kg [facility] BMI 2021-06-26 16:10:00 39.26 kg/m2 [facility] Systolic blood pressure 2021-06-26 15:17:00 166 mm[Hg] [facility] Diastolic blood pressure 2021-06-26 15:17:00 97 mm[Hg] [facility] Heart rate 2021-06-26 15:17:00 87 /min [facility] Body temperature 2021-06-26 15:17:00 36.56 Fatou [facility] Respiratory rate 2021-06-26 15:17:00 28 /min [facility] Oxygen saturation in Arterial blood by Pulse oximetry 2021-06-26 15:17:00 99 /min [facility] Body height 2021-03-07 19:06:00 152.4 cm [facility] Body weight 2021-03-07 19:06:00 91.173 kg [facility] BMI 2021-03-07 19:06:00 39.26 kg/m2 [facility] Systolic blood pressure 2021-03-07 19:06:00 119 mm[Hg] [facility] Diastolic blood pressure 2021-03-07 19:06:00 76 mm[Hg] [facility] Heart rate 2021-03-07 19:06:00 84 /min [facility] Systolic blood pressure 2021-02-12 20:52:00 120 mm[Hg] [facility] Diastolic blood pressure 2021-02-12 20:52:00 75 mm[Hg] [facility] Heart rate 2021-02-12 20:52:00 70 /min [facility] Body height 2021-02-12 20:52:00 152.4 cm [facility] Body weight 2021-02-12 20:52:00 91.173 kg [facility] BMI 2021-02-12 20:52:00 39.26 kg/m2 [facility] Oxygen saturation in Arterial blood by Pulse oximetry 2021-02-12 20:52:00 97 /min [facility] Systolic blood pressure 2020-09-02 19:21:00 115 mm[Hg] [facility] Diastolic blood pressure 2020-09-02 19:21:00 69 mm[Hg] [facility] Heart rate 2020-09-02 19:21:00 95 /min [facility] Body temperature 2020-09-02 19:21:00 36.72 Fatou [facility] Respiratory rate 2020-09-02 19:21:00 18 /min [facility] Body height 2020-09-02 19:21:00 152.4 cm [facility] Body weight 2020-09-02 19:21:00 153.316 kg [facility] BMI 2020-09-02 19:21:00 66.01 kg/m2 [facility] Oxygen saturation in Arterial blood by Pulse oximetry 2020-09-02 19:21:00 97 /min [facility] Procedures Procedure Date / Time Performed Performing Clinician Source Hysteroscopy Biopsy 2024-03-26 00:00:00 [facility] TRANSVAGINAL 2024-02-20 00:00:00 [facility] EXTERNAL PROVIDER RECORDS 2022-04-16 06:01:00 Do ctor Unassigned, [place] [facility] EXTERNAL PROVIDER RECORDS 2021-12-18 05:01:00 Do ctor Unassigned, [place] [facility] CONSENT/REFUSAL FOR DIAGNOSIS AND TREATMENT 2021-11-26 18:55:25 Doctor Unassigned, [place] [facility] AUTHORIZATION FOR RELEASE OF PHI 2021-11-16 05:01:00 Doctor Unassigned, [place] [facility] XR CHEST 1 VW 2021-06-26 17:15:00 Luciano Fernandez [facility] RAPID INFLUENZA A/B 2021-06-26 16:59:00 Charlie Fernandez [facility] COVID-19 (ID NOW RAPID TESTING) 2021-06-26 16:59:00 Fern[facility] LIPASE 2021-06-26 16:29:00 Singer [facility] TROPONIN I 2021-06-26 16:29:00 Singer [facility] COMP. METABOLIC PANEL ([id number]) 2021-06-26 16:29:00 Singer [facility] CBC WITH DIFF 2021-06-26 16:29:[address] [facility] PROTHROMBIN TIME / INR 2021-06-26 16:29:00 Rigo [facility] ACTIVATED PARTIAL THRMPLAS AMRIT 2021-06-26 16:29:00 Singer [facility] CONSENT/REFUSAL FOR DIAGNOSIS AND TREATMENT 2021-06-26 16:02:56 Doctor Unassigned, [place] [facility] NOTICE OF PRIVACY PRACTICES 2021-06-26 16:01:28 Doctor Unassigned, [place] [facility] TRANSTHORACIC ECHO (TTE) COMPLETE 2021-03-07 19:33:58 Brayden Dao [facility] CONSENT/REFUSAL FOR DIAGNOSIS AND TREATMENT 2020-09-02 19:14:51 Doctor Unassigned, [place] [facility] Tubal Ligation 2008-03-03 00:00:00 [facility] Medical Delivery 2008-03-03 00:00:00 [facility] Delivery 1995-03-03 00:00:00 [facility] Tonsillectomy [facility] Cholecystectomy [facility] Medic al Encounters Start Date/Time End Date/Time Encounter Type Admission Type Attending [facility] Facility Care Department Encounter ID Source 2024-04-07 00:00:00 2024-04-07 00:00:00 SURESH Rodriguez: [address], [place] [address] , Ph. [facility] - GC_GCBZW_Freya Baker* [id number] [facility] 2024-03-26 00:00:00 2024-03-26 00:00:00 Lela Garduno MD: [address], [place] [address] , Ph. [facility] - GC_GCBZW_[facility]* [id number] [facility] 2024-03-04 00:00:00 2024-03-04 00:00:00 TANYA RodriguezP: [address], [place] [address] , Ph. [facility] - GC_GCBZW_[facility]* [id number] [facility] 2024-02-20 00:00:00 2024-02-20 00:00:00 Lela Garduno MD: [address], [place] [id number] , Ph. [facility] - GC_GCBZW_[facility]* [id number] [facility] 2024-02-19 00:00:00 2024-02-19 00:00:00 Gcbzw Ultrasound : [address], [place] [address] , Ph. [facility] - GC_GCBZW_[facility]* [id number] [facility] 2024-02-11 00:00:00 2024-02-11 00:00:00 Lela Garduno MD: [address], [place] [id number] , Ph. [facility] - GC_GCBZW_[facility]* [id number] [facility] 2022-04-16 00:00:00 2022-04-16 00:00:00 Orders Only Doctor Unassigned, [place] [facility] 1.2.840.114 350.1.13.10 4.2.7.2.686 [id number] [facility] 2021-12-18 00:00:00 2021-12-18 00:00:00 Orders Only Doctor Unassigned, [place] [facility] 1.2840.114 350.1.13.10 4.2.7.2.686 [id number] [facility] 2021-11-26 14:15:00 2021-11-26 14:57:11 Outpatient R [facility] [id number] [facility] 2021-11-26 14:15:00 2021-11-26 14:57:11 Office Visit Roc Louis [facility] 1.2840.114 350.1.13.10 4.2.7.2.686 [id number] [facility] 2021-11-26 00:00:00 2021-11-26 00:00:00 Telephone Roc Louis [facility] 1.0.114 350.1.13.10 4.2.7.2.686 [id number] [facility] 2021-11-26 00:00:00 2021-11-26 00:00:00 Orders Only Doctor Unassigned, [place] [facility] 1.2840.114 350.1.13.10 4.2.7.2.686 [id number] [facility] 2021-11-26 00:00:00 2021-11-26 00:00:00 Letter (Out) Roc Louis [facility] 1.20.114 350.1.13.10 4.2.7.2.686 [id number] [facility] 2021-11-23 00:00:00 2021-11-23 00:00:00 Telephone Roc Louis [facility] 1.840.114 350.1.13.10 4.2.7.2.686 [id number] [facility] 2021-11-16 00:00:00 2021-11-16 00:00:00 Orders Only Doctor Unassigned, [place] [facility] 1.2.840.114 350.1.13.10 4.2.7.2.686 [id number] [facility] 2021-11-01 16:20:00 2021-11-01 17:15:15 Outpatient R [facility] [id number] [facility] 2021-11-01 16:20:00 2021-11-01 17:15:15 [facility] 1..840.114 350.1.13.10 4.2.7.2.686 [id number] [facility] 2021-06-26 11:11:00 2021-06-26 13:46:00 Emergency X [facility] ERT [id number] [facility] 2021-06-26 11:11:00 2021-06-26 13:46:00 Emergency Luciano [facility] 1..840.114 350.1.13.10 4.2.7.2.686 [id number] [facility] 2021-06-26 10:50:00 2021-06-26 11:10:00 Nurse Visit Nurse, [facility] 1..840.114 350.1.13.10 4.2.7.2.686 [id number] [facility] 2021-06-26 10:50:00 2021-06-26 10:50:00 Outpatient R KIRA [facility] [id number] [facility] 2021-06-26 00:00:00 2021-06-26 00:00:00 Orders Only Doctor Unassigned, [place] [facility] 1.2.840.114 350.1.13.10 4.2.7.2.686 [id number] [facility] 2021-06-25 19:20:00 2021-06-25 19:20:00 Outpatient R [facility] [id number] [facility] 2021-03-08 00:00:00 2021-03-08 00:00:00 Patient Secure Msg Sylwia [facility] BUILDING 1.2.840.114 350.1.13.10 4.2.7.2.686 [id number] [facility] 2021-03-07 12:56:41 2021-03-07 23:59:00 [id number] 2021-03-07 12:56:41 2021-03-07 23:59:00 [facility] 1.2.840.114 350.1.13.10 4.2.7.2.686 [id number] [facility] 2021-02-27 15:00:00 2021-02-27 15:00:00 [facility] [id number] [facility] 2021-02-27 15:00:00 2021-02-27 15:00:00 [facility] [id number] [facility] 2021-02-19 00:00:00 2021-02-19 00:00:[address] [facility] BUILDING 1.2.840.114 350.1.13.10 4.2.7.2.686 [id number] [facility] 2021-02-12 14:42:56 2021-02-12 15:15:[address] [facility] BUILDING 1.84.114 350.1.13.10 4.2.7.2.686 [id number] [facility] 2021-02-12 14:40:00 2021-02-12 15:15:38 Outpatient R [facility] [id number] [facility] 2021-02-12 00:00:00 2021-02-12 00:00:00 Letter (Out) Sylwia [facility] BUILDING 1.84.114 350.1.13.10 4.2.7.2.686 [id number] [facility] 2021-02-12 00:00:00 2021-02-12 00:00:00 Orders Only Doctor Unassigned, [place] [facility] 1..114 350.1.13.10 4.2.7.2.686 [id number] [facility] 2020-09-02 14:40:00 2020-09-02 14:40:00 [facility] [id number] 2020-09-02 14:15:28 2020-09-02 14:35:28 Urgent Care Provider, [facility] jina millyFormerly [facility] 1.84.114 350.1.13.10 4.2.7.2.686 [id number] [facility] 2020-09-02 00:00:00 2020-09-02 00:00:00 Orders Only Doctor Unassigned, [place] [facility] 1.20.114 350.1.13.10 4.2.7.2.686 [id number] [facility] [facility] Test Description Test Time Test Comments Results Result Co mments Source [facility] Medical[facility]ollit[facility]in [Units/volume] in Serum or [id number] 00:00:00* Test Item Value Reference Range Interpretation Comme nts FSH (test code = FSH) 11.7 mIU/mL [facility] MedicalEstradiol (E2) [Mass/volume] in Serum or [id number] 00:00:00 * Test Item Value Reference Range Interpretation Comme nts estradiol (test code = estradiol) 27.8 pg/mL 6.1-91.9 [facility] Medicaligp, apt HPV,rfx 16/18,[id number] 00:00:00* Test Item Value Reference Range Interpretation Comme nts diagnosis: (test code = diagnosis:) SPRCS specimen adequacy: (test cod e = specimen adequacy:) SPRCS performed by: (test code = p erformed by:) SPRCS note: (test code = note:) PAPSMR test methodology: (test code = test methodology:) IGLPAP HPV aptima (test code = HPV aptima) NEGATIVE negative [facility] Medicalinfectious disease [id number] 00:00:00* Test Item Value Reference Range Interpretation [...] B, tet M) 15.274 ppm 23.000-27.778 A [facility] WITH [id number] 17:25:10* Test Item Value Reference Range Interpretation [...] 33.1 g/dL 31.6-35.1 RDW-SD (test code = 17201-9) 44.8 fL 39.0-49.9 RDW-CV (test code = 788-0) 13.8 % 12.0-15.5 PLT (test code = 777-3) See_Comment [Automated message] The system which generated this result transmitted reference range: 166 - 358 10*3/?L. The reference range was not used to interpret this result as normal/abnormal. MPV (test code = 51164-6) 9.2 fL 9.5-12.9 L NRBC/100 WBC (test code = 6707086303) See_Comment [Automated message] The system which generated this result transmitted reference range: 0.0 - 10.0 /100 WBCs. The reference range was not used to interpret this result as normal/abnormal. NRBC x10^3 (test code = 1287960256) <0.01 See_Comment [Automated message] The system which generated this result transmitted reference range: 10*3/?L. The reference range was not used to interpret this result as normal/abnormal. GRAN MAT (NEUT) % (test code = 770-8) 83.8 % IMM GRAN % (test code = 5054517521) 3.10 % LYMPH % (test code = 736-9) 8.7 % MONO % (test code = 5905-5) 4.3 % EOS % (test code = 713-8) 0.0 % BASO % (test code = 706-2) 0.1 % GRAN MAT x10^3(ANC) (test code = 1951537616) 11.27 10*3/uL 1.88-7.09 H IMM GRAN x10^3 (test code = 4199122261) 0.42 10*3/uL 0.00-0.06 H LYMPH x10^3 (test code = 731-0) 1.17 10*3/uL 1.32-3.29 L MONO x10^3 (test code = 742-7) 0.58 10*3/uL 0.33-0.92 EOS x10^3 (test code = 711-2) <0.03 0.03-0.39 L BASO x10^3 (test code = 704-7) <0.03 0.01-0.07 Lab Interpretation (test code = 02927-4) Abnormal [facility] [id number] 17:15:24* Test Item Value Reference Range Interpretation Comments TROPONIN I (test code = 8061272550) 0.002 ng/mL See_Comment [Automated message] The system [...] of biotin. Lab Interpretation (test code = 87834-2) Normal [facility] ([id number])2021-06-26 17:12:03* Test Item Value Reference Range Interpretation Comme nts NA (test code = 1099461645) 134 mmol/L 135-145 L K (test code = 4943498054) 4.1 mmol/L 3.5-5.0 CL (test code = 3475431135) 103 mmol/L 98-108 CO2 TOTAL (test code = 8010942324) 20 mmol/L 23-31 L AGAP (test code = 1324000687) 2-16 BUN (test code = 0971183802) 14 mg/dL 7-23 GLUCOSE (test code = 7710170677) 151 mg/dL 70-110 H CREATININE (test code = 1866653439) 0.65 mg/dL 0.50-1.04 TOTAL BILI (test code = 0711394821) 0.4 mg/dL 0.1-1.1 CALCIUM (test code = 3060182938) 8.7 mg/dL 8.6-10.6 T PROTEIN (test code = 7761017687) 6.4 g/dL 6.3-8.2 ALBUMIN (test code = 6662872656) 3.9 g/dL 3.5-5.0 ALK PHOS (test code = 2768086561) 82 U/L 34-122 ALTv (test code = 1742-6) 24 U/L 5-35 AST(SGOT) (test code = 4291620567) 17 U/L 13-40 eGFR (test code = 9053979642) mL/min/1.73m2 ABRAHAM (test code = ABRAHAM) Association [...] imaging tests). Lab Interpretation (test code = 58290-0) Abnormal [facility], [id number] 17:05:20* Test Item Value Reference Range Interpretation Comme [facility] LIPASE (test code = 8338819257) 75 U/L 0-220 Lab Interpretation (test cod e = 31339-7) Normal [facility]TT2022-04-26 17:00:21* Test Item Value Reference Range Interpretation Comme [facility] APTT Patient (test code = 3173-2) See_Comment [Automated message] The system which generated this result transmitted reference range: 23 - 38 Seconds. The reference range was not used to interpret this result as normal/abnormal. ABRAHAM (test code = ABRAHAM) The [facility] patient population mean normal value for aPTT is 30 seconds. Lab Interpretation (test code = 91771-5) Normal [facility] TIME / [id number] 16:58:23* Test Item Value Reference Range Interpretation Comme nts PROTIME PATIENT (test code = 5964-2) See_Comment [Automated messa ge] The system which generated this result transmitted reference range: 12.0 - 14.7 Seconds. The reference range was not used to interpret this result as normal/abnormal. INR (test code = 6301-6) Normal INR <1.1; Warfarin Therapeutic range 2.0 to 3.0 or 2.5 to 3.5, depending upon the indications. Lab Interpretation (test code = 48557-6) Normal [facility]
[2024-04-25] MEDS ORDERED: METHYLPREDNISOLONE 125 MG INJ ONE (04:14)
[2024-04-25 04:40] LABS: Absolute Basophils 0.1 K/uL (0-0.5); Absolute Eosinophils 0.7 K/uL (0-0.5); Absolute Lymphocytes (CBC) 3.4 K/uL (0.7-4.9); Absolute Neutrophil 9.2 K/uL (1.8-8.0); Basophils % 0.5 % (0-1.3); Eosinophils % 4.5 % (0-4.4); Hematocrit 35.5 % (36.0-45.0); Hemoglobin 11.6 g/dL (12.0-15.0); Lymphocytes % 23.7 % (15.3-44.8); MCHC 32.8 g/dL (32.0-36.0); MCV 82.5 fL (80-100); MPV 7.5 fL (7.6-11.3); Neutrophils % 64.3 % (41.7-73.7); Platelets 407 thou/uL (152-406); RBC Red Blood Cell Count 4.31 M/uL (3.86-4.86)
[2024-04-25 04:49] LABS: Anion Gap 10.2 mEq/L (5.0-15.0); Potassium 3.2 mEq/L (3.5-5.1); Troponin High Sensitivity 10.5 pg/mL (<58.9)
[2024-04-25] MEDS ORDERED: POTASSIUM 25 MEQ EFFERV TAB ONE (05:02)
--- NOTE | 2024-04-25 06:25 | RAD REPORT ---
EXAM: XR Chest, 1 View CLINICAL HISTORY: The patient is 48 years old and is Female; CHEST PAIN TECHNIQUE: Frontal view of the chest. COMPARISON: No relevant prior studies available. FINDINGS: Lungs: Prominent interstitial markings which may indicate interstitial edema. Pleural space: Left hemidiaphragm is somewhat obscured which can be seen with left pleural effusi on, as well as left lower lobe consolidation or atelectasis. No pneumothorax. Heart: Unremarkable. Mediastinum: Unremarkable. Normal mediastinal contour. Bones/joints: No acute findings. IMPRESSION: 1. Prominent interstitial markings which may indicate interstitial edema. 2. Left hemidiaphragm is somewhat obscured which can be seen with left pleural effusion, as well as left lower lobe consolidation or atelectasis. Electronically signed by: Vernon Mejia MD 04/25/2024 05:41 AM [facility] 8 Due to temporary technical issues with the [employer] reporting system, reports are being kasia d by the in-house radiologist without review as a courtesy to ensure prompt reporting the interpreting radiologist is fully responsible for the content of the report. Transcribed Date/Time: 04/25/2024 6:25 AM
--- NOTE | 2024-04-25 06:35 | EDPHYS ---
Physician Documentation [facility] Name: Airam Glasgow Age: 48 yrs Sex: Female : 1975 Arrival Date: 04/25/2024 Time: 03:41 Bed 15 Private MD: ED Physician Eddie Hernandez HPI: 04/25 04:18 This 48 yrs old Female presents to ER via Ambulatory with complaints of Breathing ms3 Difficulty. 04:18 48-year-old female with past medical history of bipolar disorder, COPD, depression, ms3 hypertension, hyperlipidemia presents to the emergency department for shortness of breath that began at 10:30 PM. Patient states she took a breathing treatment approximately 1.5 hours prior to arrival. Patient denies chest pain, nausea, vomiting. Patient states the cold air makes her symptoms worse. Patient denies any alleviating factors.. 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 - Infectious Disease History:: Denies. - Social history:: Smoking status: Patient/guardian denies using tobacco, Stopped _ months ago 6. ROS: 04:18 Constitutional: Negative for fever, and chills. Cardiovascular: Negative for chest ms3 pain, and palpitations. 04:18 Abdomen/GI: Negative for abdominal pain, nausea, vomiting, diarrhea, and constipation, MS/Extremity: Negative for injury and deformity, Skin: Negative for injury, rash, and discoloration, 04:18 Respiratory: Positive for shortness of breath, wheezing, Exam: 04:18 Constitutional: This is a well developed, well nourished patient who is awake, alert, ms3 and in no acute distress. Cardiovascular: Regular rate and rhythm with a normal S1 and S2. No gallops, murmurs, or rubs. Normal PMI, no JVD. No pulse deficits. Respiratory: Lungs have equal breath sounds bilaterally, clear to auscultation and percussion. No rales, rhonchi or wheezes noted. No increased work of breathing, no retractions or nasal flaring. Abdomen/GI: Soft, non-tender, with normal bowel sounds. No distension or tympany. No guarding or rebound. No evidence of tenderness throughout. Skin: Warm, dry with normal turgor. Normal color with no rashes, no lesions, and no evidence of cellulitis. 04:20 ECG was reviewed by the Attending Physician. ms3 Vital Signs: 03:55 BP 102 / 63; Pulse 82; Resp 20; Temp 97.8(O); Pulse Ox 100% on R/A; Weight 90.72 kg; oe Height 5 ft. 0 in. ; 04:49 BP 97 / 73; Pulse 88; Resp 19; Pulse Ox 100% on R/A; Pain 0/10; rg5 05:40 BP 120 / 77; Pulse 89; Resp 19; Pulse Ox 98% on R/A; rg5 06:12 BP 142 / 78; Pulse 94; Resp 19; Pulse Ox 98% on R/A; Pain 0/10; rg5 03:55 Body Mass Index 39.06 (90.72 kg, 152.4 cm) oe 04:49 Pain Scale: Adult rg5 06:12 Pain Scale: Adult rg5 MDM: 03:53 Medical Screening Exam initiated ms3 04:18 Differential diagnosis: CHF exacerbation, Chronic Obstructive Pulmonary Disease ms3 Myocardial Infarction pneumonia, pulmonary edema. 06:51 Data reviewed: vital signs, nurses notes, lab test result(s), EKG, radiologic studies, ms3 and as a result, I will admit patient. Consideration of Admission/Observation Patient was admitted/placed on observation. Management of patient was discussed with the following: Hospitalist: Tash Harper NP accepts on behalf of the hospitalist team. I considered the following discharge prescriptions or medication management in the emergency department Medications were administered in the Emergency Department. See MAR. Independent interpretation of the following test(s) in the Emergency Department EKG: See my EKG interpretation above. Counseling: I had a detailed discussion with the patient and/or guardian regarding the historical points, exam findings, and any diagnostic results supporting the discharge/admit diagnosis, lab results, radiology results, the need for further work-up and treatment in the hospital. ED course: Patient with dyspnea on ambulation to the restroom across the koehler. On auscultation patient is without wheezing. Chest x-ray shows interstitial markings. Likely heart failure. Will place patient observation with hospitalist.. 04/25 03:53 Order name: Basic Metabolic Panel; Complete Time: 04:55 ms3 04/25 03:53 Order name: CBC with Diff; Complete Time: 04:55 ms3 04/25 03:53 Order name: NT PRO-BNP; Complete Time: 04:55 ms3 04/25 03:53 Order name: Troponin HS; Complete Time: 04:55 ms3 04/25 07:53 Order name: T4 Free EDMS 04/25 07:53 Order name: Thyroid Stimulating Hormone EDMS 04/25 07:53 Order name: Urinalysis w/ reflexes EDMS 04/25 07:53 Order name: Basic Metabolic Panel EDMS 04/25 07:53 Order name: Basic Metabolic Panel EDMS 04/25 07:53 Order name: Basic Metabolic Panel EDMS 04/25 07:53 Order name: Basic Metabolic Panel EDMS 04/25 07:53 Order name: CBC with Automated Diff EDMS 04/25 07:53 Order name: CBC with Automated Diff EDMS 04/25 07:53 Order name: CBC with Automated Diff EDMS 04/25 07:53 Order name: CBC with Automated Diff EDMS 04/25 07:53 Order name: Lipid Profile EDMS 04/25 07:53 Order name: Lipid Profile EDMS 04/25 07:53 Order name: Magnesium EDMS 04/25 07:53 Order name: Magnesium EDMS 04/25 07:53 Order name: Magnesium EDMS 04/25 07:53 Order name: Magnesium EDMS 04/25 07:53 Order name: Phosphorus EDMS 04/25 07:53 Order name: Phosphorus EDMS 04/25 07:53 Order name: Phosphorus EDMS 04/25 07:53 Order name: Phosphorus EDMS 04/25 07:53 Order name: Troponin High Sensitivity EDMS 04/25 07:53 Order name: Troponin High Sensitivity EDMS 04/25 07:53 Order name: Troponin High Sensitivity EDMS 04/25 12:28 Order name: Glucose, Ancillary Testing EDMS 04/25 03:53 Order name: XRAY Chest (1 view) ms3 04/25 03:53 Order name: EKG; Complete Time: 03:54 ms3 04/25 03:53 Order name: Cardiac monitoring; Complete Time: 04:14 ms3 04/25 03:53 Order name: EKG - Nurse/Tech; Complete Time: 04:14 ms3 04/25 03:53 Order name: IV Saline Lock; Complete Time: 04:14 ms3 04/25 03:53 Order name: Labs collected and sent; Complete Time: 04:14 ms3 04/25 03:53 Order name: O2 Per Protocol; Complete Time: 04:14 ms3 04/25 03:53 Order name: O2 Sat Monitoring; Complete Time: 04:14 ms EC:20 Rate is 79 beats/min. Rhythm is regular. QRS Valentine is Normal. IN interval is normal. QRS ms3 interval is normal. Clinical impression: NSR w/ Non-specific ST/T Changes. Interpreted by me. Reviewed by me. Administered Medications: 04:15 Drug: MethylPrednisoLONE IVP 125 mg IVP once Route: IVP; Site: right antecubital; rg5 04:59 Follow up: Response: No adverse reaction rg5 05:08 Drug: Potassium Chloride PO Liquid 40 mEq PO once Route: PO; rg5 05:43 Follow up: Response: No adverse reaction rg5 Disposition Summary: 04/25/24 06:35 Hospitalization Ordered Notes: Hospitalization Status: Observation ms3 Provider: Kris Obregon ms3 Condition: Stable ms3 Problem: new ms3 Symptoms: are unchanged ms3 Bed/Room Type: Standard ms3 Location: Telemetry/MedSurg (observation)(04/25/24 13:40) eb Room Assignment: 430(04/25/24 13:40) eb Diagnosis - Dyspnea, unspecified ms3 - Essential (primary) hypertension ms3 - Obesity, unspecified ms3 Forms: - Medication Reconciliation Form ms3 - SBAR form ms3 - Leadership Thank You Letter ms3 Signatures: Dispatcher [employer] EDNH Paula Posadas Marcus, DO DO ms3 Deena Meraz cp4 Dionte Le, RN RN rg5 Corrections: (The following items were deleted from the chart) 06:43 06:35 Telemetry/MedSurg (observation) ms3 cp4 06:43 06:35 ms3 cp4 13:40 06:43 [facility] ER HOLD cp4 eb 13:40 06:43 ERHOLD- cp4 eb
--- NOTE | 2024-04-25 06:35 | ER ---
Nurse's Notes [facility] Name: Airam Glasgow Age: 48 yrs Sex: Female : 1975 Arrival Date: 04/25/2024 Time: 03:41 Bed 15 Private MD: Diagnosis: Dyspnea, unspecified;Essential (primary) hypertension;Obesity, unspecified Presentation: 04/25 03:46 Chief complaint: Patient states: having shortness of breath started 2 hrs ago, had a rg5 breathing treatment at home but only relieves me for about 1 hr. 03:46 Coronavirus screen: Client denies travel out of the [place] in the last 14 days. Ebola rg5 Screen: Patient negative for fever greater than or equal to 101.5 degrees Fahrenheit, and additional compatible Ebola Virus Disease symptoms. Initial Sepsis Screen: Does the patient meet any 2 criteria? No. Patient's initial sepsis screen is negative. Does the patient have a suspected source of infection? No. Patient's initial sepsis screen is negative. Risk Assessment: Do you want to hurt yourself or someone else? Patient reports no desire to harm self or others. Onset of symptoms was April 25, 2024. 03:46 Method Of Arrival: Ambulatory rg5 03:46 Acuity: ADALGISA 3 rg5 Triage Assessment: 03:57 General: Appears uncomfortable, Behavior is calm, cooperative, appropriate for age. rg5 Pain: Denies pain. EENT: No deficits noted. Neuro: Level of Consciousness is awake, alert, obeys commands. Cardiovascular: Denies chest pain, Patient's skin is warm and dry. Respiratory: Reports shortness of breath Airway is patent Trachea midline Respiratory effort is even, unlabored, Respiratory pattern is regular, symmetrical, Breath sounds are clear bilaterally. Onset: The symptoms/episode began/occurred gradually, the patient has mild shortness of breath. GI: Abdomen is round obese, Abd is soft and non tender. : No signs and/or symptoms were reported regarding the genitourinary system. Derm: No signs and/or symptoms reported regarding the dermatologic system. Musculoskeletal: Amputation of Circulation, motion, and sensation intact. Range of motion: intact in all extremities. 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 - Infectious Disease History:: Denies. - Social history:: Smoking status: Patient/guardian denies using tobacco, Stopped _ months ago 6. Screenin:57 [facility] ED Fall Risk Assessment (Adult) History of falling in the last 3 months, rg5 including since admission No falls in past 3 months (0 pts) Confusion or Disorientation Intoxicated or Sedated No (0 pts) Impaired Gait No (0 pts) Mobility Assist Device Used No (0 pt) Altered Elimination No (0 pt) Score/Fall Risk Level 0 - 2 = Low Risk Oriented to surroundings, Maintained a safe environment, Hourly rounding (assess needs \T\ fall precautionary measures) done. 03:57 Abuse screen: Denies threats or abuse. Nutritional screening: No deficits noted. rg5 Tuberculosis screening: No symptoms or risk factors identified. Assessment: 04:02 Reassessment: see triage assessment. Cardiovascular: Denies. Respiratory: Reports rg5 shortness of breath Airway is patent Breath sounds are clear bilaterally. 04:02 Cardiovascular: Rhythm is sinus rhythm. rg5 05:11 Reassessment: No changes from previously documented assessment. Patient and/or family rg5 updated on plan of care and expected duration. Pain level reassessed. Patient is alert, oriented x 3, equal unlabored respirations, skin warm/dry/pink. 06:14 Reassessment: Patient and/or family updated on plan of care and expected duration. Pain rg5 level reassessed. Patient is alert, oriented x 3, equal unlabored respirations, skin warm/dry/pink. Vital Signs: 03:55 BP 102 / 63; Pulse 82; Resp 20; Temp 97.8(O); Pulse Ox 100% on R/A; Weight 90.72 kg; oe Height 5 ft. 0 in. ; 04:49 BP 97 / 73; Pulse 88; Resp 19; Pulse Ox 100% on R/A; Pain 0/10; rg5 05:40 BP 120 / 77; Pulse 89; Resp 19; Pulse Ox 98% on R/A; rg5 06:12 BP 142 / 78; Pulse 94; Resp 19; Pulse Ox 98% on R/A; Pain 0/10; rg5 03:55 Body Mass Index 39.06 (90.72 kg, 152.4 cm) oe 04:49 Pain Scale: Adult rg5 06:12 Pain Scale: Adult rg5 ED Course: 03:45 Patient arrived in ED. jj6 03:46 Dionte Le, RN is Primary Nurse. rg5 03:48 Eddie Hernandez DO is Attending Physician. ms3 03:57 Triage completed. rg5 03:57 Arm band placed on. rg5 03:57 Patient has correct armband on for positive identification. Bed in low position. Call rg5 light in reach. Side rails up X 1. Door closed. Noise minimized. Warm blanket given. 03:57 No provider procedures requiring assistance completed. rg5 04:14 Basic Metabolic Panel Sent. oe 04:14 CBC with Diff Sent. oe 04:14 NT PRO-BNP Sent. oe 04:14 Troponin HS Sent. oe 04:15 Inserted saline lock: 22 gauge in right antecubital area, using aseptic technique. oe Blood collected. Flushed with 10 mL NS. 04:15 EKG done, by ED staff, reviewed by Eddie Hernandez DO. oe 04:53 XRAY Chest (1 view) In Process Unspecified. EDMS 06:34 Kris Obregon is Hospitalizing Provider. ms3 07:00 Patient admitted, IV remains in place. ph Administered Medications: 04:15 Drug: MethylPrednisoLONE IVP 125 mg IVP once Route: IVP; Site: right antecubital; rg5 04:59 Follow up: Response: No adverse reaction rg5 05:08 Drug: Potassium Chloride PO Liquid 40 mEq PO once Route: PO; rg5 05:43 Follow up: Response: No adverse reaction rg5 Medication: 04:03 VIS not applicable for this client. rg5 Outcome: 06:35 Decision to Hospitalize by Provider. ms3 07:00 Admitted to ER Hold. Please see [facility] for further documentation. ph 07:00 Condition: good 07:00 Instructed on the need for admit, 15:00 Patient left the ED. eb Signatures: Dispatcher [employer] Chary Lemus, RN RN Yifan Brown Elizabeth eb Sims, Marcus, DO DO ms3 Tiffanie Bravo jj6 Dionte Le RN RN rg5
[2024-04-25] MEDS ORDERED: ACETAMINOPHEN 325 MG TABLET PO PRN (07:43)
--- NOTE | 2024-04-25 07:55 | P.HP ---
Certification for Inpatient Patient admitted to: Observation With expected LOS: <2 Midnights Patient will require the following post-hospital care: None Practitioner: I am a practitioner with admitting privileges, knowledge of patient current condition, hospital course, and medical plan of care. Services: Services provided to patient in accordance with Admission requirements found in Title 42 Section 412.3 of the Code of Federal Regulations Patient History Date of Service: 04/25/24 Reason for admission: acute hypoxic respiratory distress secondary to COPD exacerbation History of Present Illness: Airam Glasgow is a 48 year old female with Pmhx Bipolar disorder, COPD, Deaf , depressive disorder, High Cholesterol, Hypertensive disorder who presents to the ED with chief complaint of shortness of breath at 10:30 last night. She has a history of COPD using inhaler and nebulizers as needed. On evaluation breath sounds are clear bilaterally, on room air with satisfactory oxygenation, able to speak clearly without distress. Laboratory evaluation significant for WBC 14.4, H&H 11/35, K 3.2. Initial vitals BP 102 / 63; Pulse 82; Resp 20; Temp 97.8(O); Pulse Ox 100% on R/A; Chest x-ray reports "prominent interstitial markings which may indicate interstitial edema. 2. Left hemidiaphragm is somewhat obscured which can be seen with left pleural effusion, as well as left lower lobe consolidation or atelectasis." Airam will be admitted to hospitalist service for further evaluation and treatment of acute hypoxic respiratory distress secondary to COPD exacerbation Allergies cephalexin [From Keflex] Adverse Reaction (Unknown, Verified 04/25/24 15:24) Hives/Rash Penicillins Adverse Reaction (Unknown, Verified 04/25/24 15:24) Hives/Rash Home Medications: Albuterol Neb [Proventil 0.083% Neb Soln] 2.5 mg IH Q4HP PRN 04/25/24 Albuterol Sulfate [Proair Respiclick] 90 mcg IH Q6HP PRN 04/25/24 Atorvastatin Calcium [Lipitor] 10 mg PO BEDTIME 04/25/24 Brexpiprazole [Rexulti] 2 mg PO BEDTIME 04/25/24 Ergocalciferol (Vitamin D2) [Vitamin D2] 50,000 unit PO EVERY 3RD DAY 04/25/24 Fenofibrate [Tricor] 54 mg PO BEDTIME 04/25/24 Fluticasone Propion/Salmeterol [Advair 250-50 Diskus] 100 mcg IH BID 04/25/24 Lisinopril/Hydrochlorothiazide [Lisinopril-Hctz 20-25 mg Tab] 1 tab PO BEDTIME 04/25/24 Montelukast Sodium 10 mg PO BEDTIME 04/25/24 Ondansetron [Zofran] 8 mg PO Q8H PRN 04/25/24 Semaglutide [Ozempic] 0.5 mg SQ EVERY 7TH DAY 04/25/24 Sertraline HCl 100 mg PO BEDTIME 04/25/24 buPROPion HCL [Bupropion HCl Sr] 150 mg PO BEDTIME 04/25/24 - Past Medical/Surgical History -: HTN -: HLD -: COPD -: bipolar -: Depressive disorder -: Deaf -: Tonsillectomy -: Tubal ligation -: cholecystectomy -: section - Family History Father -: Heart disease, Hypertension, Diabetes Mother -: Diabetes, Other (see notes) Notes: Lupus - Social History Smoking Status: Former smoker Alcohol use: No CD- Drugs: No Review of Systems Other: per HPI Physical Examination - Physical Exam General: Alert, In no apparent distress, Oriented x3 HEENT: Atraumatic, Normocephalic, PERRLA Neck: Supple Respiratory: Clear to auscultation bilaterally, Normal air movement Cardiovascular: Normal pulses, Regular rate/rhythm, Normal S1 S2 Capillary refill: <2 Seconds Gastrointestinal: Distended (Obese), Tenderness Musculoskeletal: No clubbing Integumentary: No rashes Neurological: Normal speech, Normal tone - Studies Laboratory Data (last 24 hrs) 04/25/24 04/25/24 04:04 04:04 WBC 14.40 H Hgb 11.6 L Hct 35.5 L Plt Count 407 H Sodium 136 Potassium 3.2 L BUN 18 Creatinine 1.00 Glucose 109 H Assessment and Plan - Plan Assessment and Plan Acute hypoxic respiratory distress 2/2 COPD exacerbation Chest pain with shortness of breath Leukocytosis likely 2/2 inflammation -Admit under observation -WBC 14.4 -Steroids, DuoNebs -Troponin 10.5, serial pending -Oxygen protocol ordered, currently on RA Hypokalemia -K 3.2 -monitor daily and Replace PRN Diabetes mellitus -On weekly Ozempic, will hold -Serum glucose 119 -Accu-Chek with sliding scale insulin Bipolar disorder Deaf depressive disorder High Cholesterol Hypertensive disorder -Continue home medications -supportive care Obesity class II 2/2 sedentary lifestyle -calorie and exercise education provided -limited with COPD DVT PPx Lovenox Full code LOS 24-hour OBS Discharge Plan: Home Plan to discharge in: 24 Hours - Advance Directives Does patient have a Living Will: No Does patient have a Durable POA for Healthcare: No
[2024-04-25] MEDS: ENOXAPARIN 40 MG/0.4 ML SQ SCH (09:00)
[2024-04-25] MEDS ORDERED: ENOXAPARIN 40 MG/0.4 ML SQ ONE (10:07)
[2024-04-25] MEDS: INSULIN REGULAR (HUMAN) 100 UNIT/ML SQ SCH (11:30)
[2024-04-25 15:07] VITALS: O2SAT 98
[2024-04-25] MEDS: METHYLPREDNISOLONE 40 MG INJ IV SCH (15:47)
[2024-04-25 18:44] LABS: Specific Gravity 1.016 (1.005-1.030); Urine Bilirubin NEGATIVE (Negative); Urine Blood Negative (Negative); Urine Clarity Clear (Clear); Urine Color Colorless (Yellow); Urine Glucose 4+ (Over) (Negative); Urine Ketones NEGATIVE (Negative); Urine Microscopic Reflex YN NO UMIC; Urine Nitrite NEGATIVE (Negative); Urine Protein NEGATIVE (Negative); Urine Urobilinogen Normal (Normal); Urine pH 6.5 (5.0-7.0)
[2024-04-25] MEDS: MONTELUKAST 10 MG TAB PO SCH (20:28)
[2024-04-25] MEDS: hydroCHLOROthiazide 25 MG TAB PO SCH (20:35)
[2024-04-25] MEDS: ATORVASTATIN 10 MG TAB PO SCH (20:36)
[2024-04-25] MEDS: BUPROPRION HCL S.R. 150MG TAB PO SCH (20:37)
[2024-04-25] MEDS: DULERA 100/5 (MOMETASONE/FORMOTEROL) INHALER IH SCH (20:37)
[2024-04-25] MEDS: lisinopriL 20 MG TAB PO SCH (20:37)
[2024-04-25] MEDS: SERTRALINE HCL 100 MG TAB PO SCH (20:37)
[2024-04-25] MEDS: FENOFIBRATE 48 MG TAB PO SCH (21:00)
[2024-04-26] MEDS: MELATONIN 3 MG TABLET PO SCH (02:27)
[2024-04-26 05:21] LABS: Absolute Lymphocytes (CBC) 1.2 K/uL (0.7-4.9); Absolute Monocytes 0.7 K/uL (0.1-1.3); Absolute Neutrophil 13.9 K/uL (1.8-8.0); Basophils % 0.1 % (0-1.3); Eosinophils % 0.1 % (0-4.4); Hematocrit 35.8 % (36.0-45.0); Hemoglobin 11.7 g/dL (12.0-15.0); Lymphocytes % 7.6 % (15.3-44.8); MCH 27.5 pg (27.0-35.0); MCHC 32.8 g/dL (32.0-36.0); MCV 83.9 fL (80-100); MPV 7.3 fL (7.6-11.3); Monocytes % 4.7 % (3.3-12.3); Neutrophils % 87.5 % (41.7-73.7); Nucleated Red Blood Cells % 0.1 % (0-0); Platelets 404 thou/uL (152-406); RBC Red Blood Cell Count 4.27 M/uL (3.86-4.86); Red Cell Distribution Width 14.7 % (12.1-15.2)
[2024-04-26 05:53] LABS: Anion Gap 12.4 mEq/L (5.0-15.0); Magnesium 2.1 mg/dL (1.6-2.4); Phosphorus 3.8 mg/dL (2.5-4.9); Potassium 4.4 mEq/L (3.5-5.1); Thyroid Stimulating Hormone 0.716 uIU/mL (0.358-3.740)
[2024-04-26] MEDS: ALBUTEROL 2.5 MG/3 ML NEB SOL NEB SCH (07:47)
[2024-04-26] MEDS: IPRATROPIUM BROM 0.5MG/2.5ML NEB SCH (07:47)
--- NOTE | 2024-04-26 09:54 | P.DS ---
Admission Date: 04/25/24 Discharge Date: 04/26/24 Disposition: ROUTINE DISCHARGE Discharge Condition: GOOD Reason for Admission: acute hypoxic respiratory distress secondary to COPD exacerbation Brief History of Present Illness: Diagnosis Acute hypoxic respiratory distress 2/2 COPD exacerbation Chest pain with shortness of breath Leukocytosis likely 2/2 inflammation/steroid use Hypokalemia Diabetes mellitus Bipolar disorder Deaf depressive disorder High Cholesterol Hypertensive disorder Obesity class II 2/2 sedentary lifestyle HPI 04/25/2024 Airam Glasgow is a 48 year old female with Pmhx Bipolar disorder, COPD, Deaf , depressive disorder, High Cholesterol, Hypertensive disorder who presents to the ED with chief complaint of shortness of breath at 10:30 last night. She has a history of COPD using inhaler and nebulizers as needed. On evaluation breath sounds are clear bilaterally, on room air with satisfactory oxygenation, able to speak clearly without distress. Laboratory evaluation significant for WBC 14.4, H&H 11/35, K 3.2. Initial vitals BP 102 / 63; Pulse 82; Resp 20; Temp 97.8(O); Pulse Ox 100% on R/A; Chest x-ray reports "prominent interstitial markings which may indicate interstitial edema. 2. Left hemidiaphragm is somewhat obscured which can be seen with left pleural effusion, as well as left lower lobe consolidation or atelectasis." Airam will be admitted to hospitalist service for further evaluation and treatment of acute hypoxic respiratory distress secondary to COPD exacerbation Hospital Course: Patient was admitted and treated for the following diagnosis Acute hypoxic respiratory distress 2/2 COPD exacerbation Chest pain with shortness of breath Leukocytosis likely 2/2 inflammation -Admit under observation -WBC elevated 2/2 steroid use -Tolerated Steroids, DuoNebs -Troponin trended flat -Remained on RA Hypokalemia -K resolved Diabetes mellitus -On weekly Ozempic, restart at discharge -Serum glucose elevated with steroids Bipolar disorder Deaf depressive disorder High Cholesterol Hypertensive disorder -Continued home medications -Provided supportive care Obesity class II 2/2 sedentary lifestyle -calorie and exercise education provided -activity limited with COPD On 04/26/2024, Airam was seen on morning rounds and deemed hemodynamically stable. Dr. Albert evaluated and cleared her for discharge with follow-up in his office. Prednisone sent to pharmacy. Physical Exam General: Alert and Oriented x3, NAD HEENT: Atraumatic, Normocephalic, PERRLA, EOMI Respiratory: Clear to auscultation bilaterally, Normal air movement Cardiovascular: Normal pulses present, RRR, Normal S1 S2 Gastrointestinal: Distended (Obese), Tenderness, active bowel sounds Musculoskeletal: No clubbing Integumentary: No rashes Neurological: Normal speech, Normal tone Vital Signs/Physical Exam: Temp Pulse Resp BP Pulse Ox 98.0 F 87 16 131/66 98 04/26/24 08:00 04/26/24 08:00 04/26/24 08:00 04/26/24 08:00 04/26/24 08:00 Laboratory Data at Discharge: WBC 15.90 thou/uL (4.3-10.9) H 04/26/24 05:02 Hgb 11.7 g/dL (12.0-15.0) L 04/26/24 05:02 Hct 35.8 % (36.0-45.0) L 04/26/24 05:02 Plt Count 404 thou/uL (152-406) 04/26/24 05:02 Sodium 137 mEq/L (136-145) 04/26/24 05:02 Potassium 4.4 mEq/L (3.5-5.1) D 04/26/24 05:02 BUN 26 mg/dL (7-18) H 04/26/24 05:02 Creatinine 1.10 mg/dL (0.55-1.02) H 04/26/24 05:02 Glucose 267 mg/dL (74-106) H 04/26/24 05:02 Phosphorus 3.8 mg/dL (2.5-4.9) 04/26/24 05:02 Magnesium 2.1 mg/dL (1.6-2.4) 04/26/24 05:02 Triglycerides 176 mg/dL (<150) H 04/26/24 05:02 Cholesterol 148 mg/dL (<200) 04/26/24 05:02 HDL Cholesterol 46 mg/dL (40-60) 04/26/24 05:02 Cholesterol/HDL Ratio 3.22 04/26/24 05:02 Home Medications: Albuterol Neb [Proventil 0.083% Neb Soln] 2.5 mg IH Q4HP PRN 04/25/24 Albuterol Sulfate [Proair Respiclick] 90 mcg IH Q6HP PRN 04/25/24 Atorvastatin Calcium [Lipitor*] 10 mg PO BEDTIME 04/25/24 Brexpiprazole [Rexulti] 2 mg PO BEDTIME 04/25/24 Ergocalciferol (Vitamin D2) [Vitamin D2] 50,000 unit PO EVERY 3RD DAY 04/25/24 Fenofibrate [Tricor*] 54 mg PO BEDTIME 04/25/24 Fluticasone Propion/Salmeterol [Advair 250-50 Diskus] 100 mcg IH BID 04/25/24 Lisinopril/Hydrochlorothiazide [Lisinopril-Hctz 20-25 mg Tab] 1 tab PO BEDTIME 04/25/24 Montelukast Sodium 10 mg PO BEDTIME 04/25/24 Ondansetron [Zofran (Odt)*] 8 mg PO Q8H PRN 04/25/24 Semaglutide [Ozempic] 0.5 mg SQ EVERY 7TH DAY 04/25/24 Sertraline HCl 100 mg PO BEDTIME 04/25/24 buPROPion HCL [Bupropion HCl Sr] 150 mg PO BEDTIME 04/25/24 predniSONE [Deltasone] 20 mg PO DAILY 3 Days #3 tab 04/26/24 New Medications: predniSONE [Deltasone] 20 mg PO DAILY 3 Days #3 tab Physician Discharge Instructions: 1. Please call and schedule a follow-up appointment with your PCP in 3-5 days - Please follow-up with your PCP for medication refills/adjustments 2. Please call and schedule a follow-up appointment with Dr. Albert in 3-5 days 3. Continue regular diet 4. No activity restrictions 5. Return to the ED if symptoms worsen New medications Prednisone 20 mg daily x 3 days Diet: Regular Activity: Ad mercedes Followup: Abraham Albert MD [ACTIVE - CAN ADMIT] - 2-3 Days Kalpesh Golden MD [Primary Care Provider] - 2-3 Days
[2024-04-26 09:55] VITALS: BMI 39.0
[2024-04-26 11:20] LABS: Differential Total Cells Count 100
[2024-04-26 11:21] LABS: Atypical Lymphocytes 2 %; Band Neutrophils 1 % (0-1); Blood Morphology Comment NOT SEEN (NOT SEEN); Lymphocytes 9 % (15-42); Monocytes 6 % (0-10); Platelet Estimate ADEQ; Segmented Neutrophils 82 % (40-80)
--- NOTE | 2024-04-26 12:00 | EKG ---
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
[2024-04-26 12:43] VITALS: BP 132/68; TEMP 98.1
== END 2024-04-26 13:28 | disposition home or self-care (01) ==
LOC: ER 03:41 → ERHOLD 07:43 → 4TH 14:30
PROVIDERS: ADMIT Internal Medicine; ATTEND Internal Medicine
DX: J96.01 Acute respiratory failure with hypoxia (principal); J44.1 Chronic obstructive pulmonary disease with (acute) exacerbation; F32.A Depression, unspecified; E78.00 Pure hypercholesterolemia, unspecified; I10 Essential (primary) hypertension; F31.9 Bipolar disorder, unspecified; E87.6 Hypokalemia; R07.9 Chest pain, unspecified; D72.829 Elevated white blood cell count, unspecified; E11.9 Type 2 diabetes mellitus without complications; H91.93 Unspecified hearing loss, bilateral; E66.9 Obesity, unspecified; Z88.0 Allergy status to penicillin; Z87.891 Personal history of nicotine dependence; Z68.39 Body mass index [BMI] 39.0-39.9, adult; Z79.85 Long-term (current) use of injectable non-insulin antidiabetic drugs
CPT/HCPCS: 93005; 85025 ×2; 80048 ×2; 36415 ×2; 83735; 84100; 80061; 82947 ×5; 84443; 81003; 84484 ×3; 84439; 83880; 71045; 94640; 96374; 99285; J3535; J7613; J7644; J1650 ×2; J2919 ×4; G0378

== ENCOUNTER 2024-05-02 12:19 | Inpatient (IN) | payer BC ==
--- OUTSIDE RECORDS SUMMARY | 2024-05-02 12:23 | XMS REPORT | Continuity of Care Document ---
Author Name Unknown Address [address] [facility] [address] [place] [address] [facility] thconnect Address [address] [facility] [place] [address] Care Team Providers Care Family Welfare Social Work Professor Name Role Phone Noemi Avalos Primary Care Physician Doctor Unassigned, [place] Attending Clinician U ROC Kulkarin Attending Clinician UnavailRoc Chin MD Attending Clinician [phone] DIOR MALONE Attending Clinician Unavailable Dior Goode Attending Clinician [phone] Franklin Esparza PA-C Attending Clinician [phone] LUCIANO FERNANDEZ Attending Clinician Unavailable Luciano Fernandez DO Attending Clinician [phone] Nurse, [facility] Attending Clinician Un available Brayden Dao MD Attending Clinician [phone] BRAYDEN DAO Attending Clinician Unavailable JENAE MEDINA Attending Clinician Unavailhermelinda colon Provider, [facility] Attending Clinician Un available Jenae Castellanos Attending Clinician [phone] LUCIANO FERNANDEZ Admitting Clinician Unavailable BRAYDEN DAO Admitting Clinician Unavailable Payers Payer Name Policy Type Policy Number Effective Date Expirati on Date Source Problems Condition Name Condition Details Condition Category Status Onset Date Resolution Date Last Treatment Date Treating Clinician Comments Source Excessive and frequent menstruati on Excessive and Frequent Menstruati on Problem Active 1-20 00:00: 00 [facility] Anxiety Anxiety Problem Active 2023-03 00:00: [...] active problems No known active problems Disease [facility] Allergies, Adverse Reactions, Alerts Allergy Name Allergy Type Status Severity Reaction(s) Onset Date Inactive Date Treating Clinician Comments Source penicill in G Propensi ty to adverse reaction to drug Active 04-26 00:00: 00 Nate Alvarenga Diazepam Propensi ty to adverse reaction s Active Other - See comments 2020-03 00:00: 00 Patient stated that "valium knocks me out for 2-3 days" [facility] DIAZEPAM DRUG INGREDI Active Other-Cmnt 2020-03 00:00: 00 [facility] Penicill ins Propensi ty to adverse reaction s Active Anaphylaxis 7-03 00:00: 00 [facility] Penicill ins Propensi ty to adverse reaction s Active Anaphylaxis 7-03 00:00: 00 [facility] Cephalex in Propensi ty to adverse reaction s Active Anaphylaxis 09-02 00:00: [address] [facility] Penicill ins Propensi ty to adverse reaction s Active Anaphylaxis 09-02 00:00: 00 [facility] CEPHALEX IN DRUG INGREDI Active Anaphylaxis 09-02 00:00: 00 [facility] PENICILL INS Drug Class Active Anaphylaxis 09-02 00:00: 00 [facility] NO KNOWN ALLERGIE S Drug Class Active [facility] PENICILL INS Allergy to substanc e Active [facility] KEFLEX Allergy to substanc e Active [facility] Social History Social Habit Start Date Stop Date Quantity Comments Source History of tobacco use Smokes tobacco daily [facility] Sexual orientation [facility] Exposure to SARS-CoV-2 (event) 2021-11-15 00:00:00 2021-11-25 20:45:[address] [facility] History of Social function 2021-11-01 00:00:00 2021-11-01 00:00:00 [facility] Tobacco use and exposure 2021-02-12 00:00:00 2021-02-12 00:00:00 Smokeless tobacco non-user [facility] Sex Assigned At 1975 00:00:00 1975 00:00:00 [facility] Smoking Status Start Date Stop Date Source Former Smoker [facility] Smokes tobacco daily 2021-02-12 00:00:00 [facility] Medications Ordered Medication Name Filled Medication Name Start Date Stop Date Current Medication? Ordering Clinician Indication Dosage Frequency Signature (SIG) Comments Components Source azithromyci n 250 mg tablet 04-26 00:00: 00 Yes 1mg Nate Alvarenga ketorolac 30 mg/mL (1 mL) injection solution Inject 1 mL every 6 hours by intramuscul ar route. ketorolac 30 mg/mL (1 mL) injection solution Inject 1 mL every 6 hours by intramuscul ar route. 03-26 09:34: 06 No 1mL Q6H ketorolac 30 mg/mL (1 mL) injection solution Inject 1 mL every 6 hours by intramuscu lar route. [facility] diclofenac 75 mg EC tablet 11-26 00:00: 00 Yes [id number] 75mg Take 1 tablet by mouth in the morning and 1 tablet in the evening. Take with meals. [facility] ketorolac (TORADOL) injection 30 mg 11-01 23:15: 00 11-01 22:13 :00 No [id number] 30mg [facility] cyclobenzap rine 10 mg tablet 11-01 00:00: 00 Yes [id number] 10mg Take 1 tablet by mouth 3 (three) times daily as needed for Muscle Spasms. [facility] methylpredn isolone sod succ (SOLU-MEDRO L) injection 125 mg 06-26 23:00: 00 Yes 125mg 125 mg, Intravenou s, Q6H, First dose on Fri06/26/21 at 1800, Until Discontinu ed, Routine [facility] ipratropium -albuteroL (DUONEB) 0.5 mg-3 mg(2.5 mg base)/3 mL nebulizer solution 3 mL 06-26 18:15: 00 06-26 17:55 :00 No 3mL 3 mL, Inhalation , ONCE, 1 dose, On Fri06/26/21 at 1315, Routine [facility] ipratropium -albuteroL (DUONEB) 0.5 mg-3 mg(2.5 mg base)/3 mL nebulizer solution 3 mL 06-26 17:00: 00 Yes 3mL 3 mL, Inhalation , QID, First dose on Fri06/26/21 at 1200, Until Discontinu ed, Routine [facility] methylPREDN ISolone (MEDROL, BELÉN,) 4 mg tablets 06-26 00:00: 00 Yes [id number] Take by mouth SEE-INSTRU CTIONS. follow package directions [facility] albuterol 2.5 mg /3 mL (0.083 %) nebulizer solution 06-26 00:00: 00 07-11 04:59 :00 No [id number] 2.5mg Inhale 3 mL every 4 (four) hours for 14 days. May also nebulize one extra every 6 hours. [facility] LISINOPRIL ORAL 2020-03 11:27: 32 Yes Take by mouth. [facility] LISINOPRIL ORAL 09-02 19:24: 49 Yes Take by mouth. [facility] sertraline HCl (ZOLOFT ORAL) 09-02 19:24: 49 Yes Take by mouth. [facility] quetiapine fumarate (SEROQUEL ORAL) 09-02 19:24: 49 Yes Take by mouth. [facility] MAGNESIUM ORAL 09-02 19:24: 49 Yes Take by mouth. [facility] atorvastati n calcium (ATORVASTAT IN ORAL) 09-02 19:24: 49 Yes Take by mouth. [facility] traMADoL 50 mg tablet 09-02 00:00: 00 Yes [id number] 50mg Take 1 tablet by mouth every 4 (four) hours as needed (pain requiring narcotic). Indication s: acute pain [facility] albuterol sulfate 2.5 mg/3 [...] puffs every 4 hours by inhalation route. [facility] atorvastati n 10 mg tablet Take 1 tablet every day by oral route. atorvastati n 10 mg tablet Take 1 tablet every day by oral route. No 1 Q1D atorvastat in 10 mg tablet Take 1 tablet every day by oral route. [facility] bupropion HCl 150 mg tablet,12 hr sustained-r elease(smok ing deterrent) Take 1 tablet twice a day by oral route. bupropion HCl 150 mg tablet,12 hr sustained-r elease(smok ing deterrent) Take 1 tablet twice a day by oral route. No 1 BID bupropion HCl 150 mg tablet,12 hr sustained- release(sm oking deterrent) Take 1 tablet twice a day by oral route. [facility] doxepin 100 mg capsule Take 1 capsule every day by oral route. doxepin 100 mg capsule Take 1 capsule every day by oral route. No 1capsul e(s) Q1D doxepin 100 mg capsule Take 1 capsule every day by oral route. [facility] ergocalcife rol (vitamin D2) 1,250 mcg (50,000 unit) capsule Take by oral route. ergocalcife rol (vitamin D2) 1,250 mcg (50,000 unit) capsule Take by oral route. No ergocalcif yazmin (vitamin D2) 1,250 mcg (50,000 unit) capsule Take by oral route. [facility] fenofibrate 54 mg tablet Take 1 tablet every day by oral route. fenofibrate 54 mg tablet Take 1 tablet every day by oral route. No 1 Q1D fenofibrat e 54 mg tablet Take 1 tablet every day by oral route. [facility] gabapentin 100 mg capsule Take 1 capsule 3 times a day by oral route. gabapentin 100 mg capsule Take 1 capsule 3 times a day by oral route. No 1capsul e(s) TID gabapentin 100 mg capsule Take 1 capsule 3 times a day by oral route. [facility] lisinopril 20 mg-hydrochl orothiazide 25 mg tablet Take 1 tablet every day by oral route. lisinopril 20 mg-hydrochl orothiazide 25 mg tablet Take 1 tablet every day by oral route. No 1 Q1D lisinopril 20 mg-hydroch lorothiazi de 25 mg tablet Take 1 tablet every day by oral route. [facility] montelukast 10 mg tablet Take 1 tablet every day by oral route. montelukast 10 mg tablet Take 1 tablet every day by oral route. No 1 Q1D montelukas t 10 mg tablet Take 1 tablet every day by oral route. [facility] Ozempic 0.25 mg or 0.5 mg (2 mg/3 mL) subcutaneou s pen injector Inject by subcutaneou s route. Ozempic 0.25 mg or 0.5 mg (2 mg/3 mL) subcutaneou s pen injector Inject by subcutaneou s route. No Ozempic 0.25 mg or 0.5 mg (2 mg/3 mL) subcutaneo us pen injector Inject by subcutaneo us route. [facility] Rexulti 2 mg tablet Take 1 tablet every day by oral route. Rexulti 2 mg tablet Take 1 tablet every day by oral route. No 1 Q1D Rexulti 2 mg tablet Take 1 tablet every day by oral route. [facility] sertraline 100 mg tablet Take 1 tablet every day by oral route. sertraline 100 mg tablet Take 1 tablet every day by oral route. No 1 Q1D sertraline 100 mg tablet Take 1 tablet every day by oral route. [facility] varenicline tartrate 1 mg tablet Take 1 tablet twice a day by oral route. varenicline tartrate 1 mg tablet Take 1 tablet twice a day by oral route. No 1 BID vareniclin e tartrate 1 mg tablet Take 1 tablet twice a day by oral route. [facility] acetaminoph en 300 mg-codeine 30 mg [...] and then every 6hrs thereafter as needed. [facility] Celebrex 200 mg capsule Take 1 capsule every day by oral route as directed for 1 day. Celebrex 200 mg capsule Take 1 capsule every day by oral route as directed for 1 day. No 1capsul e(s) Q1D Celebrex 200 mg capsule Take 1 capsule every day by oral route as directed for 1 day. [facility] imiquimod 5 % topical cream packet APPLY TO THE AFFECTED AREA(S) BY TOPICAL ROUTE 3 TIMES PER WEEK @ bedtime imiquimod 5 % topical cream packet APPLY TO THE AFFECTED AREA(S) BY TOPICAL ROUTE 3 TIMES PER WEEK @ bedtime No imiquimod 5 % topical cream packet APPLY TO THE AFFECTED AREA(S) BY TOPICAL ROUTE 3 TIMES PER WEEK @ bedtime [facility] Valium 10 mg tablet Take 1 tablet as needed by oral route as directed for 2 days. Valium 10 mg tablet Take 1 tablet as needed by oral route as directed for 2 days. No 1 Valium 10 mg tablet Take 1 tablet as needed by oral route as directed for 2 days. [facility] Vital Signs Vital Name Observation Time [...] Systolic blood pressure 2021-11-26 19:12:00 150 mm[Hg] [facility] Diastolic blood pressure 2021-11-26 19:12:00 90 mm[Hg] [facility] Heart rate 2021-11-26 19:12:00 92 /min [facility] Body height 2021-11-26 19:12:00 152.4 cm [facility] Body weight 2021-11-26 19:12:00 100.699 kg [facility] BMI 2021-11-26 19:12:00 43.36 kg/m2 [facility] Systolic blood pressure 2021-11-01 21:38:00 116 mm[Hg] [facility] Diastolic blood pressure 2021-11-01 21:38:00 72 mm[Hg] [facility] Heart rate 2021-11-01 21:38:00 100 /min [facility] Body temperature 2021-11-01 21:38:[address] [facility] Respiratory rate 2021-11-01 21:38:00 18 /min [facility] Body height 2021-11-01 21:38:00 152.4 cm [facility] Body weight 2021-11-01 21:38:00 100.699 kg [facility] BMI 2021-11-01 21:38:00 43.36 kg/m2 [facility] Oxygen saturation in Arterial blood by Pulse oximetry 2021-11-01 21:38:00 95 /min [facility] Respiratory rate 2021-06-26 18:06:00 18 /min [facility] Oxygen saturation in Arterial blood by Pulse oximetry 2021-06-26 18:06:00 100 /min [facility] Systolic blood pressure 2021-06-26 18:00:00 149 mm[Hg] [facility] Diastolic blood pressure 2021-06-26 18:00:00 81 mm[Hg] [facility] Heart rate 2021-06-26 18:00:00 80 /min [facility] Body temperature 2021-06-26 16:10:[address] [facility] Body weight 2021-06-26 16:10:00 91.173 kg [facility] BMI 2021-06-26 16:10:00 39.26 kg/m2 [facility] Systolic blood pressure 2021-06-26 15:17:00 166 mm[Hg] [facility] Diastolic blood pressure 2021-06-26 15:17:00 97 mm[Hg] [facility] Heart rate 2021-06-26 15:17:00 87 /min [facility] Body temperature 2021-06-26 15:17:[address] [facility] Respiratory rate 2021-06-26 15:17:00 28 /min [facility] Oxygen saturation in Arterial blood by Pulse oximetry 2021-06-26 15:17:00 99 /min [facility] Body height 2021-03-07 19:06:00 152.4 cm [facility] Body weight 2021-03-07 19:06:00 91.173 kg [facility] BMI 2021-03-07 19:06:00 39.26 kg/m2 [facility] Systolic blood pressure 2021-03-07 19:06:00 119 mm[Hg] [facility] Diastolic blood pressure 2021-03-07 19:06:00 76 mm[Hg] [facility] Heart rate 2021-03-07 19:06:00 84 /min [facility] Systolic blood pressure 2021-02-12 20:52:00 120 mm[Hg] [facility] Diastolic blood pressure 2021-02-12 20:52:00 75 mm[Hg] [facility] Heart rate 2021-02-12 20:52:00 70 /min [facility] Body height 2021-02-12 20:52:00 152.4 cm [facility] Body weight 2021-02-12 20:52:00 91.173 kg [facility] BMI 2021-02-12 20:52:00 39.26 kg/m2 [facility] Oxygen saturation in Arterial blood by Pulse oximetry 2021-02-12 20:52:00 97 /min [facility] Systolic blood pressure 2020-09-02 19:21:00 115 mm[Hg] [facility] Diastolic blood pressure 2020-09-02 19:21:00 69 mm[Hg] [facility] Heart rate 2020-09-02 19:21:00 95 /min [facility] Body temperature 2020-09-02 19:21:[address] [facility] Respiratory rate 2020-09-02 19:21:00 18 /min [facility] Body height 2020-09-02 19:21:00 152.4 cm [facility] Body weight 2020-09-02 19:21:00 153.316 kg [facility] BMI 2020-09-02 19:21:00 66.01 kg/m2 [facility] Oxygen saturation in Arterial blood by Pulse oximetry 2020-09-02 19:21:00 97 /min [facility] BP Systolic 2024-04-26 16:25:00 152 mm[Hg] Step hen F Lyle BP Diastolic 2024-04-26 16:25:00 82 mm[Hg] Bryan phen F Lyle Weight Measured 2024-04-26 16:25:00 276.20 pounds Nate F Lyle Height Measured 2024-04-26 16:25:00 Nate F Lyle Body Temperature 2024-04-26 16:25:00 97.30 degrees Nate F Lyle Heart Rate 2024-04-26 16:25:00 90.00 /min Shannan en F Lyle Respiratory Rate 2024-04-26 16:25:00 16.00 /min Nate F Lyle BP Systolic 2024-04-26 16:20:00 152 mm[Hg] Step hen F Lyle BP Diastolic 2024-04-26 16:20:00 82 mm[Hg] Bryan phen F Lyle Weight Measured 2024-04-26 16:20:00 276.20 pounds Nate Alvarenga Height Measured 2024-04-26 16:20:00 61.00 inches Nate Alvarenga Body Temperature 2024-04-26 16:20:00 97.30 degrees Nate Alvarenga Heart Rate 2024-04-26 16:20:00 90.00 /min Shannan Alvarenga Respiratory Rate 2024-04-26 16:20:00 16.00 /min Nate Alvarenga Procedures Procedure Date / Time Performed Performing Clinician Source Hysteroscopy Biopsy 2024-03-26 00:00:00 [facility] TRANSVAGINAL 2024-02-20 00:00:00 [facility] EXTERNAL PROVIDER RECORDS 2022-04-16 06:01:00 Do ctor Unassigned, [place] [facility] EXTERNAL PROVIDER RECORDS 2021-12-18 05:01:00 Do ctor Unassigned, [place] [facility] CONSENT/REFUSAL FOR DIAGNOSIS AND TREATMENT 2021-11-26 18:55:25 Doctor Unassigned, [place] [facility] AUTHORIZATION FOR RELEASE OF PHI 2021-11-16 05:01:00 Doctor Unassigned, [place] [facility] XR CHEST 1 VW 2021-06-26 17:15:00 Luciano Fernandez [facility] RAPID INFLUENZA A/B 2021-06-26 16:59:[address] [facility] COVID-19 (ID NOW RAPID TESTING) 2021-06-26 16:59:[address] [facility] LIPASE 2021-06-26 16:29:00 Luciano Fernandez [facility] TROPONIN I 2021-06-26 16:29:00 [facility] COMP. METABOLIC PANEL ([id number]) 2021-06-26 16:29:[address] [facility] CBC WITH DIFF 2021-06-26 16:29:00 Luciano Fernandez [facility] PROTHROMBIN TIME / INR 2021-06-26 16:29:[address] [facility] ACTIVATED PARTIAL THRMPLAS AMRIT 2021-06-26 16:29:00 Fernandez, Luciano [facility] CONSENT/REFUSAL FOR DIAGNOSIS AND TREATMENT 2021-06-26 16:02:56 Doctor Unassigned, [place] [facility] NOTICE OF PRIVACY PRACTICES 2021-06-26 16:01:28 Doctor Unassigned, [place] [facility] TRANSTHORACIC ECHO (TTE) COMPLETE 2021-03-07 19:33:[address] [facility] CONSENT/REFUSAL FOR DIAGNOSIS AND TREATMENT 2020-09-02 19:14:51 Doctor Unassigned, [place] [facility] Tubal Ligation 2008-03-03 00:00:00 [facility] Delivery 2008-03-03 00:00:00 [facility] Delivery 1995-03-03 00:00:00 [facility] Tonsillectomy [facility] Cholecystectomy [facility] Encounters Start Date/Time End Date/Time Encounter Type Admission Type Attending [facility] Facility Care Department Encounter ID Source 2024-04-26 15:49:10 2024-04-26 15:49:10 Outpatient SFA SFA [id number] Nate Anderson Lyle 2024-04-26 00:00:00 2024-04-26 00:00:00 Outpatient Visit SFA [id number] Nate Anderson Shepherd 2024-04-07 00:00:00 2024-04-07 00:00:00 SURESH Rodriguez: [address] [facility] [address], [place] [id number] , Ph. [facility] GC_GCBZW_La rito Samuel* [id number] [facility] 2024-03-26 00:00:00 2024-03-26 00:00:00 Lela Garduno MD: [address] [facility] [address], [place] [id number] , Ph. [facility] - GC_GCBZW_Freya Baker* [id number] [facility] 2024-03-04 00:00:00 2024-03-04 00:00:00 TANYA RodriguezP: [address], [place] [address] , Ph. [facility] - GC_GCBZW_[facility]* [id number] [facility] 2024-02-20 00:00:00 2024-02-20 00:00:00 Lela Garduno MD: [address], [place] [address] , Ph. [facility] - GC_GCBZW_[facility]* [id number] [facility] 2024-02-19 00:00:00 2024-02-19 00:00:00 Gcb[facility] Ultrasound : [address], [place] [id number] , Ph. [facility] - GC_GCBZW_[facility]* [id number] [facility] 2024-02-11 00:00:00 2024-02-11 00:00:00 Lela Garduno MD: [address], [place] [id number] , Ph. [facility] - GC_GCBZW_[facility]* [id number] [facility] 2022-04-16 00:00:00 2022-04-16 00:00:00 Orders Only Doctor Unassigned, [place] [id number] [id number] [facility] 2021-12-18 00:00:00 2021-12-18 00:00:00 Orders Only Doctor Unassigned, [place] [id number] [id number] [facility] 2021-11-26 14:15:00 2021-11-26 14:57:11 Outpatient R ROC [facility] [id number] [facility] 2021-11-26 14:15:00 2021-11-26 14:57:11 Office Visit [facility] [id number] [id number] [facility] 2021-11-26 00:00:00 2021-11-26 00:00:00 Telephone Roc Louis [facility] [id number] [id number] [facility] 2021-11-26 00:00:00 2021-11-26 00:00:00 Orders Only Doctor Unassigned, [place] [facility] [id number] [id number] [id number] [id number] [facility] 2021-11-26 00:00:00 2021-11-26 00:00:00 [facility] (Out) [facility] [id number] [id number] [id number] [facility] 2021-11-23 00:00:00 2021-11-23 00:00:00 Telephone [facility] [id number] [id number] 4.2.7.2.686 [id number] [facility] 2021-11-16 00:00:00 2021-11-16 00:00:00 Orders Only Doctor Unassigned, [place] [facility] 1..114 350.1.13.10 4.2.7.2.686 [id number] [facility] 2021-11-01 16:20:00 2021-11-01 17:15:15 Outpatient R DIOR [facility] [id number] [facility] 2021-11-01 16:20:00 2021-11-01 17:15:15 Urgent Care Dior Malone, [facility] 1.114 350.1.13.10 4.2.7.2.686 [id number] [facility] 2021-06-26 11:11:00 2021-06-26 13:46:00 Emergency X [facility] [id number] [facility] 2021-06-26 11:11:00 2021-06-26 13:46:00 Emergency Luciano Fernandez [facility] 1..114 350.1.13.10 [id number] [id number] [facility] 2021-06-26 10:50:00 2021-06-26 11:10:00 Nurse Visit Nurse, Adrian Patiño [facility] Kira [facility] 1.114 350.1.13.10 4.2.7.2.686 [id number] [facility] 2021-06-26 10:50:00 2021-06-26 10:50:00 Outpatient R KIRA [facility] [id number] [facility] 2021-06-26 00:00:00 2021-06-26 00:00:00 Orders Only Doctor Unassigned, [place] [facility] 1.0.114 350.1.13.10 4.2.7.2.686 [id number] [facility] 2021-06-25 19:20:00 2021-06-25 19:20:00 Outpatient R [facility] [id number] [facility] 2021-03-08 00:00:00 2021-03-08 00:00:00 [facility] 1.2.840.114 350.1.13.10 4.2.7.2.686 [id number] [facility] 2021-03-07 12:56:41 2021-03-07 23:59:00 Outpatient R [facility] [id number] [facility] 2021-03-07 12:56:41 2021-03-07 23:59:00 Hospital Encounter [facility] BUILDING 1.2.840.114 350.1.13.10 4.2.7.2.686 [id number] [facility] 2021-02-27 15:00:00 2021-02-27 15:00:00 Outpatient R [facility] [id number] [facility] 2021-02-27 15:00:00 2021-02-27 15:00:00 Outpatient R [facility] [id number] [facility] 2021-02-19 00:00:00 2021-02-19 00:00:00 Telephone [facility] BUILDING 1.2.840.114 350.1.13.10 4.2.7.2.686 [id number] [facility] 2021-02-12 14:42:56 2021-02-12 15:15:38 [facility] [place] [facility] 1.2.840.114 350.1.13.10 4.2.7.2.686 [id number] [facility] 2021-02-12 14:40:00 2021-02-12 15:15:38 Outpatient R [facility] [id number] [facility] 2021-02-12 00:00:00 2021-02-12 00:00:00 Letter (Out) [facility] BUILDING 1..840.114 350.1.13.10 4.2.7.2.686 [id number] [facility] 2021-02-12 00:00:00 2021-02-12 00:00:00 Orders Only Doctor Unassigned, [place] [facility] 1.2840.114 350.1.13.10 4.2.7.2.686 [id number] [facility] 2020-09-02 14:40:00 2020-09-02 14:40:00 Outpatient R [facility] [id number] [facility] 2020-09-02 14:15:28 2020-09-02 14:35:28 Urgent Care Provider, [facility] Office Building One 1..840.114 350.1.13.10 4.2.7.2.686 [id number] [facility] 2020-09-02 00:00:00 2020-09-02 00:00:00 Orders Only Doctor Unassigned, [place] [facility] 1.2840.114 350.1.13.10 4.2.7.2.686 [id number] [facility] Results Test Description Test Time Test Comments Results Result Co mments Source [facility]in [Units/volume] in Serum or [id number] 00:00:00* Test Item Value Reference Range Interpretation Comme nts FSH (test code = FSH) 11.7 mIU/mL [facility] MedicalEstradiol (E2) [Mass/volume] in Serum or [id number] 00:00:00 * Test Item Value Reference Range Interpretation Comme nts estradiol (test code = estradiol) 27.8 pg/mL 6.1-91.9 [facility], apt HPV,rfx 16/18,[id number] 00:00:00* Test Item Value Reference Range Interpretation Comme nts diagnosis: (test code = diagnosis:) SPRCS specimen adequacy: (test cod e = specimen adequacy:) SPRCS performed by: (test code = p erformed by:) SPRCS note: (test code = note:) PAPSMR test methodology: (test code = test methodology:) IGLPAP HPV aptima (test code = HPV aptima) NEGATIVE negative [facility] Medicalinfectious disease [id number] 00:00:00* Test Item Value Reference Range Interpretation [...] B, tet M) 15.274 ppm 23.000-27.778 A [facility] WITH [id number] 17:25:10* Test Item Value Reference Range Interpretation [...] 33.1 g/dL 31.6-35.1 RDW-SD (test code = 81729-6) 44.8 fL 39.0-49.9 RDW-CV (test code = 788-0) 13.8 % 12.0-15.5 PLT (test code = 777-3) See_Comment [Automated message] The system which generated this result transmitted reference range: 166 - 358 10*3/?L. The reference range was not used to interpret this result as normal/abnormal. MPV (test code = 98397-0) 9.2 fL 9.5-12.9 L NRBC/100 WBC (test code = 6637188448) See_Comment [Automated message] The system which generated this result transmitted reference range: 0.0 - 10.0 /100 WBCs. The reference range was not used to interpret this result as normal/abnormal. NRBC x10^3 (test code = 2779057970) <0.01 See_Comment [Automated message] The system which generated this result transmitted reference range: 10*3/?L. The reference range was not used to interpret this result as normal/abnormal. GRAN MAT (NEUT) % (test code = 770-8) 83.8 % IMM GRAN % (test code = 3005195594) 3.10 % LYMPH % (test code = 736-9) 8.7 % MONO % (test code = 5905-5) 4.3 % EOS % (test code = 713-8) 0.0 % BASO % (test code = 706-2) 0.1 % GRAN MAT x10^3(ANC) (test code = 9024684627) 11.27 10*3/uL 1.88-7.09 H IMM GRAN x10^3 (test code = 4460856409) 0.42 10*3/uL 0.00-0.06 H LYMPH x10^3 (test code = 731-0) 1.17 10*3/uL 1.32-3.29 L MONO x10^3 (test code = 742-7) 0.58 10*3/uL 0.33-0.92 EOS x10^3 (test code = 711-2) <0.03 0.03-0.39 L BASO x10^3 (test code = 704-7) <0.03 0.01-0.07 Lab Interpretation (test code = 89498-8) Abnormal [facility] [id number] 17:15:24* Test Item Value Reference Range Interpretation Comments TROPONIN I (test code = 8814191313) 0.002 ng/mL See_Comment [Automated message] The system which generated this result transmitted reference range: <=0.034. The reference range was not used to interpret this result as normal/abnormal. ARBAHAM (test code = ABRAHAM) Reference (Normal) Range [...] of biotin. Lab Interpretation (test code = 02614-3) Normal [facility]. METABOLIC PANEL (65027)2021-06-26 17:12:03* Test Item Value Reference Range Interpretation Comme nts NA (test code = 7884723704) 134 mmol/L 135-145 L K (test code = 5278240246) 4.1 mmol/L 3.5-5.0 CL (test code = 5633327843) 103 mmol/L 98-108 CO2 TOTAL (test code = 8516866737) 20 mmol/L 23-31 L AGAP (test code = 3209551577) 2-16 BUN (test code = 6193368608) 14 mg/dL 7-23 GLUCOSE (test code = 1459173762) 151 mg/dL 70-110 H CREATININE (test code = 6443392619) 0.65 mg/dL 0.50-1.04 TOTAL BILI (test code = 4977079724) 0.4 mg/dL 0.1-1.1 CALCIUM (test code = 8821298194) 8.7 mg/dL 8.6-10.6 T PROTEIN (test code = 3488787414) 6.4 g/dL 6.3-8.2 ALBUMIN (test code = 9084391796) 3.9 g/dL 3.5-5.0 ALK PHOS (test code = 4542464180) 82 U/L 34-122 ALTv (test code = 1742-6) 24 U/L 5-35 AST(SGOT) (test code = 0856999281) 17 U/L 13-40 eGFR (test code = 4312742208) mL/min/1.73m2 ABRAHAM (test code = ABRAHAM) Association [...] imaging tests). Lab Interpretation (test code = 36074-2) Abnormal [facility], [id number] 17:05:20* Test Item Value Reference Range Interpretation Comme [facility] LIPASE (test code = 0097125573) 75 U/L 0-220 Lab Interpretation (test cod e = 80383-8) Normal [facility]TT2022-04-26 17:00:21* Test Item Value Reference Range Interpretation Comme [facility] APTT Patient (test code = 3173-2) See_Comment [Automated message] The system which generated this result transmitted reference range: 23 - 38 Seconds. The reference range was not used to interpret this result as normal/abnormal. ABRAHAM (test code = ABRAHAM) The [facility] patient population mean normal value for aPTT is 30 seconds. Lab Interpretation (test code = 36094-9) Normal [facility] HospitalPROT[facility] TIME / [id number] 16:58:23* Test Item Value Reference Range Interpretation Comme nts NANDA PATIENT (test code = 5964-2) See_Comment [Automated Vayablea ge] The system which generated this result transmitted reference range: 12.0 - 14.7 Seconds. The reference range was not used to interpret this result as normal/abnormal. INR (test code = 6301-6) Normal INR <1.1; Warfarin Therapeutic range 2.0 to 3.0 or 2.5 to 3.5, depending upon the indications. Lab Interpretation (test code = 86981-7) Normal [facility] Notes Date/Time Note Provider Source Nate Alvarenga [facility]ly [facility]
[2024-05-02] MEDS ORDERED: IPRATROPIUM BROM 0.5MG/2.5ML ONE (13:01)
[2024-05-02] MEDS ORDERED: ALBUTEROL 2.5 MG/3 ML NEB SOL ONE (13:01)
[2024-05-02 13:06] LABS: Absolute Basophils 0.1 K/uL (0-0.5); Absolute Eosinophils 0.3 K/uL (0-0.5); Absolute Lymphocytes (CBC) 1.6 K/uL (0.7-4.9); Absolute Monocytes 0.8 K/uL (0.1-1.3); Absolute Neutrophil 6.1 K/uL (1.8-8.0); Eosinophils % 3.9 % (0-4.4); Hematocrit 40.2 % (36.0-45.0); Hemoglobin 13.4 g/dL (12.0-15.0); MCH 27.6 pg (27.0-35.0); MCHC 33.4 g/dL (32.0-36.0); MCV 82.5 fL (80-100); MPV 7.5 fL (7.6-11.3); Monocytes % 8.6 % (3.3-12.3); Neutrophils % 68.5 % (41.7-73.7); Platelets 436 thou/uL (152-406); RBC Red Blood Cell Count 4.88 M/uL (3.86-4.86); Red Cell Distribution Width 14.8 % (12.1-15.2)
[2024-05-02 13:16] LABS: PT Prothrombin Time 11.3 SECONDS (10.0-13.0); PTT, Activated Partial Thromb 28.8 SECONDS (24.3-36.9); Protime INR 0.99
[2024-05-02 13:27] LABS: Albumin 3.1 g/dL (3.4-5.0); Albumin/Globulin Ratio 0.8 (1.1-1.8); Bilirubin Total 0.3 mg/dL (0.2-1.0); Protein, Total 7.1 g/dL (6.4-8.2); Troponin High Sensitivity 13.9 pg/mL (<58.9)
[2024-05-02] MEDS ORDERED: NA CHLORIDE 0.9% 2,000 ML ONE (14:00)
--- NOTE | 2024-05-02 15:02 | RAD REPORT ---
EXAMINATION: ONE VIEW CHEST XR CLINICAL INDICATION: COUGH TECHNIQUE: Frontal chest projection is submitted. Examination is limited by patient positioning and t echnique. COMPARISON: 04/25/2024 FINDINGS: Nonspecific peribronchial thickening without focal consolidation could represent a viral or inflammat ory process. The heart is upper limit of normal in size. No displaced fractures identified.
--- NOTE | 2024-05-02 16:03 | ER ---
Nurse's Notes [facility] Name: Airam Glasgow Age: 48 yrs Sex: Female : 1975 Arrival Date: 05/02/2024 Time: 12:19 Bed 7 Private MD: Diagnosis: COPD exacerbation;lactic acidosis Presentation: 05/02 12:23 Chief complaint: Patient states: wheezing, SOB, hx of COPD, was admitted for pneumonia iw last week. Coronavirus screen: Client presents with at least one sign or symptom that may indicate coronavirus-19. Ebola Screen: No symptoms or risks identified at this time. Initial Sepsis Screen: Does the patient meet any 2 criteria? No. Patient's initial sepsis screen is negative. Does the patient have a suspected source of infection? No. Patient's initial sepsis screen is negative. Risk Assessment: Do you want to hurt yourself or someone else? Patient reports no desire to harm self or others. Onset of symptoms was May 02, 2024. 12:23 Method Of Arrival: Ambulatory iw 12:23 Acuity: ADALGISA 3 iw [employer]: 12:25 LMP N/A - control method, Not iw Historical: - Allergies: 12:24 Keflex; iw 12:24 PENICILLINS; iw - Home Meds: 12:24 atorvastatin 10 mg Oral tablet daily [Active]; lisinopril 5 mg Oral tablet daily iw [Active]; - PMHx: 12:24 COPD; Bipolar disorder; Deaf; High Cholesterol; depressive disorder; Hypertensive iw disorder; - PSHx: 12:24 section; Cholecystectomy; Ligation of fallopian tube; Tonsillectomy; iw - Immunization history:: Adult Immunizations up to date. - Infectious Disease History:: Denies. - Social history:: Smoking status: Patient/guardian denies using tobacco, Stopped _ months ago 10. - Family history:: not pertinent. Screenin:45 [facility] ED Fall Risk Assessment (Adult) History of falling in the last 3 months, aa5 including since admission No falls in past 3 months (0 pts) Confusion or Disorientation No (0 pts) Intoxicated or Sedated No (0 pts) Impaired Gait No (0 pts) Mobility Assist Device Used No (0 pt) Altered Elimination No (0 pt) Score/Fall Risk Level 0 - 2 = Low Risk Oriented to surroundings, Maintained a safe environment, Educated pt \T\ family on fall prevention, incl call for assistance when getting out of bed, Assessed \T\ reinforced patient's understanding of fall precautions. Abuse screen: Denies threats or abuse. Nutritional screening: No deficits noted. Tuberculosis screening: No symptoms or risk factors identified. Assessment: 12:42 General: Appears uncomfortable, Behavior is calm, cooperative. Pain: Denies pain. aa5 Neuro: Level of Consciousness is awake, alert, obeys commands, Oriented to person, place, time, situation. Cardiovascular: Heart tones S1 S2 present Rhythm is sinus tachycardia. Respiratory: Reports shortness of breath cough Airway is patent Respiratory effort is even, labored, Respiratory pattern is tachypnea Breath sounds with wheezes bilaterally. GI: Abdomen is round obese. : No signs and/or symptoms were reported regarding the genitourinary system. EENT: No signs and/or symptoms were reported regarding the EENT system. Derm: Skin is pink, warm \T\ dry. Musculoskeletal: Range of motion: intact in all extremities. 13:30 Reassessment: Patient is alert, oriented x 3, equal unlabored respirations, skin aa5 warm/dry/pink. Patient states feeling better. 14:40 Reassessment: Pt ambulatory to restroom, pt back in bed, increased SOB noted post aa5 ambulation to restroom and increased HR 126 bpm. . 14:50 Reassessment: Patient is alert, oriented x 3, equal unlabored respirations, skin aa5 warm/dry/pink. 15:24 Reassessment: Patient appears in no apparent distress at this time. Patient and/or jb4 family updated on plan of care and expected duration. Pain level reassessed. Patient is alert, oriented x 3, equal unlabored respirations, skin warm/dry/pink. 17:00 Reassessment: Patient appears in no apparent distress at this time. Patient and/or jb4 family updated on plan of care and expected duration. Pain level reassessed. Patient is alert, oriented x 3, equal unlabored respirations, skin warm/dry/pink. 18:00 Reassessment: Patient appears in no apparent distress at this time. Patient and/or jb4 family updated on plan of care and expected duration. Pain level reassessed. Patient is alert, oriented x 3, equal unlabored respirations, skin warm/dry/pink. Vital Signs: 12:23 BP 151 / 84; Pulse 117; Resp 22; Temp 97.5; Pulse Ox 100% on R/A; Weight 125.19 kg; iw Height 5 ft. 1 in. ; 13:30 BP 139 / 73; Pulse 108; Resp 24 S; Pulse Ox 100% on Nebulizer Mask; aa5 14:50 BP 135 / 69; Pulse 104; Resp 22 S; Pulse Ox 98% on R/A; aa5 15:33 BP 136 / 64; Pulse 89; Resp 22; Pulse Ox 98% on R/A; jb4 17:00 BP 143 / 68; Pulse 104; Resp 20; Pulse Ox 99% on R/A; jb4 12:23 Body Mass Index 52.15 (125.19 kg, 154.94 cm) iw ED Course: 12:21 Patient arrived in ED. im 12:24 Triage completed. iw 12:25 Arm band placed on. iw 12:29 Zack Barba MD is Attending Physician. rt 12:35 Landy Calderon, RN is Primary Nurse. aa5 12:40 Patient has correct armband on for positive identification. Placed in gown. Bed in low aa5 position. Call light in reach. Side rails up X 1. Client placed on continuous cardiac and pulse oximetry monitoring. NIBP monitoring applied. monitor worker on. Pulse ox on. NIBP on. 12:45 First set of blood cultures drawn. aa5 12:50 Inserted saline lock: 20 gauge in right antecubital area, using aseptic technique. aa5 Flushed with 10 mL NS. 12:56 Initial lab(s) drawn, by me, sent to lab. Second set of blood cultures drawn by me. aa5 13:00 Inserted saline lock: 22 gauge in right hand, using aseptic technique. Flushed with 10 aa5 mL NS. 13:08 No provider procedures requiring assistance completed. aa5 13:21 EKG done, by ED staff, reviewed by Zack Barba MD. kb4 14:57 Chest Single View XRAY In Process Unspecified. EDMS 16:02 Yao Puga MD is Hospitalizing Provider. rt 16:52 Diet tray given. Diet:. sp 18:00 Patient admitted, IV remains in place. jb4 Administered Medications: 13:05 Drug: DuoNeb Nebulize (3:1) (2.5 mg - 0.5 mg) 3 ml Nebulizer once Route: Nebulizer; aa5 13:40 Follow up: Response: No adverse reaction aa5 14:04 Not Given (Duplicate Order): ns 0.9% (30 ml/kg) 30 ml/kg IV at bolus once; Sepsis rt Protocol; to be given as a bolus over 90 minutes 14:10 Drug: NS 0.9% IV 2000 ml IV at 2 bolus Per protocol; to be given as a bolus over 60 aa5 minutes Route: IV; Rate: 2 bolus; Site: right antecubital; 16:36 Not Given (Duplicate Order): [id number] mg IVPB once jb4 16:36 Drug: levofloxacin IVPB 500 mg 100 ml IVPB once over 60 mins Volume: 100 ml; Route: jb4 IVPB; Infused Over: 60 mins; Site: right antecubital; 17:02 Drug: Albuterol Inhalation 2.5 mg Inhalation once Route: Inhalation; jb4 Medication: 13:08 VIS not applicable for this client. aa5 Outcome: 16:02 Decision to Hospitalize by Provider. rt 17:59 Admitted to Tele accompanied by tech, via wheelchair, room 405, with chart, jb4 17:59 Condition: stable 17:59 Discharge instructions given to patient, Instructed on the need for admit, Demonstrated understanding of instructions, 18:01 Patient left the ED. jb4 Signatures: Dispatcher [employer] EDMS Charlene Lopez Irene, RN RN Landy Calderon RN RN aa5 Dylan Edge RN RN jb4 Zack Barba MD MD rt Janine Carvalho Kayla kb4 Corrections: (The following items were deleted from the chart) 15:33 15:24 BP 136 / 64; Pulse 89bpm; Resp 22bpm; Pulse Ox 98% RA; jb4 jb4
--- NOTE | 2024-05-02 16:03 | EDPHYS ---
Physician Documentation [facility] Name: Airam Glasgow Age: 48 yrs Sex: Female : 1975 Arrival Date: 05/02/2024 Time: 12:19 Bed 7 Private MD: ED Physician Zack Barba HPI: 05/02 16:34 This 48 yrs old Female presents to ER via Ambulatory with complaints of Shortness Of rt Breath, Cough. 16:34 Patient had a recent admission for COPD, hypoxia. Completed course of azithromycin and rt steroids. States that the breathing worsened today, reports positive sick contacts. Denies other acute complaints at this time, symptoms are moderate severity, no other aggravating or alleviating factors.. 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 - Infectious Disease History:: Denies. - Social history:: Smoking status: Patient/guardian denies using tobacco, Stopped _ months ago 10. - Family history:: not pertinent. ROS: 16:34 Constitutional: Negative for fever, chills, and weight loss, Cardiovascular: Negative rt for chest pain, palpitations, and edema, Abdomen/GI: Negative for abdominal pain, nausea, vomiting, diarrhea, and constipation, MS/Extremity: Negative for injury and deformity, Skin: Negative for injury, rash, and discoloration, Neuro: Negative for headache, weakness, numbness, tingling, and seizure, 16:34 Respiratory: Positive for cough, shortness of breath, wheezing, Exam: 16:34 Constitutional: This is a well developed, well nourished patient who is awake, alert, rt and in no acute distress. Head/Face: Normocephalic, atraumatic. Chest/axilla: Normal chest wall appearance and motion. Nontender with no deformity. No lesions are appreciated. Cardiovascular: Regular rate and rhythm with a normal S1 and S2. No gallops, murmurs, or rubs. Normal PMI, no JVD. No pulse deficits. Abdomen/GI: Soft, non-tender, with normal bowel sounds. No distension or tympany. No guarding or rebound. No evidence of tenderness throughout. Skin: Warm, dry with normal turgor. Normal color with no rashes, no lesions, and no evidence of cellulitis. MS/ Extremity: Pulses equal, no cyanosis. Neurovascular intact. Full, normal range of motion. 16:34 ECG was reviewed by the Attending Physician. 16:34 Respiratory: Wheezes, diminished breath sounds heard on all lung esparza, moderate respiratory distress, Vital Signs: 12:23 BP 151 / 84; Pulse 117; Resp 22; Temp 97.5; Pulse Ox 100% on R/A; Weight 125.19 kg; iw Height 5 ft. 1 in. ; 13:30 BP 139 / 73; Pulse 108; Resp 24 S; Pulse Ox 100% on Nebulizer Mask; aa5 14:50 BP 135 / 69; Pulse 104; Resp 22 S; Pulse Ox 98% on R/A; aa5 15:33 BP 136 / 64; Pulse 89; Resp 22; Pulse Ox 98% on R/A; jb4 17:00 BP 143 / 68; Pulse 104; Resp 20; Pulse Ox 99% on R/A; jb4 12:23 Body Mass Index 52.15 (125.19 kg, 154.94 cm) iw MDM: 12:38 Medical Screening Exam initiated rt 16:37 Differential diagnosis: COPD, pneumonia. Data reviewed: vital signs, nurses notes, lab rt test result(s), EKG, radiologic studies. Consideration of Admission/Observation Patient was admitted/placed on observation. Management of patient was discussed with the following: Hospitalist: Agrees to admit. I considered the following discharge prescriptions or medication management in the emergency department Medications were administered in the Emergency Department. See MAR. Independent interpretation of the following test(s) in the Emergency Department X-Ray: My interpretation is No infiltrate seen on interpretation of x-ray images. Test considered but Not performed: CT: Low suspicion for pulmonary embolus, CT angiogram not indicated. Care significantly affected by the following chronic conditions: Chronic Obstructive Pulmonary Disease. Counseling: I had a detailed discussion with the patient and/or guardian regarding the historical points, exam findings, and any diagnostic results supporting the discharge/admit diagnosis, lab results, radiology results, the need for further work-up and treatment in the hospital. ED course: Patient's initial presentation not thought to be due to infectious etiology, thought to be due to COPD, still no source of infection noted. Patient is noted to have a lactic acidosis. Will treat this with IV fluids, she is obese, will dose IV fluids at 2 L and then stop as further fluid resuscitation likely to worsen the patient's respiratory status.. 05/02 12:51 Order name: Blood Culture Adult (2) rt 05/02 12:51 Order name: CBC with Diff; Complete Time: 13:31 rt 05/02 12:51 Order name: CMP; Complete Time: 13:31 rt 05/02 12:51 Order name: Lactate w/ 2H reflex if indic.; Complete Time: 13:31 rt 05/02 12:51 Order name: Protime (+inr); Complete Time: 13:31 rt 05/02 12:51 Order name: Ptt, Activated; Complete Time: 13:31 rt 05/02 12:51 Order name: Troponin High Sensitivity; Complete Time: 13:31 rt 05/02 12:51 Order name: BNP; Complete Time: 13:31 rt 05/02 13:33 Order name: Ghost Lactate-NO COLLECT Timer; Complete Time: 15:40 EDMS 05/02 16:21 Order name: Basic Metabolic Panel EDKY 05/02 16:21 Order name: Basic Metabolic Panel EDKY 05/02 16:21 Order name: Basic Metabolic Panel EDKY 05/02 16:21 Order name: Basic Metabolic Panel EDKY 05/02 16:21 Order name: CBC with Automated Diff EDMS 05/02 16:21 Order name: CBC with Automated Diff EDMS 05/02 16:21 Order name: CBC with Automated Diff EDMS 05/02 16:21 Order name: CBC with Automated Diff EDMS 05/02 16:33 Order name: Lactate Sepsis 2 HR Follow-up; Complete Time: 16:36 EDMS 05/02 14:34 Order name: Chest Single View XRAY; Complete Time: 15:04 rt 05/02 16:21 Order name: CONS Physician Consult EDMS 05/02 12:51 Order name: Cardiac monitoring; Complete Time: 12:59 rt 05/02 12:51 Order name: EKG - Nurse/Tech; Complete Time: 13:16 rt 05/02 12:51 Order name: IV Saline Lock - Large Bore; Complete Time: 12:59 rt 05/02 12:51 Order name: Labs collected and sent; Complete Time: 12:59 rt 05/02 12:51 Order name: O2 Per Protocol; Complete Time: 12:59 rt 05/02 12:51 Order name: O2 Sat Monitoring; Complete Time: 12:59 rt 05/02 12:51 Order name: Vital Signs; Complete Time: 12:59 rt EC:34 Rate is 101 beats/min. Rhythm is regular, Sinus tachycardia with No ectopy. QRS [place] is rt Normal. SC interval is normal. QT interval is normal. No Q waves. T waves are Normal. No ST changes noted. Interpreted by me. Administered Medications: 13:05 Drug: DuoNeb Nebulize (3:1) (2.5 mg - 0.5 mg) 3 ml Nebulizer once Route: Nebulizer; aa5 13:40 Follow up: Response: No adverse reaction aa5 14:04 Not Given (Duplicate Order): ns 0.9% (30 ml/kg) 30 ml/kg IV at bolus once; Sepsis rt Protocol; to be given as a bolus over 90 minutes 14:10 Drug: NS 0.9% IV 2000 ml IV at 2 bolus Per protocol; to be given as a bolus over 60 aa5 minutes Route: IV; Rate: 2 bolus; Site: right antecubital; 16:36 Not Given (Duplicate Order): [id number] mg IVPB once jb4 16:36 Drug: levofloxacin IVPB 500 mg 100 ml IVPB once over 60 mins Volume: 100 ml; Route: jb4 IVPB; Infused Over: 60 mins; Site: right antecubital; 17:02 Drug: Albuterol Inhalation 2.5 mg Inhalation once Route: Inhalation; jb4 Disposition: 17:32 Critical Care:. rt Disposition Summary: 05/02/24 16:02 Hospitalization Ordered Notes: Hospitalization Status: Inpatient Admission rt Provider: Yao Puga rt [facility] ([facility] rt Condition: Fair rt Problem: new rt Symptoms: have improved rt Bed/Room Type: Standard rt Room Assignment: 405(05/02/24 16:43) [email or web address] Diagnosis - COPD exacerbation rt - lactic acidosis rt Forms: - Medication Reconciliation Form rt - SBAR form rt - Leadership Thank You Letter rt Critical care time excluding procedures: 17:32 Critical care time: Bedside Care: 30 minutes, Consultation: 5 minutes. Total time: 35 rt minutes Signatures: Dispatcher [employer] EDMS Jessica CharleneBrigida Fulton, RN RN iw Landy Calderon, RN RN aa5 Jignesh Turpin, MULTIMEDIA MANAGER-C MULTIMEDIA MANAGER-Cla1 Dylan Edge, RN RN jb4 Zach Decker, RN RN ja1 Zack Barba MD MD rt Corrections: (The following items were deleted from the chart) 12:52 12:52 BLOOD CULTURE*+BA.LAB.BRZ ordered. EDMS EDMS 12:52 12:52 CBC+H.LAB.BRZ ordered. EDMS EDMS 12:52 12:52 COMPREHENSIVE METABOLIC PANEL+C.LAB.BRZ ordered. EDMS EDMS 12:52 12:52 LACTATE+C.LAB.BRZ ordered. EDMS EDMS 12:52 12:52 PROTIME (+INR)+COAG.LAB.BRZ ordered. EDMS EDMS 12:52 12:52 PTT, ACTIVATED+COAG.LAB.BRZ ordered. EDMS EDMS 12:52 12:52 Troponin High Sensitivity+C.LAB.BRZ ordered. EDMS EDMS 12:52 12:52 PROBNP+C.LAB.BRZ ordered. EDMS EDMS 13:05 12:51 Accucheck ordered. rt aa5 16:28 16:02 rt sp 16:43 16:28 221 sp ja1
[2024-05-02] MEDS ORDERED: ONDANSETRON 4 MG/2 ML VIAL IV PRN (16:17)
--- NOTE | 2024-05-02 16:27 | P.HP ---
Certification for Inpatient Patient admitted to: Observation With expected LOS: <2 Midnights Patient will require the following post-hospital care: None Practitioner: I am a practitioner with admitting privileges, knowledge of patient current condition, hospital course, and medical plan of care. Services: Services provided to patient in accordance with Admission requirements found in Title 42 Section 412.3 of the Code of Federal Regulations Patient History Date of Service: 05/02/24 Reason for admission: COPD exacerbation History of Present Illness: 48-year-old female with history of bipolar disorder, COPD, depression, hypertension, hyperlipidemia presents emergency department chief complaint of shortness of breath. She was recently hospitalized at our facility from 04/25 to 04/26 for COPD. She is given a 3-day course of steroids after this which she finished, she was feeling a bit better but yesterday began feeling worse with increasing shortness of breath and wheezing. She was evaluated in the emergency department her labs are significant for a white blood cell count of 8.9 glucose 225 creatinine 1.22 sodium 133 potassium 3.0 lactic acid initially 5.6 repeat pending chest x-ray was obtained which showed nonspecific peribronchial thickening without focal consolidation which could represent a viral or inflammatory process. Patient was given steroids, nebulizer treatment in the ED, will be admitted for further evaluation and management of COPD exacerbation. Allergies cephalexin [From Keflex] Adverse Reaction (Unknown, Verified 04/25/24 15:24) Hives/Rash Penicillins Adverse Reaction (Unknown, Verified 04/25/24 15:24) Hives/Rash Home Medications: Albuterol Neb [Proventil 0.083% Neb Soln] 2.5 mg IH Q4HP PRN 04/25/24 Albuterol Sulfate [Proair Respiclick] 90 mcg IH Q6HP PRN 04/25/24 Atorvastatin Calcium [Lipitor*] 10 mg PO BEDTIME 04/25/24 Brexpiprazole [Rexulti] 2 mg PO BEDTIME 04/25/24 Ergocalciferol (Vitamin D2) [Vitamin D2] 50,000 unit PO EVERY 3RD DAY 04/25/24 Fenofibrate [Tricor*] 54 mg PO BEDTIME 04/25/24 Fluticasone Propion/Salmeterol [Advair 250-50 Diskus] 100 mcg IH BID 04/25/24 Lisinopril/Hydrochlorothiazide [Lisinopril-Hctz 20-25 mg Tab] 1 tab PO BEDTIME 04/25/24 Montelukast Sodium 10 mg PO BEDTIME 04/25/24 Ondansetron [Zofran (Odt)*] 8 mg PO Q8H PRN 04/25/24 Semaglutide [Ozempic] 0.5 mg SQ EVERY 7TH DAY 04/25/24 Sertraline HCl 100 mg PO BEDTIME 04/25/24 buPROPion HCL [Bupropion HCl Sr] 150 mg PO BEDTIME 04/25/24 Furosemide [Lasix] 40 mg PO DAILY #7 tab 04/26/24 predniSONE [Deltasone] 20 mg PO DAILY 3 Days #3 tab 04/26/24 - Past Medical/Surgical History Diabetic: Yes -: HTN -: HLD -: COPD -: bipolar -: Depressive disorder -: Deaf -: Tonsillectomy -: Tubal ligation -: cholecystectomy -: section - Family History Father -: Heart disease, Hypertension, Diabetes Mother -: Diabetes, Other (see notes) Notes: Lupus - Social History Smoking Status: Former smoker Alcohol use: No CD- Drugs: No Caffeine use: Yes Place of Residence: Home Review of Systems 10-point ROS is otherwise unremarkable Respiratory: Cough, Shortness of Breath, Wheezing Physical Examination - Physical Exam General: Alert, In no apparent distress, Oriented x3 HEENT: Atraumatic, PERRLA, Mucous membr. moist/pink Neck: Supple, 2+ carotid pulse no bruit, No LAD Respiratory: Expiratory wheezes Cardiovascular: No edema, Regular rate/rhythm, Normal S1 S2 Gastrointestinal: Normal bowel sounds, No tenderness Musculoskeletal: No tenderness Integumentary: No rashes Neurological: Normal speech, Normal strength at 5/5 x4 extr, Normal tone - Studies Laboratory Data (last 24 hrs) 05/02/24 05/02/24 05/02/24 12:56 12:56 12:56 WBC 8.90 Hgb 13.4 Hct 40.2 Plt Count 436 H PT 11.3 INR 0.99 APTT 28.8 Sodium 133 L Potassium 3.0 L BUN 15 Creatinine 1.22 H Glucose 225 H Total Bilirubin 0.3 AST 55 H ALT 54 Alkaline Phosphatase 97 Assessment and Plan - Plan Assessment: COPD with exacerbation Hypokalemia Hyponatremia Diabetes mellitus type 2 Bipolar disorder/depression Hypertension Hyperlipidemia Plan: COPD with exacerbation Scheduled nebs, steroids, inhalers Recently admitted, did well for couple days but then got worse again Pulmonology consultation, takes Advair at home Hypokalemia Hyponatremia Encourage oral intake, potassium protocol in place Diabetes mellitus type 2 ACHS Accu-Chek, sliding scale insulin On semaglutide at home Bipolar disorder/depression Hypertension Hyperlipidemia Continue home medications when verified DVT PPX: Lovenox Code status: Full Discharge Plan: Home Plan to discharge in: 24 Hours - Advance Directives Does patient have a Living Will: No Does patient have a Durable POA for Healthcare: No - Code Status/Comfort Care Code Status Assessed: Yes (Full code) Critical Care: No Time Spent Managing Pts Care (In Minutes): 65
[2024-05-02] MEDS: INSULIN REGULAR (HUMAN) 100 UNIT/ML SQ SCH (16:30)
[2024-05-02] MEDS ORDERED: Levofloxacin500mg IV 500 MG/100 ML BAG IV ONE (16:31)
[2024-05-02] MEDS: METHYLPREDNISOLONE 40 MG INJ IV SCH (17:00)
[2024-05-02 20:16] VITALS: BMI 52.1
[2024-05-02] MEDS: IPRATROPIUM BROM 0.5MG/2.5ML NEB SCH (20:40)
[2024-05-02] MEDS: ALBUTEROL 2.5 MG/3 ML NEB SOL NEB SCH (20:40)
[2024-05-02] MEDS: DULERA 200/5 (MOMETASONE/FORMOTEROL) INHALER IH SCH (21:00)
[2024-05-03] MEDS: CHLORASEPTIC LOZENGES PO PRN (01:47)
[2024-05-03] MEDS: ACETAMINOPHEN 325 MG TABLET PO PRN (02:21)
[2024-05-03 06:26] LABS: Absolute Lymphocytes (CBC) 0.9 K/uL (0.7-4.9); Absolute Monocytes 0.4 K/uL (0.1-1.3); Absolute Neutrophil 8.2 K/uL (1.8-8.0); Basophils % 0.4 % (0-1.3); Eosinophils % 0.5 % (0-4.4); Hematocrit 35.9 % (36.0-45.0); Lymphocytes % 9.8 % (15.3-44.8); MCH 28.1 pg (27.0-35.0); MCHC 33.4 g/dL (32.0-36.0); MCV 84.1 fL (80-100); Monocytes % 3.6 % (3.3-12.3); Neutrophils % 85.7 % (41.7-73.7); Platelets 391 thou/uL (152-406); RBC Red Blood Cell Count 4.27 M/uL (3.86-4.86); Red Cell Distribution Width 14.5 % (12.1-15.2)
[2024-05-03 06:35] LABS: Anion Gap 12.1 mEq/L (5.0-15.0); Potassium 4.1 mEq/L (3.5-5.1)
[2024-05-03 07:48] LABS: Band Neutrophils 1 % (0-1); Blood Morphology Comment NOT SEEN (NOT SEEN); Differential Total Cells Count 100; Lymphocytes 11 % (15-42); Monocytes 4 % (0-10); Platelet Estimate ADEQ; Segmented Neutrophils 84 % (40-80)
[2024-05-03] MEDS: lisinopriL 20 MG TAB PO SCH (07:48)
[2024-05-03] MEDS: hydroCHLOROthiazide 25 MG TAB PO SCH (07:48)
[2024-05-03] MEDS: SERTRALINE HCL 100 MG TAB PO SCH (07:48)
[2024-05-03] MEDS: FENOFIBRATE 48 MG TAB PO SCH (07:48)
[2024-05-03] MEDS: lamoTRIgine 100 MG TAB PO SCH (07:49)
[2024-05-03] MEDS: ATORVASTATIN 10 MG TAB PO SCH (07:49)
[2024-05-03] MEDS: MONTELUKAST 10 MG TAB PO SCH (07:49)
[2024-05-03] MEDS: ENOXAPARIN 40 MG/0.4 ML SQ SCH (07:50)
[2024-05-03] MEDS: CARIPRAZINE HCL 1.5 MG PO SCH (08:30)
[2024-05-03] MEDS ORDERED: HOME MED 1 EA UNK (Fluticasone Propion/Salmeterol [Advair 250-50 Diskus] Blst.W.Dev) IH SCH (09:00)
[2024-05-03] MEDS ORDERED: HOME MED 1 EA UNK (Fenofibrate [Fenofibrate] 50 MG Capsule) PO SCH (09:00)
[2024-05-03] MEDS: DULERA 100/5 (MOMETASONE/FORMOTEROL) INHALER IH SCH (09:19)
--- NOTE | 2024-05-03 10:55 | P.PN ---
Date of Service: 05/03/24 Subjective: feeling better but still getting SOB with minima activity - can't walk few feet to bathroom without getting dyspneic wheeze ~same afebrile ROS: 10 point ROS as noted above, otherwise negative Physical Exam: GEN: Alert, oriented, NAD CV: Regular rate and rhythm, no edema Pulm: mild labored respirations on room air, +wheeze Neuro: Normal speech, normal affect Problem List: Acute on chronic COPD exacerbation Lactic acidosis, resolved Hypokalemia Hyponatremia Diabetes mellitus type 2 Bipolar disorder/depression Hypertension Hyperlipidemia Acute on chronic COPD exacerbation Lactic acidosis, resolved on admission, presents with worsening shortness of breath, cough, wheeze. Recently admitted (04/25-04/26), did well for couple days but then got worse again. Takes Advair at home CXR (05/02): nonspecific peribronchial thickening without focal consolidation. Possible viral/inflammatory process. lactate improved 5.6 -> 2.6 continue IV steroids continue duonebs, home inhalers Throat lozenges as needed for cough Dr. Albert, pulm consult Hypokalemia Hyponatremia Encourage oral intake monitor and replete as needed NIDDM2 accu-cheks, SSI On semaglutide at home Bipolar disorder/depression Hypertension Hyperlipidemia confirm home meds, restart as appropriate VTE: Lovenox Code: Full Dispo: Home, ~1 day Time Spent Managing Pts Care (In Minutes): 55
--- NOTE | 2024-05-03 12:06 | EKG ---
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
--- NOTE | 2024-05-03 12:17 | P.CNS ---
Date of Consult: 05/03/24 Chief Complaint: COPD exacerbation History of Present Illness: Is 48 years of age with a history of bipolar disorder COPD worsening dyspnea she was recently admitted and discharged went home on Dulera/pleated a course of steroids became worse ended up back in the hospital 4 Allergies cephalexin [From Keflex] Adverse Reaction (Unknown, Verified 04/25/24 15:24) Hives/Rash Penicillins Adverse Reaction (Unknown, Verified 04/25/24 15:24) Hives/Rash Home Medications: Atorvastatin Calcium [Lipitor*] 10 mg PO DAILY 05/02/24 Cariprazine HCl [Vraylar] 1 cap PO DAILY 05/02/24 Ergocalciferol (Vitamin D2) [Vitamin D2] 1 cap PO EVERY 7TH DAY 05/02/24 Fenofibrate 54 mg PO DAILY 05/02/24 Fluticasone Propion/Salmeterol [Advair 250-50 Diskus] 1 puff IH BID 05/02/24 Lamotrigine [Lamictal] 0.5 tab PO DAILY 05/02/24 Lisinopril/Hydrochlorothiazide [Lisinopril-Hctz 20-25 mg Tab] 1 tab PO DAILY 05/02/24 Mometasone/Formoterol [Dulera 100 Mcg-5 Mcg Inhaler] 1 puff IH BID 05/02/24 Montelukast [Singulair*] 10 mg PO DAILY 05/02/24 Sertraline [Zoloft*] 1 tab PO DAILY 05/02/24 - Past Medical/Surgical History Diabetic: Yes -: HTN -: HLD -: COPD -: bipolar -: Depressive disorder -: Deaf -: Tonsillectomy -: Tubal ligation -: cholecystectomy -: section - Family History Father Medical History: Heart disease, Hypertension, Diabetes Mother Medical History: Diabetes, Other (see notes) Notes: Lupus - Social History Smoking Status: Current every day smoker Alcohol use: No CD- Drugs: No Caffeine use: Yes Place of Residence: Home Review of Systems Unremarkable General: Weakness Respiratory: Cough, Shortness of Breath Physical Examination Temp Pulse Resp BP Pulse Ox 97.7 F 89 18 141/67 H 97 05/03/24 08:00 05/03/24 08:00 05/03/24 08:00 05/03/24 08:00 05/03/24 08:00 General: Alert, Oriented x3, Mild distress Respiratory: Expiratory wheezes Cardiovascular: No edema, Regular rate/rhythm, Normal S1 S2 Gastrointestinal: Normal bowel sounds, Soft and benign, Non-distended Laboratory Data (last 24 hrs) 05/02/24 05/02/24 05/02/24 12:56 12:56 12:56 WBC 8.90 Hgb 13.4 Hct 40.2 Plt Count 436 H PT 11.3 INR 0.99 APTT 28.8 Sodium 133 L Potassium 3.0 L BUN 15 Creatinine 1.22 H Glucose 225 H Total Bilirubin 0.3 AST 55 H ALT 54 Alkaline Phosphatase 97 - Problems (1) COPD exacerbation Current Visit: Yes Status: Acute Plan: Patient is 48 years of age admitted with COPD exacerbation she was just recently discharged signs labs all unremarkable patient's vital signs are satisfactory labs are reviewed chest x-ray clear added Daliresp vital signs are all stable I have also added low-dose of azithromycin and scheduled bronchodilators including ipratropium
[2024-05-03] MEDS: AZITHROMYCIN 250 MG TAB PO SCH (13:19)
[2024-05-03] MEDS: ROFLUMILAST 500 MCG TABLET PO SCH (13:19)
[2024-05-03] MEDS: IPRATROPIUM BROM 0.5MG/2.5ML NEB SCH (13:34)
[2024-05-03] MEDS ORDERED: BISACODYL 10 MG RECTAL SUPP PR PRN (20:54)
[2024-05-03] MEDS: DOCUSATE NA 100 MG CAP PO SCH (22:11)
[2024-05-03] MEDS: POLYETHYL GLY 3350 17 GM/DOSE PO SCH (22:11)
[2024-05-04 04:51] LABS: Absolute Lymphocytes (CBC) 0.9 K/uL (0.7-4.9); Absolute Monocytes 0.8 K/uL (0.1-1.3); Absolute Neutrophil 9.5 K/uL (1.8-8.0); Basophils % 0.3 % (0-1.3); Eosinophils % 0.1 % (0-4.4); Hemoglobin 11.3 g/dL (12.0-15.0); Lymphocytes % 8.2 % (15.3-44.8); MCH 27.7 pg (27.0-35.0); MCHC 33.1 g/dL (32.0-36.0); MCV 83.6 fL (80-100); MPV 7.3 fL (7.6-11.3); Monocytes % 6.9 % (3.3-12.3); Neutrophils % 84.5 % (41.7-73.7); Nucleated Red Blood Cells % 0.1 % (0-0); Platelets 380 thou/uL (152-406); RBC Red Blood Cell Count 4.07 M/uL (3.86-4.86); Red Cell Distribution Width 15.1 % (12.1-15.2)
[2024-05-04 05:08] LABS: Anion Gap 10.2 mEq/L (5.0-15.0); Potassium 4.2 mEq/L (3.5-5.1)
[2024-05-04] MEDS ORDERED: OZEMPIC 0.25 MG PO SCH (14:00)
[2024-05-04] MEDS ORDERED: OZEMPIC 2.5 MG PO SCH ×2 (14:00)
[2024-05-04] MEDS: DRISDOL (VITAMIN D=ERGOCALCIFEROL) 50000 UNIT CAP PO SCH (14:26)
[2024-05-04] MEDS: OZEMPIC 0.25 MG SQ SCH (14:27)
--- NOTE | 2024-05-04 14:59 | P.PN ---
Subjective Date of Service: 05/04/24 Chief Complaint: COPD exacerbation Patient reports significant improvement in her shortness of breath. She used CPAP last night. Physical Examination - Vital Signs Temperature: 97.8 F Blood Pressure: 115/61 Pulse: 87 Respirations: 16 Pulse Ox (%): 95 Assessment And Plan - Plan Physical Exam: GEN: Alert, oriented, NAD, morbidly obese CV: Regular rate and rhythm, no edema Pulm: mild labored respirations on room air, +wheeze Neuro: Normal speech, normal affect Problem List: Acute on chronic COPD exacerbation Lactic acidosis, resolved Hypokalemia Hyponatremia Diabetes mellitus type 2 Bipolar disorder/depression Hypertension Hyperlipidemia Acute on chronic COPD exacerbation Lactic acidosis, resolved Recently admitted (04/25-04/26), did well for couple days but then got worse again. CXR (05/02): nonspecific peribronchial thickening without focal consolidation. Possible viral/inflammatory process. lactate improved 5.6 -> 2.6 Lactic acidosis likely secondary to hypoxia. continue IV steroids continue duonebs, home inhalers Pulmonary Dr. Albert input appreciated. Zithromax and Daliresp added. Dr. Albert to follow. Hypokalemia Hyponatremia monitor and replete as needed NIDDM2 accu-cheks, SSI On semaglutide at home. Continuous inpatient at patient's request. Bipolar disorder/depression Hypertension Hyperlipidemia Continue home medications. VTE: Lovenox Code: Full Dispo: Home
[2024-05-05 04:54] LABS: Absolute Lymphocytes (CBC) 1.3 K/uL (0.7-4.9); Absolute Monocytes 0.7 K/uL (0.1-1.3); Absolute Neutrophil 11.2 K/uL (1.8-8.0); Basophils % 0.2 % (0-1.3); Hematocrit 33.5 % (36.0-45.0); Lymphocytes % 9.7 % (15.3-44.8); MCH 27.2 pg (27.0-35.0); MCV 82.6 fL (80-100); MPV 7.4 fL (7.6-11.3); Monocytes % 5.4 % (3.3-12.3); Neutrophils % 84.7 % (41.7-73.7); Platelets 374 thou/uL (152-406); RBC Red Blood Cell Count 4.05 M/uL (3.86-4.86); Red Cell Distribution Width 14.8 % (12.1-15.2)
[2024-05-05 05:12] LABS: Anion Gap 12.1 mEq/L (5.0-15.0); Potassium 4.1 mEq/L (3.5-5.1)
[2024-05-05] MEDS ORDERED: HEPA 1000U/500MLS 0 UNIT/0 ML BAG IV ONE (08:53)
[2024-05-05] MEDS: GUAIFENESIN 600 MG SA TAB PO SCH (13:35)
--- NOTE | 2024-05-05 17:26 | P.PN ---
Subjective Date of Service: 05/05/24 Chief Complaint: COPD exacerbation Patient reports some improvement in his shortness of breath. She states that she was able to ambulate in the hallway but felt quite short of breath with exercise. She has been using CPAP during sleep. Patient was audibly wheezing this morning during my examination. Physical Examination - Vital Signs Temperature: 97.5 F Blood Pressure: 140/65 Pulse: 86 Respirations: 18 Pulse Ox (%): 97 Assessment And Plan - Plan Physical Exam: GEN: Alert, oriented, NAD, morbidly obese CV: Regular rate and rhythm, no edema Pulm: mild labored respirations on room air, bilateral scattered wheezes Neuro: Normal speech, normal affect Problem List: Acute on chronic COPD exacerbation Lactic acidosis, resolved Hypokalemia Hyponatremia Diabetes mellitus type 2 Bipolar disorder/depression Hypertension Hyperlipidemia Acute on chronic COPD exacerbation Lactic acidosis, resolved Recently admitted (04/25-04/26), did well for couple days but then got worse again. CXR (05/02): nonspecific peribronchial thickening without focal consolidation. Possible viral/inflammatory process. lactate improved 5.6 -> 2.6 Lactic acidosis likely secondary to hypoxia. continue IV steroids continue duonebs, home inhalers Pulmonary Dr. Albert input appreciated. Zithromax and Daliresp added. Dr. Albert to follow. Hypokalemia Hyponatremia monitor and replete as needed NIDDM2 accu-cheks, SSI On semaglutide at home. Continuous inpatient at patient's request. Bipolar disorder/depression Hypertension Hyperlipidemia Continue home medications. 05/05 Respiratory status improved. Continue IV steroid, DuoNeb, home inhalers Patient is on Zithromax and Daliresp per Pulmonary Dr. Albert Chest physiotherapy with Mucinex, Acapella. Insulin sliding scale for glucose management. Continue semaglutide. Watch for steroid-induced hyperglycemia. Increase activity as tolerated. VTE: Lovenox Code: Full Dispo: Home
[2024-05-05 18:41] LABS: Phosphorus 4.3 mg/dL (2.5-4.9)
[2024-05-06] MEDS: IPRATROPIUM BROM 0.5MG/2.5ML ONE (00:45)
[2024-05-06] MEDS: ALBUTEROL 2.5 MG/3 ML NEB SOL ONE (00:45)
[2024-05-06 05:20] LABS: Absolute Lymphocytes (CBC) 1.5 K/uL (0.7-4.9); Absolute Monocytes 0.8 K/uL (0.1-1.3); Absolute Neutrophil 10.5 K/uL (1.8-8.0); Basophils % 0.3 % (0-1.3); Hematocrit 35.2 % (36.0-45.0); Hemoglobin 11.5 g/dL (12.0-15.0); Lymphocytes % 11.5 % (15.3-44.8); MCH 27.5 pg (27.0-35.0); MCHC 32.8 g/dL (32.0-36.0); MCV 83.7 fL (80-100); MPV 7.2 fL (7.6-11.3); Nucleated Red Blood Cells % 0.1 % (0-0); Platelets 420 thou/uL (152-406); Red Cell Distribution Width 15.1 % (12.1-15.2)
[2024-05-06 05:24] LABS: Neutrophils % 82.2 % (41.7-73.7)
[2024-05-06 05:35] LABS: Anion Gap 12.1 mEq/L (5.0-15.0); Potassium 4.1 mEq/L (3.5-5.1); Thyroid Stimulating Hormone 0.899 uIU/mL (0.358-3.740)
--- NOTE | 2024-05-06 09:02 | P.DS ---
Admission Date: 05/03/24 Discharge Date: 05/06/24 Disposition: ROUTINE DISCHARGE Discharge Condition: FAIR Reason for Admission: COPD exacerbation Brief History of Present Illness: 48-year-old female with history of bipolar disorder, COPD, depression, hypertension, hyperlipidemia presents emergency department chief complaint of shortness of breath. She was recently hospitalized at our facility from 04/25 to 04/26 for COPD. She was given a 3-day course of steroids. Patient developed shortness of breath with wheezing after she completed a 3-day course of steroids and return to the ED. She was evaluated in the emergency department her labs are significant for a white blood cell count of 8.9 glucose 225 creatinine 1.22 sodium 133 potassium 3.0 lactic acid initially 5.6 repeat pending chest x-ray was obtained which showed nonspecific peribronchial thickening without focal consolidation which could represent a viral or inflammatory process. Patient was given steroids, nebulizer treatment in the ED, and admitted for further evaluation and management of COPD exacerbation. Hospital Course: Problem List: Acute on chronic COPD exacerbation Lactic acidosis, resolved Hypokalemia Hyponatremia Diabetes mellitus type 2 Bipolar disorder/depression Hypertension Hyperlipidemia Patient was admitted to the medical floor and the following medical problems addressed: Acute on chronic COPD exacerbation Lactic acidosis, resolved Recently admitted (04/25-04/26), did well for couple days but then got worse again. CXR (05/02): nonspecific peribronchial thickening without focal consolidation. Possible viral/inflammatory process. lactate improved Lactic acidosis likely secondary to hypoxia. She was treated with IV steroids, duonebs, home inhalers Pulmonary Dr. Albert evaluated patient and assisted with management Patient was placed on Zithromax and Daliresp. Patient respiratory symptoms improved with treatment. She was able to ambulate in the hallway without hypoxia. Overall patient feels clinically improved, stable vitals. Patient deemed stable for discharge. She is prescribed a prednisone taper. Hypokalemia Hyponatremia Corrected NIDDM2 Managed with accu-cheks, SSI Home dose semaglutide. Bipolar disorder/depression Hypertension Hyperlipidemia Continued home medications. Vital Signs/Physical Exam: Temp Pulse Resp BP Pulse Ox 97.1 F 86 17 103/65 97 05/06/24 04:00 05/06/24 04:00 05/06/24 04:00 05/06/24 04:00 05/06/24 04:00 General: Alert, In no apparent distress, Oriented x3, Obese HEENT: Mucous membr. moist/pink Neck: Supple, JVD not distended Respiratory: Clear to auscultation bilaterally, Normal air movement Cardiovascular: No edema, Regular rate/rhythm, Normal S1 S2 Gastrointestinal: Normal bowel sounds, Soft and benign, Non-distended Musculoskeletal: No swelling Integumentary: No rashes, No cyanosis Neurological: Normal speech, Normal strength at 5/5 x4 extr Laboratory Data at Discharge: WBC 12.80 thou/uL (4.3-10.9) H 05/06/24 04:41 Hgb 11.5 g/dL (12.0-15.0) L 05/06/24 04:41 Hct 35.2 % (36.0-45.0) L 05/06/24 04:41 Plt Count 420 thou/uL (152-406) H 05/06/24 04:41 PT 11.3 SECONDS (10.0-13.0) 05/02/24 12:56 INR 0.99 05/02/24 12:56 APTT 28.8 SECONDS (24.3-36.9) 05/02/24 12:56 Sodium 135 mEq/L (136-145) L 05/06/24 04:41 Potassium 4.1 mEq/L (3.5-5.1) 05/06/24 04:41 BUN 29 mg/dL (7-18) H 05/06/24 04:41 Creatinine 1.10 mg/dL (0.55-1.02) H 05/06/24 04:41 Glucose 243 mg/dL (74-106) H 05/06/24 04:41 Phosphorus 4.3 mg/dL (2.5-4.9) 05/05/24 18:15 Magnesium 2.0 mg/dL (1.6-2.4) 05/05/24 18:15 Total Bilirubin 0.3 mg/dL (0.2-1.0) 05/02/24 12:56 AST 55 U/L (15-37) H 05/02/24 12:56 ALT 54 U/L (13-56) 05/02/24 12:56 Alkaline Phosphatase 97 U/L (45-117) 05/02/24 12:56 Home Medications: Atorvastatin Calcium [Lipitor*] 10 mg PO DAILY 05/02/24 Cariprazine HCl [Vraylar] 1 cap PO DAILY 05/02/24 Ergocalciferol (Vitamin D2) [Vitamin D2] 1 cap PO EVERY 7TH DAY 05/02/24 Fenofibrate 54 mg PO DAILY 05/02/24 Lamotrigine [Lamictal] 0.5 tab PO DAILY 05/02/24 Lisinopril/Hydrochlorothiazide [Lisinopril-Hctz 20-25 mg Tab] 1 tab PO DAILY 05/02/24 Mometasone/Formoterol [Dulera 100 Mcg-5 Mcg Inhaler] 1 puff IH BID 05/02/24 Montelukast [Singulair*] 10 mg PO DAILY 05/02/24 Sertraline [Zoloft*] 1 tab PO DAILY 05/02/24 Semaglutide [Ozempic] 0.25 mg SQ EVERY 7TH DAY 05/04/24 Azithromycin Tab [Zithromax*] 250 mg PO DAILY #2 tab 05/06/24 Benzocaine/Menthol [Chloraseptic Sore Throat Lozng] 1 rae PO Q2H PRN #30 rae 05/06/24 Docusate [Colace Cap*] 100 mg PO BID #30 cap 05/06/24 Guaifenesin [Mucinex] 600 mg PO BID #20 tab 05/06/24 Ipratropium/Albuterol Sulfate [Iprat-Albut 0.5-3(2.5) mg/3 ml] 3 ml IH Q6H PRN #120 amp 05/06/24 predniSONE [Deltasone*] 10 mg PO DAILY #30 tab 05/06/24 New Medications: Benzocaine/Menthol [Chloraseptic Sore Throat Lozng] 1 rae PO Q2H PRN #30 rae PRN Reason: Sore Throat Docusate [Colace Cap*] 100 mg PO BID #30 cap predniSONE [Deltasone*] 10 mg PO DAILY #30 tab Ipratropium/Albuterol Sulfate [Iprat-Albut 0.5-3(2.5) mg/3 ml] 3 ml IH Q6H PRN #120 amp PRN Reason: Shortness Of Breath Guaifenesin [Mucinex] 600 mg PO BID #20 tab Azithromycin Tab [Zithromax*] 250 mg PO DAILY #2 tab Followup: Kalpesh Golden MD [ACTIVE - CAN ADMIT] - 1-2 Weeks Time spent managing pt's care (in minutes): 35
[2024-05-06 09:25] VITALS: BP 128/68
[2024-05-06 09:37] VITALS: O2SAT 100
[2024-05-06 10:13] VITALS: TEMP 97.6
[2024-05-09] MEDS ORDERED: DRISDOL (VITAMIN D=ERGOCALCIFEROL) 50000 UNIT CAP PO SCH (09:00)
== END 2024-05-06 10:30 | disposition home or self-care (01) | DRG 191 ==
LOC: ER 12:19 → ERHOLD 16:17 → 4TH 16:59 → OBSVTOIN 05-03 10:56
PROVIDERS: ADMIT Hospitalist; ATTEND Internal Medicine
DX: J44.1 Chronic obstructive pulmonary disease with (acute) exacerbation (principal); E87.1 Hypo-osmolality and hyponatremia; E87.20 Acidosis, unspecified; Z68.43 Body mass index [BMI] 50.0-59.9, adult; E66.01 Morbid (severe) obesity due to excess calories; E87.6 Hypokalemia; F31.9 Bipolar disorder, unspecified; I10 Essential (primary) hypertension; E78.00 Pure hypercholesterolemia, unspecified; F17.200 Nicotine dependence, unspecified, uncomplicated; Z88.0 Allergy status to penicillin; Z88.8 Allergy status to other drugs, medicaments and biological substances; Z88.1 Allergy status to other antibiotic agents; Z79.52 Long term (current) use of systemic steroids; Z90.49 Acquired absence of other specified parts of digestive tract; Z79.899 Other long term (current) drug therapy
CPT/HCPCS: 36415; 71045; 80048; 80053; 82947; 83605; 83735; 83880; 84100; 84443; 84484; 85025; 85610; 85730; 87040; 93005; 94640; 94668; 96374; 99285; G0378; J1650; J1815; J2919; J3535; J7030; J7613; J7644

== ENCOUNTER 2024-10-20 17:44 | Emergency (ER) | payer BC ==
--- OUTSIDE RECORDS SUMMARY | 2024-10-20 17:48 | XMS REPORT | Continuity of Care Document ---
Author Name Unknown Address [address] [facility] [place] [address] [facility] Address [address] [facility] [place] [address] Care Team Providers Care It [facility] [employer] Ass[employer] Senior Manager Name Role Phone Roderickbukwu Yaz PRINCEukwu Primary Care Physician Doctor Unassigned, [place] Attending Clinician U ROC Kulkarni Attending Clinician UnavailRoc Chin MD Attending Clinician [phone] DIOR MALONE Attending Clinician Unavailable Dior Goode Attending Clinician [phone] Franklin Esparza PA-C Attending Clinician [phone] LUCIANO FERNANDEZ Attending Clinician Unavailable Luciano Fernandez DO Attending Clinician [phone] Nurse, [facility] Attending Clinician Un available Brayden Dao MD Attending Clinician [phone] BRAYDEN DAO Attending Clinician Unavailable JENAE MEDINA Attending Clinician UnavailAdrian [facility] Attending Clinician Un available Jenae Castellanos Attending Clinician [phone] LUCIANO FERNANDEZ Admitting Clinician Unavailable BRAYDEN DAO [...] active problems No known active problems Disease [facility] Allergies, Adverse Reactions, Alerts Allergy Name Allergy Type Status Severity Reaction(s) Onset Date Inactive Date Treating Clinician Comments Source cephalex in Propensi ty to adverse reaction to drug Active 09-13 00:00: 00 Nate Alvarenga penicill in G Propensi ty to adverse reaction to drug Active 24 00:00: 00 Nate Alvarenga Diazepam Propensi ty to adverse reaction s Active Other - See comments 2020-03 00:00: 00 Patient stated that "valium knocks me out for 2-3 days" [facility] DIAZEPAM DRUG INGREDI Active Other-Cmnt 2020-03 00:00: 00 [facility] Penicill ins Propensi ty to adverse reaction s Active Anaphylaxis 09-02 00:00: 00 [facility] Penicill ins Propensi ty to adverse reaction s Active Anaphylaxis 09-02 00:00: 00 [facility] Cephalex in Propensi ty to adverse reaction s Active Anaphylaxis 09-02 00:00: 00 [facility] Penicill ins Propensi ty to adverse reaction s Active Anaphylaxis 09-02 00:00: 00 [facility] CEPHALEX IN DRUG INGREDI Active Anaphylaxis 09-02 00:00: 00 [facility] PENICILL INS Drug Class Active Anaphylaxis 09-02 00:00: 00 [facility] PENICILL INS Allergy to substanc e Active [facility] KEFLEX Allergy to substanc e Active [facility] NO KNOWN ALLERGIE S Drug Class Active [facility] Social History Social Habit Start Date Stop Date Quantity Comments Source History of tobacco use Smokes tobacco daily [facility] to SARS-CoV-2 (event) 2021-11-15 00:00:00 2021-11-25 20:45:00 Not sure [facility] History of Social function 2021-11-01 00:00:00 2021-11-01 00:00:00 [facility] Tobacco use and exposure 2021-02-12 00:00:00 2021-02-12 00:00:00 Smokeless tobacco non-user [facility]ly [facility] Sex Assigned At 1975 00:00:00 1975 00:00:00 [facility] Smoking Status Start Date Stop Date Source Former Smoker [facility] Unknown if ever smoked [facility] Smokes tobacco daily 2021-02-12 00:00:00 [facility] Medications Ordered Medication Name Filled Medication Name Start Date Stop Date Current Medication? Ordering Clinician Indication Dosage Frequency Signature (SIG) Comments Components Source Macrobid 100 mg capsule - 00:00: 00 Yes 1mg Nate Alvarenga montelukast 10 mg tablet - 00:00: 00 Yes 1mg Nate Alvarenga gabapentin 100 mg capsule - 00:00: 00 Yes 1mg Nate Alvarenga albuterol sulfate HFA 90 mcg/actuati on aerosol inhaler 09-13 00:00: 00 Yes 1mcg/ac tuation Nate Alvarenga atorvastati n 10 mg tablet 09-13 00:00: 00 Yes 1mg Nate Alvarenga lisinopril 20 mg-hydrochl orothiazide 25 mg tablet 09-13 00:00: 00 Yes 1mg Nate Alvarenga cetirizine 10 mg tablet 08-23 00:00: 00 Yes 1mg Nate Alvarenga prednisone 5 mg tablet 08-23 00:00: 00 Yes 1mg Nate Alvarenga fluticasone propionate 50 mcg/actuati on nasal spray,suspe nsion 08-23 00:00: 00 Yes 1mcg/ac tuation Nate Alvarenga meloxicam 15 mg tablet 6-06 00:00: 00 Yes 1mg Nate Alvarenga cyclobenzap rine 10 mg tablet 6-06 00:00: 00 Yes 1mg Nate Alvarenga Elimite 5 % topical cream 4-11 00:00: 00 Yes 1% Nate Alvarenga Elimite 5 % topical cream 4-04 00:00: 00 Yes 1% Nate Alvarenga roflumilast 500 mcg tablet 3-31 00:00: 00 Yes 1mcg Nate Alvarenga cetirizine 10 mg tablet 3-17 00:00: 00 Yes 1mg Nate Alvarenga azithromyci n 250 mg tablet 3-17 00:00: 00 Yes 1mg Nate Alvarenga fluconazole 150 mg tablet 3-17 00:00: 00 Yes mg Nate Alvarenga azithromyci n 250 mg tablet 2-24 00:00: 00 Yes 1mg Nate Alvarenga Liletta 20.4 mcg/24 hr (up to 8 years) 52 mg intrauterin e device Take by intrauterin e route. Liletta 20.4 mcg/24 hr (up to 8 years) 52 mg intrauterin e device Take by intrauterin e route. 2-11 00:00: 00 No Liletta 20.4 mcg/24 hr (up to 8 years) 52 mg intrauteri ne device Take by intrauteri ne route. [facility] diclofenac 75 mg EC tablet 11-26 00:00: 00 Yes [id number] 75mg Take 1 tablet by mouth in the morning and 1 tablet in the evening. Take with meals. [facility] ketorolac (TORADOL) injection 30 mg 11-01 23:15: 00 11-01 22:13 :00 No [id number] 30mg [facility] cyclobenzap rine 10 mg tablet 11-01 00:00: 00 Yes [id number] 10mg Take 1 tablet by mouth 3 (three) times daily as needed for Muscle Spasms. [facility] methylpredn isolone sod succ (SOLU-MEDRO L) injection 125 mg 06-26 23:00: 00 Yes 125mg 125 mg, Intravenou s, Q6H, First dose on Fri06/26/21 at 1800, Until Discontinu ed, Routine [facility] ipratropium -albuteroL (DUONEB) 0.5 mg-3 mg(2.5 mg base)/3 mL nebulizer solution 3 mL 06-26 18:15: 00 06-26 17:55 :00 No 3mL 3 mL, Inhalation , ONCE, 1 dose, On Fri06/26/21 at 1315, Routine [facility] ipratropium -albuteroL (DUONEB) 0.5 mg-3 mg(2.5 mg base)/3 mL nebulizer solution 3 mL 06-26 17:00: 00 Yes 3mL 3 mL, Inhalation , QID, First dose on Fri06/26/21 at 1200, Until Discontinu ed, Routine [facility] methylPREDN ISolone (MEDROL, BELÉN,) 4 mg tablets 06-26 00:00: 00 Yes [id number] Take by mouth SEE-INSTRU CTIONS. follow package directions [facility] albuterol 2.5 mg /3 mL (0.083 %) nebulizer solution 4-26 00:00: 00 07-11 04:59 :00 No [id number] 2.5mg Inhale 3 mL every 4 (four) hours for 14 days. May also nebulize one extra every 6 hours. [facility] LISINOPRIL ORAL 2020-03 1 11:27: 32 Yes Take by mouth. [facility] LISINOPRIL ORAL 09-02 19:24: 49 Yes Take by mouth. [facility] sertraline HCl (ZOLOFT ORAL) 09-02 19:24: 49 Yes Take by mouth. [facility] quetiapine fumarate (SEROQUEL ORAL) 09-02 19:24: 49 Yes Take by mouth. [facility] MAGNESIUM ORAL 09-02 19:24: 49 Yes Take by mouth. [facility] atorvastati n calcium (ATORVASTAT IN ORAL) 09-02 19:24: 49 Yes Take by mouth. [facility] traMADoL 50 mg tablet 09-02 00:00: 00 Yes [id number] 50mg Take 1 tablet by mouth every 4 (four) hours as needed (pain requiring narcotic). Indication s: acute pain [facility] albuterol sulfate 2.5 mg/3 mL (0.083 %) [...] times a day by nebulizati on route. [facility] albuterol sulfate HFA 90 mcg/actuati on aerosol inhaler Inhale 2 puffs every 4 hours by inhalation route. albuterol sulfate HFA 90 mcg/actuati on aerosol inhaler Inhale 2 puffs every 4 hours by inhalation route. No 2puff(s ) Q4H albuterol sulfate HFA 90 mcg/actuat ion aerosol inhaler Inhale 2 puffs every 4 hours by inhalation route. [facility] atorvast[facility] n 10 mg tablet Take 1 tablet every day by oral route. atorvastati n 10 mg tablet Take 1 tablet every day by oral route. No 1 Q1D atorvastat in 10 mg tablet Take 1 tablet every day by oral route. [facility] bupropion HCl 150 mg tablet,12 hr sustained-r elease(smok ing deterrent) Take 1 tablet twice a day by oral route. bupropion HCl 150 mg tablet,12 hr sustained-r elease(smok ing deterrent) Take 1 tablet twice a day by oral route. No 1 BID bupropion HCl 150 mg tablet,12 hr sustained- release(sm oking deterrent) Take 1 tablet twice a day by oral route. [facility] doxepin 100 mg capsule Take 1 capsule every day by oral route. doxepin 100 mg capsule Take 1 capsule every day by oral route. No 1capsul e(s) Q1D doxepin 100 mg capsule Take 1 capsule every day by oral route. [facility] ergocalcife rol (vitamin D2) 1,250 mcg (50,000 unit) capsule Take by oral route. ergocalcife rol (vitamin D2) 1,250 mcg (50,000 unit) capsule Take by oral route. No ergocalcif yazmin (vitamin D2) 1,250 mcg (50,000 unit) capsule Take by oral route. [facility] fenofibrate 54 mg tablet Take 1 tablet every day by oral route. fenofibrate 54 mg tablet Take 1 tablet every day by oral route. No 1 Q1D fenofibrat e 54 mg tablet Take 1 tablet every day by oral route. [facility] gabapentin 100 mg capsule Take 1 capsule 3 times a day by oral route. gabapentin 100 mg capsule Take 1 capsule 3 times a day by oral route. No 1capsul e(s) TID gabapentin 100 mg capsule Take 1 capsule 3 times a day by oral route. [facility] lisinopril 20 mg-hydrochl orothiazide 25 mg tablet Take 1 tablet every day by oral route. lisinopril 20 mg-hydrochl orothiazide 25 mg tablet Take 1 tablet every day by oral route. No 1 Q1D lisinopril 20 mg-hydroch lorothiazi de 25 mg tablet Take 1 tablet every day by oral route. [facility] montelukast 10 mg tablet Take 1 tablet every day by oral route. montelukast 10 mg tablet Take 1 tablet every day by oral route. No 1 Q1D montelukas t 10 mg tablet Take 1 tablet every day by oral route. [facility] Ozempic 0.25 mg or 0.5 mg (2 mg/3 mL) subcutaneou s pen injector Inject by subcutaneou s route. Ozempic 0.25 mg or 0.5 mg (2 mg/3 mL) subcutaneou s pen injector Inject by subcutaneou s route. No Ozempic 0.25 mg or 0.5 mg (2 mg/3 mL) subcutaneo us pen injector Inject by subcutaneo us route. [facility] Rexulti 2 mg tablet Take 1 tablet every day by oral route. Rexulti 2 mg tablet Take 1 tablet every day by oral route. No 1 Q1D Rexulti 2 mg tablet Take 1 tablet every day by oral route. [facility] sertraline 100 mg tablet Take 1 tablet every day by oral route. sertraline 100 mg tablet Take 1 tablet every day by oral route. No 1 Q1D sertraline 100 mg tablet Take 1 tablet every day by oral route. [facility] varenicline tartrate 1 mg tablet Take 1 tablet twice a day by oral route. varenicline tartrate 1 mg tablet Take 1 tablet twice a day by oral route. No 1 BID vareniclin e tartrate 1 mg tablet Take 1 tablet twice a day by oral route. [facility] imiquimod 5 % topical cream packet APPLY TO THE AFFECTED AREA(S) BY TOPICAL ROUTE 3 TIMES PER WEEK @ bedtime imiquimod 5 % topical cream packet APPLY TO THE AFFECTED AREA(S) BY TOPICAL ROUTE 3 TIMES PER WEEK @ bedtime No imiquimod 5 % topical cream packet APPLY TO THE AFFECTED AREA(S) BY TOPICAL ROUTE 3 TIMES PER WEEK @ bedtime [facility] Vital Signs Vital Name Observation Time Observation Value Comments S ource BP Systolic 2024-04-13 00:00:00 144 mm[Hg] [facility] Body Weight 2024-04-13 00:00:00 272 [lb_av] [facility] Height 2024-04-13 00:00:00 61 [in_i] [facility] BP Diastolic 2024-04-13 00:00:00 76 mm[Hg] [facility] BMI (Body Mass Index) 2024-04-13 00:00:00 51.4 kg/m2 [facility] BP Diastolic 2024-04-07 00:00:00 60 mm[Hg] [facility] [...] [facility] Heart rate 2021-11-26 19:12:00 92 /min [facility] Body height 2021-11-26 19:12:00 152.4 cm [facility] Body weight 2021-11-26 19:12:00 100.699 kg [facility] BMI 2021-11-26 19:12:00 43.36 kg/m2 [facility] Systolic blood pressure 2021-11-01 21:38:00 116 mm[Hg] [facility] Diastolic blood pressure 2021-11-01 21:38:00 72 mm[Hg] [facility] Heart rate 2021-11-01 21:38:00 100 /min [facility] Body temperature 2021-11-01 21:38:00 36.56 Ftaou [facility] Respiratory rate 2021-11-01 21:38:00 18 /min [facility] Body height 2021-11-01 21:38:00 152.4 cm [facility] Body weight 2021-11-01 21:38:00 100.699 kg [facility] BMI 2021-11-01 21:38:00 43.36 kg/m2 [facility] Oxygen saturation in Arterial blood by Pulse oximetry 2021-11-01 21:38:00 95 /min [facility] Respiratory rate 2021-06-26 18:06:00 18 /min [facility] Oxygen saturation in Arterial blood by Pulse oximetry 2021-06-26 18:06:00 100 /min [facility] Systolic blood pressure 2021-06-26 18:00:00 149 mm[Hg] [facility] Diastolic blood pressure 2021-06-26 18:00:00 81 mm[Hg] [facility] Heart rate 2021-06-26 18:00:00 80 /min [facility] Body temperature 2021-06-26 16:10:00 36.67 Fatou [facility] Body weight 2021-06-26 16:10:00 91.173 kg [facility] BMI 2021-06-26 16:10:00 39.26 kg/m2 [facility] Systolic blood pressure 2021-06-26 15:17:00 166 mm[Hg] [facility] Diastolic blood pressure 2021-06-26 15:17:00 97 mm[Hg] [facility] Heart rate 2021-06-26 15:17:00 87 /min [facility] Body temperature 2021-06-26 15:17:00 36.56 Fatou [facility] Respiratory rate 2021-06-26 15:17:00 28 /min [facility] Oxygen saturation in Arterial blood by Pulse oximetry 2021-06-26 15:17:00 99 /min [facility] Body height 2021-03-07 19:06:00 152.4 cm [facility] Body weight 2021-03-07 19:06:00 91.173 kg [facility] BMI 2021-03-07 19:06:00 39.26 kg/m2 [facility] Systolic blood pressure 2021-03-07 19:06:00 119 mm[Hg] [facility] Diastolic blood pressure 2021-03-07 19:06:00 76 mm[Hg] [facility] Heart rate 2021-03-07 19:06:00 84 /min [facility] Systolic blood pressure 2021-02-12 20:52:00 120 mm[Hg] [facility] Diastolic blood pressure 2021-02-12 20:52:00 75 mm[Hg] [facility] Heart rate 2021-02-12 20:52:00 70 /min [facility] Body height 2021-02-12 20:52:00 152.4 cm [facility] Body weight 2021-02-12 20:52:00 91.173 kg [facility] BMI 2021-02-12 20:52:00 39.26 kg/m2 [facility] Oxygen saturation in Arterial blood by Pulse oximetry 2021-02-12 20:52:00 97 /min [facility] Systolic blood pressure 2020-09-02 19:21:00 115 mm[Hg] [facility] Diastolic blood pressure 2020-09-02 19:21:00 69 mm[Hg] [facility] Heart rate 2020-09-02 19:21:00 95 /min [facility] Body temperature 2020-09-02 19:21:00 36.72 Fatou [facility] Respiratory rate 2020-09-02 19:21:00 18 /min [facility] Body height 2020-09-02 19:21:00 152.4 cm [facility] Body weight 2020-09-02 19:21:00 153.316 kg [facility] BMI 2020-09-02 19:21:00 66.01 kg/m2 [facility] Oxygen saturation in Arterial blood by Pulse oximetry 2020-09-02 19:21:00 97 /min [facility] BP Systolic 2024-10-09 10:31:00 134 mm[Hg] Step hen F [facility] BP Diastolic 2024-10-09 10:31:00 73 mm[Hg] [facility] phen F [facility] Weight Measured 2024-10-09 10:31:00 254.20 pounds Nate F Lyle Height Measured 2024-10-09 10:31:00 61.00 inches Ntae F [facility] Body Temperature 2024-10-09 10:31:00 97.60 degrees Nate F Lyle Heart Rate 2024-10-09 10:31:00 86.00 /min Shannan en F Lyle Respiratory Rate 2024-10-09 10:31:00 20.00 /min Nate F Lyle BP Systolic 2024-09-13 15:45:00 140 mm[Hg] Step hen F Lyle BP Diastolic 2024-09-13 15:45:00 59 mm[Hg] [place] phen F [facility] Weight Measured 2024-09-13 15:45:00 257.60 pounds Nate F Lyle Height Measured 2024-09-13 15:45:00 61.00 inches Nate F Lyle Body Temperature 2024-09-13 15:45:00 97.60 degrees Nate F Lyle Heart Rate 2024-09-13 15:45:00 91.00 /min Shannan en F Lyle Respiratory Rate 2024-09-13 15:45:00 20.00 /min Nate F Lyle BP Systolic 2024-08-25 14:08:00 132 mm[Hg] Step hen F Lyle BP Diastolic 2024-08-25 14:08:00 81 mm[Hg] [place] phen F [facility] Weight Measured 2024-08-25 14:08:00 254.60 pounds Nate F Lyle Height Measured 2024-08-25 14:08:00 61.00 inches Nate F Lyle Body Temperature 2024-08-25 14:08:00 97.90 degrees Nate F Lyle Heart Rate 2024-08-25 14:08:00 89.00 /min Shannan en F Lyle Respiratory Rate 2024-08-25 14:08:00 18.00 /min Nate F Lyle Weight Measured 2024-08-23 15:55:00 258.40 pounds Nate F Lyle Height Measured 2024-08-23 15:55:00 61.00 inches Nate F Lyle Body Temperature 2024-08-23 15:55:00 97.80 degrees Nate F Lyle Heart Rate 2024-08-23 15:55:00 92.00 /min Shannan en F Lyle Respiratory Rate 2024-08-23 15:55:00 20.00 /min Nate F Lyle BP Systolic 2024-08-23 15:55:00 119 mm[Hg] Step hen F Lyle BP Diastolic 2024-08-23 15:55:00 80 mm[Hg] [place] phen F [facility] BP Systolic 2024-08-20 16:54:00 135 mm[Hg] Step hen F Lyle BP Diastolic 2024-08-20 16:54:00 79 mm[Hg] [place] phen F [facility] Weight Measured 2024-08-20 16:54:00 261.00 pounds Nate F Lyle Height Measured 2024-08-20 16:54:00 61.00 inches Nate F Lyle Body Temperature 2024-08-20 16:54:00 98.00 degrees Nate F Lyle Heart Rate 2024-08-20 16:54:00 84.00 /min Shannan en F Lyle Respiratory Rate 2024-08-20 16:54:00 18.00 /min Nate F Lyle BP Systolic 2024-08-09 15:22:00 131 mm[Hg] Step hen F Lyle BP Diastolic 2024-08-09 15:22:00 58 mm[Hg] [place] phen F [facility]yle Weight Measured 2024-08-09 15:22:00 259.00 pounds Nate F Lyle Height Measured 2024-08-09 15:22:00 61.00 inches Nate F Lyle Body Temperature 2024-08-09 15:22:00 98.00 degrees Nate F Lyle Heart Rate 2024-08-09 15:22:00 90.00 /min Shannan en F Lyle Respiratory Rate 2024-08-09 15:22:00 18.00 /min Nate F Lyle BP Systolic 2024-08-06 16:49:00 136 mm[Hg] Step hen F Lyle BP Diastolic 2024-08-06 16:49:00 70 mm[Hg] [place] phen F [facility]yle Weight Measured 2024-08-06 16:49:00 260.00 pounds Nate F Lyle Height Measured 2024-08-06 16:49:00 61.00 inches Nate F Lyle Body Temperature 2024-08-06 16:49:00 97.50 degrees Nate F Lyle Heart Rate 2024-08-06 16:49:00 87.00 /min Shannan en F Lyle Respiratory Rate 2024-08-06 16:49:00 18.00 /min Nate F Lyle BP Systolic 2024-06-11 10:13:00 144 mm[Hg] Step hen F Lyle BP Diastolic 2024-06-11 10:13:00 89 mm[Hg] [place] phen F [facility] Weight Measured 2024-06-11 10:13:00 270.00 pounds Nate F Lyle Height Measured 2024-06-11 10:13:00 61.00 inches Nate F Lyle Body Temperature 2024-06-11 10:13:00 98.10 degrees Nate F Lyle Heart Rate 2024-06-11 10:13:00 95.00 /min Shannan en F Lyle Respiratory Rate 2024-06-11 10:13:00 18.00 /min Nate F Lyle BP Systolic 2024-06-04 17:53:00 120 mm[Hg] Step hen F Lyle BP Diastolic 2024-06-04 17:53:00 61 mm[Hg] [place] phen F [facility]yle Weight Measured 2024-06-04 17:53:00 267.00 pounds Nate F Lyle Height Measured 2024-06-04 17:53:00 61.00 inches Nate F Lyle Body Temperature 2024-06-04 17:53:00 98.10 degrees Nate F Lyle Heart Rate 2024-06-04 17:53:00 102.00 /min Step hen F Lyle Respiratory Rate 2024-06-04 17:53:00 18.00 /min Nate F Lyle BP Systolic 2024-05-17 15:22:00 157 mm[Hg] Step hen F Ylle BP Diastolic 2024-05-17 15:22:00 88 mm[Hg] [place] phen F Lyel Weight Measured 2024-05-17 15:22:00 271.60 pounds Nate F Lyle Height Measured 2024-05-17 15:22:00 61.00 inches Nate F Lyle Body Temperature 2024-05-17 15:22:00 97.10 degrees Nate F Lyle Heart Rate 2024-05-17 15:22:00 96.00 /min Shannan en F Lyle Respiratory Rate 2024-05-17 15:22:00 18.00 /min Nate F Lyle Heart Rate 2024-04-26 16:25:00 90.00 /min Shannan en F Lyle Respiratory Rate 2024-04-26 16:25:00 16.00 /min Nate F Lyle BP Systolic 2024-04-26 16:25:00 152 mm[Hg] Step hen F Lyle BP Diastolic 2024-04-26 16:25:00 82 mm[Hg] [place] phen F [facility]yle Weight Measured 2024-04-26 16:25:00 276.20 pounds Nate F Lyle Height Measured 2024-04-26 16:25:00 Nate F Lyle Body Temperature 2024-04-26 16:25:00 97.30 degrees Nate F Lyle BP Systolic 2024-04-26 16:20:00 152 mm[Hg] Step hen F Lyle BP Diastolic 2024-04-26 16:20:00 82 mm[Hg] Bryan phen F Lyle Weight Measured 2024-04-26 16:20:00 276.20 pounds Nate F Lyle Height Measured 2024-04-26 16:20:00 61.00 inches Nate F Lyle Body Temperature 2024-04-26 16:20:00 97.30 degrees Nate F Lyle Heart Rate 2024-04-26 16:20:00 90.00 /min Shannan en F Lyle Respiratory Rate 2024-04-26 16:20:00 16.00 /min Nate Anderson [facility] Procedures Procedure Date / Time Performed Performing Clinician Source US TRANSVAGINAL 2024-04-22 00:00:00 [facility] Hysteroscopy Biopsy 2024-03-26 00:00:00 [facility] US TRANSVAGINAL 2024-02-20 00:00:00 [facility] EXTERNAL PROVIDER RECORDS 2022-04-16 06:01:00 Do ctor Unassigned, [place] [facility] EXTERNAL PROVIDER RECORDS 2021-12-18 05:01:00 Do ctor Unassigned, [place] [facility] CONSENT/REFUSAL FOR DIAGNOSIS AND TREATMENT 2021-11-26 18:55:25 Doctor Unassigned, [place] [facility] AUTHORIZATION FOR RELEASE OF PHI 2021-11-16 05:01:00 Doctor Unassigned, [place] [facility] XR CHEST 1 VW 2021-06-26 17:15:00 Singer Luciano [facility] RAPID INFLUENZA A/B 2021-06-26 16:59:00 Charlie Fernandez [facility] COVID-19 (ID NOW RAPID TESTING) 2021-06-26 16:59:00 Luciano Fernandez [facility] LIPASE 2021-06-26 16:29:00 [facility] TROPONIN I 2021-06-26 16:29:00 Singer [facility] COMP. METABOLIC PANEL ([id number]) 2021-06-26 16:29:[address] [facility] [place] [place] CBC WITH DIFF 2021-06-26 16:29:00 Singer [facility] PROTHROMBIN TIME / INR 2021-06-26 16:29:00 Rigo Fernandez [facility] ACTIVATED PARTIAL THRMPLAS AMRIT 2021-06-26 16:29:[address] [facility] [place] [place] CONSENT/REFUSAL FOR DIAGNOSIS AND TREATMENT 2021-06-26 16:02:56 Doctor Unassigned, [place] [facility] NOTICE OF PRIVACY PRACTICES 2021-06-26 16:01:28 Doctor Unassigned, [place] [facility] TRANSTHORACIC ECHO (TTE) COMPLETE 2021-03-07 19:33:58 SylwiaBrayden [facility] CONSENT/REFUSAL FOR DIAGNOSIS AND TREATMENT 2020-09-02 19:14:51 Doctor Unassigned, [place] [facility] Tubal Ligation 2008-03-03 00:00:00 [facility] Delivery 2008-03-03 00:00:00 [facility] Delivery 1995-03-03 00:00:00 [facility] Tonsillectomy [facility] Cholecystectomy [facility] Encounters Start Date/Time End Date/Time Encounter Type Admission Type Attending [facility] Facility Care Department Encounter ID Source 2024-10-09 10:24:35 2024-10-09 10:24:35 Outpatient [facility] [id number] Nate Alvarenga 2024-10-09 00:00:00 2024-10-09 00:00:[address] [facility] [id number] Nate Alvarenga 2024-09-13 15:35:57 2024-09-13 15:35:[address] [facility] [id number] Nate Alvarenga 2024-09-13 00:00:00 2024-09-13 00:00:00 Outpatient Visit [facility] [id number] Nate Alvarenga 2024-08-25 00:00:00 2024-08-25 00:00:[address] [facility] [id number] Nate Alvarenga 2024-08-23 15:48:46 2024-08-23 15:48:[address] [facility] [id number] Nate Alvarenga 2024-08-23 00:00:00 2024-08-23 00:00:00 Outpatient Visit [facility] [id number] Nate Alvarenga 2024-08-20 16:48:39 2024-08-20 16:48:39 Outpatient SFA SFA [id number] Nate Alvarenga 2024-08-20 00:00:00 2024-08-20 00:00:00 Outpatient Visit [facility] [id number] Nate Alvarenga 2024-08-09 15:10:24 2024-08-09 15:10:24 Outpatient SFA SFA [id number] Nate Alvarenga 2024-08-09 00:00:00 2024-08-09 00:00:00 Outpatient Visit [facility] [id number] Nate Alvarenga 2024-08-06 16:36:47 2024-08-06 16:36:47 Outpatient SFA SFA [id number] Nate Alvarenga 2024-08-06 00:00:00 2024-08-06 00:00:00 Outpatient Visit SFA [id number] Nate Alvarenga 2024-06-11 10:01:51 2024-06-11 10:01:51 Outpatient SFA SFA [id number] Nate Alvarenga 2024-06-11 00:00:00 2024-06-11 00:00:00 Outpatient Visit SFA [id number] Nate Alvarenga 2024-06-04 17:44:43 2024-06-04 17:44:43 Outpatient SFA SFA [id number] Nate Alvarenga 2024-06-04 00:00:00 2024-06-04 00:00:00 Outpatient Visit SFA [id number] Nate Alvarenga 2024-05-17 15:09:24 2024-05-17 15:09:24 Outpatient SFA SFA [id number] Nate Alvarenga 2024-05-17 00:00:00 2024-05-17 00:00:00 Outpatient Visit SFA [id number] Nate Alvarenga 2024-04-26 15:49:10 2024-04-26 15:49:[address] [facility] [id number] Nate Alvarenga 2024-04-26 00:00:00 2024-04-26 00:00:[address] [facility] [id number] Nate Alvarenga 2024-04-22 00:00:00 2024-04-22 00:00:00 Lela Garduno MD: [address], [address] , Ph. [facility] - GC_GCBZW_[facility]* [id number] [facility] 2024-04-13 00:00:00 2024-04-13 00:00:00 Lela Garduno MD: [address], [place] [address] , [facility]. [facility]GCBZW[facility]* [id number] [facility] 2024-04-07 00:00:00 2024-04-07 00:00:00 SURESH Rodriguez: [address], [place] [address] , Ph. [facility] GC_GCBZW_[facility]* [id number] [facility] 2024-03-26 00:00:00 2024-03-26 00:00:00 Lela Garduno MD: [address], [place] [address] , Ph. [facility] GC_GCBZW_[facility]* [id number] [facility] 2024-03-04 00:00:00 2024-03-04 00:00:00 SURESH Rodriguez: [address], [place] [id number] , Ph. [facility]BZ[facility]* [id number] [facility] 2024-02-20 00:00:00 2024-02-20 00:00:00 Lela Garduno MD: [address], [place] [address] , Ph. [facility]BZ[facility]* [id number] [facility] 2024-02-19 00:00:00 2024-02-19 00:00:00 Gcbzw Ultrasound : [address], [place] [address] , Ph. [facility] GC[facility]GCBZ[facility]* [id number] [facility] 2024-02-11 00:00:00 2024-02-11 00:00:00 Lela Garduno MD: [address], [place] [address] , Ph. [facility]BZ[facility]* [id number] [facility] 2022-04-16 00:00:00 2022-04-16 00:00:00 Orders Only Doctor Unassigned, [place] [address].840.114 350.1.13.10 4.2.7.2.686 [id number] [facility] 2021-12-18 00:00:00 2021-12-18 00:00:00 Orders Only Doctor Unassigned, [place] [address].840.114 350.1.13.10 4.2.7.2.686 [id number] [facility] 2021-11-26 14:15:00 2021-11-26 14:57:11 Outpatient R [facility] [id number] [facility] 2021-11-26 14:15:00 2021-11-26 14:57:11 Office Visit Roc Louis [facility] [place] 1.2840.114 350.1.13.10 4.2.7.2.686 [id number] [facility] 2021-11-26 00:00:00 2021-11-26 00:00:00 Telephone [facility] 1.284.114 350.1.13.10 4.2.7.2.686 [id number] [facility] 2021-11-26 00:00:00 2021-11-26 00:00:00 Orders Only Doctor Unassigned, [place] [facility] 1.2840.114 350.1.13.10 4.2.7.2.686 [id number] [facility] 2021-11-26 00:00:00 2021-11-26 00:00:00 Letter (Out) Roc Louis [facility] 1.284.114 350.1.13.10 4.2.7.2.686 [id number] [facility] 2021-11-23 00:00:00 2021-11-23 00:00:00 Telephone [place] [facility] 1.284.114 350.1.13.10 4.2.7.2.686 [id number] [facility] 2021-11-16 00:00:00 2021-11-16 00:00:00 Orders Only Doctor Unassigned, [place] [facility] 1.20.114 350.1.13.10 4.2.7.2.686 [id number] [facility] 2021-11-01 16:20:00 2021-11-01 17:15:15 Outpatient R DIOR MALONE [facility] [id number] [facility] 2021-11-01 16:20:00 2021-11-01 17:15:15 [facility] 1.84114 350.1.13.10 4.2.7.2.686 [id number] [facility] 2021-06-26 11:11:00 2021-06-26 13:46:00 Emergency X [facility] [id number] [facility] 2021-06-26 11:11:00 2021-06-26 13:46:00 [facility] 1.114 350.1.13.10 4.2.7.2.686 [id number] [facility] 2021-06-26 10:50:00 2021-06-26 11:10:00 Nurse Visit Nurse, Adrian Patiño [facility] Ryan [facility] 1.840.114 350.1.13.10 4.2.7.2.686 [id number] [facility] 2021-06-26 10:50:00 2021-06-26 10:50:00 Outpatient R DIOR MALONE [facility] [id number] [facility] 2021-06-26 00:00:00 2021-06-26 00:00:00 Orders Only Doctor Unassigned, [place] [facility] 1.84.114 350.1.13.10 4.2.7.2.686 [id number] [facility] 2021-06-25 19:20:00 2021-06-25 19:20:00 Outpatient R [facility] [id number] [facility] 2021-03-08 00:00:00 2021-03-08 00:00:00 Patient Secure M[facility] 1.2.840.114 350.1.13.10 4.2.7.2.686 [id number] [facility] 2021-03-07 12:56:41 2021-03-07 23:59:00 Outpatient R BHARGAV DAOHUGH [facility] [id number] [facility] 2021-03-07 12:56:41 2021-03-07 23:59:00 [facility] 1.2.840.114 350.1.13.10 4.2.7.2.686 [id number] [facility] 2021-02-27 15:00:00 2021-02-27 15:00:00 Outpatient R BHARGAV DAOHUGH [facility] [id number] [facility] 2021-02-27 15:00:00 2021-02-27 15:00:00 Outpatient R BHARGAV DAOHUGH [facility] [id number] [facility] 2021-02-19 00:00:00 2021-02-19 00:00:00 Telephone Sylwia [facility] 1.2.840.114 350.1.13.10 4.2.7.2.686 [id number] [facility] 2021-02-12 14:42:56 2021-02-12 15:15:38 Office Visit Sylwia [facility] BU[facility] 1.2.840.114 350.1.13.10 4.2.7.2.686 [id number] [facility] 2021-02-12 14:40:00 2021-02-12 15:15:38 Outpatient R SYLWIA [facility] [id number] [facility] 2021-02-12 00:00:00 2021-02-12 00:00:00 [facility] (Out[facility] 1..840.114 350.1.13.10 4.2.7.2.686 [id number] [facility] 2021-02-12 00:00:00 2021-02-12 00:00:00 Orders Only Doctor Unassigned, [place] [facility] 1..840.114 350.1.13.10 4.2.7.2.686 [id number] [facility] 2020-09-02 14:40:00 2020-09-02 14:40:00 Outpatient R [facility] [id number] [facility] 2020-09-02 14:15:28 2020-09-02 14:35:28 Urgent Care Provider, [facility] 1..840.114 350.1.13.10 4.2.7.2.686 [id number] [facility] 2020-09-02 00:00:00 2020-09-02 00:00:00 Orders Only Doctor Unassigned, [place] [facility] 1.2.840.114 350.1.13.10 4.2.7.2.686 [id number] [facility] Results Test Description Test Time Test Comments Results Result Co mments Source Nate AlvarengaCOMPREHENSIVE METABOLIC [id number] 00:00:00* Test Item Value Reference Range Interpretation Comme nts GLUCOSE (test code = 2345-7) 106 mg/dL UREA NITROGEN (BUN) (test code = 3094-0) 7 mg/dL CREATININE (test code = 2160-0) 0.77 mg/dL EGFR (test code = 72327-8) 95 mL/min/1.73m2 BUN/CREATININE RATIO (test code = 3097-3) SEE NOTE: (calc) SODIUM (test code = 2951-2) 139 mmol/L POTASSIUM (test code = 2823-3) 3.7 mmol/L CHLORIDE (test code = 2075-0) 103 mmol/L CARBON DIOXIDE (test code = 2027-9) 27 mmol/L CALCIUM (test code = 65241-9) 9.3 mg/dL PROTEIN, TOTAL (test code = 2885-2) 6.9 g/dL ALBUMIN (test code = 1751-7) 4.0 g/dL GLOBULIN (test code = 63198-9) 2.9 g/dL(calc) ALBUMIN/GLOBULIN RATIO (test code = 1759-0) 1.4 (calc) BILIRUBIN, TOTAL (test code = 1975-2) 0.3 mg/dL ALKALINE PHOSPHATASE (test code = 6768-6) 81 U/L AST (test code = 1920-8) 16 U/L ALT (test code = 1742-6) 21 U/L Nate Anderson AustinURINALYSIS [id number] 00:00:00* Test Item Value Reference Range Interpretation Comme nts COLOR (test code = 5778-6) YELLOW APPEARANCE (test code = 5767-9) CLOUDY SPECIFIC GRAVITY (test code = 5811-5) 1.021 PH (test code = 5803-2) 5.5 GLUCOSE (test code = 48491-3) NEGATIVE BILIRUBIN (test code = 5770-3) NEGATIVE KETONES (test code = 2514-8) NEGATIVE OCCULT BLOOD (test code = 5794-3) NEGATIVE PROTEIN (test code = 46884-9) NEGATIVE NITRITE (test code = 5802-4) NEGATIVE LEUKOCYTE ESTERASE (test cod e = 5799-2) 2+ WBC (test code = 5821-4) 6-10 /HPF RBC (test code = 03423-1) NONE SEEN /HPF SQUAMOUS EPITHELIAL CELLS (test code = 59016-0) 20-40 /HPF TRANSITIONAL EPITHELIAL CELL S (test code = 86031-1) DNR /HPF RENAL EPITHELIAL CELLS (test code = 99936-3) DNR /HPF BACTERIA (test code = 5769-5) MANY /HPF CALCIUM OXALATE CRYSTALS (te st code = 25714-5) DNR /HPF TRIPLE PHOSPHATE CRYSTALS (test code = 48212-3) DNR /HPF URIC ACID CRYSTALS (test cod e = 43678-8) DNR /HPF AMORPHOUS SEDIMENT (test cod e = 8246-1) DNR /HPF CRYSTALS (test code = 37422-9) DNR /HPF HYALINE CAST (test code = 5796-8) NONE SEEN /LPF GRANULAR CAST (test code = 5793-5) DNR /LPF CASTS (test code = 9842-6) DNR /LPF YEAST (test code = 5822-2) DNR /HPF COMMENTS (test code = 8251-1) DNR Nate AlvarengaVITAMIN D,25-OH,TOTAL,[id number] 00:00:00* Test Item Value Reference Range Interpretation Comme nts VITAMIN D,25-OH,TOTAL,IA (te st code = 59873-7) 59 ng/mL Nate AlvarengaLIPID [id number] 00:00:00* Test Item Value Reference Range Interpretation Comme nts CHOLESTEROL, TOTAL (test cod e = 2093-3) 146 mg/dL HDL CHOLESTEROL (test code = 2085-9) 44 mg/dL TRIGLYCERIDES (test code = 2571-8) 158 mg/dL LDL-CHOLESTEROL (test code = 51154-9) 77 mg/dL(calc) CHOL/HDLC RATIO (test code = 9830-1) 3.3 (calc) NON HDL CHOLESTEROL (test code = 18249-3) 102 mg/dL(calc) Nate Alvarengapregnancy test, [id number] 08:58:15* Test Item Value Reference Range Interpretation Comme nts HCG (test code = HCG) negative [facility], [id number] 09:33:37* Test Item Value Reference Range Interpretation Comme nts HCG (test code = HCG) negative [facility] MedicalFollitropin [Units/volume] in Serum or [id number] 00:00:00* Test Item Value Reference Range Interpretation Comme nts FSH (test code = FSH) 11.7 mIU/mL [facility] MedicalEstradiol (E2) [Mass/volume] in Serum or [id number] 00:00:00 * Test Item Value Reference Range Interpretation Comme nts estradiol (test code = estradiol) 27.8 pg/mL 6.1-91.9 [facility], apt HPV,rfx 16/18,[id number] 00:00:00* Test Item Value Reference Range Interpretation Comme nts diagnosis: (test code = diagnosis:) SPRCS specimen adequacy: (test cod e = specimen adequacy:) SPRCS performed by: (test code = p erformed by:) SPRCS note: (test code = note:) PAPSMR test methodology: (test code = test methodology:) IGLPAP HPV aptima (test code = HPV aptima) NEGATIVE negative [facility] Medicalinfectious disease [id number] 00:00:00* Test Item Value Reference Range Interpretation [...] B, tet M) 15.274 ppm 23.000-27.778 A [facility] WITH [id number] 17:25:10* Test Item Value Reference Range Interpretation [...] 33.1 g/dL 31.6-35.1 RDW-SD (test code = 36722-8) 44.8 fL 39.0-49.9 RDW-CV (test code = 788-0) 13.8 % 12.0-15.5 PLT (test code = 777-3) See_Comment [Automated message] The system which generated this result transmitted reference range: 166 - 358 10*3/?L. The reference range was not used to interpret this result as normal/abnormal. MPV (test code = 05841-0) 9.2 fL 9.5-12.9 L NRBC/100 WBC (test code = 5453599713) See_Comment [Automated message] The system which generated this result transmitted reference range: 0.0 - 10.0 /100 WBCs. The reference range was not used to interpret this result as normal/abnormal. NRBC x10^3 (test code = 0093491128) <0.01 See_Comment [Automated message] The system which generated this result transmitted reference range: 10*3/?L. The reference range was not used to interpret this result as normal/abnormal. GRAN MAT (NEUT) % (test code = 770-8) 83.8 % IMM GRAN % (test code = 6805464910) 3.10 % LYMPH % (test code = 736-9) 8.7 % MONO % (test code = 5905-5) 4.3 % EOS % (test code = 713-8) 0.0 % BASO % (test code = 706-2) 0.1 % GRAN MAT x10^3(ANC) (test code = 9061393517) 11.27 10*3/uL 1.88-7.09 H IMM GRAN x10^3 (test code = 3610284652) 0.42 10*3/uL 0.00-0.06 H LYMPH x10^3 (test code = 731-0) 1.17 10*3/uL 1.32-3.29 L MONO x10^3 (test code = 742-7) 0.58 10*3/uL 0.33-0.92 EOS x10^3 (test code = 711-2) <0.03 0.03-0.39 L BASO x10^3 (test code = 704-7) <0.03 0.01-0.07 Lab Interpretation (test code = 17684-8) Abnormal [facility] [id number] 17:15:24* Test Item Value Reference Range Interpretation Comments TROPONIN I (test code = 3364926200) 0.002 ng/mL See_Comment [Automated message] The system [...] of biotin. Lab Interpretation (test code = 40543-7) Normal [facility]. METABOLIC PANEL (67050)2021-06-26 17:12:03* Test Item Value Reference Range Interpretation Comme nts NA (test code = 8471331125) 134 mmol/L 135-145 L K (test code = 8106295738) 4.1 mmol/L 3.5-5.0 CL (test code = 1955688755) 103 mmol/L 98-108 CO2 TOTAL (test code = 3606468056) 20 mmol/L 23-31 L AGAP (test code = 9483912619) 2-16 BUN (test code = 5170005176) 14 mg/dL 7-23 GLUCOSE (test code = 6952354814) 151 mg/dL 70-110 H CREATININE (test code = 2680101146) 0.65 mg/dL 0.50-1.04 TOTAL BILI (test code = 7261465328) 0.4 mg/dL 0.1-1.1 CALCIUM (test code = 0476508661) 8.7 mg/dL 8.6-10.6 T PROTEIN (test code = 4811913888) 6.4 g/dL 6.3-8.2 ALBUMIN (test code = 4027956487) 3.9 g/dL 3.5-5.0 ALK PHOS (test code = 4638462835) 82 U/L 34-122 ALTv (test code = 1742-6) 24 U/L 5-35 AST(SGOT) (test code = 9002229044) 17 U/L 13-40 eGFR (test code = 8039048838) mL/min/1.73m2 ABRAHAM (test code = ABRAHAM) Association [...] imaging tests). Lab Interpretation (test code = 55792-9) Abnormal [facility] [id number] 17:05:20* Test Item Value Reference Range Interpretation Comme [facility] LIPASE (test code = 0616371446) 75 U/L 0-220 Lab Interpretation (test cod e = 55630-8) Normal [facility]2022-04-26 17:00:21* Test Item Value Reference Range Interpretation Comme [facility] APTT Patient (test code = 3173-2) See_Comment [Automated message] The system which generated this result transmitted reference range: 23 - 38 Seconds. The reference range was not used to interpret this result as normal/abnormal. ABRAHAM (test code = ABRAHAM) The [facility] patient population mean normal value for aPTT is 30 seconds. Lab Interpretation (test code = 96983-2) Normal [facility] HospitalPROT[facility]OMBIN TIME / [id number] 16:58:23* Test Item Value Reference Range Interpretation Comme brianda VEE PATIENT (test code = 5964-2) See_Comment [Automated messa ge] The system which generated this result transmitted reference range: 12.0 - 14.7 Seconds. The reference range was not used to interpret this result as normal/abnormal. INR (test code = 6301-6) Normal INR <1.1; Warfarin Therapeutic range 2.0 to 3.0 or 2.5 to 3.5, depending upon the indications. Lab Interpretation (test code = 22293-7) Normal [facility] Notes Date/Time Note Provider Source [facility]2025-07-14 00:00:00 [facility]2025-06-25 00:00:00 [facility]2025-06-23 00:00:00 [facility]2025-06-20 00:00:00 [facility]2025-06-09 00:00:00 [facility]2025-06-06 00:00:00 [facility]2025-04-11 00:00:00 [facility]2025-04-04 00:00:00 [facility]2025-03-17 00:00:00 [facility]2025-02-24 00:00:00 [facility]
[2024-10-20 18:31] LABS: Absolute Lymphocytes (CBC) 2.6 K/uL (0.7-4.9); Hematocrit 37.1 % (36.0-45.0); Hemoglobin 12.2 g/dL (12.0-15.0); MCH 25.8 pg (27.0-35.0); MCHC 33.0 g/dL (32.0-36.0); MCV 78.3 fL (80-100); MPV 6.8 fL (7.6-11.3); Nucleated RBC Absolute Count 0.0 (0-0); Nucleated Red Blood Cells % 0.0 % (0-0); RBC Red Blood Cell Count 4.74 M/uL (3.86-4.86); White Blood Count 10.40 thou/uL (4.3-10.9)
[2024-10-20 18:40] LABS: PT Prothrombin Time 13.0 SECONDS (10-13.0); Protime INR 1.16
[2024-10-20 18:48] LABS: Influenza A Ag Negative; Influenza B Ag Negative; SARS-CoV-2 Antigen Rapid Res Negative (Negative)
[2024-10-20 18:55] LABS: ALT/SGPT 35 U/L (13-56); AST/SGOT 16 U/L (15-37); Albumin 3.3 g/dL (3.4-5.0); Albumin/Globulin Ratio 0.8 (1.1-1.8); Alkaline Phosphatase 78 U/L (45-117); Anion Gap 11.3 mEq/L (5.0-15.0); BUN Blood Urea Nitrogen 13 mg/dL (7-18); Globulin 4.0 g/dL (2.3-3.5); Glucose Level 142 mg/dL (74-106); Magnesium 1.7 mg/dL (1.6-2.4); NT PRO-BNP 22 pg/mL (<125); Potassium 3.3 mEq/L (3.5-5.1); Troponin High Sensitivity 10.0 pg/mL (<58.9)
[2024-10-20 18:56] LABS: Bilirubin Indirect, Calculated 0.1 mg/dL (0.2-0.8)
[2024-10-20] MEDS ORDERED: ASPIRIN 81 MG CHEWABLE TABLET ONE (19:17)
[2024-10-20] MEDS ORDERED: IPRATROPIUM BROM 0.5MG/2.5ML ONE (19:17)
[2024-10-20] MEDS ORDERED: ALBUTEROL 2.5 MG/3 ML NEB SOL ONE (19:17)
--- NOTE | 2024-10-20 19:34 | RAD REPORT ---
EXAMINATION: ONE VIEW CHEST XR CLINICAL INDICATION: Female, 48 years old.,CHEST PAIN TECHNIQUE: Frontal chest projection is submitted. Examination is limited by patient positioning and t echnique. COMPARISON: 05/20/2024 FINDINGS: The lungs are well inflated and clear. No pneumothorax or sizable effusion. The heart is normal in s ize. Mediastinal contours are unremarkable. IMPRESSION: No acute intrathoracic abnormalities.
--- NOTE | 2024-10-20 19:51 | ER ---
Nurse's Notes [facility] Name: Airam Glasgow Age: 48 yrs Sex: Female : 1975 Arrival Date: 10/20/2024 Time: 17:44 Bed 14 Private MD: Diagnosis: Acute bronchitis, unspecified Presentation: 10/20 17:59 Chief complaint: Patient states: shortness of breath, cough onset last night. pt states cm10 that she had left sided chest pain under left breast that has resolved. Coronavirus screen: Client denies travel out of the [place] in the last 14 days. Ebola Screen: Patient denies travel to an Ebola-affected area in the 21 days before illness onset. Initial Sepsis Screen: Does the patient meet any 2 criteria? No. Patient's initial sepsis screen is negative. Does the patient have a suspected source of infection? No. Patient's initial sepsis screen is negative. Risk Assessment: Do you want to hurt yourself or someone else? Patient reports no desire to harm self or others. Onset of symptoms was October 20, 2024. 17:59 Method Of Arrival: Ambulatory 10 17:59 Acuity: ADALGISA 3 cm10 Triage Assessment: 18:01 General: Appears in no apparent distress. comfortable, Behavior is calm, cooperative. cm10 Neuro: No deficits noted. Level of Consciousness is awake, alert, obeys commands, Oriented to person, place, time, situation, Appropriate for age. Respiratory: No deficits noted. Airway is patent Respiratory effort is even, unlabored, Respiratory pattern is regular, symmetrical. MANAGER TRANSFER: 19:31 Not kj2 Historical: - Allergies: 18:00 Keflex; cm10 18:00 PENICILLINS; cm10 18:00 CEPHALOSPORINS; cm10 - PMHx: 18:00 Bipolar disorder; COPD; Deaf; depressive disorder; High Cholesterol; Hypertensive cm10 disorder; - PSHx: 18:00 section; Cholecystectomy; Ligation of fallopian tube; Tonsillectomy; cm10 - Immunization history:: Adult Immunizations up to date. - Infectious Disease History:: Denies. - Social history:: Smoking status: Patient denies any tobacco usage or history of. Screenin:30 [facility] ED Fall Risk Assessment (Adult) History of falling in the last 3 months, kj2 including since admission No falls in past 3 months (0 pts) Confusion or Disorientation No (0 pts) Intoxicated or Sedated No (0 pts) Impaired Gait No (0 pts) Mobility Assist Device Used No (0 pt) Altered Elimination No (0 pt) Score/Fall Risk Level 0 - 2 = Low Risk Maintained a safe environment, Hourly rounding (assess needs \T\ fall precautionary measures) done. Abuse screen: Denies threats or abuse. Denies injuries from another. Nutritional screening: No deficits noted. Tuberculosis screening: No symptoms or risk factors identified. Assessment: 19:25 General: Appears in no apparent distress. Behavior is cooperative. Pain: Complains of kj2 pain in chest. 19:29 Pain: Pain does not radiate. Pain currently is 4 out of 10 on a pain scale. Pain began kj2 gradually. Neuro: Level of Consciousness is awake, alert, obeys commands, Oriented to person, place, time, situation. Cardiovascular: Patient's skin is warm and dry. Respiratory: Airway is patent Respiratory effort is even, unlabored. GI: No signs and/or symptoms were reported involving the gastrointestinal system. : No signs and/or symptoms were reported regarding the genitourinary system. 19:57 Reassessment: Patient appears in no apparent distress at this time. Patient and/or kj2 family updated on plan of care and expected duration. Pain level reassessed. Patient is alert, oriented x 3, equal unlabored respirations, skin warm/dry/pink. Vital Signs: 17:59 BP 125 / 71; Pulse 91; Resp 19; Temp 97.2(TE); Pulse Ox 97% on R/A; Weight 117.93 kg; cm10 Height 5 ft. 1 in. ; 19:32 BP 128 / 66; Pulse 79; Resp 20; Pulse Ox 100% on R/A; kj2 17:59 Body Mass Index 49.13 (117.93 kg, 154.94 cm) cm10 ED Course: 17:46 Patient arrived in ED. im 17:47 Emma Dumont PA-C is PHCP. sb4 17:47 Elkin Gudino MD is Attending Physician. sb4 18:00 Triage completed. cm10 18:01 Arm band placed on right wrist. Patient placed in waiting room. cm10 18:25 COVID-19 Ag + Flu A+B Ag Sent. bc6 18:25 Basic Metabolic Panel Sent. bc6 18:25 CBC with Diff Sent. 6 18:25 LFT's Sent. 6 18:25 Magnesium Sent. bc6 18:25 NT PRO-BNP Sent. 6 18:25 PT-INR Sent. bc6 18:25 Troponin HS Sent. bc6 18:26 Initial lab(s) drawn, by me, sent to lab. Inserted saline lock: 20 gauge in right bc6 antecubital area, using aseptic technique. Blood collected. Flushed with 10 mL NS. 18:35 XRAY Chest (1 view) In Process Unspecified. EDMS 18:54 Abeba Hernandez, RN is Primary Nurse. kj2 19:31 Patient has correct armband on for positive identification. Provided Education on: call kj2 light. Client placed on continuous cardiac and pulse oximetry monitoring. NIBP monitoring applied. monitoring manager on. Pulse ox on. NIBP on. 19:40 EKG done, by meteorological technician. ts3 19:57 No provider procedures requiring assistance completed. IV discontinued, intact, kj2 bleeding controlled, No redness/swelling at site. Pressure dressing applied. 19:58 Patient maintains SpO2 saturation greater than 95% on room air. kj2 Administered Medications: 19:23 Drug: Aspirin PO Chewable Tablet 324 mg PO once; 81 mg tablets x 4 Route: PO; kj2 19:58 Follow up: Response: No adverse reaction kj2 19:23 Drug: DuoNeb Nebulize (3:1) (2.5 mg - 0.5 mg) 3 ml Nebulizer once Route: Nebulizer; kj2 19:58 Follow up: Response: No adverse reaction kj2 20:11 Drug: Potassium PO Effervescent Tablet 25 mEq PO once; dissolve in 4 ounces of water or kj2 juice Route: PO; 20:12 Follow up: Response: Medication administered at discharge. kj2 20:11 Drug: predniSONE PO 40 mg PO once Route: PO; kj2 20:12 Follow up: Response: Medication administered at discharge. kj2 Medication: 19:31 VIS not applicable for this client. kj2 Outcome: 19:50 Discharge ordered by . sb4 19:58 Discharged to home ambulatory, kj2 19:58 Condition: stable 19:58 Discharge instructions given to patient, Instructed on discharge instructions, follow up and referral plans. Demonstrated understanding of instructions, follow-up care, 20:28 Patient left the ED. kj2 Signatures: Dispatcher [employer] Emma Link PA-C PA-C sb4 Meryl Bragg 6 Janine Carvalho Clarissa, RN RN cm10 Abeba Hernandez RN RN kj2 Heather Figueroa ts3
--- NOTE | 2024-10-20 19:51 | EDPHYS ---
Physician Documentation [facility] Name: Airam Glasgow Age: 48 yrs Sex: Female : 1975 Arrival Date: 10/20/2024 Time: 17:44 Bed 14 Private MD: ED Physician Elkin Gudino HPI: 10/20 18:16 This 48 yrs old Female presents to ER via Ambulatory with complaints of Cough, Chest sb4 Pain, Shortness Of Breath. 18:16 Left-sided chest pain that began last night, worse with inspiration. States that today sb4 she developed a dry cough and shortness of breath. States that she has a history of COPD and tends to get bronchitis easily. States that she did use her rescue inhaler earlier but did not improve her symptoms. She denies any radiation of the pain. Denies any cardiac history. Does not smoke. ORTHO/PROSTHETIC AIDE: 19:31 Not kj2 Historical: - Allergies: 18:00 Keflex; cm10 18:00 PENICILLINS; cm10 18:00 CEPHALOSPORINS; cm10 - PMHx: 18:00 Bipolar disorder; COPD; Deaf; depressive disorder; High Cholesterol; Hypertensive cm10 disorder; - PSHx: 18:00 section; Cholecystectomy; Ligation of fallopian tube; Tonsillectomy; cm10 - Immunization history:: Adult Immunizations up to date. - Infectious Disease History:: Denies. - Social history:: Smoking status: Patient denies any tobacco usage or history of. ROS: 18:16 Constitutional: Negative for fever, chills, and weight loss, sb4 18:16 Cardiovascular: Positive for chest pain, 18:16 Respiratory: Positive for cough, with no reported sputum, shortness of breath, 18:16 All other systems are negative, Exam: 18:17 Constitutional: This is a well developed, well nourished patient who is awake, alert, sb4 and in no acute distress. Head/Face: Normocephalic, atraumatic. Eyes: Extra-ocular motions intact. Periorbital areas with no swelling, redness, or edema. ENT: Mucous membranes moist. Cardiovascular: Regular rate and rhythm with a normal S1 and S2. Respiratory: No increased work of breathing, no retractions or nasal flaring. Abdomen/GI: Soft, non-tender, no distension. Skin: Warm, dry with normal turgor. Normal color with no rashes, no lesions, and no evidence of cellulitis. 18:17 Respiratory: Breath sounds: are clear throughout, Vital Signs: 17:59 BP 125 / 71; Pulse 91; Resp 19; Temp 97.2(TE); Pulse Ox 97% on R/A; Weight 117.93 kg; cm10 Height 5 ft. 1 in. ; 19:32 BP 128 / 66; Pulse 79; Resp 20; Pulse Ox 100% on R/A; kj2 17:59 Body Mass Index 49.13 (117.93 kg, 154.94 cm) cm10 MDM: 17:47 Medical Screening Exam initiated sb4 18:17 Differential Diagnosis: Bronchitis Influenza Upper Respiratory Infection Viral Syndrome sb4 Pneumonia Other ACS, COPD exacerbation. Historians other than the Patient: Daughter/Son: son. 18:59 Independent interpretation of the following test(s) in the Emergency Department X-Ray: sb4 My interpretation is My interpretation of the chest x-ray images is no acute consolidation or evidence of lobar pneumonia. 19:17 Data reviewed: vital signs, nurses notes, lab test result(s), EKG, radiologic studies, sb4 and as a result, I will discharge patient. Consideration of Admission/Observation Escalation of care including admission/observation considered. Care significantly affected by the following chronic conditions: Diabetes, Hypertension. Counseling: I had a detailed discussion with the patient and/or guardian regarding the historical points, exam findings, and any diagnostic results supporting the discharge/admit diagnosis, lab results, radiology results, the need for outpatient follow up, for definitive care, to return to the emergency department if symptoms worsen or persist or if there are any questions or concerns that arise at home. 10/20 18:01 Order name: Basic Metabolic Panel; Complete Time: 18:57 sb4 10/20 18:01 Order name: CBC with Diff sb4 10/20 18: Order name: LFT's; Complete Time: 18:57 sb4 10/20 18:01 Order name: Magnesium; Complete Time: 18:57 sb4 10/20 18: Order name: NT PRO-BNP; Complete Time: 18:57 sb4 10/20 18:01 Order name: PT-INR; Complete Time: 18:45 sb4 10/20 18: Order name: Troponin HS; Complete Time: 18:57 sb4 10/20 18:01 Order name: COVID-19 Ag + Flu A+B Ag; Complete Time: 18:49 sb4 10/20 18:01 Order name: XRAY Chest (1 view); Complete Time: 19:35 sb4 10/20 18:01 Order name: Cardiac monitoring; Complete Time: 19:40 sb4 10/20 18:01 Order name: EKG - Nurse/Tech; Complete Time: 19:40 sb4 10/20 18:01 Order name: IV Saline Lock; Complete Time: 18:25 sb4 10/20 18:01 Order name: Labs collected and sent; Complete Time: 18:25 sb4 10/20 18:01 Order name: O2 Per Protocol; Complete Time: 19:23 sb4 10/20 18:01 Order name: O2 Sat Monitoring; Complete Time: 19:40 sb4 EC:40 Rate is 81 beats/min. Rhythm is regular, Normal Sinus Rhythm. IL interval is normal at sb4 162 msec. QRS interval is normal at 92 msec. QT interval is normal at 364 msec. No Q waves. T waves are Normal. No ST changes noted. Clinical impression: No evidence of ischemia. Interpreted by me. Reviewed by me. Administered Medications: 19:23 Drug: Aspirin PO Chewable Tablet 324 mg PO once; 81 mg tablets x 4 Route: PO; kj2 19:58 Follow up: Response: No adverse reaction kj2 19:23 Drug: DuoNeb Nebulize (3:1) (2.5 mg - 0.5 mg) 3 ml Nebulizer once Route: Nebulizer; kj2 19:58 Follow up: Response: No adverse reaction kj2 20:11 Drug: Potassium PO Effervescent Tablet 25 mEq PO once; dissolve in 4 ounces of water or kj2 juice Route: PO; 20:12 Follow up: Response: Medication administered at discharge. kj2 20:11 Drug: predniSONE PO 40 mg PO once Route: PO; kj2 20:12 Follow up: Response: Medication administered at discharge. kj2 Disposition: 10/21 13:52 Co-signature as Attending Physician, Elkin Gudino MD I agree with the assessment and ashley plan of care. Disposition Summary: 10/20/24 19:50 Discharge Ordered Notes: Location: Home sb4 Problem: new sb4 Symptoms: have improved sb4 Condition: Stable sb4 Diagnosis - Acute bronchitis, unspecified sb4 Followup: sb4 - With: Emergency Department - When: As needed - Reason: Trouble breathing, Worsening of condition Discharge Instructions: - Discharge Summary Sheet sb4 - Acute Bronchitis, Adult sb4 Forms: - Patient Portal Instructions sb4 - Leadership Thank You Letter sb4 - Work release form kj2 Prescriptions: - Prednisone 20 mg Oral Tablet - take 1 tablet ORAL route every 12 hours for 5 days; 10 tablet; Refills: 0, sb4 Product Selection Permitted Signatures: Dispatcher [employer] EDMS Elkin Gudino MD MD cha Brown, Sophia, PA-C PASunitaC sb4 Divine Garibay, RN RN cm10 Abeba Hernandez, RN RN kj2 Corrections: (The following items were deleted from the chart) 10/20 18:01 18:01 BASIC METABOLIC PANEL+C.LAB.BRZ ordered. EDMS EDMS 18:01 18:01 CBC+H.LAB.BRZ ordered. EDMS EDMS 18:01 18:01 HEPATIC FUNCTION+C.LAB.BRZ ordered. EDMS EDMS 18:01 18:01 MAGNESIUM+C.LAB.BRZ ordered. EDMS EDMS 18:01 18:01 PROBNP+C.LAB.BRZ ordered. EDMS EDMS 18:01 18:01 PROTIME (+INR)+COAG.LAB.BRZ ordered. EDMS EDMS 18:01 18:01 Troponin High Sensitivity+C.LAB.BRZ ordered. EDMS EDMS 18:01 18:01 COVID-19 Ag + Flu A+B Ag+I.LAB.BRZ ordered. EDMS EDMS 18:02 18:02 Chest Single View+RAD.RAD.BRZ ordered. EDMS EDMS
[2024-10-20] MEDS ORDERED: predniSONE 20 MG TAB ONE (20:00)
[2024-10-20] MEDS ORDERED: POTASSIUM 25 MEQ EFFERV TAB ONE (20:01)
[2024-10-21 03:20] VITALS: TEMP 97.2
[2024-10-21 03:22] VITALS: BP 128/66; O2SAT 100
== END 2024-10-20 20:28 | disposition home or self-care (01) ==
LOC: ER 17:44
DX: J20.9 Acute bronchitis, unspecified (principal); J44.9 Chronic obstructive pulmonary disease, unspecified; I10 Essential (primary) hypertension; Z11.52 Encounter for screening for COVID-19; Z88.0 Allergy status to penicillin; Z88.1 Allergy status to other antibiotic agents
CPT/HCPCS: 93005; 85025; 80048; 36415; 83735; 85610; 80076; 84484; 83880; 71045; 99285; 87428; J7512; J7613; J7644